=== PATIENT | female | born 1940 | race American Indian/Alaskan Native ===

== ENCOUNTER 2018-01-15 18:08 | Inpatient (IN) | payer MEDICARE, OTHER ==
[2018-01-15 18:14] VITALS: BMI 21.7
--- NOTE | 2018-01-15 18:37 | ED PDOC ---
Arrival/HPI - General Chief Complaint: Wound Check Time Seen by Provider: 01/15/18 18:22 Historian: Patient - History of Present Illness Narrative History of Present Illness (Text): 01/15/18 18:25 Otis Canela is a 77 year old female, whose past medical history includes hypertension and severe dementia, who presents to the Emergency department for further evaluation at the instruction of home health nurse for left buttock decubitis wound, worse past 2 days. Visiting home health nurse was evaluating patient and became alarmed after seeing wound, instructed patient to present to Emergency department for further evaluation. Patient's sister, who lives with patient and is her weigh box tender, states the wound now expresses with yellow/brown discharges, + foul odor, no gross blood. Patient has severe dementia, does not recognize location, has difficulty recognizing family members at times and does not know day and time. Patient has no new medical complaints: no fever/chills/ sweats, chest pain/shortness of breath/palpitations, abdominal pain/nausea/ vomiting, altered behavior, fall/trauma/sick contact; pt is here for further eval; pt's without other complaints. PMD: pt lives at home with sister, sister is POA Time/Duration: > week (left sacral wound worsened past 2 days) Symptom Onset: Gradual Symptom Course: Worsening Activities at Onset: Light Context: Home Past Medical History - Provider Review Nursing Documentation Reviewed: Yes - Travel History Have you recently traveled outside [place] w/in the past 3 mons?: No - Past History Past History: No Previous - Infectious Disease Hx of Infectious Diseases: None - Reproductive Menopause: Yes Currently : No - Cardiac Hx Hypertension: Yes - Musculoskeletal/Rheumatological Hx Osteoporosis: Yes - Psychiatric Hx Substance Use: No - Anesthesia Hx Anesthesia: No Family/Social History - Physician Review Nursing Documentation Reviewed: Yes Family/Social History: No Known Family HX Smoking Status: Unknown If Ever Smoked Hx Alcohol Use: No Hx Substance Use: No Hx Substance Use Treatment: No Allergies/Home Meds Allergies/Adverse Reactions: Allergies No Known Allergies Allergy (Verified 01/15/18 18:13) Review of Systems - Physician Review All systems were reviewed & negative as marked: Yes - Review of Systems Constitutional: Normal. absent: Fevers, Night Sweats Eyes: Normal ENT: Normal Respiratory: Normal. absent: SOB Cardiovascular: Normal. absent: Chest Pain, Palpitations Gastrointestinal: Normal. absent: Abdominal Pain, Diarrhea, Nausea, Vomiting Genitourinary Female: Normal Musculoskeletal: Normal. absent: Back Pain, Neck Pain Skin: Ulcer (left sacral decubitis wound, worsened past 2 days). absent: Normal Neurological: Normal Endocrine: Normal Hemo/Lymphatic: Normal Psychiatric: Normal Physical Exam - Physical Exam Narrative Physical Exam (Text): 01/15/18 18:36 General: alert/awake, GCS = 15, oriented x 1 (not to date/time), resting in bed , uncomfortable, cooperative, interactive; NAD Head: NC/AT; bi-temporal wasting EYE: PERRLA, EOMI, sclera anicteric, no nystagmus, no photophobia; visual field intact b/l Facial: WNL Oral: uvula/tongue are midline, no exudate/lesions, no drooling/stridor, no dysphonia; poor dentitions NECK: intact ROM, no midline tenderness, no nuchal rigidity, no meningeal signs ; no step off Chest: CTA b/l, no w/r/r; no tachypenia, no accessory muscle use noted Cardiac: +S1, +S2, no m/r/r, no tachycardia Abdominal: +BS, soft/nd/nt, thin patient; no masses/rebound/guarding/rigidity; no su's sign, no mcburney's point tenderness Extremities: intact ROM, strength 5/5 grossly intact in all limbs, neurovasc intact b/l; no romel's sign b/l, no pitting edema noted b/l BACK: no step off, no midline tenderness, NO crepitus, no gross deformities noted; Intact ROM SKIN: cap refill ~ 1 sec, + ulcerations noted to left gluteal region - 1) smaller/oval shape 1x3 cm, with eschar formation, NON-flutuant/induration/ tenderness, no surrounding skin erythema; 2) larger, near circular decubitus ulcer/wound with expressible pus/discharge, deep wound, 4.5cmx4.5cm, + yellow/ brown discharge, non-bloody, + foul smelling, no surrounding skin erythema noted ; no petechiae, no rashes; mild pallor NEURO: CNII-XII WNL, no facial asymmetries, no slurr speech, oriented x 1 (not to date/time) NIH stroke scale ~ 0 Psych: normal insight, normal affect; follows command with ease Vital Signs Reviewed: Yes Vital Signs Temp Pulse Resp BP Pulse Ox 01/15/18 19:35 98.2 F 67 18 126/73 100 01/15/18 18:14 98.4 F 74 18 128/61 97 Temperature: Afebrile Blood Pressure: Normal Pulse: Regular Respiratory Rate: Normal Appearance: Positive for: Well-Appearing, Non-Toxic, Comfortable. No: Ill- Appearing, Uncomfortable Pain Distress: None Mental Status: Positive for: other (dementia, oriented x 1 (not to date/time/ place)) - Systems Exam Head: Present: Atraumatic, Normocephalic Medical Decision Making ED Course and Treatment: 01/15/18 18:37 Impression: left gluteal ulcer/wound i have consider all the differential diagnosis regarding pt's chief medical complaints/clinical findings, including but are not limited to: wound infection A/P: left gluteal ulcer/wound -- Labs -- EKG -- X-Ray of chest -- Vancomycin -- Zosyn -- supportive care -- observe/reevaluation 01/15/18 19:35 pt remained at baseline mental status pt is comfortable family members are at bedside family/patient are made aware of pt's medical results agrees with admission 01/15/18 19:52 hospitalists, Dr Mora contacted, made aware, will see patient at bedside, agrees with ED mgt/txt, agrees with admission; would like wound culture ordered for further eval. Re-evaluation Time: 19:32 Reassessment Condition: Re-examined, Unchanged - Lab Interpretations Lab Results: 01/15/18 19:15 01/15/18 19:15 Lab Results 01/15/18 19:15: Sodium 138, Potassium 3.9, Chloride 97 L, Carbon Dioxide 35 H, Anion Gap 10, BUN 32 H, Creatinine 1.2, Est GFR ( Amer) 53, Est GFR (Non- Af Amer) 44, Random Glucose 98, Calcium 8.9, Phosphorus 3.2, Magnesium 2.3 H, Total Bilirubin 0.3, AST 38 H, ALT 45, Alkaline Phosphatase 95, Troponin I < 0.01, NT-Pro-B Natriuret Pep 507 H, Total Protein 6.8, Albumin 3.3, Globulin 3.5 , Albumin/Globulin Ratio 0.9 L 01/15/18 19:15: PT 11.0, INR 0.97, APTT 23.5 L 01/15/18 19:15: WBC 9.7 D, RBC 3.32 L, Hgb 10.1 L, Hct 30.1 L, MCV 90.7, MCH 30.4, MCHC 33.6, RDW 12.6, Plt Count 249, MPV 9.6, Gran % 70.5 H, Lymph % (Auto ) 21.3 L, [place] % (Auto) 8.0 H, Eos % (Auto) 0.1 L, Baso % (Auto) 0.1, Gran # 6.84 H, Lymph # (Auto) 2.1, [place] # (Auto) 0.8 H, Eos # (Auto) 0.0, Baso # (Auto ) 0.01, ESR Pending I have reviewed the lab results: Yes Interpretation: All labs normal - RAD Interpretation Narrative RAD Interpretations (Text): 01/15/18 20:38 pelvis xray - no acute fx/dislocation, as read by me cxr - NAD, as read by me Radiology Orders: 01/15/18 18:42 CHEST ONE VIEW [RAD] Stat PELVIS ONE VIEW [RAD] Stat Worm Grower: ED Physician - EKG Interpretation EKG Interpretation (Text): 01/15/18 19:50 NSR at 70 bpm, normal axis, no ectopy, no st-t changes, borderline EKG; unchanged compare with old ekg 09/2015 Interpreted by ED Physician: Yes Type: 12 lead EKG Comparison: Similar to previous EKG - Medication Orders Current Medication Orders: Discontinued Medications Vancomycin HCl (Vancomycin 1gm) 1 gm in 250 mls @ 167 mls/hr IVPB STAT STA PRN Reason: Protocol Stop: 01/15/18 20:10 Piperacillin Sod/Tazobactam Sod (Zosyn 3.375 In Ns 100ml) 100 mls @ 200 mls/hr IVPB STAT STA PRN Reason: Protocol Stop: 01/15/18 19:09 Last Admin: 01/15/18 19:30 Dose: 200 mls/hr eMAR Start Stop Document 01/15/18 19:30 RG (Rec: 01/15/18 19:35 RG [id number]) Intravenous Solution Start Date 01/15/18 Start Time 19:30 - Scribe Statement The provider has reviewed the documentation as recorded by the Scribe Myah Irizarry All medical record entries made by the Scribe were at my direction and personally dictated by me. I have reviewed the chart and agree that the record accurately reflects my personal performance of the history, physical exam, medical decision making, and the department course for this patient. I have also personally directed, reviewed, and agree with the discharge instructions and disposition. Disposition/Present on Arrival - Present on Arrival Any Indicators Present on Arrival: No History of DVT/PE: No History of Uncontrolled Diabetes: No Urinary Catheter: No History of Decub. Ulcer: No History Surgical Site Infection Following: None - Disposition Have Diagnosis and Disposition been Completed?: Yes Diagnosis: Decubitus ulcer, Wound abscess, At risk for sepsis Disposition: HOSPITALIZED Disposition Time: 19:31 Patient Plan: Admission Patient Problems: Current Active Problems Problem Status Onset At risk for sepsis Acute Decubitus ulcer Acute Wound abscess Acute Condition: STABLE
[2018-01-15] MEDS ORDERED: Piperacillin/Tazobact 3.375 gm 100 ML IVPB STA (18:40)
[2018-01-15] MEDS ORDERED: Vancomycin 1gm in NS 250ml 1 GM/250 ML BAG IVPB STA (18:41)
[2018-01-15 20:00] LABS: VENOUS BLOOD GAS BASE EXCESS 10.9 mmol/L (0.0-2.0); VENOUS BLOOD GAS PO2 35 mm/Hg (30-55); VENOUS BLOOD PH 7.41 (7.32-7.43)
[2018-01-15 20:02] LABS: BASO # 0.01 K/mm3 (0.0-2.0); BASO % 0.1 % (0.0-3.0); EOS % 0.1 % (1.5-5.0); GRAN # 6.84 (1.4-6.5); GRAN % 70.5 % (50.0-68.0); HEMOGLOBIN 10.1 g/dL (12.0-16.0); LYMPH # 2.1 (1.2-3.4); LYMPH % 21.3 % (22.0-35.0); MEAN CELL VOLUME 90.7 fl (80.0-105.0); MEAN CORPUSCULAR HEMOGLOBIN 30.4 pg (25.0-35.0); MEAN CORPUSCULAR HGB CONC 33.6 g/dl (31.0-37.0); MEAN PLATELET VOLUME 9.6 fl (7.0-11.0); MONO # 0.8 (0.1-0.6); RBC 3.32 10^6/uL (3.5-6.1); RED CELL DISTRIBUTION WIDTH 12.6 % (11.5-14.5); WHITE BLOOD COUNT 9.7 10^3/ul (4.5-11.0)
[2018-01-15 20:08] LABS: INR 0.97; PARTIAL THROMBOPLASTIN TIME 23.5 Seconds (25.1-36.5)
[2018-01-15 20:13] LABS: ALB/GLOB RATIO 0.9 (1.1-1.8); ALBUMIN 3.3 g/dL (3.0-4.8); ALT/SGPT 45 U/L (7-56); AST/SGOT 38 U/L (14-36); BLOOD UREA NITROGEN 32 mg/dL (7-21); CALCIUM 8.9 mg/dL (8.4-10.5); GFR NON-AFRICAN AMERICAN 44
[2018-01-15 20:21] LABS: B-TYPE NATRIURETIC PEPTIDE 507 pg/mL (0-450)
[2018-01-15 20:26] LABS: TROPONIN I < 0.01 ng/mL
--- NOTE | 2018-01-16 04:34 | CP.PCM.CON ---
History of Present Illness - History of Present Illness History of Present Illness: General Surgery Consult Note for Dr. Concepcion Reason for consult: Stage IV L gluteal decubitus ulcer 77 F with PMH that includes HTN and dementia [place] [facility] [place] of [place] gl[place]al [place]. Patient is accompanied by her sister who is POA. Patient lives with her and sister cares for the patient. History was obtained from the sister. She states that the wound began about 4 weeks ago. At that time, it was small and superficial. Over the last 2 weeks, the wound had gotten bigger and deeper. She reports that the wound had developed a foul odor and discharge over last 2 days. Visiting home health nurse was evaluating patient and became alarmed after seeing wound, instructed patient to present to Emergency department for further evaluation. Patient denies fever/chills, night sweats, chest pain, shortness of breath, palpitations, abdominal pain, nausea/vomiting, diarrhea, constipation, incontinence, numbness/tingling. PMD: PMH: HTN, Dementia, history of decubitus wounds Meds: Myosine, Memantine, Norvasc, Pravachol, Vitamin D Allergy: NKDA PSH: Denies FH: unknown Social: denies tobacco/EtOH//illicit drug use, lives at home with sister, sister is POA Review of Systems - Review of Systems All systems: reviewed and no additional remarkable complaints except (as per HPI ) Past Patient History - Infectious Disease Hx of Infectious Diseases: None - Past Social History Smoking Status: Never Smoked - CARDIAC Hx Hypertension: Yes - MUSCULOSKELETAL/RHEUMATOLOGICAL Hx Falls: No Hx Osteoporosis: Yes - PSYCHIATRIC Hx Substance Use: No - ANESTHESIA Hx Anesthesia: No Meds Allergies/Adverse Reactions: Allergies Allergy/AdvReac Type Severity Reaction Status Date / Time No Known Allergies Allergy Verified 01/15/18 18:13 - Medications Medications: Current Medications Piperacillin Sod/Tazobactam Sod (Zosyn) 3.375 gm IV Q8 VINNY PRN Reason: Protocol Vancomycin HCl (Vancomycin Inj) 0 gm IVPB Q12 VINNY PRN Reason: Protocol Physical Exam - Constitutional Appears: Non-toxic, No Acute Distress, Cachectic - Head Exam Head Exam: ATRAUMATIC, NORMOCEPHALIC - Eye Exam Eye Exam: EOMI Pupil Exam: PERRL - ENT Exam ENT Exam: Mucous Membranes Moist - Neck Exam Neck exam: Positive for: Normal Inspection - Respiratory Exam Respiratory Exam: NORMAL BREATHING PATTERN - Cardiovascular Exam Cardiovascular Exam: REGULAR RHYTHM - GI/Abdominal Exam GI & Abdominal Exam: Normal Bowel Sounds, Soft. absent: Distended, Guarding, Rebound, Tenderness - Extremities Exam Extremities exam: Positive for: normal capillary refill. Negative for: calf tenderness Additional comments: RIGHT heel with large blister - Back Exam Additional comments: L gluteal decubitus ulcer, stage IV 4 cm x 4 cm x 1.5 cm with 2 cm of undermining on superior portion of wound numerous healing wounds on back/sacral/buttocks bilaterally - Neurological Exam Neurological exam: Alert - Psychiatric Exam Psychiatric exam: Flat Affect - Skin Skin Exam: Dry, Warm Additional comments: L gluteal decubitus ulcer, stage IV 4 cm x 4 cm x 1.5 cm with 2 cm of undermining on superior portion of wound numerous healing wounds on back/sacral/buttocks bilaterally RIGHT heel blister - large Results - Vital Signs Recent Vital Signs: Last Vital Signs Temp 98.6 F 01/15/18 23:32 Pulse 72 01/15/18 23:32 Resp 18 01/15/18 23:32 BP 143/66 01/15/18 23:32 Pulse Ox 100 01/15/18 22:20 - Labs Result Diagrams: 01/15/18 19:15 01/15/18 19:15 Labs: Laboratory Results - last 24 hr 01/15/18 19:51 pO2 35 VBG pH 7.41 VBG pCO2 60.0 VBG HCO3 38.0 H VBG Total CO2 39.8 H VBG O2 Sat (Calc) 68.0 H VBG Base Excess 10.9 H VBG Potassium 4.2 Sodium 139.0 Chloride 101.0 Glucose 97 Lactate 1.5 FiO2 21.0 Venous Blood Potassium 4.2 Assessment & Plan - Assessment and Plan (Free Text) Assessment: 77F who presents with Stage IV L gluteal decubitus ulcer Plan: -Bedside debridement of Stage IV L gluteal decubitus ulcer -f/u wound culture -Emperic IV antibiotics -Apply heel protectors -Positioning Q2H -Air mattress -Swallow eval -Daily Wet to wet Dressing changes with Dakins solution -Possible wound vac placement -Further recommendations as per Dr. Jamey Hurley PGY2 - Date & Time Date: 01/16/18 Time: 05:00
[2018-01-16] MEDS ORDERED: SODIUM CHLORIDE IV ONE (04:36)
[2018-01-16] MEDS ORDERED: HEPARIN IV ONE (04:36)
[2018-01-16] MEDS ORDERED: Dakin's Topical 0.5%-Full Strength (480 ml) TOP ONE (05:00)
[2018-01-16] MEDS: Piperacillin/Tazobact 3.375 gm 100 ML IVPB SCH ×3 (05:41→21:14)
--- NOTE | 2018-01-16 05:59 | CP.PCM.HP ---
<Víctor Vieira - Last Filed: 01/16/18 08:01> History of Present Illness - History of Present Illness History of Present Illness: Víctor Vieira D.O., PGY1, HPI for Dr Olmstead 77 y/o female, with PMH of HTN, HLD, dementia presents to the ED for left buttock decubitis wound for 2 weeks, worse past 2 days. Visiting home health nurse was evaluating patient and got concerned, informed the patient to seek medical advice. Patient lives with her sister who takes care of her needs. A yellow/brown non bloody discharges, with foul odor was noticed by caregiver. Patient can ambulate but needs to change position while sleeping in bed. Patient has severe dementia, does not recognize location, has difficulty recognizing family members at times and does not know day and time. Patient denied fever,chills,sweats, palpitation, chest pain, cough, abdominal pain, N/V/ D, altered behavior,h/o fall, trauma. 12 points ROS reviewed PER hpi PMH: HTN, HLD, dementia PSH: denied Med : as per EMR ALL: NKDA SocH: lives at home with sister, sister is POA PMD: Present on Admission - Present on Admission Any Indicators Present on Admission: Yes Decubitus Ulcer Present: Yes (left buttock ) Decubitus Ulcer Stage: Unstageable Review of Systems - Review of Systems Systems not reviewed;Unavailable: Dementia, Altered Mental Status - Constitutional Constitutional: Weakness. absent: Chills, Fever, Night Sweats - EENT Eyes: absent: Diplopia, Sees Flashes, Loss of Vision Ears: absent: Ear Discharge, Disequilibrium Nose/Mouth/Throat: absent: Sinus Pressure, Dry Mouth, Dysphagia - Cardiovascular Cardiovascular: absent: Chest Pain, Edema, Leg Edema, Orthopnea - Respiratory Respiratory: absent: Cough, Dyspnea, Hemoptysis - Gastrointestinal Gastrointestinal: absent: Cramping, Diarrhea, Dyspepsia, Loose Stools - Genitourinary Genitourinary: absent: Pyuria, Nocturia, Urinary Hesitance, Urinary Urgency - Musculoskeletal Musculoskeletal: Arthralgias, Atrophy, Muscle Weakness - Integumentary Integumentary: Non-Healing Lesions, Skin Ulcer (left buttock ulcer. multiple healing wounds) - Neurological Neurological: absent: Numbness - Psychiatric Psychiatric: Abnormal Sleep Pattern, Confusion, Memory Loss - Endocrine Endocrine: Polyphagia, Polyuria - Hematologic/Lymphatic Hematologic: Easy Bleeding, Easy Bruising Past Patient History - Infectious Disease Hx of Infectious Diseases: None - Past Social History Smoking Status: Never Smoked - CARDIAC Hx Hypertension: Yes - MUSCULOSKELETAL/RHEUMATOLOGICAL Hx Falls: No Hx Osteoporosis: Yes - PSYCHIATRIC Hx Substance Use: No - ANESTHESIA Hx Anesthesia: No Meds Allergies/Adverse Reactions: Allergies Allergy/AdvReac Type Severity Reaction Status Date / Time No Known Allergies Allergy Verified 01/15/18 18:13 Physical Exam - Constitutional Appears: Well, No Acute Distress, Confused - Head Exam Head Exam: ATRAUMATIC, NORMAL INSPECTION, NORMOCEPHALIC - Eye Exam Eye Exam: EOMI, Normal appearance, PERRL Pupil Exam: NORMAL ACCOMODATION, PERRL - ENT Exam ENT Exam: Mucous Membranes Moist, Normal Exam - Neck Exam Neck exam: Positive for: Normal Inspection - Respiratory Exam Respiratory Exam: Clear to Auscultation Bilateral, NORMAL BREATHING PATTERN - Cardiovascular Exam Cardiovascular Exam: REGULAR RHYTHM, +S1, +S2 - GI/Abdominal Exam GI & Abdominal Exam: Normal Bowel Sounds, Soft. absent: Tenderness - Extremities Exam Extremities exam: Positive for: normal inspection - Expanded Lower Extremities Exam Left Hip exam: abrasion (left buttock ulcer. multiple healing wounds) - Back Exam Back exam: NORMAL INSPECTION - Neurological Exam Neurological exam: Altered (oriented x1) - Psychiatric Exam Psychiatric exam: Flat Affect - Expanded Skin Exam Expanded Type of lesion: Laceration Results - Vital Signs Recent Vital Signs: Last Vital Signs Temp 98.6 F 01/15/18 23:32 Pulse 72 01/15/18 23:32 Resp 18 01/15/18 23:32 BP 143/66 01/15/18 23:32 Pulse Ox 100 01/15/18 22:20 - Labs Result Diagrams: 01/15/18 19:15 01/15/18 19:15 Labs: Laboratory Results - last 24 hr 01/15/18 19:51 pO2 35 VBG pH 7.41 VBG pCO2 60.0 VBG HCO3 38.0 H VBG Total CO2 39.8 H VBG O2 Sat (Calc) 68.0 H VBG Base Excess 10.9 H VBG Potassium 4.2 Sodium 139.0 Chloride 101.0 Glucose 97 Lactate 1.5 FiO2 21.0 Venous Blood Potassium 4.2 Assessment & Plan - Assessment and Plan (Free Text) Assessment: 77 y/o female, with PMH of HTN, HLD, dementia presents to the ED for left buttock decubitis wound for 2 weeks draining pus, foul odor. Plan: Left bottock ulcer Pelvic x ray CRP would culture blood culture wound care continue vanco & zosyn surgery consulted Dr Kenton Concepcion ID consulted Dr Retana Turn&position q2h IVF NS@50 cc/hr zinc sulfate HTN: Continue home meds amlodipine Continue home meds atorvastatin BP monitor night monitor avoid diuretics CXR EKG Dementia Continue home meds Primidone 50 TID continue vitamin D PT eval/treat. deconditioning Fall precautions GI ppx pantoprazole 40 DVT ppx heparin 5000U q 12 h swallow screen NPO till passing swallow screen test Case reviewed and discussed with Dr Ishan Vieira D.O., PGY1, - Date & Time Date: 01/16/18 Time: 17:00 <Kishor Olmstead - Last Filed: 01/16/18 19:04> Results - Vital Signs Recent Vital Signs: Last Vital Signs Temp 98.7 F 01/16/18 14:14 Pulse 74 01/16/18 14:14 Resp 18 01/16/18 14:14 BP 104/54 L 01/16/18 14:14 Pulse Ox 99 01/16/18 14:14 - Labs Result Diagrams: 01/16/18 07:50 01/16/18 07:50 Labs: Laboratory Results - last 24 hr 01/15/18 01/16/18 01/16/18 19:51 07:50 07:50 WBC 9.6 RBC 3.19 L Hgb 9.7 L Hct 28.7 L MCV 90.0 MCH 30.4 MCHC 33.8 RDW 12.4 Plt Count 245 MPV 9.1 Gran % 72.8 H Lymph % (Auto) 20.9 L [place] % (Auto) 5.7 Eos % (Auto) 0.4 L Baso % (Auto) 0.2 Gran # 6.99 H Lymph # (Auto) 2.0 [place] # (Auto) 0.6 Eos # (Auto) 0.0 Baso # (Auto) 0.02 pO2 35 VBG pH 7.41 VBG pCO2 60.0 VBG HCO3 38.0 H VBG Total CO2 39.8 H VBG O2 Sat (Calc) 68.0 H VBG Base Excess 10.9 H VBG Potassium 4.2 Sodium 139.0 142 Chloride 101.0 101 Glucose 97 Lactate 1.5 FiO2 21.0 Potassium 3.6 Carbon Dioxide 32 Anion Gap 13 BUN 26 H Creatinine 1.2 Est GFR ( Amer) 53 Est GFR (Non-Af Amer) 44 Random Glucose 102 Calcium 8.8 Total Bilirubin 0.4 AST 35 ALT 45 Alkaline Phosphatase 94 Total Protein 6.5 Albumin 3.2 Globulin 3.3 Albumin/Globulin Ratio 1.0 L Venous Blood Potassium 4.2 Attending/Attestation - Attestation I have personally seen and examined this patient.: Yes I have fully participated in the care of the patient.: Yes I have reviewed all pertinent clinical information: Yes
[2018-01-16] MEDS ORDERED: Piperacillin/Tazobact 2.25 gm Inj IV SCH (06:00)
[2018-01-16 08:20] LABS: ALBUMIN 3.2 g/dL (3.0-4.8); CALCIUM 8.8 mg/dL (8.4-10.5)
[2018-01-16 08:26] LABS: BASO # 0.02 K/mm3 (0.0-2.0); BASO % 0.2 % (0.0-3.0); EOS % 0.4 % (1.5-5.0); GRAN # 6.99 (1.4-6.5); GRAN % 72.8 % (50.0-68.0); HEMOGLOBIN 9.7 g/dL (12.0-16.0); LYMPH % 20.9 % (22.0-35.0); MEAN CORPUSCULAR HEMOGLOBIN 30.4 pg (25.0-35.0); MEAN CORPUSCULAR HGB CONC 33.8 g/dl (31.0-37.0); MEAN PLATELET VOLUME 9.1 fl (7.0-11.0); MONO # 0.6 (0.1-0.6); MONO % 5.7 % (1.0-6.0); RBC 3.19 10^6/uL (3.5-6.1); RED CELL DISTRIBUTION WIDTH 12.4 % (11.5-14.5); WHITE BLOOD COUNT 9.6 10^3/ul (4.5-11.0)
--- NOTE | 2018-01-16 08:54 | CARD ---
APPROVED REPORT Date of service: 01/15/2018 EKG Measurement Heart [id number] <Conclusion> Normal sinus rhythm Normal ECG
[2018-01-16] MEDS ORDERED: Vancomycin 1 g Inj IVPB SCH (10:00)
[2018-01-16] MEDS ORDERED: Cholecalciferol 1,000 INTLU TAB PO SCH (10:00)
[2018-01-16] MEDS: Linezolid 600 mg in D5W 300 ml 600 MG/300 ML BAG IVPB SCH ×2 (10:03→22:24)
[2018-01-16] MEDS: Cholecalciferol 1,000 INTLU TAB PO SCH (10:03)
--- NOTE | 2018-01-16 13:22 | RAD ---
Date of service: 01/15/2018 PROCEDURE: Radiographs of the pelvis. HISTORY: left upper/mid gluteal wound/ pus COMPARISON: Comparison made with CT scan chest abdomen pelvis dated 07/04/2016 which imaged the soft tissues of the pelvis including the gluteal regions. FINDINGS: BONES: Pelvic Bones: Unremarkable. Hips: Grossly unremarkable. JOINTS: Sacroiliac Joints: Unremarkable. Pubic Symphysis: Unremarkable. OTHER FINDINGS: Note that the us loops feels soft tissues are partially obscured by overlying bowel related artifact. If further evaluation is required to assess for subcutaneous abscess or cellulitis, consider followup CT scan of the pelvis. Mild degenerative spondylosis lumbosacral spine. IMPRESSION: No evidence of acute displaced fracture nor dislocation. Note that the soft tissues of both gluteal regions are partially obscured by overlying bowel related artifact. If subcutaneous abscess or cellulitis suspected consider followup CT scan
--- NOTE | 2018-01-16 13:23 | RAD ---
Date of service: 01/15/2018 PROCEDURE: CHEST RADIOGRAPH, 1 VIEW HISTORY: sepsis r/o COMPARISON: Comparison chest dated 09/26/2015 FINDINGS: LUNGS: Clear. PLEURA: No pneumothorax or pleural fluid seen. CARDIOVASCULAR: Normal. OSSEOUS STRUCTURES: Mild multilevel degenerative spondylosis of the thoracic spine VISUALIZED UPPER ABDOMEN: Normal. OTHER FINDINGS: None. IMPRESSION: No active disease.
--- NOTE | 2018-01-16 16:38 | CP.PCM.CON ---
History of Present Illness - History of Present Illness History of Present Illness: 77 year old female with PMH of HTN, dyslipidemia, dementia was brought in by family because of worsening left buttock ulcer which started about 4 weeks ago. It initially started as a small ulcer but has slowly been worsening. The patient has a visiting nurse, and it was noted that the ulcer has gotten deeper and has started to bring out purulent material. There is no note of fevers, no vomiting, no loss of consciousness, no diarrhea. Full ROS is unobtainable because of the patient's dementia. Infectious Diseases consult is requested to further evaluate and manage. Review of Systems - Review of Systems All systems: reviewed and no additional remarkable complaints except (as per HPI ) Past Patient History - Infectious Disease Hx of Infectious Diseases: None - Past Social History Smoking Status: Never Smoked - CARDIAC Hx Hypertension: Yes - MUSCULOSKELETAL/RHEUMATOLOGICAL Hx Falls: No Hx Osteoporosis: Yes - PSYCHIATRIC Hx Substance Use: No - ANESTHESIA Hx Anesthesia: No Meds Allergies/Adverse Reactions: Allergies Allergy/AdvReac Type Severity Reaction Status Date / Time No Known Allergies Allergy Verified 01/15/18 18:13 - Medications Medications: Current Medications Amlodipine Besylate (Norvasc) 5 mg PO DAILY [facility] Ascorbic Acid (Vitamin C 500 Mg Tab) 500 mg PO DAILY [facility] Atorvastatin Calcium (Lipitor) 10 mg PO DIN [facility] Cholecalciferol (Vitamin D) 1,000 intlu PO DAILY [facility] Heparin Sodium (Porcine) (Heparin) 5,000 units SC Q12 [facility] PRN Reason: Protocol Piperacillin Sod/Tazobactam Sod (Zosyn 3.375 In Ns 100ml) 100 mls @ 200 mls/hr IVPB Q8 [facility] Last Admin: 01/16/18 05:41 Dose: 200 mls/hr Vancomycin HCl (Vancomycin 500mg In Ns) 500 mg in 100 mls @ 200 mls/hr IVPB DAILY [facility] Memantine (Namenda) 5 mg PO DAILY [facility] Pantoprazole Sodium (Protonix Ec Tab) 40 mg PO 0600 [facility] Primidone (Mysoline) 50 mg PO TID [facility] Zinc Sulfate (Zinc Sulfate 220 Mg Cap) 220 mg PO DAILY [facility] Physical Exam - Constitutional Appears: Non-toxic, No Acute Distress, Chronically Ill - Head Exam Head Exam: NORMAL INSPECTION - ENT Exam ENT Exam: Mucous Membranes Moist - Neck Exam Neck exam: Negative for: Meningismus - Respiratory Exam Respiratory Exam: Decreased Breath Sounds - Cardiovascular Exam Cardiovascular Exam: +S1, +S2 - GI/Abdominal Exam GI & Abdominal Exam: Soft. absent: Tenderness - Back Exam Additional comments: left buttock with dressings in place Results - Vital Signs Recent Vital Signs: Last Vital Signs Temp 98 F 01/16/18 07:49 Pulse 76 01/16/18 07:49 Resp 18 01/16/18 07:49 BP 130/79 01/16/18 07:49 Pulse Ox 98 01/16/18 07:49 - Labs Result Diagrams: 01/16/18 07:50 01/16/18 07:50 Labs: Laboratory Results - last 24 hr 01/15/18 19:51 pO2 35 VBG pH 7.41 VBG pCO2 60.0 VBG HCO3 38.0 H VBG Total CO2 39.8 H VBG O2 Sat (Calc) 68.0 H VBG Base Excess 10.9 H VBG Potassium 4.2 Sodium 139.0 Chloride 101.0 Glucose 97 Lactate 1.5 FiO2 21.0 Venous Blood Potassium 4.2 Assessment & Plan - Assessment and Plan (Free Text) Plan: Assessment Infected stage 3 to 4 decubitus ulcer on left buttock HTN dyslipidemia dementia Plan started Zyvox and Zosyn pending blood and wound cx; patient will need debridement by Surgery will monitor clinically
[2018-01-17] MEDS: Piperacillin/Tazobact 3.375 gm 100 ML IVPB SCH ×3 (05:33→22:10)
[2018-01-17] MEDS: Pantoprazole 40 mg EC Tab PO SCH (05:33)
[2018-01-17 07:35] LABS: ALB/GLOB RATIO 0.9 (1.1-1.8); ALBUMIN 2.8 g/dL (3.0-4.8); CALCIUM 8.3 mg/dL (8.4-10.5)
--- NOTE | 2018-01-17 07:41 | CP.PCM.PN ---
Subjective - Date & Time of Evaluation Date of Evaluation: 01/17/18 Time of Evaluation: 07:38 - Subjective Subjective: General Surgery Progress Note for Dr. Concepcion 77F seen and evaluated at bedside this morning with family member present. Patient resting comfortably in bed. Dressing was changed. Complains of minimal pain near debridement site. Tolerating diet. Denies f/c, n/v/d, SOB, CP, or urinary symptoms. Objective - Vital Signs/Intake and Output Vital Signs (last 24 hours): Temp Pulse Resp BP Pulse Ox 99.2 F 73 18 105/57 L 98 01/16/18 21:26 01/16/18 21:26 01/16/18 21:26 01/16/18 21:26 01/16/18 21:26 Intake and Output: 01/17/18 01/17/18 06:59 18:59 Intake Total 360 Balance 360 - Medications Medications: Current Medications Amlodipine Besylate (Norvasc) 5 mg PO DAILY [facility] Last Admin: 01/16/18 10:11 Dose: Not Given Ascorbic Acid (Vitamin C 500 Mg Tab) 500 mg PO DAILY [facility] Last Admin: 01/16/18 10:02 Dose: 500 mg Atorvastatin Calcium (Lipitor) 10 mg PO DIN [facility] Last Admin: 01/16/18 17:31 Dose: 10 mg Cholecalciferol (Vitamin D) 1,000 intlu PO DAILY [facility] Last Admin: 01/16/18 10:03 Dose: 1,000 intlu Heparin Sodium (Porcine) (Heparin) 5,000 units SC Q12 [facility] PRN Reason: Protocol Last Admin: 01/16/18 21:14 Dose: 5,000 units Piperacillin Sod/Tazobactam Sod (Zosyn 3.375 In Ns 100ml) 100 mls @ 200 mls/hr IVPB Q8 [facility] Stop: 01/23/18 06:01 Last Admin: 01/17/18 05:33 Dose: 200 mls/hr Linezolid (Zyvox 600mg/300ml D5w) 600 mg in 300 mls @ 200 mls/hr IVPB Q12 [facility] PRN Reason: Protocol Stop: 01/23/18 10:01 Last Admin: 01/16/18 22:24 Dose: 200 mls/hr Memantine (Namenda) 5 mg PO DAILY [facility] Last Admin: 01/16/18 10:02 Dose: 5 mg Pantoprazole Sodium (Protonix Ec Tab) 40 mg PO 0600 [facility] Last Admin: 01/17/18 05:33 Dose: 40 mg Primidone (Mysoline) 50 mg PO TID [facility] Last Admin: 01/16/18 17:31 Dose: 50 mg Zinc Sulfate (Zinc Sulfate 220 Mg Cap) 220 mg PO DAILY [facility] Last Admin: 01/16/18 10:02 Dose: 220 mg - Labs Labs: 01/16/18 07:50 01/17/18 06:30 PT 11.0 SECONDS (9.4-12.5) 01/15/18 19:15 INR 0.97 01/15/18 19:15 APTT 23.5 Seconds (25.1-36.5) L 01/15/18 19:15 - Constitutional Appears: Well, Non-toxic, No Acute Distress - Head Exam Head Exam: ATRAUMATIC, NORMAL INSPECTION, NORMOCEPHALIC - ENT Exam ENT Exam: Mucous Membranes Dry - Respiratory Exam Respiratory Exam: Clear to Ausculation Bilateral, NORMAL BREATHING PATTERN - Cardiovascular Exam Cardiovascular Exam: REGULAR RHYTHM, +S1, +S2. absent: Murmur - GI/Abdominal Exam GI & Abdominal Exam: Soft, Normal Bowel Sounds. absent: Tenderness - Neurological Exam Neurological Exam: Alert, Awake - Skin Additional comments: Left gluteal decubitus ulcer dressing c/d/i Assessment and Plan - Assessment and Plan (Free Text) Assessment: 77F w/ Stage 4 L gluteal decubitus ulcer Plan: -f/u wound culture -Emperic IV antibiotics -Apply heel protectors -Positioning Q2H -Air mattress -Daily Wet to wet Dressing changes with Dakins solution -Wound vac placement -Further recommendations as per Dr. Jamey Escobedo PGY1
[2018-01-17 08:12] LABS: BASO # 0.02 K/mm3 (0.0-2.0); BASO % 0.2 % (0.0-3.0); EOS # 0.1 (0.0-0.7); EOS % 0.8 % (1.5-5.0); GRAN # 5.08 (1.4-6.5); GRAN % 58.1 % (50.0-68.0); HEMOGLOBIN 8.9 g/dL (12.0-16.0); LYMPH # 2.9 (1.2-3.4); LYMPH % 33.4 % (22.0-35.0); MEAN CELL VOLUME 90.3 fl (80.0-105.0); MEAN CORPUSCULAR HEMOGLOBIN 30.7 pg (25.0-35.0); MEAN PLATELET VOLUME 9.6 fl (7.0-11.0); MONO # 0.7 (0.1-0.6); MONO % 7.5 % (1.0-6.0); RBC 2.9 10^6/uL (3.5-6.1); RED CELL DISTRIBUTION WIDTH 12.4 % (11.5-14.5); WHITE BLOOD COUNT 8.8 10^3/ul (4.5-11.0)
[2018-01-17] MEDS: Cholecalciferol 1,000 INTLU TAB PO SCH (09:56)
[2018-01-17] MEDS: Linezolid 600 mg in D5W 300 ml 600 MG/300 ML BAG IVPB SCH ×2 (09:56→22:25)
[2018-01-17] MEDS ORDERED: Vancomycin 1 g Inj IVPB SCH (10:00)
[2018-01-17] MEDS ORDERED: Vancomycin 500mg in NS 500 MG/100 ML BAG IVPB SCH (10:00)
[2018-01-17 10:01] LABS: IRON 55 ug/dL (45-180)
--- NOTE | 2018-01-17 10:07 | CP.PCM.PN ---
<mAbrosio Tipton - Last Filed: 01/17/18 20:40> Subjective - Date & Time of Evaluation Date of Evaluation: 01/17/18 Time of Evaluation: 10:05 - Subjective Subjective: Ambrosio Tipton DO PGY1 Internal Medicine [employer] - Hospital Progress Note Patient was seen and examined at bedside this AM. No acute events/ issues reported overnight. Patient voicing no complaints or problems at this time. Family is at bedside; and notified family plans for placement of wound-vac by surgery. Family was also notified that porter sample case will be assisting w/ arranging patient disposition. Patient denies any cp, sob, cough, abd pain, n/v/d/c 12 system ROS otherwise negative. Objective - Vital Signs/Intake and Output Vital Signs (last 24 hours): Temp Pulse Resp BP Pulse Ox 97.8 F 68 18 96/54 L 97 01/17/18 07:59 01/17/18 07:59 01/17/18 07:59 01/17/18 07:59 01/17/18 07:59 Intake and Output: 01/17/18 01/17/18 06:59 18:59 Intake Total 360 Balance 360 - Medications Medications: Current Medications Amlodipine Besylate (Norvasc) 5 mg PO DAILY [facility] Last Admin: 01/16/18 10:11 Dose: Not Given Ascorbic Acid (Vitamin C 500 Mg Tab) 500 mg PO DAILY [facility] Last Admin: 01/17/18 09:56 Dose: 500 mg Atorvastatin Calcium (Lipitor) 10 mg PO DIN [facility] Last Admin: 01/16/18 17:31 Dose: 10 mg Cholecalciferol (Vitamin D) 1,000 intlu PO DAILY [facility] Last Admin: 01/17/18 09:56 Dose: 1,000 intlu Heparin Sodium (Porcine) (Heparin) 5,000 units SC Q12 [facility] PRN Reason: Protocol Last Admin: 01/17/18 09:55 Dose: 5,000 units Piperacillin Sod/Tazobactam Sod (Zosyn 3.375 In Ns 100ml) 100 mls @ 200 mls/hr IVPB Q8 [facility] Stop: 01/23/18 06:01 Last Admin: 01/17/18 05:33 Dose: 200 mls/hr Linezolid (Zyvox 600mg/300ml D5w) 600 mg in 300 mls @ 200 mls/hr IVPB Q12 [facility] PRN Reason: Protocol Stop: 01/23/18 10:01 Last Admin: 01/17/18 09:56 Dose: 200 mls/hr Memantine (Namenda) 5 mg PO DAILY [facility] Last Admin: 01/17/18 09:55 Dose: 5 mg Pantoprazole Sodium (Protonix Ec Tab) 40 mg PO 0600 [facility] Last Admin: 01/17/18 05:33 Dose: 40 mg Primidone (Mysoline) 50 mg PO TID [facility] Last Admin: 01/17/18 09:55 Dose: 50 mg Zinc Sulfate (Zinc Sulfate 220 Mg Cap) 220 mg PO DAILY [facility] Last Admin: 01/17/18 09:56 Dose: 220 mg - Labs Labs: 01/17/18 07:00 01/17/18 06:30 PT 11.0 SECONDS (9.4-12.5) 01/15/18 19:15 INR 0.97 01/15/18 19:15 APTT 23.5 Seconds (25.1-36.5) L 01/15/18 19:15 Physical Exam - Constitutional Appears: Well, No Acute Distress, Confused - Head Exam Head Exam: ATRAUMATIC, NORMAL INSPECTION, NORMOCEPHALIC - Eye Exam Eye Exam: EOMI, Normal appearance, PERRL Pupil Exam: NORMAL ACCOMODATION, PERRL - ENT Exam ENT Exam: Mucous Membranes Moist, Normal Exam - Neck Exam Neck exam: Positive for: Normal Inspection - Respiratory Exam Respiratory Exam: Clear to Auscultation Bilateral, NORMAL BREATHING PATTERN - Cardiovascular Exam Cardiovascular Exam: REGULAR RHYTHM, +S1, +S2 - GI/Abdominal Exam GI & Abdominal Exam: Normal Bowel Sounds, Soft. absent: Tenderness - Extremities Exam Extremities exam: Positive for: normal inspection - Expanded Lower Extremities Exam Hip exam: L buttock; multiple ulcers in different stages of healing; prominent stage 4 decubtius ulcer on L gluteus with dressing CDI; - Back Exam Back exam: NORMAL INSPECTION - Neurological Exam Neurological exam: Patient awake alert oriented x 3 - Psychiatric Exam Psychiatric exam: Flat Affect Assessment and Plan - Assessment and Plan (Free Text) Assessment: 77 y/o female, with PMH of HTN, HLD, dementia presents to the ED for active Stage 4 L gluteal decubitus ulcer: Plan: Stage 4 L gluteal decubtius ulcer No Bony involvement on Xray ESR/CRP elevated Afebrile; WBC- WNL Blood Cx - negative x2 @48H Wound Culture -GNR + GPC in clusters; sensitivities pending C/w Abx Linezolid + Zosyn Day 2 Turn + Reposition Q2H Wound care/ Wound vac management as per surgery's reccs Surgery Following appreciate recommendations ID Following appreciate recommendations Anemia: Normocytic / Retic count wnl Fe normal / TIBC Low / Ferritin Elevated / B12 normal/ Folate normal 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 Osbaldo Tipton DO PGY1 Internal Medicine [employer] - Pager [phone] <Jarrett Roblero - Last Filed: 02/08/18 13:35> Objective - Vital Signs/Intake and Output Vital Signs (last 24 hours): Temp Pulse Resp BP Pulse Ox 98 F 74 20 108/49 L 98 01/19/18 14:00 01/19/18 14:00 01/19/18 14:00 01/19/18 14:00 01/19/18 14:00 - Labs Labs: 01/19/18 06:20 01/19/18 06:20 PT 11.0 SECONDS (9.4-12.5) 01/15/18 19:15 INR 0.97 01/15/18 19:15 APTT 23.5 Seconds (25.1-36.5) L 01/15/18 19:15 Attending/Attestation - Attestation I have personally seen and examined this patient.: Yes I have fully participated in the care of the patient.: Yes I have reviewed all pertinent clinical information, including history, physical exam and plan: Yes Notes (Text): 02/08/18 13:34 Medical record note made by the resident after discussion with my direction and input after the patient was personally seen and examined by me. I have reviewed the chart and agree that the record accurately reflects by personal performance of the history, physical exam, data review, and medical decision-making, in the course for the patient. I have also personally directed the plan of care. 77 F with PMH of dementia and anemia with infected Stage 4 Left gluteal decubitus ulcer, eyal is planning wound vac today, Patient is on IV antibiotics as per ID , we will follow up cultures.
[2018-01-17 10:17] LABS: % IRON SATURATION 34 % (20-55); TOTAL IRON BINDING CAPACITY 161 ug/dL (265-497)
[2018-01-17 12:46] LABS: FOLATE 7.7 ng/mL
--- NOTE | 2018-01-17 17:00 | CP.PCM.PN ---
Subjective - Date & Time of Evaluation Date of Evaluation: 01/17/18 Time of Evaluation: 12:05 - Subjective Subjective: Comfortable in bed, no fevers. Objective - Vital Signs/Intake and Output Vital Signs (last 24 hours): Temp Pulse Resp BP Pulse Ox 98.7 F 74 18 104/54 L 99 01/16/18 14:14 01/16/18 14:14 01/16/18 14:14 01/16/18 14:14 01/16/18 14:14 - Medications Medications: Current Medications Amlodipine Besylate (Norvasc) 5 mg PO DAILY [facility] Last Admin: 01/16/18 10:11 Dose: Not Given Ascorbic Acid (Vitamin C 500 Mg Tab) 500 mg PO DAILY [facility] Last Admin: 01/16/18 10:02 Dose: 500 mg Atorvastatin Calcium (Lipitor) 10 mg PO DIN [facility] Cholecalciferol (Vitamin D) 1,000 intlu PO DAILY [facility] Last Admin: 01/16/18 10:03 Dose: 1,000 intlu Heparin Sodium (Porcine) (Heparin) 5,000 units SC Q12 [facility] PRN Reason: Protocol Last Admin: 01/16/18 10:03 Dose: 5,000 units Piperacillin Sod/Tazobactam Sod (Zosyn 3.375 In Ns 100ml) 100 mls @ 200 mls/hr IVPB Q8 [facility] Stop: 01/23/18 06:01 Last Admin: 01/16/18 14:06 Dose: 200 mls/hr Linezolid (Zyvox 600mg/300ml D5w) 600 mg in 300 mls @ 200 mls/hr IVPB Q12 [facility] PRN Reason: Protocol Stop: 01/23/18 10:01 Last Admin: 01/16/18 10:03 Dose: 200 mls/hr Memantine (Namenda) 5 mg PO DAILY [facility] Last Admin: 01/16/18 10:02 Dose: 5 mg Pantoprazole Sodium (Protonix Ec Tab) 40 mg PO 0600 [facility] Primidone (Mysoline) 50 mg PO TID [facility] Last Admin: 01/16/18 14:06 Dose: 50 mg Zinc Sulfate (Zinc Sulfate 220 Mg Cap) 220 mg PO DAILY [facility] Last Admin: 01/16/18 10:02 Dose: 220 mg - Labs Labs: 01/16/18 07:50 08/11/18 07:50 PT 11.0 SECONDS (9.4-12.5) 01/15/18 19:15 INR 0.97 01/15/18 19:15 APTT 23.5 Seconds (25.1-36.5) L 01/15/18 19:15 - Constitutional Appears: Chronically Ill - Head Exam Head Exam: NORMAL INSPECTION - Respiratory Exam Respiratory Exam: Decreased Breath Sounds - Cardiovascular Exam Cardiovascular Exam: +S1, +S2 - GI/Abdominal Exam GI & Abdominal Exam: Soft. absent: Tenderness Additional comments: left buttock with dressings in place Assessment and Plan - Assessment and Plan (Free Text) Plan: Assessment Infected stage 3 to 4 decubitus ulcer on left buttock, S/P bedside debridement HTN dyslipidemia dementia Plan continue Zyvox and Zosyn day 2 pending final blood and wound cx results; follow upo further recommendations by Surgery will continue to monitor clinically
[2018-01-18] MEDS: Piperacillin/Tazobact 3.375 gm 100 ML IVPB SCH ×3 (06:07→21:04)
[2018-01-18] MEDS: Pantoprazole 40 mg EC Tab PO SCH (06:09)
[2018-01-18 07:03] LABS: BASO # 0.01 K/mm3 (0.0-2.0); BASO % 0.1 % (0.0-3.0); EOS # 0.1 (0.0-0.7); EOS % 0.6 % (1.5-5.0); GRAN # 4.39 (1.4-6.5); GRAN % 56.2 % (50.0-68.0); HEMOGLOBIN 8.5 g/dL (12.0-16.0); LYMPH # 2.9 (1.2-3.4); LYMPH % 36.8 % (22.0-35.0); MEAN CELL VOLUME 89.8 fl (80.0-105.0); MEAN CORPUSCULAR HGB CONC 33.5 g/dl (31.0-37.0); MEAN PLATELET VOLUME 9.3 fl (7.0-11.0); MONO # 0.5 (0.1-0.6); MONO % 6.3 % (1.0-6.0); RBC 2.83 10^6/uL (3.5-6.1); RED CELL DISTRIBUTION WIDTH 12.4 % (11.5-14.5); WHITE BLOOD COUNT 7.8 10^3/ul (4.5-11.0)
[2018-01-18 07:14] LABS: ALB/GLOB RATIO 0.8 (1.1-1.8); ALBUMIN 2.6 g/dL (3.0-4.8); CALCIUM 8.2 mg/dL (8.4-10.5)
--- NOTE | 2018-01-18 09:10 | CP.PCM.PN ---
Subjective - Date & Time of Evaluation Date of Evaluation: 01/18/18 Time of Evaluation: 07:30 - Subjective Subjective: Pt seen and evaluated at bedside this am with family member present. Patient resting comfortably in bed. Denies pain. Tolerating diet. No acute events reported overnight. Wound vac placed yesterday. Denies f/c, n/v/d, SOB, CP, or urinary symptoms. Objective - Vital Signs/Intake and Output Vital Signs (last 24 hours): Temp Pulse Resp BP Pulse Ox 97.8 F 62 16 115/61 97 01/18/18 06:00 01/18/18 06:00 01/18/18 06:00 01/18/18 06:00 01/18/18 06:00 Intake and Output: 01/18/18 01/18/18 06:59 18:59 Intake Total 360 Balance 360 - Medications Medications: Current Medications Amlodipine Besylate (Norvasc) 5 mg PO DAILY [facility] Last Admin: 01/17/18 10:10 Dose: Not Given Ascorbic Acid (Vitamin C 500 Mg Tab) 500 mg PO DAILY [facility] Last Admin: 01/17/18 09:56 Dose: 500 mg Atorvastatin Calcium (Lipitor) 10 mg PO DIN [facility] Last Admin: 01/17/18 17:07 Dose: 10 mg Cholecalciferol (Vitamin D) 1,000 intlu PO DAILY [facility] Last Admin: 01/17/18 09:56 Dose: 1,000 intlu Heparin Sodium (Porcine) (Heparin) 5,000 units SC Q12 [facility] PRN Reason: Protocol Last Admin: 01/17/18 22:24 Dose: 5,000 units Piperacillin Sod/Tazobactam Sod (Zosyn 3.375 In Ns 100ml) 100 mls @ 200 mls/hr IVPB Q8 [facility] Stop: 01/23/18 06:01 Last Admin: 01/18/18 06:07 Dose: 200 mls/hr Linezolid (Zyvox 600mg/300ml D5w) 600 mg in 300 mls @ 200 mls/hr IVPB Q12 [facility] PRN Reason: Protocol Stop: 01/23/18 10:01 Last Admin: 01/17/18 22:25 Dose: 200 mls/hr Memantine (Namenda) 5 mg PO DAILY [facility] Last Admin: 01/17/18 09:55 Dose: 5 mg Pantoprazole Sodium (Protonix Ec Tab) 40 mg PO 0600 [facility] Last Admin: 01/18/18 06:09 Dose: 40 mg Primidone (Mysoline) 50 mg PO TID [facility] Last Admin: 01/17/18 17:07 Dose: 50 mg Zinc Sulfate (Zinc Sulfate 220 Mg Cap) 220 mg PO DAILY [facility] Last Admin: 01/17/18 09:56 Dose: 220 mg - Labs Labs: 01/18/18 06:45 01/18/18 06:45 PT 11.0 SECONDS (9.4-12.5) 01/15/18 19:15 INR 0.97 01/15/18 19:15 APTT 23.5 Seconds (25.1-36.5) L 01/15/18 19:15 - Constitutional Appears: Non-toxic, No Acute Distress, Older Than Stated Age - Head Exam Head Exam: ATRAUMATIC, NORMAL INSPECTION - Eye Exam Eye Exam: EOMI, Normal appearance, PERRL - ENT Exam ENT Exam: Mucous Membranes Moist - Neck Exam Neck Exam: Full ROM, Normal Inspection - Respiratory Exam Respiratory Exam: Clear to Ausculation Bilateral, NORMAL BREATHING PATTERN - Cardiovascular Exam Cardiovascular Exam: REGULAR RHYTHM, +S1, +S2 - GI/Abdominal Exam GI & Abdominal Exam: Soft, Normal Bowel Sounds - Extremities Exam Extremities Exam: Full ROM, Normal Capillary Refill, Normal Inspection - Neurological Exam Neurological Exam: Alert, Awake Additional comments: Oriented x2 - Skin Additional comments: Left gluteal decubitus ulcer dressing c/d/i with wound vac placed Assessment and Plan - Assessment and Plan (Free Text) Assessment: 77 y o F w/ Stage 4 L gluteal decubitus ulcer Plan: -F/u wound culture -Empiric IV antibiotics: zyvox, zosyn -Apply heel protectors -Positioning Q2H -Air mattress -Daily Wet to wet Dressing changes with Dakins solution -S/p wound vac placement yesterday, next change 01/20 -Further recommendations as per Dr. Jamey Bobo, PGY-1
[2018-01-18] MEDS: Linezolid 600 mg in D5W 300 ml 600 MG/300 ML BAG IVPB SCH ×2 (09:23→22:45)
[2018-01-18] MEDS: Cholecalciferol 1,000 INTLU TAB PO SCH (09:23)
--- NOTE | 2018-01-18 17:57 | PN ---
Copied To: Kenton Concepcion MD Attending MD: Kenton Concepcion MD DATE: 01/18/2018 Otis Canela is seen on the floor. The wound was examined and the wound VAC obtained. She can probably be discharged with a wound VAC to be managed at home. Kenton Concepcion MD
--- NOTE | 2018-01-18 19:15 | CP.PCM.PN ---
<Lakhwinder Garcia - Last Filed: 01/18/18 23:00> Subjective - Date & Time of Evaluation Date of Evaluation: 01/18/18 Time of Evaluation: 19:15 - Subjective Subjective: Lakhwinder Garcia D.O PGY-1, Internal Medicine progress note for Dr. Mckeon Patient was examined at bedside, no acute overnight events. Patient offers no new complaints at this time. Sister is at bedside. Denies fevers, chills, chest pain, shortness of breath, abdominal pain, N/V/D. Objective - Vital Signs/Intake and Output Vital Signs (last 24 hours): Temp Pulse Resp BP Pulse Ox 98.5 F 75 18 111/62 99 01/18/18 14:00 01/18/18 14:00 01/18/18 14:00 01/18/18 14:00 01/18/18 14:00 Intake and Output: 01/18/18 01/19/18 18:59 06:59 Intake Total 360 Balance 360 - Medications Medications: Current Medications Amlodipine Besylate (Norvasc) 5 mg PO DAILY [facility] Last Admin: 01/18/18 09:24 Dose: 5 mg Ascorbic Acid (Vitamin C 500 Mg Tab) 500 mg PO DAILY [facility] Last Admin: 01/18/18 09:23 Dose: 500 mg Atorvastatin Calcium (Lipitor) 10 mg PO DIN [facility] Last Admin: 01/18/18 18:13 Dose: 10 mg Cholecalciferol (Vitamin D) 1,000 intlu PO DAILY [facility] Last Admin: 01/18/18 09:23 Dose: 1,000 intlu Heparin Sodium (Porcine) (Heparin) 5,000 units SC Q12 [facility] PRN Reason: Protocol Last Admin: 01/18/18 09:23 Dose: 5,000 units Piperacillin Sod/Tazobactam Sod (Zosyn 3.375 In Ns 100ml) 100 mls @ 200 mls/hr IVPB Q8 [facility] Stop: 01/23/18 06:01 Last Admin: 01/18/18 14:12 Dose: 200 mls/hr Linezolid (Zyvox 600mg/300ml D5w) 600 mg in 300 mls @ 200 mls/hr IVPB Q12 [facility] PRN Reason: Protocol Stop: 01/23/18 10:01 Last Admin: 01/18/18 09:23 Dose: 200 mls/hr Memantine (Namenda) 5 mg PO DAILY [facility] Last Admin: 01/18/18 09:23 Dose: 5 mg Pantoprazole Sodium (Protonix Ec Tab) 40 mg PO 0600 [facility] Last Admin: 01/18/18 06:09 Dose: 40 mg Primidone (Mysoline) 50 mg PO TID [facility] Last Admin: 01/18/18 18:13 Dose: 50 mg Zinc Sulfate (Zinc Sulfate 220 Mg Cap) 220 mg PO DAILY [facility] Last Admin: 01/18/18 09:23 Dose: 220 mg - Labs Labs: 01/18/18 06:45 01/18/18 06:45 PT 11.0 SECONDS (9.4-12.5) 01/15/18 19:15 INR 0.97 01/15/18 19:15 APTT 23.5 Seconds (25.1-36.5) L 01/15/18 19:15 - Constitutional Appears: No Acute Distress - Head Exam Head Exam: ATRAUMATIC, NORMAL INSPECTION - Eye Exam Eye Exam: Normal appearance - ENT Exam ENT Exam: Mucous Membranes Moist - Respiratory Exam Respiratory Exam: Decreased Breath Sounds, Clear to Ausculation Bilateral. absent: Rales, Rhonchi, Wheezes - Cardiovascular Exam Cardiovascular Exam: REGULAR RHYTHM, +S1, +S2. absent: Gallop, Rubs, Murmur - GI/Abdominal Exam GI & Abdominal Exam: Soft, Normal Bowel Sounds. absent: Tenderness - Extremities Exam Extremities Exam: absent: Calf Tenderness, Pedal Edema - Neurological Exam Neurological Exam: Awake. absent: Oriented x3 - Psychiatric Exam Psychiatric exam: Normal Affect, Normal Mood - Skin Skin Exam: Dry, Intact, Warm Assessment and Plan - Assessment and Plan (Free Text) Assessment: Ms. Canela is a 77 y.o female with PMH of HTN, HLD, and dementia who is being admitted for treatment and management of stage 4 left gluteal decubitus ulcer Plan: Stage 4 L gluteal decubtius ulcer - Pelvic X-ray (01/15): No evidence of acute displaced fracture nor dislocation. If subcutaneous abscess or cellulitis suspected consider CT scan - Afebrile; WBC- WNL - Blood Cultures: negative x2 after 3 days - Wound Culture: Grew gram-negative rods and gram-positive cocci ; sensitivities pending - C/w Linezolid 600mg/300mL D5W and Zosyn 3.375 in 100mL NS on Day #3 - S/p bedside wound debriedment by surgery on 01/16 - Turn + Reposition Q2H - Wound care: daily wet to wet dressing changes with Dakins solution - Wound vac placed on 01/17 - Surgery consulted, Dr. Concepcion - ID consulted, Dr. Naylor - Plan to discharge tomorrow: Patient requires hospital bed for frequent positioning to alleviate pain not feasible with ordinary bed. Normocytic anemia: - Most likely 2/2 to chronic ulceration or soft tissue infection - Reticulocytes count wnl - Iron studies: Fe normal ,TIBC Low, Ferritin Elevated - B12 normal, Folate normal History of HTN: - C/w Amlodipine 5mg PO QD - Continue to monitor History of HLD: - C/w Lipitor 10mg PO DIN History of Dementia: - C/w Namenda 5mg PO QD - Aspiraion precautions - Pt on modified consistency dysphagia diet History of Tremors : - C/w Primidone 50mg PO TID DVT/GI PPX: Heparin 5000U SC Q12/ Protonix 40mg PO PT Eval/Treat Patient case reviewed with and plan approved by attending physician, Dr. Mckeon <Genet Mckeon - Last Filed: 01/19/18 07:37> Objective - Vital Signs/Intake and Output Vital Signs (last 24 hours): Temp Pulse Resp BP Pulse Ox 98.4 F 71 18 120/65 100 01/19/18 06:00 01/19/18 06:00 01/19/18 06:00 01/19/18 06:00 01/19/18 06:00 Intake and Output: 01/19/18 01/19/18 06:59 18:59 Intake Total 180 Balance 180 - Medications Medications: Current Medications Amlodipine Besylate (Norvasc) 5 mg PO DAILY [facility] Last Admin: 01/18/18 09:24 Dose: 5 mg Ascorbic Acid (Vitamin C 500 Mg Tab) 500 mg PO DAILY [facility] Last Admin: 01/18/18 09:23 Dose: 500 mg Atorvastatin Calcium (Lipitor) 10 mg PO DIN [facility] Last Admin: 01/18/18 18:13 Dose: 10 mg Cholecalciferol (Vitamin D) 1,000 intlu PO DAILY [facility] Last Admin: 01/18/18 09:23 Dose: 1,000 intlu Heparin Sodium (Porcine) (Heparin) 5,000 units SC Q12 [facility] PRN Reason: Protocol Last Admin: 01/18/18 21:04 Dose: 5,000 units Piperacillin Sod/Tazobactam Sod (Zosyn 3.375 In Ns 100ml) 100 mls @ 200 mls/hr IVPB Q8 [facility] Stop: 01/23/18 06:01 Last Admin: 01/19/18 06:01 Dose: 200 mls/hr Linezolid (Zyvox 600mg/300ml D5w) 600 mg in 300 mls @ 200 mls/hr IVPB Q12 [facility] PRN Reason: Protocol Stop: 01/23/18 10:01 Last Admin: 01/18/18 22:45 Dose: 200 mls/hr Memantine (Namenda) 5 mg PO DAILY [facility] Last Admin: 01/18/18 09:23 Dose: 5 mg Pantoprazole Sodium (Protonix Ec Tab) 40 mg PO 0600 [facility] Last Admin: 01/19/18 06:01 Dose: 40 mg Primidone (Mysoline) 50 mg PO TID [facility] Last Admin: 01/18/18 18:13 Dose: 50 mg Zinc Sulfate (Zinc Sulfate 220 Mg Cap) 220 mg PO DAILY [facility] Last Admin: 01/18/18 09:23 Dose: 220 mg - Labs Labs: 01/19/18 06:20 01/19/18 06:20 PT 11.0 SECONDS (9.4-12.5) 01/15/18 19:15 INR 0.97 01/15/18 19:15 APTT 23.5 Seconds (25.1-36.5) L 01/15/18 19:15 Attending/Attestation - Attestation I have personally seen and examined this patient.: Yes I have fully participated in the care of the patient.: Yes I have reviewed all pertinent clinical information, including history, physical exam and plan: Yes Notes (Text): 01/18/18 77 year old female with past medical history of hypertension, dyslipidemia and dementia who is being treated for left gluteal decubitus ulcer. She was on iv antibiotics. She is s/p debridement and wound vac placement by surgery. ID is following. Wound culture is growing gram negative rods and gram positive cocci, pending sensitivities. Family is at bedside and questions were answered. Genet Mckeon MD Hospitalist.
--- NOTE | 2018-01-18 19:48 | CP.PCM.PN ---
Subjective - Date & Time of Evaluation Date of Evaluation: 01/18/18 Time of Evaluation: 12:50 - Subjective Subjective: Comfortable in bed, no fevers. No diarrhea, no vomiting. Objective - Vital Signs/Intake and Output Vital Signs (last 24 hours): Temp Pulse Resp BP Pulse Ox 97.4 F L 62 16 94/43 L 98 01/17/18 15:03 01/17/18 15:03 01/17/18 15:03 01/17/18 15:03 01/17/18 15:03 Intake and Output: 01/17/18 01/17/18 06:59 18:59 Intake Total 360 Balance 360 - Medications Medications: Current Medications Amlodipine Besylate (Norvasc) 5 mg PO DAILY [facility] Last Admin: 01/17/18 10:10 Dose: Not Given Ascorbic Acid (Vitamin C 500 Mg Tab) 500 mg PO DAILY [facility] Last Admin: 01/17/18 09:56 Dose: 500 mg Atorvastatin Calcium (Lipitor) 10 mg PO DIN [facility] Last Admin: 01/16/18 17:31 Dose: 10 mg Cholecalciferol (Vitamin D) 1,000 intlu PO DAILY [facility] Last Admin: 01/17/18 09:56 Dose: 1,000 intlu Heparin Sodium (Porcine) (Heparin) 5,000 units SC Q12 [facility] PRN Reason: Protocol Last Admin: 01/17/18 09:55 Dose: 5,000 units Piperacillin Sod/Tazobactam Sod (Zosyn 3.375 In Ns 100ml) 100 mls @ 200 mls/hr IVPB Q8 [facility] Stop: 01/23/18 06:01 Last Admin: 01/17/18 13:40 Dose: 200 mls/hr Linezolid (Zyvox 600mg/300ml D5w) 600 mg in 300 mls @ 200 mls/hr IVPB Q12 [facility] PRN Reason: Protocol Stop: 01/23/18 10:01 Last Admin: 01/17/18 09:56 Dose: 200 mls/hr Memantine (Namenda) 5 mg PO DAILY [facility] Last Admin: 01/17/18 09:55 Dose: 5 mg Pantoprazole Sodium (Protonix Ec Tab) 40 mg PO 0600 [facility] Last Admin: 01/17/18 05:33 Dose: 40 mg Primidone (Mysoline) 50 mg PO TID [facility] Last Admin: 01/17/18 13:41 Dose: Not Given Zinc Sulfate (Zinc Sulfate 220 Mg Cap) 220 mg PO DAILY [facility] Last Admin: 01/17/18 09:56 Dose: 220 mg - Labs Labs: 01/17/18 07:00 01/17/18 06:30 PT 11.0 SECONDS (9.4-12.5) 01/15/18 19:15 INR 0.97 01/15/18 19:15 APTT 23.5 Seconds (25.1-36.5) L 01/15/18 19:15 - Constitutional Appears: Non-toxic, Chronically Ill - Head Exam Head Exam: NORMAL INSPECTION - Respiratory Exam Respiratory Exam: Decreased Breath Sounds - Cardiovascular Exam Cardiovascular Exam: +S1, +S2 - GI/Abdominal Exam GI & Abdominal Exam: Soft. absent: Tenderness - Extremities Exam Additional comments: left buttock with dressings in place Assessment and Plan - Assessment and Plan (Free Text) Plan: Assessment Infected stage 3 to 4 decubitus ulcer on left buttock, S/P bedside debridement, growing gram positive cocci and gram negative bacilli HTN dyslipidemia dementia Plan continue Zyvox and Zosyn day 3 pending final wound cx results; follow up further recommendations by Surgery will continue to monitor clinically
[2018-01-19] MEDS: Pantoprazole 40 mg EC Tab PO SCH (06:01)
[2018-01-19] MEDS: Piperacillin/Tazobact 3.375 gm 100 ML IVPB SCH ×2 (06:01→17:11)
[2018-01-19 07:04] LABS: BASO # 0.01 K/mm3 (0.0-2.0); BASO % 0.1 % (0.0-3.0); EOS # 0.1 (0.0-0.7); EOS % 0.7 % (1.5-5.0); GRAN % 54.2 % (50.0-68.0); HEMOGLOBIN 8.4 g/dL (12.0-16.0); LYMPH # 2.7 (1.2-3.4); LYMPH % 36.7 % (22.0-35.0); MEAN CELL VOLUME 89.4 fl (80.0-105.0); MEAN CORPUSCULAR HEMOGLOBIN 30.7 pg (25.0-35.0); MEAN CORPUSCULAR HGB CONC 34.3 g/dl (31.0-37.0); MEAN PLATELET VOLUME 9.4 fl (7.0-11.0); MONO # 0.6 (0.1-0.6); MONO % 8.3 % (1.0-6.0); RBC 2.74 10^6/uL (3.5-6.1); RED CELL DISTRIBUTION WIDTH 12.5 % (11.5-14.5); WHITE BLOOD COUNT 7.4 10^3/ul (4.5-11.0)
[2018-01-19 07:10] LABS: ALB/GLOB RATIO 0.9 (1.1-1.8); ALBUMIN 2.6 g/dL (3.0-4.8); ALT/SGPT 33 U/L (7-56); AST/SGOT 23 U/L (14-36); BLOOD UREA NITROGEN 18 mg/dL (7-21); CALCIUM 8.2 mg/dL (8.4-10.5); GFR NON-AFRICAN AMERICAN 54
--- NOTE | 2018-01-19 08:39 | CP.PCM.PN ---
Subjective - Date & Time of Evaluation Date of Evaluation: 01/19/18 Time of Evaluation: 08:00 - Subjective Subjective: General Surgery progress note for Dr. Concepcion. Pt seen and examined at bedside this morning with her sister present. Pt denies SOB, chest pain, nausea, vomiting, or diarrhea. Pt states the wound vac is in place and not causing any pain or discomfort. Objective - Vital Signs/Intake and Output Vital Signs (last 24 hours): Temp Pulse Resp BP Pulse Ox 98.4 F 71 18 120/65 100 01/19/18 06:00 01/19/18 06:00 01/19/18 06:00 01/19/18 06:00 01/19/18 06:00 Intake and Output: 01/19/18 01/19/18 06:59 18:59 Intake Total 180 Balance 180 - Medications Medications: Current Medications Amlodipine Besylate (Norvasc) 5 mg PO DAILY [facility] Last Admin: 01/18/18 09:24 Dose: 5 mg Ascorbic Acid (Vitamin C 500 Mg Tab) 500 mg PO DAILY [facility] Last Admin: 01/18/18 09:23 Dose: 500 mg Atorvastatin Calcium (Lipitor) 10 mg PO DIN [facility] Last Admin: 01/18/18 18:13 Dose: 10 mg Cholecalciferol (Vitamin D) 1,000 intlu PO DAILY [facility] Last Admin: 01/18/18 09:23 Dose: 1,000 intlu Heparin Sodium (Porcine) (Heparin) 5,000 units SC Q12 [facility] PRN Reason: Protocol Last Admin: 01/18/18 21:04 Dose: 5,000 units Piperacillin Sod/Tazobactam Sod (Zosyn 3.375 In Ns 100ml) 100 mls @ 200 mls/hr IVPB Q8 [facility] Stop: 01/23/18 06:01 Last Admin: 01/19/18 06:01 Dose: 200 mls/hr Linezolid (Zyvox 600mg/300ml D5w) 600 mg in 300 mls @ 200 mls/hr IVPB Q12 [facility] PRN Reason: Protocol Stop: 01/23/18 10:01 Last Admin: 01/18/18 22:45 Dose: 200 mls/hr Memantine (Namenda) 5 mg PO DAILY [facility] Last Admin: 01/18/18 09:23 Dose: 5 mg Pantoprazole Sodium (Protonix Ec Tab) 40 mg PO 0600 [facility] Last Admin: 01/19/18 06:01 Dose: 40 mg Primidone (Mysoline) 50 mg PO TID [facility] Last Admin: 01/18/18 18:13 Dose: 50 mg Zinc Sulfate (Zinc Sulfate 220 Mg Cap) 220 mg PO DAILY [facility] Last Admin: 01/18/18 09:23 Dose: 220 mg - Labs Labs: 01/19/18 06:20 01/19/18 06:20 PT 11.0 SECONDS (9.4-12.5) 01/15/18 19:15 INR 0.97 01/15/18 19:15 APTT 23.5 Seconds (25.1-36.5) L 01/15/18 19:15 - Constitutional Appears: No Acute Distress - Head Exam Head Exam: ATRAUMATIC, NORMOCEPHALIC - Eye Exam Eye Exam: EOMI - ENT Exam ENT Exam: Mucous Membranes Moist - Neck Exam Neck Exam: Full ROM - Respiratory Exam Respiratory Exam: Clear to Ausculation Bilateral, NORMAL BREATHING PATTERN. absent: Accessory Muscle Use, Chest Wall Tenderness, Wheezes, Respiratory Distress, Stridor - Cardiovascular Exam Cardiovascular Exam: REGULAR RHYTHM, RRR, +S1, +S2. absent: Bradycardia, Tachycardia, Diastolic murmur, Irregular Rhythm, JVD - GI/Abdominal Exam GI & Abdominal Exam: Soft, Normal Bowel Sounds. absent: Distended, Firm, Guarding, Rigid, Tenderness, Rebound - Extremities Exam Extremities Exam: Full ROM, Normal Inspection. absent: Calf Tenderness, Pedal Edema, Tenderness - Back Exam Back Exam: Full ROM, NORMAL INSPECTION. absent: CVA tenderness (L), CVA tenderness (R) Additional comments: 4.5cm x 4.5cm stage 3/4 ulcer with wound vac placed - Neurological Exam Neurological Exam: Awake Assessment and Plan - Assessment and Plan (Free Text) Assessment: 77 y o F w/ Stage 4 L gluteal decubitus ulcer Plan: -IV antibiotics: zyvox, zosyn -Positioning Q2H, Air mattress, heel protectors -Daily Wet to wet Dressing changes with Dakins solution -4.5cm x 4.5cm stage 3/4 ulcer, S/p medium sized sponge wound vac 01/17, next change Wed 01/20 -Further recommendations as per Dr. Jamey Hsieh PGY-1
[2018-01-19] MEDS: Linezolid 600 mg in D5W 300 ml 600 MG/300 ML BAG IVPB SCH (10:20)
[2018-01-19] MEDS: Cholecalciferol 1,000 INTLU TAB PO SCH (10:22)
[2018-01-19 14:39] VITALS: BP 108/49; PULSE 74; RESP 20; TEMP 98; O2SAT 98
--- NOTE | 2018-01-19 16:40 | CP.PCM.PN ---
Subjective - Date & Time of Evaluation Date of Evaluation: 01/19/18 Time of Evaluation: 10:20 - Subjective Subjective: No fevers, not in distress, afebrile. Objective - Vital Signs/Intake and Output Vital Signs (last 24 hours): Temp Pulse Resp BP Pulse Ox 98.5 F 75 18 111/62 99 01/18/18 14:00 01/18/18 14:00 01/18/18 14:00 01/18/18 14:00 01/18/18 14:00 Intake and Output: 01/18/18 01/19/18 18:59 06:59 Intake Total 360 Balance 360 - Medications Medications: Current Medications Amlodipine Besylate (Norvasc) 5 mg PO DAILY [facility] Last Admin: 01/18/18 09:24 Dose: 5 mg Ascorbic Acid (Vitamin C 500 Mg Tab) 500 mg PO DAILY [facility] Last Admin: 01/18/18 09:23 Dose: 500 mg Atorvastatin Calcium (Lipitor) 10 mg PO DIN [facility] Last Admin: 01/18/18 18:13 Dose: 10 mg Cholecalciferol (Vitamin D) 1,000 intlu PO DAILY [facility] Last Admin: 01/18/18 09:23 Dose: 1,000 intlu Heparin Sodium (Porcine) (Heparin) 5,000 units SC Q12 [facility] PRN Reason: Protocol Last Admin: 01/18/18 09:23 Dose: 5,000 units Piperacillin Sod/Tazobactam Sod (Zosyn 3.375 In Ns 100ml) 100 mls @ 200 mls/hr IVPB Q8 [facility] Stop: 01/23/18 06:01 Last Admin: 01/18/18 14:12 Dose: 200 mls/hr Linezolid (Zyvox 600mg/300ml D5w) 600 mg in 300 mls @ 200 mls/hr IVPB Q12 [facility] PRN Reason: Protocol Stop: 01/23/18 10:01 Last Admin: 01/18/18 09:23 Dose: 200 mls/hr Memantine (Namenda) 5 mg PO DAILY [facility] Last Admin: 01/18/18 09:23 Dose: 5 mg Pantoprazole Sodium (Protonix Ec Tab) 40 mg PO 0600 [facility] Last Admin: 01/18/18 06:09 Dose: 40 mg Primidone (Mysoline) 50 mg PO TID [facility] Last Admin: 01/18/18 18:13 Dose: 50 mg Zinc Sulfate (Zinc Sulfate 220 Mg Cap) 220 mg PO DAILY [facility] Last Admin: 01/18/18 09:23 Dose: 220 mg - Labs Labs: 01/18/18 06:45 01/18/18 06:45 PT 11.0 SECONDS (9.4-12.5) 01/15/18 19:15 INR 0.97 01/15/18 19:15 APTT 23.5 Seconds (25.1-36.5) L 01/15/18 19:15 - Constitutional Appears: Chronically Ill - Head Exam Head Exam: NORMAL INSPECTION - ENT Exam ENT Exam: Mucous Membranes Moist - Neck Exam Neck Exam: absent: Meningismus - Respiratory Exam Respiratory Exam: Decreased Breath Sounds - Cardiovascular Exam Cardiovascular Exam: +S1, +S2 - GI/Abdominal Exam GI & Abdominal Exam: Soft. absent: Tenderness - Extremities Exam Additional comments: left gluteal area with wound vacuum in place Assessment and Plan - Assessment and Plan (Free Text) Plan: Assessment Infected stage 3 to 4 decubitus ulcer on left buttock, S/P bedside debridement and S/P wound vacuum placement, growing Strep viridans and Morganella HTN dyslipidemia dementia Plan on Zosyn day 4 and can switch to Levaquin when ready to be discharged; follow up further recommendations by Surgery
--- NOTE | 2018-01-19 21:51 | CP.PCM.DIS ---
<Ambrosio Tipton - Last Filed: 01/19/18 21:46> Provider - Provider Date of Admission: 01/15/18 19:48 Attending physician: Genet Mckeon MD Primary care physician: Tal Thomas MD Consults: Infectious Disease - Dr. Naylor, [place] [facility] Surgery - Kenton Brown Time Spent in preparation of Discharge (in minutes): 40 Diagnosis - Discharge Diagnosis (1) Decubitus ulcer Status: Acute Priority: High (2) Hypertension Status: Chronic Priority: Medium (3) Dementia Status: Chronic Priority: Low (4) HLD (hyperlipidemia) Status: Chronic Priority: Low Hospital Course - Lab Results Lab Results: Micro Results 01/16/18 05:20 Sacral Gram Stain - Preliminary 01/16/18 05:20 Sacral Wound Culture - Final Morganella Morganii Streptococcus Viridans 01/15/18 21:20 Decubitus - Buttock-Left Gram Stain - Final 01/15/18 21:20 Decubitus - Buttock-Left Wound Culture - Final Morganella Morganii Streptococcus Viridans Most Recent Lab Values WBC 7.4 10^3/ul (4.5-11.0) 01/19/18 06:20 RBC 2.74 10^6/uL (3.5-6.1) L 01/19/18 06:20 Hgb 8.4 g/dL (12.0-16.0) L 01/19/18 06:20 Hct 24.5 % (36.0-48.0) L 01/19/18 06:20 MCV 89.4 fl (80.0-105.0) 01/19/18 06:20 MCH 30.7 pg (25.0-35.0) 01/19/18 06:20 MCHC 34.3 g/dl (31.0-37.0) 01/19/18 06:20 RDW 12.5 % (11.5-14.5) 01/19/18 06:20 Plt Count 239 10^3/uL (120.0-450.0) 01/19/18 06:20 MPV 9.4 fl (7.0-11.0) 01/19/18 06:20 Gran % 54.2 % (50.0-68.0) 01/19/18 06:20 Lymph % (Auto) 36.7 % (22.0-35.0) H 01/19/18 06:20 [place] % (Auto) 8.3 % (1.0-6.0) H 01/19/18 06:20 Eos % (Auto) 0.7 % (1.5-5.0) L 01/19/18 06:20 Baso % (Auto) 0.1 % (0.0-3.0) 01/19/18 06:20 Gran # 4.00 (1.4-6.5) 01/19/18 06:20 Lymph # (Auto) 2.7 (1.2-3.4) 01/19/18 06:20 [place] # (Auto) 0.6 (0.1-0.6) 01/19/18 06:20 Eos # (Auto) 0.1 (0.0-0.7) 01/19/18 06:20 Baso # (Auto) 0.01 K/mm3 (0.0-2.0) 01/19/18 06:20 ESR 62 mm/hr (0.0-20.0) H 01/15/18 19:15 Retic Count 0.56 % (0.5-1.5) 01/17/18 07:00 PT 11.0 SECONDS (9.4-12.5) 01/15/18 19:15 INR 0.97 01/15/18 19:15 APTT 23.5 Seconds (25.1-36.5) L 01/15/18 19:15 pO2 35 mm/Hg (30-55) 01/15/18 19:51 VBG pH 7.41 (7.32-7.43) 01/15/18 19:51 VBG pCO2 60.0 (40-60) 01/15/18 19:51 VBG HCO3 38.0 mmol/l (21-28) H 01/15/18 19:51 VBG Total CO2 39.8 mmol.L (22-28) H 01/15/18 19:51 VBG O2 Sat (Calc) 68.0 % (40-65) H 01/15/18 19:51 VBG Base Excess 10.9 mmol/L (0.0-2.0) H 01/15/18 19:51 VBG Potassium 4.2 mmol/L (3.6-5.2) 01/15/18 19:51 Sodium 139.0 mmol/L (132-148) 01/15/18 19:51 Chloride 101.0 mmol/L (98-107) 01/15/18 19:51 Glucose 97 mg/dl (65-105) 01/15/18 19:51 Lactate 1.5 mmol/L (0.7-2.1) 01/15/18 19:51 FiO2 21.0 % 01/15/18 19:51 Sodium 138 mmol/L (132-148) 01/19/18 06:20 Potassium 4.0 mmol/L (3.6-5.0) 01/19/18 06:20 Chloride 100 mmol/L (98-107) 01/19/18 06:20 Carbon Dioxide 32 mmol/L (21-33) 01/19/18 06:20 Anion Gap 10 (10-20) 01/19/18 06:20 BUN 18 mg/dL (7-21) 01/19/18 06:20 Creatinine 1.0 mg/dl (0.7-1.2) 01/19/18 06:20 Est GFR ( Amer) > 60 01/19/18 06:20 Est GFR (Non-Af Amer) 54 01/19/18 06:20 Random Glucose 88 mg/dL (70-110) 01/19/18 06:20 Calcium 8.2 mg/dL (8.4-10.5) L 01/19/18 06:20 Phosphorus 3.2 mg/dL (2.5-4.5) 01/15/18 19:15 Magnesium 2.3 mg/dL (1.7-2.2) H 01/15/18 19:15 Iron 55 ug/dL (45-180) 01/17/18 07:00 TIBC 161 ug/dL (265-497) L 01/17/18 07:00 % Saturation 34 % (20-55) 01/17/18 07:00 Ferritin 376.0 ng/mL 01/17/18 07:00 Total Bilirubin 0.1 mg/dL (0.2-1.3) L 01/19/18 06:20 AST 23 U/L (14-36) 01/19/18 06:20 ALT 33 U/L (7-56) 01/19/18 06:20 Alkaline Phosphatase 71 U/L (38-126) 01/19/18 06:20 Troponin I < 0.01 ng/mL 01/15/18 19:15 C-React Prot High Sens > 15.00 mg/L (1.00-3.00) H 01/15/18 19:15 NT-Pro-B Natriuret Pep 507 pg/mL (0-450) H 01/15/18 19:15 Total Protein 5.5 g/dL (5.8-8.3) L 01/19/18 06:20 Albumin 2.6 g/dL (3.0-4.8) L 01/19/18 06:20 Globulin 3.0 gm/dL 01/19/18 06:20 Albumin/Globulin Ratio 0.9 (1.1-1.8) L 01/19/18 06:20 Vitamin B12 450 pg/mL (239-931) 01/17/18 07:00 Folate 7.7 ng/mL 01/17/18 07:00 Procalcitonin 0.10 NG/ML (0.19-0.49) L 01/15/18 19:15 Venous Blood Potassium 4.2 mmol/L (3.6-5.2) 01/15/18 19:51 - Hospital Course Hospital Course: Ambrosio Tipton DO PGY1 Internal Medicine Fishing Guide - Hospital Discharge Summary 77F w/ PMH of DM, HTN, Dementia, Sacral ulcers presented to [facility] ED on 01/15/18 w / CC of worsening left gluteal wound brought in by her sister who is POA. History was obtained from her sister who reported ulcer began as a small superficial wound approximately 4 weeks ago. Over time wound worsened developed foul odor and discharge 2 days prior to admission. No reports of F/Chills, or systemic signs of infection. Surgery and infectious disease services were consulted. Surgical evaluation and debridement of L gluteal wound revealed a Stage IV L gluteal decubitus ulcer. Surgery placed woudn vac 01/17, with recommendations of heel protectors, air mattress, and Q2H positioning. Pelvic Xray showed no evidence of acute displaced fracture/ dislocation, and no bony involvement. CXR on admission was wnl. Empiric IV Antibiotics Zosyn + Linezolid were started on admission, and patient received 3 days IV ABX total. Wound culture was obtained which grew strep viridans, likely contaminant, and morganella susceptible to levaquin. Patient was also found to have normocytic anemia in setting of elevated ferritin level. Anemia is most likely due to chronic disease in setting of chornic ulceration/ soft tissue infection. Patient's comorbid conditions were assessed and managed during hospital course. She remained afebrile without any sign of systemic infection or involvement. Morning of discharged no overnight events reported by nursing. No issues or concerns were voiced by patient's family or patient. No fevers/chills, cough, sob, chest pain, or diarrhea reported. 12 system ROS was otherwise unremarkable. Patient and family were provided w/ the following discharge instructions: - You were admitted to the hospital for worsening ulcer on your sacrum - It is recommended you follow up with your primary care doctor, Dr. Mora within 7 days of discharge - Please start taking antibiotic - Levofloxacin 500mg QD for 14 days. Please continue taking the antibiotic until the course is completed even if you begin feeling better. - If you begin to have diarrhea please notify your primary care doctor that you are having diarrhea, and that you are on antibiotics - You are being discharged with a wound vac over your ulcer; Please follow the care instructions provided by wound vac nurse - Please follow up with Surgery, Dr. Concepcion, here at [facility] wound clinic within 7- 10 days of discharge - Please continue changing / turning position every 2 hours to reduce worsening of ulcer, please utilize heal protectors - Please utilize your air mattress to assist with positional changes due to your dementia - If your symptoms worsen, you start having fevers, or any new symptoms occur, please go to the nearest emergency department immediately Patient is medically stable for discharge at this time. - Date & Time of H&P Date of H&P: 01/16/18 Time of H&P: 05:58 Discharge Exam - Head Exam Head Exam: NORMAL INSPECTION - Eye Exam Eye Exam: EOMI, PERRL. absent: Scleral icterus - ENT Exam ENT Exam: Mucous Membranes Moist - Respiratory Exam Respiratory Exam: Clear to PA & Lateral, NORMAL BREATHING PATTERN, UNREMARKABLE. absent: Rales, Wheezes, Respiratory Distress - Cardiovascular Exam Cardiovascular Exam: RRR, +S1, +S2. absent: Systolic Murmur - GI/Abdominal Exam GI & Abdominal Exam: Normal Bowel Sounds, Soft, Unremarkable. absent: Tenderness - Extremities Exam Additional comments: No edema 2+ DP/Tp BL - Back Exam Additional comments: L buttock; multiple ulcers in different stages of healing; prominent stage 4 decubtius ulcer on L gluteus with wound vac in place, suctioning appropriately CDI; - Neurological Exam Neurological exam: Alert, CN II-XII Intact - Psychiatric Exam Psychiatric exam: Normal Affect, Normal Mood - Skin Skin Exam: Dry, Intact, Normal Color, Warm Discharge Plan - Discharge Medications Prescriptions: levoFLOXacin [Levaquin] 500 mg PO DAILY #14 tab - Follow Up Plan Condition: STABLE Disposition: HOME/ ROUTINE Patient education suggested?: Yes Instructions: Sepsis in Adults, Soft Diet, Pressure Sores (DC), How to Prevent Pressure Sores, Abscess (GEN) Additional Instructions: - You were admitted to the hospital for worsening ulcer on your sacrum - It is recommended you follow up with your primary care doctor, Dr. Mora within 7 days of discharge - Please start taking antibiotic - Levofloxacin 500mg QD for 14 days. Please continue taking the antibiotic until the course is completed even if you begin feeling better. - If you begin to have diarrhea please notify your primary care doctor that you are having diarrhea, and that you are on antibiotics - You are being discharged with a wound vac over your ulcer; Please follow the care instructions provided by wound vac nurse - Please follow up with Surgery, Dr. Concepcion, here at [facility] wound clinic within 7- 10 days of discharge - Please continue changing / turning position every 2 hours to reduce worsening of ulcer, please utilize heal protectors - Please utilize your air mattress to assist with positional changes due to your dementia - If your symptoms worsen, you start having fevers, or any new symptoms occur, please go to the nearest emergency department immediately Referrals: Tal Thomas MD [Primary Care Provider] - Kenton Concepcion MD [Staff Provider] - <Genet Mckeon - Last Filed: 01/20/18 07:30> Provider - Provider Date of Admission: 01/15/18 19:48 Attending physician: Genet Mckeon MD Primary care physician: Tal Thomas MD Hospital Course - Lab Results Lab Results: Micro Results 01/16/18 05:20 Sacral Gram Stain - Preliminary 01/16/18 05:20 Sacral Wound Culture - Final Morganella Morganii Streptococcus Viridans 01/15/18 21:20 Decubitus - Buttock-Left Gram Stain - Final 01/15/18 21:20 Decubitus - Buttock-Left Wound Culture - Final Morganella Morganii Streptococcus Viridans Most Recent Lab Values WBC 7.4 10^3/ul (4.5-11.0) 01/19/18 06:20 RBC 2.74 10^6/uL (3.5-6.1) L 01/19/18 06:20 Hgb 8.4 g/dL (12.0-16.0) L 01/19/18 06:20 Hct 24.5 % (36.0-48.0) L 01/19/18 06:20 MCV 89.4 fl (80.0-105.0) 01/19/18 06:20 MCH 30.7 pg (25.0-35.0) 01/19/18 06:20 MCHC 34.3 g/dl (31.0-37.0) 01/19/18 06:20 RDW 12.5 % (11.5-14.5) 01/19/18 06:20 Plt Count 239 10^3/uL (120.0-450.0) 01/19/18 06:20 MPV 9.4 fl (7.0-11.0) 01/19/18 06:20 Gran % 54.2 % (50.0-68.0) 01/19/18 06:20 Lymph % (Auto) 36.7 % (22.0-35.0) H 01/19/18 06:20 [place] % (Auto) 8.3 % (1.0-6.0) H 01/19/18 06:20 Eos % (Auto) 0.7 % (1.5-5.0) L 01/19/18 06:20 Baso % (Auto) 0.1 % (0.0-3.0) 01/19/18 06:20 Gran # 4.00 (1.4-6.5) 01/19/18 06:20 Lymph # (Auto) 2.7 (1.2-3.4) 01/19/18 06:20 [place] # (Auto) 0.6 (0.1-0.6) 01/19/18 06:20 Eos # (Auto) 0.1 (0.0-0.7) 01/19/18 06:20 Baso # (Auto) 0.01 K/mm3 (0.0-2.0) 01/19/18 06:20 ESR 62 mm/hr (0.0-20.0) H 01/15/18 19:15 Retic Count 0.56 % (0.5-1.5) 01/17/18 07:00 PT 11.0 SECONDS (9.4-12.5) 01/15/18 19:15 INR 0.97 01/15/18 19:15 APTT 23.5 Seconds (25.1-36.5) L 01/15/18 19:15 pO2 35 mm/Hg (30-55) 01/15/18 19:51 VBG pH 7.41 (7.32-7.43) 01/15/18 19:51 VBG pCO2 60.0 (40-60) 01/15/18 19:51 VBG HCO3 38.0 mmol/l (21-28) H 01/15/18 19:51 VBG Total CO2 39.8 mmol.L (22-28) H 01/15/18 19:51 VBG O2 Sat (Calc) 68.0 % (40-65) H 01/15/18 19:51 VBG Base Excess 10.9 mmol/L (0.0-2.0) H 01/15/18 19:51 VBG Potassium 4.2 mmol/L (3.6-5.2) 01/15/18 19:51 Sodium 139.0 mmol/L (132-148) 01/15/18 19:51 Chloride 101.0 mmol/L (98-107) 01/15/18 19:51 Glucose 97 mg/dl (65-105) 01/15/18 19:51 Lactate 1.5 mmol/L (0.7-2.1) 01/15/18 19:51 FiO2 21.0 % 01/15/18 19:51 Sodium 138 mmol/L (132-148) 01/19/18 06:20 Potassium 4.0 mmol/L (3.6-5.0) 01/19/18 06:20 Chloride 100 mmol/L (98-107) 01/19/18 06:20 Carbon Dioxide 32 mmol/L (21-33) 01/19/18 06:20 Anion Gap 10 (10-20) 01/19/18 06:20 BUN 18 mg/dL (7-21) 01/19/18 06:20 Creatinine 1.0 mg/dl (0.7-1.2) 01/19/18 06:20 Est GFR ( Amer) > 60 01/19/18 06:20 Est GFR (Non-Af Amer) 54 01/19/18 06:20 Random Glucose 88 mg/dL (70-110) 01/19/18 06:20 Calcium 8.2 mg/dL (8.4-10.5) L 01/19/18 06:20 Phosphorus 3.2 mg/dL (2.5-4.5) 01/15/18 19:15 Magnesium 2.3 mg/dL (1.7-2.2) H 01/15/18 19:15 Iron 55 ug/dL (45-180) 01/17/18 07:00 TIBC 161 ug/dL (265-497) L 01/17/18 07:00 % Saturation 34 % (20-55) 01/17/18 07:00 Ferritin 376.0 ng/mL 01/17/18 07:00 Total Bilirubin 0.1 mg/dL (0.2-1.3) L 01/19/18 06:20 AST 23 U/L (14-36) 01/19/18 06:20 ALT 33 U/L (7-56) 01/19/18 06:20 Alkaline Phosphatase 71 U/L (38-126) 01/19/18 06:20 Troponin I < 0.01 ng/mL 01/15/18 19:15 C-React Prot High Sens > 15.00 mg/L (1.00-3.00) H 01/15/18 19:15 NT-Pro-B Natriuret Pep 507 pg/mL (0-450) H 01/15/18 19:15 Total Protein 5.5 g/dL (5.8-8.3) L 01/19/18 06:20 Albumin 2.6 g/dL (3.0-4.8) L 01/19/18 06:20 Globulin 3.0 gm/dL 01/19/18 06:20 Albumin/Globulin Ratio 0.9 (1.1-1.8) L 01/19/18 06:20 Vitamin B12 450 pg/mL (239-931) 01/17/18 07:00 Folate 7.7 ng/mL 01/17/18 07:00 Procalcitonin 0.10 NG/ML (0.19-0.49) L 01/15/18 19:15 Venous Blood Potassium 4.2 mmol/L (3.6-5.2) 01/15/18 19:51 Attending/Attestation - Attestation I have personally seen and examined this patient.: Yes I have fully participated in the care of the patient.: Yes I have reviewed all pertinent clinical information, including history, physical exam and plan: Yes Notes (Text): 01/19/18 77 year old female with past medical history of hypertension, dyslipidemia and dementia who was admitted for left gluteal decubitus ulcer. She was on iv antibiotics. She was seen by surgery is and debridement and wound vac placement. Wound culture grew strep viridans and morganella morganni. Antibiotics switched to po levaquin. Patient is discharged home on po antibiotics with wound vac. Follow up with pmd Dr. Mora. Case discussed with pmd today. Follow up with surgery/wound care, Dr. Concepcion. Genet Mckeon MD Hospitalist.
--- NOTE | 2018-02-04 08:14 | PN ---
Copied To: Kenton Concepcion MD Attending MD: Kenton Concepcion MD DATE: 02/03/2018 Patient is seen on the floor. There is left sacral gluteal decubitus, it is sharply debrided with an 11 blade down to the muscle. There might be bone involved. The area is sharply debrided with scissors and scraped to clean viable tissue circumferentially. The wound is packed. Eventually will need wound VAC. It is about 4 x 6 inches. Kenton Concepcion MD
== END 2018-01-19 18:33 | disposition home or self-care (01) | DRG 579 ==
LOC: ED 18:08 → ERH 19:48 → 5RNO 22:38
PROVIDERS: ADMIT Internal Medicine; ATTEND Internal Medicine
PROC: 0KDP0ZZ Extraction of Left Hip Muscle, Open Approach (ICD-10-PCS; principal; 2018-01-17)
DX: L89.324 Pressure ulcer of left buttock, stage 4 (principal); B95.4 Other streptococcus as the cause of diseases classified elsewhere; I10 Essential (primary) hypertension; F03.90 Unspecified dementia, unspecified severity, without behavioral disturbance, psychotic disturbance, mood disturbance, and anxiety; E78.5 Hyperlipidemia, unspecified; D63.8 Anemia in other chronic diseases classified elsewhere; M81.0 Age-related osteoporosis without current pathological fracture; E11.9 Type 2 diabetes mellitus without complications

== ENCOUNTER 2018-02-04 10:36 | Observation (INO) | payer MEDICARE, OTHER ==
[2018-02-04 10:50] VITALS: O2SAT 98; BMI 22.4
[2018-02-04] MEDS ORDERED: Sodium Chloride 0.9% 500 ML IV STA (10:59)
--- NOTE | 2018-02-04 11:04 | ED PDOC ---
Arrival/HPI - General Chief Complaint: Abnormal Labs Time Seen by Provider: 02/04/18 10:43 Historian: Patient (limited information obtained from patient), Family (Niece provided most of the information) - History of Present Illness Narrative History of Present Illness (Text): 02/04/18 10:50 77 year old female, whose past medical history includes dementia, hypertension, diabetes, high cholesterol and a decubitis ulcer, who was brought to the Emergency department by her niece after home health aide noted hemoglobin of 8.4 and advised to bring patient in for evaluation for dehydration, low hemoglobin, and ulcer on buttocks. Patient's niece reports patient seems to be tired. Niece notes patient is able to eat normally/consume fluids normally. Niece denies any fever, changes in appetite, or any other complaints or symptoms. PMD: Dr. Mora Time/Duration: Other (came after home health aide advised patient to present for evaluation) Symptom Onset: Gradual Symptom Course: Unchanged Activities at Onset: Light Context: Home Past Medical History - Provider Review Nursing Documentation Reviewed: Yes - Past History Past History: No Previous - Infectious Disease Hx of Infectious Diseases: None - Reproductive Menopause: Yes - Cardiac Hx Hypertension: Yes - Musculoskeletal/Rheumatological Hx Falls: No Hx Osteoporosis: Yes Other/Comment: decubitus to buttocks and sacral area, with wound vac - Psychiatric Hx Substance Use: No - Anesthesia Hx Anesthesia: No Family/Social History - Physician Review Nursing Documentation Reviewed: Yes Family/Social History: No Known Family HX Smoking Status: Never Smoked Hx Alcohol Use: No Hx Substance Use: No Hx Substance Use Treatment: No Allergies/Home Meds Allergies/Adverse Reactions: Allergies No Known Allergies Allergy (Verified 01/15/18 18:13) Home Medications: Home Meds Medication Instructions Recorded Confirmed Amlodipine Besylate [Amlodipine 5 mg PO DAILY 01/15/18 01/15/18 Besilate] Cholecalciferol [Vitamin D 1000 IU] 5,000 unit PO DAILY 01/15/18 01/15/18 Memantine [Namenda] 5 mg PO DAILY 01/15/18 01/15/18 Pravastatin Sodium [Pravachol] 20 mg PO DAILY 01/15/18 01/15/18 Primidone [Mysoline] 50 mg PO TID 01/15/18 01/15/18 Review of Systems - Physician Review All systems were reviewed & negative as marked: Yes - Review of Systems Constitutional: Fatigue (niece notes patient appears to be tired, different from baseline ). absent: Normal, Fevers Eyes: Normal ENT: Normal Respiratory: Normal Cardiovascular: Normal Gastrointestinal: Normal. absent: Appetite Changes (patient is eating normally/ consuming fluids normally, as per niece), Food Intolerance Genitourinary Female: Normal Musculoskeletal: Normal Skin: Normal Neurological: Normal Endocrine: Normal Hemo/Lymphatic: Normal Psychiatric: Normal Physical Exam Vital Signs Reviewed: Yes Vital Signs Temp Pulse Resp BP Pulse Ox 02/04/18 10:36 98.4 F 88 20 122/56 L 98 Temperature: Afebrile Blood Pressure: Normal Pulse: Regular Respiratory Rate: Normal Appearance: Positive for: Cachectic Mental Status: No: Alert and Oriented X 3 (Alert and oriented X2 (baseline as per niece) ) - Systems Exam Head: Present: Atraumatic, Normocephalic Pupils: Present: PERRL Extroacular Muscles: Present: EOMI Conjunctiva: Present: Normal Mouth: Present: Dry. No: Moist Mucous Membranes Neck: Present: Normal Range of Motion Respiratory/Chest: Present: Clear to Auscultation, Good Air Exchange. No: Respiratory Distress, Accessory Muscle Use Cardiovascular: Present: Regular Rate and Rhythm, Normal S1, S2. No: Murmurs Abdomen: No: Tenderness, Distention, Peritoneal Signs, Rebound, Guarding Back: Present: Normal Inspection Upper Extremity: Present: Normal Inspection. No: Cyanosis, Edema Lower Extremity: Present: Other (sacral ulcer at stage 2, mild bleeding ). No: Normal Inspection, Edema Neurological: Present: GCS=15, CN II-XII Intact, Speech Normal, Motor Func Grossly Intact, Normal Sensory Function Skin: Present: Warm, Dry, Normal Color. No: Rashes Psychiatric: Present: Normal Insight, Normal Concentration, Other (Drowsy and Oriented X2 (baseline as per niece) ) Medical Decision Making ED Course and Treatment: 02/04/18 11:26 Impression: 77 year old female who presents to the Emergency department for low hemoglobin, dehydration, sacral decubitis ulcer. Differential Diagnosis included but are not limited to: anemia, dehydration, weakness, r/o infection Plan: -- EKG -- Labs -- X-Ray of chest -- IV fluids -- Blood culture -- Urine culture -- classroom monitor -- Urinalysis -- Reassess and disposition Prior Visits: Notes and results from previous visits were reviewed. Patient was last seen in the emergency department on 01/15/18 for further evaluation at the [facility] nurse for left buttock decubitis wound, worse 2 days prior to arrival. Patient was hospitalized for decubitus ulcer, wound abscess and was at risk for sepsis. Progress Notes: EKG shows NSR at [address]-segment elevations, normal intervals, normal axis. Interpreted by me. X-Ray of chest reviewed by radiologist, shows: Dictator : Manolo Carlson MD Report Date : 02/04/2018 11:21:15 IMPRESSION: No active disease. 02/04/18 12:27 Patient will continue to received IV hydration. Discussed case with Dr. Mora who will place her under observation for dehydration, weakness. Patient also needs an evaluation of her sacral wound. - Lab Interpretations Lab Results: 02/04/18 11:00 02/04/18 11:00 Lab Results 02/04/18 11:00: Blood Type O POSITIVE, Antibody Screen Negative, BBK History Checked No verified bt 02/04/18 11:00: Sodium 147, Chloride 109 H, Potassium 4.0, Carbon Dioxide 30, Anion Gap 13, BUN 19, Creatinine 0.8, Est GFR ( Amer) > 60, Est GFR (Non- Af Amer) > 60, Random Glucose 97, Calcium 8.8, Phosphorus 3.6, Magnesium 2.2, Total Bilirubin 0.3, AST 34, ALT 33, Alkaline Phosphatase 77, Total Protein 5.7 L, Albumin 2.5 L, Globulin 3.1, Albumin/Globulin Ratio 0.8 L 02/04/18 11:00: pO2 70 H, VBG pH 7.47 H, VBG pCO2 45.0, VBG HCO3 32.8 H, VBG Total CO2 34.2 H, VBG O2 Sat (Calc) 97.2 H, VBG Base Excess 8.0 H, VBG Potassium 3.6, Sodium 145.0, Chloride 113.0 H, Glucose 97, Lactate 0.7, FiO2 21.0, Venous Blood Potassium 3.6 02/04/18 11:00: PT 11.7, INR 1.02, APTT 25.0 L 02/04/18 11:00: WBC 9.2 D, RBC 2.93 L, Hgb 8.8 L, Hct 26.9 L, MCV 91.8, MCH 30.0, MCHC 32.7, RDW 13.7, Plt Count 331, MPV 9.8, Gran % 73.5 H, Lymph % (Auto ) 17.3 L, [place] % (Auto) 8.6 H, Eos % (Auto) 0.4 L, Baso % (Auto) 0.2, Gran # 6.73 H, Lymph # (Auto) 1.6, [place] # (Auto) 0.8 H, Eos # (Auto) 0.0, Baso # (Auto ) 0.02 - RAD Interpretation Radiology Orders: 02/04/18 10:58 CHEST PORTABLE [RAD] Stat Station [employer] Specialist: Radiologist - EKG Interpretation Interpreted by ED Physician: Yes Type: 12 lead EKG - Medication Orders Current Medication Orders: Discontinued Medications Sodium Chloride (Sodium Chloride 0.9%) 500 mls @ 999 mls/hr IV .Q31M STA Stop: 02/04/18 11:29 Last Admin: 02/04/18 11:21 Dose: 999 mls/hr eMAR Start Stop Document 02/04/18 11:21 SRE (Rec: 02/04/18 11:21 SRE [id number]) Intravenous Solution Start Date 02/04/18 Start Time 11:00 End Date 02/04/18 End time 11:30 Total Infusion Time 30 - Scribe Statement The provider has reviewed the documentation as recorded by the Scribe Myah Irizarry All medical record entries made by the Scribe were at my direction and personally dictated by me. I have reviewed the chart and agree that the record accurately reflects my personal performance of the history, physical exam, medical decision making, and the department course for this patient. I have also personally directed, reviewed, and agree with the discharge instructions and disposition. Disposition/Present on Arrival - Present on Arrival Any Indicators Present on Arrival: No History of DVT/PE: No History of Uncontrolled Diabetes: No Urinary Catheter: No History of Decub. Ulcer: No History Surgical Site Infection Following: None - Disposition Have Diagnosis and Disposition been Completed?: Yes Diagnosis: Decubitus ulcer, Dehydration, Weakness Disposition: HOSPITALIZED Disposition Time: 12:28 Patient Plan: Observation Condition: FAIR Discharge Instructions (ExitCare): Weakness (ED) Referrals: Kayleen Mora MD [Primary Care Provider] - Follow up with primary Forms: [employer] ([employer] [place])
--- NOTE | 2018-02-04 11:22 | RAD ---
Date of service: 02/04/2018 HISTORY: Sepsis Patient COMPARISON: 01/15/2018 FINDINGS: LUNGS: No active pulmonary disease. PLEURA: No significant pleural effusion identified, no pneumothorax apparent. CARDIOVASCULAR: Normal. OSSEOUS STRUCTURES: No significant abnormalities. VISUALIZED UPPER ABDOMEN: Normal. OTHER FINDINGS: None. IMPRESSION: No active disease.
[2018-02-04 11:26] LABS: VENOUS BLOOD GAS PO2 70 mm/Hg (30-55); VENOUS BLOOD PH 7.47 (7.32-7.43)
[2018-02-04 11:32] LABS: BASO # 0.02 K/mm3 (0.0-2.0); BASO % 0.2 % (0.0-3.0); EOS % 0.4 % (1.5-5.0); GRAN # 6.73 (1.4-6.5); GRAN % 73.5 % (50.0-68.0); HEMOGLOBIN 8.8 g/dL (12.0-16.0); LYMPH # 1.6 (1.2-3.4); LYMPH % 17.3 % (22.0-35.0); MEAN CELL VOLUME 91.8 fl (80.0-105.0); MEAN CORPUSCULAR HGB CONC 32.7 g/dl (31.0-37.0); MEAN PLATELET VOLUME 9.8 fl (7.0-11.0); MONO # 0.8 (0.1-0.6); MONO % 8.6 % (1.0-6.0); RBC 2.93 10^6/uL (3.5-6.1); RED CELL DISTRIBUTION WIDTH 13.7 % (11.5-14.5); WHITE BLOOD COUNT 9.2 10^3/ul (4.5-11.0)
[2018-02-04 11:41] LABS: INR 1.02; PROTHROMBIN TIME 11.7 SECONDS (9.4-12.5)
[2018-02-04 11:47] LABS: ALB/GLOB RATIO 0.8 (1.1-1.8); ALBUMIN 2.5 g/dL (3.0-4.8); ALT/SGPT 33 U/L (7-56); AST/SGOT 34 U/L (14-36); BLOOD UREA NITROGEN 19 mg/dL (7-21); CALCIUM 8.8 mg/dL (8.4-10.5); GFR NON-AFRICAN AMERICAN > 60
[2018-02-04 13:43] LABS: PH,URINE 5.5 (4.7-8.0); URINE BILIRUBIN NEGATIVE (NEGATIVE); URINE BLOOD NEGATIVE (NEGATIVE); URINE GLUCOSE (UA) NEGATIVE (NEGATIVE); URINE LEUKOCYTE ESTERASE NEGATIVE Leu/uL (NEGATIVE); URINE PROTEIN 30 mg/dL (<30 mg/dL); URINE UROBILINOGEN 0.2 E.U./dL (<1 E.U./dL)
[2018-02-04 13:44] LABS: URINE APPEARANCE CLEAR (CLEAR); URINE COLOR YELLOW (YELLOW)
[2018-02-04 13:55] LABS: URINE BACTERIA MANY (NEG); URINE RBC 0 - 2 /hpf (0-2)
[2018-02-04 13:56] LABS: URINE FINE GRANULAR CAST 0 - 2 /hpf (0-2); URINE HYALINE CAST 0 - 2 /hpf
--- NOTE | 2018-02-04 15:35 | CARD ---
APPROVED REPORT Date of service: 02/04/2018 EKG Measurement Heart [id number] DC [id number] <Conclusion> Normal sinus rhythm Normal ECG
[2018-02-04] MEDS ORDERED: Pneumococcal 23-Valent Vaccine IM ONE (17:46)
--- NOTE | 2018-02-04 20:51 | CP.PCM.CON ---
History of Present Illness - History of Present Illness History of Present Illness: General Surgery Consult Note for Dr. Concepcion This 77F with a PMH of dementia and sacral ulcer presented due to low hemoglobin of 8.4, Histoary is sparce and was obtained from the sister since the pt is not a reliable historian and communicates inconsistenly. The sister also reports a three week history of increased lethargey in the pt. she is known to the service due for her sacral ulcer for which a wound vac was placed and is being care for by the nursing service. PMH: HTN, Dementia, history of decubitus wounds Meds: Myosine, Memantine, Norvasc, Pravachol, Vitamin D Allergy: NKDA PSH: Denies FH: unknown Social: denies tobacco/EtOH//illicit drug use, lives at home with sister, sister is POA Review of Systems - Review of Systems Systems not reviewed;Unavailable: Altered Mental Status Past Patient History - Infectious Disease Hx of Infectious Diseases: None - Past Social History Smoking Status: Never Smoked - CARDIAC Hx Cardiac Disorders: Yes Hx Hypercholesterolemia: Yes Hx Hypertension: Yes - PULMONARY Hx Respiratory Disorders: No - NEUROLOGICAL Hx Neurological Disorder: Yes Hx Dementia: Yes - HEENT Hx HEENT Problems: No - RENAL Hx Chronic Kidney Disease: No - ENDOCRINE/METABOLIC Hx Endocrine Disorders: No - HEMATOLOGICAL/ONCOLOGICAL Hx Blood Disorders: No - INTEGUMENTARY Hx Dermatological Problems: Yes Other/Comment: left gluteal decubiti ulcer with wound vac in place, right heel necrotic wound, multiple wounds to sacrum in various stages of healing, b/l bunyons, callous outer left foot, long thick toenails to both feet, crooked toes to left foot, dry skin, multiple skin discolorations ble - MUSCULOSKELETAL/RHEUMATOLOGICAL Hx Falls: No - GASTROINTESTINAL Hx Gastrointestinal Disorders: Yes (wt loss) - GENITOURINARY/GYNECOLOGICAL Hx Genitourinary Disorders: Yes Hx Incontinence: Yes (urine and stool) - PSYCHIATRIC Hx Substance Use: No - SURGICAL HISTORY Hx Surgeries: No - ANESTHESIA Hx Anesthesia: No Meds Allergies/Adverse Reactions: Allergies Allergy/AdvReac Type Severity Reaction Status Date / Time No Known Allergies Allergy Verified 01/15/18 18:13 - Medications Medications: Current Medications Amlodipine Besylate (Norvasc) 5 mg PO DAILY [facility] Atorvastatin Calcium (Lipitor) 10 mg PO DIN [facility] Last Admin: 02/04/18 17:39 Dose: Not Given Cholecalciferol (Vitamin D) 1,000 intlu PO DAILY [facility] Memantine (Namenda) 5 mg PO DAILY [facility] Primidone (Mysoline) 50 mg PO TID [facility] Last Admin: 02/04/18 17:39 Dose: Not Given Physical Exam - Constitutional Appears: Non-toxic, No Acute Distress - Head Exam Head Exam: ATRAUMATIC, NORMOCEPHALIC - Eye Exam Eye Exam: EOMI, Normal appearance - ENT Exam ENT Exam: Mucous Membranes Moist - Respiratory Exam Respiratory Exam: NORMAL BREATHING PATTERN - Cardiovascular Exam Cardiovascular Exam: +S1, +S2 - GI/Abdominal Exam GI & Abdominal Exam: Soft. absent: Distended, Firm, Guarding, Hernia, Rigid, Tenderness - Back Exam Additional comments: Wound vac in place with suction Results - Vital Signs Recent Vital Signs: Last Vital Signs Temp 98 F 02/04/18 17:17 Pulse 85 02/04/18 17:17 Resp 20 02/04/18 17:17 BP 100/48 L 02/04/18 17:17 Pulse Ox 98 02/04/18 14:44 - Labs Result Diagrams: 02/04/18 11:00 02/04/18 11:00 Labs: Laboratory Results - last 24 hr 02/04/18 13:20 Urine Color Yellow Urine Appearance Clear Urine pH 5.5 Ur Specific [place] >= 1.030 Urine Protein 30 H Urine Glucose (UA) Negative Urine Ketones Negative Urine Blood Negative Urine Nitrate Negative Urine Bilirubin Negative Urine Urobilinogen 0.2 Ur Leukocyte Esterase Negative Urine RBC 0 - 2 Urine WBC 1 - 3 Urine Bacteria Many Hyaline Casts 0 - 2 Fine Granular Casts 0 - 2 Urine Other Uyeast Assessment & Plan - Assessment and Plan (Free Text) Assessment: 77F with scaral ulcer Will change wound vac today and every three days while admitted Will follow Hgb Further recs per Dr. Jamey Zuniga PGY3
[2018-02-04] MEDS ORDERED: Sodium Chloride 0.9% 1,000 ML IV SCH (22:15)
[2018-02-04 23:05] VITALS: RESP 18
[2018-02-05 08:11] LABS: HEMOGLOBIN 8.7 g/dL (12.0-16.0); MEAN CELL VOLUME 93.4 fl (80.0-105.0); MEAN CORPUSCULAR HGB CONC 32.1 g/dl (31.0-37.0); MEAN PLATELET VOLUME 10.7 fl (7.0-11.0); RBC 2.9 10^6/uL (3.5-6.1); RED CELL DISTRIBUTION WIDTH 13.6 % (11.5-14.5); WHITE BLOOD COUNT 9.9 10^3/ul (4.5-11.0)
[2018-02-05 08:20] LABS: BLOOD UREA NITROGEN 19 mg/dL (7-21); CALCIUM 8.6 mg/dL (8.4-10.5); GFR NON-AFRICAN AMERICAN > 60; HDL CHOLESTEROL 31 mg/dL (29-60)
[2018-02-05 08:30] LABS: LDL CHOLESTEROL 54 mg/dL (0-129)
[2018-02-05 08:59] LABS: IRON 19 ug/dL (45-180)
[2018-02-05 09:09] LABS: % IRON SATURATION 14 % (20-55); TOTAL IRON BINDING CAPACITY 141 ug/dL (265-497)
[2018-02-05] MEDS: Enoxaparin 30 mg Syringe SC SCH ×2 (09:30→09:53)
--- NOTE | 2018-02-05 09:43 | HP ---
02/04/18 Copied To: Kayleen Mora MD Attending MD: Kayleen Mora MD CHIEF COMPLAINT: Fatigue and tired. HISTORY OF PRESENT ILLNESS: Ms. Otis Canela is 77 years old female, new for me, whose past medical history includes dementia, hypertension, diabetes mellitus, hypercholesterolemia, sacral decubitus ulcer, was brought to the Emergency Department by her niece after home health aide noted hemoglobin was low and advised to bring the patient in the hospital for evaluation because she was feeling very fatigued and tired and to rule out dehydration, low hemoglobin and ulcers on the buttocks. The patient's niece reports the patient seemed to be tired. Niece noticed the patient is able to eat normally, consuming fluids only. Niece denies any fever, chills. No nausea, vomiting or diarrhea. No hematuria or hematochezia. When I examined the patient, the patient's daughter was sitting on the bedside also. The patient is a poor historian. PAST MEDICAL HISTORY: As above, hypertension, osteoporosis, decubitus ulcer to the buttocks and sacral area with the wound VAC. FAMILY HISTORY: Father and mother, noncontributory. HABITS: Never smoked, no drugs, no ethanol. ALLERGIES: THE PATIENT IS NOT ALLERGIC WITH ANY MEDICATIONS. HOME MEDICATIONS: Amlodipine, vitamin D, Namenda, Pravachol, primidone. REVIEW OF SYSTEMS: The patient was seen and examined at the bedside in her room. The patient is very poor historian. According to family, the patient is very fatigued and tired. No fever, no chills. No appetite. Consuming normally liquids as per family. No headache, no dizziness. Has ulcers on the buttocks and sacral area. PHYSICAL EXAMINATION: VITAL SIGNS: Temperature 98.4, pulse 88, respiratory rate 20, blood pressure 122/56, pulse oximetry 98. HEENT: Head, normocephalic and atraumatic. Eyes, PERRLA. Extraocular muscles intact. Conjunctivae clear. Nose patent. NECK: Supple. No carotid bruit. No JVD or thyromegaly. CHEST: Bilaterally symmetrical. HEART: S1, S2 positive. LUNGS: Clear to auscultation. Good air exchange. No respiratory distress. Not using accessory muscles. ABDOMEN: Soft, bowel sounds present. No organomegaly. EXTREMITIES: No edema, no cyanosis. NEUROLOGICAL: The patient is awake, alert, oriented only x2 that is baseline for her as per the patient's family. SKIN: Warm, dry, normal color. Has ulcers on the sacral area and on the buttocks. ASSESSMENT AND PLAN: Ms. Otis Canela is 77 years old female who came in the hospital with low hemoglobin, dehydration, sacral decubitus ulcer, fatigued and tired. The patient has history of advanced dementia, hypercholesterolemia, has wound VAC on the decubitus ulcer, wound care surgical team consult called, history of anemia, hyperchloremia, getting intravenous fluids. Podiatry consult called with Dr. Rios. Started Lipitor for hypercholesterolemia. Primidone, the patient has history of rule out seizures. Namenda for dementia, amlodipine for hypertension, gave intravenous fluids for dehydration, vitamin D. Gastrointestinal and deep venous thrombosis prophylaxes. Repeat labs. We will follow up. Kayleen Mora MD MTDD
[2018-02-05] MEDS ORDERED: Cholecalciferol 1,000 INTLU TAB PO SCH (10:00)
--- NOTE | 2018-02-05 14:50 | CP.PCM.CON ---
<BiggChekolana - Last Filed: 02/05/18 14:46> History of Present Illness - History of Present Illness History of Present Illness: Podiatry Consult Note - Drs. Rios/Julio Cesar 77 year old female patient PMHx HTN, dementia, hx of sacral ulceration seen and evaluated at bedside. HPI limited due to dementia. Per chart, patient admitted for low hgb of 8.4. Podiatry consulted for ulceration to right heel. Review of Systems - Review of Systems All systems: reviewed and no additional remarkable complaints except (as per HPI ) Past Patient History - Infectious Disease Hx of Infectious Diseases: None - Past Social History Smoking Status: Never Smoked - CARDIAC Hx Cardiac Disorders: Yes Hx Hypercholesterolemia: Yes Hx Hypertension: Yes - PULMONARY Hx Respiratory Disorders: No - NEUROLOGICAL Hx Neurological Disorder: Yes Hx Dementia: Yes - HEENT Hx HEENT Problems: No - RENAL Hx Chronic Kidney Disease: No - ENDOCRINE/METABOLIC Hx Endocrine Disorders: No - HEMATOLOGICAL/ONCOLOGICAL Hx Blood Disorders: No - INTEGUMENTARY Hx Dermatological Problems: Yes Other/Comment: left gluteal decubiti ulcer with wound vac in place, right heel necrotic wound, multiple wounds to sacrum in various stages of healing, b/l bunyons, callous outer left foot, long thick toenails to both feet, crooked toes to left foot, dry skin, multiple skin discolorations ble - MUSCULOSKELETAL/RHEUMATOLOGICAL Hx Falls: No - GASTROINTESTINAL Hx Gastrointestinal Disorders: Yes (wt loss) - GENITOURINARY/GYNECOLOGICAL Hx Genitourinary Disorders: Yes Hx Incontinence: Yes (urine and stool) - PSYCHIATRIC Hx Substance Use: No - SURGICAL HISTORY Hx Surgeries: No - ANESTHESIA Hx Anesthesia: No Meds Home Medications: Home Medication List Medication Instructions Recorded Confirmed Type Ferrous Sulfate [Ferosul] 300 mg PO BID 30 Days elixir 02/05/18 Rx traMADol [Ultram] 50 mg PO BID PRN #20 tab 02/05/18 Rx Allergies/Adverse Reactions: Allergies Allergy/AdvReac Type Severity Reaction Status Date / Time No Known Allergies Allergy Verified 01/15/18 18:13 - Medications Medications: Current Medications Amlodipine Besylate (Norvasc) 5 mg PO DAILY [facility] Atorvastatin Calcium (Lipitor) 10 mg PO DIN [facility] Last Admin: 02/04/18 17:39 Dose: Not Given Cholecalciferol (Vitamin D) 1,000 intlu PO DAILY [facility] Last Admin: 02/05/18 09:54 Dose: 1,000 intlu Enoxaparin Sodium (Lovenox) 30 mg SC DAILY [facility] PRN Reason: Protocol Last Admin: 02/05/18 09:30 Dose: 30 mg Famotidine (Pepcid) 40 mg PO HS [facility] Sodium Chloride (Sodium Chloride 0.9%) 1,000 mls @ 100 mls/hr IV .Q10H [facility] Memantine (Namenda) 5 mg PO DAILY [facility] Primidone (Mysoline) 50 mg PO TID [facility] Last Admin: 02/04/18 17:39 Dose: Not Given Physical Exam - Constitutional Appears: Non-toxic, No Acute Distress, Cachectic - Extremities Exam Additional comments: RLE focused physical exam Vasc: DP and PT pulses nonpalpable. CFT <3 seconds to digits. Temperature gradient cool to cool. No edema noted. Neuro: Unable to assess. Derm: Full thickness ulceration measuring approximately 2.5 x 2 x 0.1 cm noted to posterior aspect of heel extending to subcutaneous tissue - noted to have a granular base and overlying hyperkeratosis; serosanguinous drainage present; no malodor; no fluctuance; no periwound erythema. Ortho: Rigid contracture at knee joint and ankle joint. Results - Vital Signs Recent Vital Signs: Last Vital Signs Temp 98.5 F 02/05/18 06:00 Pulse 98 H 02/05/18 06:00 Resp 18 02/05/18 06:00 BP 141/72 02/05/18 06:00 Pulse Ox 98 02/05/18 06:00 - Labs Result Diagrams: 02/05/18 07:30 02/05/18 07:30 Labs: Laboratory Results - last 24 hr 02/05/18 02/05/18 02/05/18 07:30 07:30 07:30 WBC 9.9 RBC 2.90 L Hgb 8.7 L Hct 27.1 L MCV 93.4 MCH 30.0 MCHC 32.1 RDW 13.6 Plt Count 175 MPV 10.7 Sodium 146 Potassium 3.9 Chloride 113 H Carbon Dioxide 24 Anion Gap 13 BUN 19 Creatinine 0.7 Est GFR ( Amer) > 60 Est GFR (Non-Af Amer) > 60 Random Glucose 74 Calcium 8.6 Iron 19 L TIBC 141 L % Saturation 14 L Triglycerides 84 Cholesterol 111 L LDL Cholesterol Direct 54 HDL Cholesterol 31 TSH 3rd Generation 02/05/18 07:30 WBC RBC Hgb Hct MCV MCH MCHC RDW Plt Count MPV Sodium Potassium Chloride Carbon Dioxide Anion Gap BUN Creatinine Est GFR ( Amer) Est GFR (Non-Af Amer) Random Glucose Calcium Iron TIBC % Saturation Triglycerides Cholesterol LDL Cholesterol Direct HDL Cholesterol TSH 3rd Generation 1.95 Assessment & Plan - Assessment and Plan (Free Text) Assessment: 77F PMHx HTN, dementia, hx of sacral ulceration with right heel decubitus ulceration Plan: Patient seen and evaluated alongside attending, Dr. Harrell Afebrile, WBC WNL R foot XR ordered Wound debrided w/o incident. R heel wound culture obtained, f/u Local wound care - xeroform, DSD Continue multipodus boots at all times in bed PT/OT Podiatry will continue to follow <Bright Harrell - Last Filed: 02/05/18 17:43> Meds - Medications Medications: Current Medications Amlodipine Besylate (Norvasc) 5 mg PO DAILY [facility] Last Admin: 02/05/18 10:00 Dose: Not Given Atorvastatin Calcium (Lipitor) 10 mg PO DIN [facility] Last Admin: 02/04/18 17:39 Dose: Not Given Cholecalciferol (Vitamin D) 1,000 intlu PO DAILY [facility] Last Admin: 02/05/18 09:54 Dose: 1,000 intlu Enoxaparin Sodium (Lovenox) 30 mg SC DAILY [facility] PRN Reason: Protocol Last Admin: 02/05/18 09:30 Dose: 30 mg Famotidine (Pepcid) 40 mg PO HS [facility] Sodium Chloride (Sodium Chloride 0.9%) 1,000 mls @ 100 mls/hr IV .Q10H [facility] Memantine (Namenda) 5 mg PO DAILY [facility] Last Admin: 02/05/18 10:00 Dose: Not Given Primidone (Mysoline) 50 mg PO TID [facility] Last Admin: 02/05/18 16:01 Dose: Not Given Results - Vital Signs Recent Vital Signs: Last Vital Signs Temp 98.9 F 02/05/18 14:00 Pulse 82 02/05/18 14:00 Resp 18 02/05/18 14:00 BP 117/54 L 02/05/18 14:00 Pulse Ox 98 02/05/18 14:00 - Labs Result Diagrams: 02/05/18 07:30 02/05/18 07:30 Labs: Laboratory Results - last 24 hr 02/05/18 02/05/18 02/05/18 07:30 07:30 07:30 WBC 9.9 RBC 2.90 L Hgb 8.7 L Hct 27.1 L MCV 93.4 MCH 30.0 MCHC 32.1 RDW 13.6 Plt Count 175 MPV 10.7 Sodium 146 Potassium 3.9 Chloride 113 H Carbon Dioxide 24 Anion Gap 13 BUN 19 Creatinine 0.7 Est GFR ( Amer) > 60 Est GFR (Non-Af Amer) > 60 Random Glucose 74 Hemoglobin A1c Calcium 8.6 Iron 19 L TIBC 141 L % Saturation 14 L Triglycerides 84 Cholesterol 111 L LDL Cholesterol Direct 54 HDL Cholesterol 31 Vitamin B12 527 Folate 8.4 TSH 3rd Generation 02/05/18 02/05/18 07:30 08:30 WBC RBC Hgb Hct MCV MCH MCHC RDW Plt Count MPV Sodium Potassium Chloride Carbon Dioxide Anion Gap BUN Creatinine Est GFR ( Amer) Est GFR (Non-Af Amer) Random Glucose Hemoglobin A1c 5.4 Calcium Iron TIBC % Saturation Triglycerides Cholesterol LDL Cholesterol Direct HDL Cholesterol Vitamin B12 Folate TSH 3rd Generation 1.95 Attending/Attestation - Attestation I have personally seen and examined this patient.: Yes I have fully participated in the care of the patient.: Yes I have reviewed all pertinent clinical information: Yes
[2018-02-05 15:15] VITALS: BP 117/54; PULSE 82; TEMP 98.9
[2018-02-05 16:54] LABS: FOLATE 8.4 ng/mL
--- NOTE | 2018-02-05 17:08 | RAD ---
Date of service: 02/05/2018 PROCEDURE: Right Foot Radiographs. HISTORY: right heel decubitus ulcer COMPARISON: None. FINDINGS: Markedly limited exam due to suboptimal views. There is no gross displaced fracture or obvious evidence of periosteal reaction. IMPRESSION: Limited examination. Findings as above.
== END 2018-02-05 19:11 | disposition home or self-care (01) ==
LOC: ED 10:36 → ERH 13:02 → 5RNO 15:01
PROVIDERS: ADMIT Internal Medicine; ATTEND Internal Medicine
DX: E86.0 Dehydration (principal); L89.324 Pressure ulcer of left buttock, stage 4; L89.159 Pressure ulcer of sacral region, unspecified stage; L89.610 Pressure ulcer of right heel, unstageable; D64.9 Anemia, unspecified; F03.90 Unspecified dementia, unspecified severity, without behavioral disturbance, psychotic disturbance, mood disturbance, and anxiety; E87.8 Other disorders of electrolyte and fluid balance, not elsewhere classified; E78.00 Pure hypercholesterolemia, unspecified; I10 Essential (primary) hypertension; M81.0 Age-related osteoporosis without current pathological fracture
CPT/HCPCS: 36415; 71045; 73630; 80048; 80053; 80061; 81001; 82607; 82746; 82803; 83036; 83540; 83550; 83735; 84100; 84443; 85025; 85027; 85610; 85730; 86850; 86900; 87040; 87070; 87086; 93005; 96372; 96374; 99282; G0378; J1650; J1756; J7040

== ENCOUNTER 2018-03-20 18:09 | Inpatient (IN) | payer MEDICARE, OTHER ==
[2018-03-20 18:50] VITALS: BMI 25.4
--- NOTE | 2018-03-20 18:50 | ED PDOC ---
Arrival/HPI - General Time Seen by Provider: 03/20/18 18:14 Historian: Patient - Critical Care Critical Care Minutes: 45 minutes - History of Present Illness Narrative History of Present Illness (Text): 03/20/18 18:48 A 77 year old female, whose past medical history includes dementia, hypertension, diabetes, high cholesterol and a decubitis ulcer, is brought into the emergency department via EMS from [facility] sent in by Dr. Martines for further evaluation of bilateral pneumonia, CHINMAY, anemia, GI Bleed, uremia, and elevated BUN. Patient's HPI/ROS limited due to acuity of patient's condition Symptom Onset: Sudden Symptom Course: Unchanged Activities at Onset: Rest, Light Context: Home (Half-Way) Past Medical History - Provider Review Nursing Documentation Reviewed: Yes - Past History Past History: No Previous - Infectious Disease Hx of Infectious Diseases: None - Cardiac Hx Hypertension: Yes - Pulmonary Hx Respiratory Disorders: No - Neurological Hx Dementia: Yes - HEENT Hx HEENT Disorder: No - Renal Hx Renal Disorder: No - Endocrine/Metabolic Hx Endocrine Disorders: No - Hematological/Oncological Hx Blood Disorders: No - Integumentary Hx Dermatological Disorder: Yes Other/Comment: left gluteal decubiti ulcer with wound vac in place, right heel necrotic wound, multiple wounds to sacrum in various stages of healing, b/l bunyons, callous outer left foot, long thick toenails to both feet, crooked toes to left foot, dry skin, multiple skin discolorations ble - Musculoskeletal/Rheumatological Hx Arthritis: Yes (CONTRACTED L HIP/KNEE AND B/L ELB) - Gastrointestinal Hx Gastrointestinal Disorders: Yes (wt loss) - Genitourinary/Gynecological Hx Genitourinary Disorders: Yes Hx Incontinence: Yes (urine and stool) - Psychiatric Hx Substance Use: No - Anesthesia Hx Anesthesia: No Family/Social History - Physician Review Nursing Documentation Reviewed: Yes Family/Social History: No Known Family HX Smoking Status: Never Smoked Hx Alcohol Use: No Hx Substance Use: No Hx Substance Use Treatment: No Allergies/Home Meds Allergies/Adverse Reactions: Allergies No Known Allergies Allergy (Verified 02/16/18 11:39) Home Medications: Home Meds Medication Instructions Recorded Confirmed Amlodipine Besylate [Amlodipine 5 mg PO DAILY 01/15/18 02/04/18 Besilate] Cholecalciferol [Vitamin D 1000 IU] 5,000 unit PO DAILY 01/15/18 02/04/18 Memantine [Namenda] 5 mg PO DAILY 01/15/18 02/04/18 Pravastatin Sodium [Pravachol] 20 mg PO DAILY 01/15/18 02/04/18 Primidone [Mysoline] 50 mg PO TID 01/15/18 02/04/18 Review of Systems - Physician Review All systems were reviewed & negative as marked: Yes - Review of Systems Systems not reviewed;Unavailable: Acuity of Condition Physical Exam - Physical Exam Physical Exam Limitations: Other (Dementia) Vital Signs Reviewed: Yes Vital Signs Temp Pulse Resp BP Pulse Ox 03/20/18 18:41 97.0 F L 91 H 18 129/74 95 Blood Pressure: Normal Pulse: Tachycardic Respiratory Rate: Normal Appearance: Positive for: Well-Appearing, Non-Toxic, Comfortable Pain Distress: None Mental Status: Positive for: Alert and Oriented X 3 - Systems Exam Head: Present: Atraumatic, Normocephalic Pupils: Present: PERRL Extroacular Muscles: Present: EOMI Conjunctiva: Present: Normal Mouth: Present: Moist Mucous Membranes Pharnyx: Present: Normal. No: ERYTHEMA, EXUDATE Nose (Internal): Present: Normal Inspection Neck: Present: Normal Range of Motion. No: Meningeal Signs Respiratory/Chest: Present: Clear to Auscultation, Good Air Exchange Cardiovascular: Present: Regular Rate and Rhythm Abdomen: Present: Normal Bowel Sounds, Feeding Tubes (G-tube in place. no erythema or crepitus surronding G tube site). No: Tenderness, Peritoneal Signs Genitourinary/Pelvic Exam: Present: Other (Jefferson catheter in place. Lily fluid draining from jefferson. ) Back: Present: Decubitus Ulcer (Extending from right hip to sacral region. No crepitus. No errythema. ) Upper Extremity: Present: NORMAL PULSES, Capillary Refill < 2s Lower Extremity: Present: NORMAL PULSES, Capillary Refill < 2 s, Other (Right heel ulcer. ) Neurological: Present: Motor Func Grossly Intact Skin: Present: Warm Psychiatric: Present: Other (Dementia) Medical Decision Making ED Course and Treatment: 03/20/18 18:50 Impression: A 77 year old female is brought into the emergency department via EMS sent in by Dr. Martines for further evaluation of bilateral pneumonia, CHINMAY, anemia, GI Bleed, uremia, and elevated BUN. Hx of decub ulcer, previously on abx: cefepime. Hx of PNA, previously on Rocephin and Azithro. Sent in by Dr. Martines for hgb 6.0. elevated BUN and Cr of 5.0. Per staff registered nurse at [place] pt is baseline mentation. G tube site non-crepitic or erythematous. Neck supple. Guaic pending. Given elevated Bun and Anemia: ?Gi Bleed. Given PNA, Gi bleed, CHINMAY and multiple co-morbidities will likely require admission. Plan: -- EKG -- Chest X-ray -- Labs -- Blood Culture -- Urinalysis -- Reassess and disposition Prior Visits: Notes and results from previous visits were reviewed. Progress Notes: 03/20/18 18:34: Case discussed in detail with patient's POA who gave consent for blood transfusion. Consent form Signed with RN. 03/20/18 18:36 EKG: Ordered, reviewed, and independently interpreted the EKG. Rate : 91 BPM Rhythm : NSR Interpretation : No STEMI 03/20/18 19:16: Chest X-ray read and interpreted by me shows pneumonia. 03/20/18 19:39: Rectal Exam performed. Guaiac positive. Female component design engineer, Ruth Annibkamla Melo present. 03/20/18 19:41: Case discussed in detail with Dr. Martines. Requests Dr. Mora for admission, ICU evaluation, urine sodium and urine osmoles. 03/20/18 19:44: Case discussed w/ Dr. Mora: we are to admit to her service and place GI consult order. Order placed. Case discussed in detail with Dr. Ferreira (ICU) states he will evaluate the patient. Protonix ordered. 03/20/18 20:18: Patient is not on any blood thinners. Seen by Dr. Ferreira (ICU) Bedside: clear for tele: we are to start NS 0.9% fluid hydration. - Critical Care Critical Care Minutes: 45 minutes - Lab Interpretations I have reviewed the lab results: Yes - RAD Interpretation Radiology Orders: 03/20/18 18:20 CHEST PORTABLE [RAD] Stat - EKG Interpretation Interpreted by ED Physician: Yes Type: 12 lead EKG - Scribe Statement The provider has reviewed the documentation as recorded by the Radha Melo Provider Ruth Annibkamla Attestation: All medical record entries made by the Ruth Annibkamla were at my direction and personally dictated by me. I have reviewed the chart and agree that the record accurately reflects my personal performance of the history, physical exam, medical decision making, and the department course for this patient. I have also personally directed, reviewed, and agree with the discharge instructions and disposition. Disposition/Present on Arrival - Present on Arrival Any Indicators Present on Arrival: Yes History of DVT/PE: No History of Uncontrolled Diabetes: No Urinary Catheter: No History Surgical Site Infection Following: None - Disposition Have Diagnosis and Disposition been Completed?: Yes Diagnosis: Decubitus ulcer, CHINMAY (acute kidney injury), Anemia, Guaiac + stool Disposition: HOSPITALIZED Disposition Time: 20:18 Patient Plan: Admission Patient Problems: Current Active Problems Problem Status Onset CHINMAY (acute kidney injury) Acute Anemia Acute Decubitus ulcer Acute Guaiac + stool Acute Condition: GUARDED
[2018-03-20 19:24] LABS: ALB/GLOB RATIO 0.7 (1.1-1.8); ALBUMIN 2.5 g/dL (3.0-4.8); GFR NON-AFRICAN AMERICAN 9
[2018-03-20 19:28] LABS: INR 1.2; PARTIAL THROMBOPLASTIN TIME 34.2 Seconds (25.1-36.5); PROTHROMBIN TIME 13.7 SECONDS (9.4-12.5)
[2018-03-20 19:35] LABS: TROPONIN I < 0.01 ng/mL
[2018-03-20 19:37] LABS: ALT/SGPT 48 U/L (7-56); AST/SGOT 43 U/L (14-36); BASO # 0.01 K/mm3 (0.0-2.0); BASO % 0.1 % (0.0-3.0); BLOOD UREA NITROGEN 139 mg/dL (7-21); EOS # 0.1 (0.0-0.7); EOS % 0.5 % (1.5-5.0); GRAN # 12.18 (1.4-6.5); LYMPH # 0.9 (1.2-3.4); LYMPH % 6.7 % (22.0-35.0); MEAN CELL VOLUME 86.6 fl (80.0-105.0); MEAN CORPUSCULAR HEMOGLOBIN 28.2 pg (25.0-35.0); MEAN CORPUSCULAR HGB CONC 32.6 g/dl (31.0-37.0); MEAN PLATELET VOLUME 10.5 fl (7.0-11.0); MONO # 0.7 (0.1-0.6); MONO % 4.7 % (1.0-6.0); RBC 2.09 10^6/uL (3.5-6.1); RED CELL DISTRIBUTION WIDTH 16.5 % (11.5-14.5); WHITE BLOOD COUNT 13.8 10^3/ul (4.5-11.0)
[2018-03-20 19:39] LABS: HEMOGLOBIN 5.9 g/dL (12.0-16.0)
[2018-03-20] MEDS ORDERED: Piperacillin/Tazobact 3.375 gm 100 ML IVPB STA (20:09)
[2018-03-20] MEDS ORDERED: Vancomycin 1gm in NS 250ml 1 GM/250 ML BAG IVPB STA (20:09)
[2018-03-20] MEDS: Sodium Chloride 0.9% 1,000 ML IV SCH (20:15)
--- NOTE | 2018-03-20 20:28 | CP.PCM.CON ---
<Robe Tipton - Last Filed: 03/21/18 06:53> History of Present Illness - History of Present Illness History of Present Illness: Robe Tipton Internal Medicine Resident- Consult Note On Behalf of ICU Team Subjective: CC: HPI: Patient is a 77 year old female, with a past medical history of dementia, hypertension, diabetes, high cholesterol and a decubitis ulcer who presents to the emergency department via EMS from [facility] by Dr. Martines for further evalua tion and treatment of bilateral pneumonia, CHINMAY, anemia, GI Bleed, uremia, and elevated BUN. Further subjective data cannot be attained at this time secondary to patients altered mental status. 12-point review of systems cannot be ascertained at this time due to altered mental status As per records: PMHx: HTN, HLD, dementia PSHx: denied ALL: NKDA SocH: lives at home with sister, sister is POA Home Medications : as per EMR Physical Examination: - Constitutional Appears: Non-toxic, No Acute Distress - Head Exam Head Exam: ATRAUMATIC, NORMOCEPHALIC - Eye Exam Eye Exam: PERRLA - ENT Exam ENT Exam: Mucous Membranes Moist - Neck Exam Neck exam: Positive for: Normal Inspection - Respiratory Exam Respiratory Exam: clear to auscultation bilaterally, no wheezing, no rales, no rhonchi - Cardiovascular Exam Cardiovascular Exam: RRR, +S1, +S2 - GI/Abdominal Exam GI & Abdominal Exam: G-tube in place, Soft. absent: Distended, Tenderness - Rectal Exam Rectal Exam: As per ED chart: Rectal Exam performed. Guaiac positive. - Exam Exam - Jefferson catheter in place. Lily fluid draining from jefferson - Extremities Exam Extremities exam: Positive for: normal inspection. Negative for: calf tenderness - Neurological Exam Neurological exam: Alerted - Psychiatric Exam Psychiatric exam: Normal Affect, Normal Mood - Skin Skin Exam: left gluteal decubiti ulcer with wound vac in place, right heel necrotic wound, multiple wounds to sacrum in various stages of healing Assessment and Plan: Patient is a 77 year old female, with a past medical history of dementia, hypertension, diabetes, high cholesterol and a decubitis ulcer who presents to the emergency department via EMS from [facility] by Dr. Martines for further e valuation and treatment of bilateral pneumonia, CHINMAY, anemia, GI Bleed, uremia, and elevated BUN. In the emergency department the patient was given vancomycin, zosyn, started on a protonix drip, and IVF NS @ 75 cc/hr. Neuro: - Patient is baseline dementia Cardio: - HR trended, reviewed, and appreciated- within normal range - BPs trended, reviewed, and appreciated- within normal range - continue to monitor vitals Pulm: Bilateral Pneumonia - given vancomycin and zosyn in ED - recommend continuing antibiotics - keep SaO2 above 92% GI: Potential GI Bleed - repeat stool guacic - prophylaxis with protonix - GI consulted as per primary - recommend to monitor closely via H&H q6h Renal/Electrolytes: CHINMAY - creatinine and BUN trended, reviewed, and appreciated- elevated from baseline - further management as per primary and nephrology Hyponatremia - recommend urine lytes and urine osmolality - further management as per primary and nephrology Endo: HX of DM - recommend fingersticks ACHS and ISS - keep patient euglycemic Heme: - Hgbs trended, reviewed, and appreciated- 5.9 on admission, receiving 2 units pRBCs in ED - recommend to monitor closely via H&H q6h Integumentary Sacral Ulcer - recommend wound care - given vancomycin and zosyn in ED - recommend continuing antibiotics Patient to be admitted to telemetry floor. ICU team will sign off at this time. Thank you for the opportunity to participate in the care of this patient. Patient case discussed with and plan approved by attending physician, Dr. Ferreira. Past Patient History - Infectious Disease Hx of Infectious Diseases: None - Past Medical History & Family History Past Medical History?: Yes - Past Social History Smoking Status: Never Smoked - CARDIAC Hx Hypertension: Yes - PULMONARY Hx Respiratory Disorders: No - NEUROLOGICAL Hx Dementia: Yes - HEENT Hx HEENT Problems: No - RENAL Hx Chronic Kidney Disease: No - ENDOCRINE/METABOLIC Hx Endocrine Disorders: No - HEMATOLOGICAL/ONCOLOGICAL Hx Blood Disorders: No - INTEGUMENTARY Hx Dermatological Problems: Yes Other/Comment: left gluteal decubiti ulcer with wound vac in place, right heel necrotic wound, multiple wounds to sacrum in various stages of healing, b/l bunyons, callous outer left foot, long thick toenails to both feet, crooked toes to left foot, dry skin, multiple skin discolorations ble - MUSCULOSKELETAL/RHEUMATOLOGICAL Hx Arthritis: Yes (CONTRACTED L HIP/KNEE AND B/L ELB) - GASTROINTESTINAL Hx Gastrointestinal Disorders: Yes (wt loss) - GENITOURINARY/GYNECOLOGICAL Hx Genitourinary Disorders: Yes Hx Incontinence: Yes (urine and stool) - PSYCHIATRIC Hx Substance Use: No - SURGICAL HISTORY Hx Surgeries: No - ANESTHESIA Hx Anesthesia: No Meds Allergies/Adverse Reactions: Allergies Allergy/AdvReac Type Severity Reaction Status Date / Time No Known Allergies Allergy Verified 02/16/18 11:39 - Medications Medications: Current Medications Pantoprazole Sodium (Protonix 40mg Ivpb) 40 mg in 100 mls @ 20 mls/hr IVPB .Q5H VINNY Sodium Chloride (Sodium Chloride 0.9%) 1,000 mls @ 75 mls/hr IV .[id number] VINNY Vancomycin HCl (Vancomycin 1gm) 1 gm in 250 mls @ 167 mls/hr IVPB STAT STA; Protocol Stop: 03/20/18 21:38 Piperacillin Sod/Tazobactam Sod (Zosyn 3.375 In Ns 100ml) 100 mls @ 200 mls/hr IVPB STAT STA; Protocol Stop: 03/20/18 20:38 Results - Vital Signs Recent Vital Signs: Last Vital Signs Temp 97.0 F L 03/20/18 18:41 Pulse 87 03/20/18 20:10 Resp 20 03/20/18 20:10 BP 125/65 03/20/18 20:10 Pulse Ox 100 03/20/18 20:10 - Labs Result Diagrams: 03/20/18 19:00 03/20/18 19:00 Labs: Laboratory Results - last 24 hr 03/20/18 03/20/18 03/20/18 19:00 19:00 19:00 WBC 13.8 H D RBC 2.09 L Hgb 5.9 L* D Hct 18.1 L* MCV 86.6 D MCH 28.2 MCHC 32.6 RDW 16.5 H Plt Count 218 MPV 10.5 Gran % 88.0 H Lymph % (Auto) 6.7 L Day % (Auto) 4.7 Eos % (Auto) 0.5 L Baso % (Auto) 0.1 Gran # 12.18 H Lymph # (Auto) 0.9 L Day # (Auto) 0.7 H Eos # (Auto) 0.1 Baso # (Auto) 0.01 PT 13.7 H INR 1.20 APTT 34.2 Sodium 124 L Potassium 4.4 Chloride 99 Carbon Dioxide 11 L Anion Gap 18 BUN 139 H* Creatinine 4.6 H Est GFR ( Amer) 11 Est GFR (Non-Af Amer) 9 Random Glucose 98 Calcium 8.0 L Phosphorus 4.2 Magnesium 2.2 Total Bilirubin 0.5 AST 43 H D ALT 48 Alkaline Phosphatase 205 H D Troponin I < 0.01 Total Protein 6.3 Albumin 2.5 L Globulin 3.8 Albumin/Globulin Ratio 0.7 L Crossmatch BBK History Checked 03/20/18 19:55 WBC RBC Hgb Hct MCV MCH MCHC RDW Plt Count MPV Gran % Lymph % (Auto) Day % (Auto) Eos % (Auto) Baso % (Auto) Gran # Lymph # (Auto) Day # (Auto) Eos # (Auto) Baso # (Auto) PT INR APTT Sodium Potassium Chloride Carbon Dioxide Anion Gap BUN Creatinine Est GFR ( Amer) Est GFR (Non-Af Amer) Random Glucose Calcium Phosphorus Magnesium Total Bilirubin AST ALT Alkaline Phosphatase Troponin I Total Protein Albumin Globulin Albumin/Globulin Ratio Crossmatch See Detail BBK History Checked Patient has bt <Alicia Ferreira - Last Filed: 03/26/18 22:14> Meds - Medications Medications: Current Medications Amlodipine Besylate (Norvasc) 5 mg PEG DAILY [facility] Last Admin: 03/26/18 11:22 Dose: 5 mg Atorvastatin Calcium (Lipitor) 10 mg PEG DIN [facility] Last Admin: 03/26/18 17:31 Dose: 10 mg Cholecalciferol (Vitamin D) 5,000 intlu PO DAILY [facility] Last Admin: 03/26/18 11:33 Dose: 5,000 intlu Ferrous Sulfate (Feosol Liq) 300 mg PEG BID [facility] Last Admin: 03/26/18 17:31 Dose: 300 mg Hydromorphone HCl (Dilaudid) 1 mg IVP Q4H PRN PRN Reason: Pain, severe (8-10) Last Admin: 03/26/18 17:30 Dose: 1 mg Memantine (Namenda) 5 mg PEG DAILY [facility] Last Admin: 03/26/18 11:22 Dose: 5 mg Pantoprazole Sodium (Protonix Inj) 40 mg IVP BID [facility] Last Admin: 03/26/18 17:31 Dose: 40 mg Primidone (Mysoline) 50 mg PO TID [facility]INNY Last Admin: 03/26/18 17:32 Dose: 50 mg Tramadol HCl (Ultram) 50 mg GT BID PRN PRN Reason: Pain, moderate (4-7) Last Admin: 03/25/18 22:08 Dose: 50 mg Results - Vital Signs Recent Vital Signs: Last Vital Signs Temp 98.3 F 03/26/18 16:00 Pulse 92 H 03/26/18 18:00 Resp 8 L 03/26/18 18:00 BP 144/63 03/26/18 17:30 Pulse Ox 100 03/26/18 18:00 - Labs Result Diagrams: 03/26/18 06:50 03/26/18 06:50 Labs: Laboratory Results - last 24 hr 03/25/18 03/25/18 03/26/18 11:45 22:08 06:50 WBC 13.5 H RBC 3.04 L Hgb 8.7 L Hct 26.3 L MCV 86.5 MCH 28.6 MCHC 33.1 RDW 16.9 H Plt Count 123 MPV 10.7 Sodium Potassium Chloride Carbon Dioxide Anion Gap BUN Creatinine Est GFR ( Amer) Est GFR (Non-Af Amer) POC Glucose (mg/dL) 101 113 H Random Glucose Calcium 03/26/18 03/26/18 03/26/18 06:50 07:28 11:29 WBC RBC Hgb Hct MCV MCH MCHC RDW Plt Count MPV Sodium 133 Potassium 3.6 Chloride 100 Carbon Dioxide 27 Anion Gap 10 BUN 78 H Creatinine 2.9 H Est GFR ( Amer) 19 Est GFR (Non-Af Amer) 16 POC Glucose (mg/dL) 93 78 Random Glucose 96 Calcium 7.5 L 03/26/18 16:28 WBC RBC Hgb Hct MCV MCH MCHC RDW Plt Count MPV Sodium Potassium Chloride Carbon Dioxide Anion Gap BUN Creatinine Est GFR ( Amer) Est GFR (Non-Af Amer) POC Glucose (mg/dL) 102 Random Glucose Calcium Attending/Attestation - Attestation I have personally seen and examined this patient.: Yes I have fully participated in the care of the patient.: Yes I have reviewed all pertinent clinical information: Yes
[2018-03-20 21:26] LABS: URINE APPEARANCE SLIGHT-CLOUDY (CLEAR); URINE BILIRUBIN NEGATIVE (NEGATIVE); URINE BLOOD LARGE (NEGATIVE); URINE COLOR YELLOW (YELLOW); URINE GLUCOSE (UA) NEGATIVE (NEGATIVE); URINE LEUKOCYTE ESTERASE MODERATE Leu/uL (NEGATIVE); URINE PROTEIN >=300 mg/dL (<30 mg/dL); URINE UROBILINOGEN 0.2 E.U./dL (<1 E.U./dL)
[2018-03-20 21:29] LABS: URINE EPITHELIAL CELLS MANY /hpf (0-5); URINE RBC 25 - 30 /hpf (0-2)
[2018-03-20 21:30] LABS: URINE AMORPHOUS SEDIMENT MODERATE; URINE BACTERIA TRACE (NEG)
[2018-03-21] MEDS: HYDROmorphone 1 mg/ml ISec IVP PRN ×3 (00:25→14:54)
[2018-03-21] MEDS: Pantoprazole 40mg/100mL NS 40 MG/100 ML BAG IVPB SCH ×5 (03:23→14:00)
[2018-03-21] MEDS ORDERED: metroNIDAZOLE IV 500 mg/100 ml 500 MG/100 ML BAG IVPB SCH (06:00)
--- NOTE | 2018-03-21 07:10 | CP.PCM.CON ---
History of Present Illness - History of Present Illness History of Present Illness: Surgery: Dr. Concepcion Reason for consult: L gluteal decubitus ulcer 77 F with PMH that includes HTN and dementia who [facility] for anemia, CHINMAY, and bilateral pneumonia. Patient has history of chronic pressure wounds which was most recently treated in February with debridement and wound vac placement. Patient was d[facility]c'd to [facility] with wound vac however was not sent with her upon return to hospital. PMD: Dr. Kumar PMH: HTN, Dementia, history of decubitus wounds, HLD, pneumonia, GI bleed, CHINMAY PSH: wound debridement Social: no history o=f tobacco/EtOH//illicit drug use, lives in [facility], sister is POA Review of Systems - Review of Systems Systems not reviewed;Unavailable: Dementia, Altered Mental Status Past Patient History - Infectious Disease Hx of Infectious Diseases: None - Past Medical History & Family History Past Medical History?: Yes - Past Social History Smoking Status: Never Smoked - CARDIAC Hx Hypertension: Yes - PULMONARY Hx Respiratory Disorders: No - NEUROLOGICAL Hx Dementia: Yes - HEENT Hx HEENT Problems: No - RENAL Hx Chronic Kidney Disease: No - ENDOCRINE/METABOLIC Hx Endocrine Disorders: No - HEMATOLOGICAL/ONCOLOGICAL Hx Blood Disorders: No - INTEGUMENTARY Hx Dermatological Problems: Yes Other/Comment: left gluteal decubiti ulcer with wound vac in place, right heel necrotic wound, multiple wounds to sacrum in various stages of healing, b/l bunyons, callous outer left foot, long thick toenails to both feet, crooked toes to left foot, dry skin, multiple skin discolorations ble - MUSCULOSKELETAL/RHEUMATOLOGICAL Hx Arthritis: Yes (CONTRACTED L HIP/KNEE AND B/L ELB) - GASTROINTESTINAL Hx Gastrointestinal Disorders: Yes (wt loss) - GENITOURINARY/GYNECOLOGICAL Hx Genitourinary Disorders: Yes Hx Incontinence: Yes (urine and stool) - PSYCHIATRIC Hx Substance Use: No - SURGICAL HISTORY Hx Surgeries: No - ANESTHESIA Hx Anesthesia: No Meds Allergies/Adverse Reactions: Allergies Allergy/AdvReac Type Severity Reaction Status Date / Time No Known Allergies Allergy Verified 02/16/18 11:39 - Medications Medications: Current Medications Amlodipine Besylate (Norvasc) 5 mg PO DAILY [facility] Cholecalciferol (Vitamin D) 5,000 intlu PO DAILY [facility] Ferrous Sulfate (Feosol Liq) 300 mg PO BID [facility] Hydromorphone HCl (Dilaudid) 0.25 mg IVP Q6H PRN PRN Reason: Pain, moderate (4-7) Last Admin: 03/21/18 00:25 Dose: 0.25 mg Pantoprazole Sodium (Protonix 40mg Ivpb) 40 mg in 100 mls @ 20 mls/hr IVPB .Q5H VINNY Last Admin: 03/21/18 05:09 Dose: 20 mls/hr Sodium Chloride (Sodium Chloride 0.9%) 1,000 mls @ 75 mls/hr IV .[id number] VINNY Last Admin: 03/20/18 20:15 Dose: 75 mls/hr Metronidazole (Flagyl) 500 mg in 100 mls @ 100 mls/hr IVPB Q8 VINNY; Protocol Last Admin: 03/21/18 05:05 Dose: 100 mls/hr Cefepime HCl (Maxipime 1gm) 1 gm in 100 mls @ 100 mls/hr IVPB Q24H VINNY; Protocol Memantine (Namenda) 5 mg PO DAILY [facility] Primidone (Mysoline) 50 mg PO TID VINNY Physical Exam - Constitutional Appears: Cachectic, Chronically Ill - Eye Exam Eye Exam: Normal appearance - ENT Exam ENT Exam: Mucous Membranes Moist - Respiratory Exam Respiratory Exam: NORMAL BREATHING PATTERN. absent: Respiratory Distress - Cardiovascular Exam Cardiovascular Exam: REGULAR RHYTHM. absent: Tachycardia - GI/Abdominal Exam GI & Abdominal Exam: Soft. absent: Distended, Tenderness - Rectal Exam Additional comments: multiple gluteal, sacral and ischial wounds no odor large right ischial wound with well healed granulation tissue and minimal fibronous exudate, minimal tunneling to the lateral portion of the wound. - Skin Skin Exam: Dry, Warm Results - Vital Signs Recent Vital Signs: Last Vital Signs Temp 98.0 F 03/21/18 06:00 Pulse 80 03/21/18 06:00 Resp 17 03/21/18 06:00 BP 153/80 H 03/21/18 06:00 Pulse Ox 92 L 03/21/18 06:00 - Labs Result Diagrams: 03/20/18 19:00 03/20/18 19:00 Labs: Laboratory Results - last 24 hr 03/20/18 03/20/18 03/20/18 19:00 19:00 19:00 WBC 13.8 H D RBC 2.09 L Hgb 5.9 L* D Hct 18.1 L* MCV 86.6 D MCH 28.2 MCHC 32.6 RDW 16.5 H Plt Count 218 MPV 10.5 Gran % 88.0 H Lymph % (Auto) 6.7 L Gila % (Auto) 4.7 Eos % (Auto) 0.5 L Baso % (Auto) 0.1 Gran # 12.18 H Lymph # (Auto) 0.9 L Gila # (Auto) 0.7 H Eos # (Auto) 0.1 Baso # (Auto) 0.01 PT 13.7 H INR 1.20 APTT 34.2 Sodium 124 L Potassium 4.4 Chloride 99 Carbon Dioxide 11 L Anion Gap 18 BUN 139 H* Creatinine 4.6 H Est GFR ( Amer) 11 Est GFR (Non-Af Amer) 9 Random Glucose 98 Calcium 8.0 L Phosphorus 4.2 Magnesium 2.2 Total Bilirubin 0.5 AST 43 H D ALT 48 Alkaline Phosphatase 205 H D Troponin I < 0.01 Total Protein 6.3 Albumin 2.5 L Globulin 3.8 Albumin/Globulin Ratio 0.7 L Urine Color Urine Appearance Urine pH Ur Specific Anthony Urine Protein Urine Glucose (UA) Urine Ketones Urine Blood Urine Nitrate Urine Bilirubin Urine Urobilinogen Ur Leukocyte Esterase Urine RBC Urine WBC Ur Epithelial Cells Amorphous Sediment Urine Bacteria Blood Type Antibody Screen Crossmatch BBK History Checked 03/20/18 03/20/18 19:55 21:17 WBC RBC Hgb Hct MCV MCH MCHC RDW Plt Count MPV Gran % Lymph % (Auto) Gila % (Auto) Eos % (Auto) Baso % (Auto) Gran # Lymph # (Auto) Gila # (Auto) Eos # (Auto) Baso # (Auto) PT INR APTT Sodium Potassium Chloride Carbon Dioxide Anion Gap BUN Creatinine Est GFR ( Amer) Est GFR (Non-Af Amer) Random Glucose Calcium Phosphorus Magnesium Total Bilirubin AST ALT Alkaline Phosphatase Troponin I Total Protein Albumin Globulin Albumin/Globulin Ratio Urine Color Yellow Urine Appearance Slight-cloudy Urine pH 6.0 Ur Specific Anthony 1.025 Urine Protein >=300 H Urine Glucose (UA) Negative Urine Ketones Negative Urine Blood Large H Urine Nitrate Negative Urine Bilirubin Negative Urine Urobilinogen 0.2 Ur Leukocyte Esterase Moderate H Urine RBC 25 - 30 Urine WBC 5 - 10 Ur Epithelial Cells Many Amorphous Sediment Moderate Urine Bacteria Trace Blood Type O POSITIVE Antibody Screen Negative Crossmatch See Detail BBK History Checked Patient has bt Assessment & Plan - Assessment and Plan (Free Text) Assessment: 77 y/o female w/ large well healing right ischial wound s/p debridement and wound vac placement Plan: -cont local wound care -turn Q2 -air mattress -does not need further debridement -will consider possible wound vac replacement -no acute surgical intervention at this time -further recs per Dr. Jamey MORRISONmari [id number]
[2018-03-21 07:52] LABS: MEAN CELL VOLUME 84.7 fl (80.0-105.0); MEAN CORPUSCULAR HEMOGLOBIN 28.9 pg (25.0-35.0); MEAN CORPUSCULAR HGB CONC 34.1 g/dl (31.0-37.0); MEAN PLATELET VOLUME 10.6 fl (7.0-11.0); RBC 3.46 10^6/uL (3.5-6.1); WHITE BLOOD COUNT 11.5 10^3/ul (4.5-11.0)
[2018-03-21 08:09] LABS: ALB/GLOB RATIO 0.7 (1.1-1.8); ALBUMIN 2.5 g/dL (3.0-4.8); CALCIUM 8.2 mg/dL (8.4-10.5)
[2018-03-21] MEDS: Sodium Chloride 0.9% 1,000 ML IV SCH ×2 (08:40→21:26)
[2018-03-21] MEDS: Ferrous Sulfate 300 mg/5 mL Liq UD PO SCH ×2 (09:17→18:04)
[2018-03-21] MEDS: Cholecalciferol 1,000 INTLU TAB PO SCH (09:18)
[2018-03-21] MEDS ORDERED: Cefepime 1gm in NS 100ml 1 GM/100 ML BAG IVPB SCH (10:00)
[2018-03-21 10:13] LABS: T4 5.9 ug/dL (5.5-11.0)
--- NOTE | 2018-03-21 12:22 | CP.PCM.CON ---
<Bright Dasilva - Last Filed: 03/21/18 14:24> History of Present Illness - History of Present Illness History of Present Illness: PGY-4 GI Fellow Consult Note The following obtained from chart review and hospital staff as patient is unable to provide history due to clinical condition Pt is a 77 yo BF with dementia s/p PEG (03/01/18 at [facility]), HTN, DM, D ecubitus ulcer who was sent in from [facility] under the care of Dr. Martines for pneumonia, CHINMAY and acute anemia concerning for GI bleed; therefore GI consulted. Pt is non-verbal during my encounter. Nurse at bedside reports that FOBT done in ED was positive. RN does not note any bleeding from PEG. Pt with bowel movement while I was in room and was dark green in color. Unable to obtain ROS due to clinical condition MHx: See above SurgHx: Wound debridement Endo: EGD on 03/01 at [facility] with PEG placement, Gastritis, LA-A esophagitis; no biopsies Meds: Reviewed in [employer] FamHx: Unknown SocHx: Negative x 3, reportedly lived with sister recently, sister also is POA All: NKDA Past Patient History - Infectious Disease Hx of Infectious Diseases: None - Past Medical History & Family History Past Medical History?: Yes - Past Social History Smoking Status: Never Smoked - CARDIAC Hx Hypertension: Yes - PULMONARY Hx Respiratory Disorders: No - NEUROLOGICAL Hx Dementia: Yes - HEENT Hx HEENT Problems: No - RENAL Hx Chronic Kidney Disease: No - ENDOCRINE/METABOLIC Hx Endocrine Disorders: No - HEMATOLOGICAL/ONCOLOGICAL Hx Blood Disorders: No - INTEGUMENTARY Hx Dermatological Problems: Yes Other/Comment: left gluteal decubiti ulcer with wound vac in place, right heel necrotic wound, multiple wounds to sacrum in various stages of healing, b/l bunyons, callous outer left foot, long thick toenails to both feet, crooked toes to left foot, dry skin, multiple skin discolorations ble - MUSCULOSKELETAL/RHEUMATOLOGICAL Hx Arthritis: Yes (CONTRACTED L HIP/KNEE AND B/L ELB) - GASTROINTESTINAL Hx Gastrointestinal Disorders: Yes (wt loss) - GENITOURINARY/GYNECOLOGICAL Hx Genitourinary Disorders: Yes Hx Incontinence: Yes (urine and stool) - PSYCHIATRIC Hx Substance Use: No - SURGICAL HISTORY Hx Surgeries: No - ANESTHESIA Hx Anesthesia: No Meds Allergies/Adverse Reactions: Allergies Allergy/AdvReac Type Severity Reaction Status Date / Time No Known Allergies Allergy Verified 02/16/18 11:39 - Medications Medications: Current Medications Amlodipine Besylate (Norvasc) 5 mg PO DAILY [facility] Last Admin: 03/21/18 09:16 Dose: 5 mg Cholecalciferol (Vitamin D) 5,000 intlu PO DAILY [facility] Last Admin: 03/21/18 09:18 Dose: Not Given Ferrous Sulfate (Feosol Liq) 300 mg PO BID [facility] Last Admin: 03/21/18 09:17 Dose: 300 mg Hydromorphone HCl (Dilaudid) 0.25 mg IVP Q6H PRN PRN Reason: Pain, moderate (4-7) Last Admin: 03/21/18 08:39 Dose: 0.25 mg Pantoprazole Sodium (Protonix 40mg Ivpb) 40 mg in 100 mls @ 20 mls/hr IVPB .Q5H [facility] Last Admin: 03/21/18 08:39 Dose: 20 mls/hr Sodium Chloride (Sodium Chloride 0.9%) 1,000 mls @ 75 mls/hr IV .[id number] [facility] Last Admin: 03/21/18 08:40 Dose: Not Given Metronidazole (Flagyl) 500 mg in 100 mls @ 100 mls/hr IVPB Q8 [facility]; Protocol Last Admin: 03/21/18 05:05 Dose: 100 mls/hr Cefepime HCl (Maxipime 1gm) 1 gm in 100 mls @ 100 mls/hr IVPB Q24H [facility]; Protocol Memantine (Namenda) 5 mg PO DAILY [facility] Last Admin: 03/21/18 09:17 Dose: Not Given Primidone (Mysoline) 50 mg PO TID [facility] Last Admin: 03/21/18 09:17 Dose: Not Given Physical Exam - Constitutional Appears: No Acute Distress, Unkempt, Confused, Cachectic, Chronically Ill - Head Exam Head Exam: ATRAUMATIC Additional comments: temporal wasting - Eye Exam Eye Exam: Conjunctival injection. absent: Scleral icterus - ENT Exam ENT Exam: Mucous Membranes Dry. absent: Mucous Membranes Moist, Normal External Ear Exam - Respiratory Exam Respiratory Exam: NORMAL BREATHING PATTERN. absent: Accessory Muscle Use, Clear to Auscultation Bilateral - Cardiovascular Exam Cardiovascular Exam: REGULAR RHYTHM, RRR - GI/Abdominal Exam GI & Abdominal Exam: Normal Bowel Sounds, Soft. absent: Bruit, Diminished Bowel Sounds, Distended, Firm, Guarding, Hypoactive Bowel Sounds, Mass, Organomegaly, Pulsatile Mass, Rebound, Rigid, Tenderness - Rectal Exam Rectal Exam: NORMAL INSPECTION Additional comments: dark green stool visualized - Extremities Exam Additional comments: contracted upper and lower extremities with multiple decubitus ulcers - Neurological Exam Additional comments: Not alert, opens eyes to tactile stimulation, non-verbal - Skin Skin Exam: Dry (multiple bandages in place over decubitus sites), Warm Results - Vital Signs Recent Vital Signs: Last Vital Signs Temp 98.0 F 03/21/18 06:00 Pulse 84 03/21/18 09:16 Resp 17 03/21/18 06:00 BP 161/72 H 03/21/18 09:16 Pulse Ox 92 L 03/21/18 06:00 - Labs Result Diagrams: 03/21/18 06:30 03/21/18 06:30 Labs: Laboratory Results - last 24 hr 03/20/18 03/20/18 03/20/18 19:00 19:00 19:00 WBC 13.8 H D RBC 2.09 L Hgb 5.9 L* D Hct 18.1 L* MCV 86.6 D MCH 28.2 MCHC 32.6 RDW 16.5 H Plt Count 218 MPV 10.5 Gran % 88.0 H Lymph % (Auto) 6.7 L Alfalfa % (Auto) 4.7 Eos % (Auto) 0.5 L Baso % (Auto) 0.1 Gran # 12.18 H Lymph # (Auto) 0.9 L Alfalfa # (Auto) 0.7 H Eos # (Auto) 0.1 Baso # (Auto) 0.01 PT 13.7 H INR 1.20 APTT 34.2 Sodium 124 L Potassium 4.4 Chloride 99 Carbon Dioxide 11 L Anion Gap 18 BUN 139 H* Creatinine 4.6 H Est GFR ( Amer) 11 Est GFR (Non-Af Amer) 9 POC Glucose (mg/dL) Random Glucose 98 Serum Osmolality Calcium 8.0 L Phosphorus 4.2 Magnesium 2.2 Total Bilirubin 0.5 AST 43 H D ALT 48 Alkaline Phosphatase 205 H D Troponin I < 0.01 Total Protein 6.3 Albumin 2.5 L Globulin 3.8 Albumin/Globulin Ratio 0.7 L Thyroxine (T4) TSH 3rd Generation Urine Color Urine Appearance Urine pH Ur Specific [place] Urine Protein Urine Glucose (UA) Urine Ketones Urine Blood Urine Nitrate Urine Bilirubin Urine Urobilinogen Ur Leukocyte Esterase Urine RBC Urine WBC Ur Epithelial Cells Amorphous Sediment Urine Bacteria Blood Type Antibody Screen Crossmatch BBK History Checked 03/20/18 03/20/18 03/21/18 19:55 21:17 06:30 WBC RBC Hgb Hct MCV MCH MCHC RDW Plt Count MPV Gran % Lymph % (Auto) Alfalfa % (Auto) Eos % (Auto) Baso % (Auto) Gran # Lymph # (Auto) Alfalfa # (Auto) Eos # (Auto) Baso # (Auto) PT INR APTT Sodium Potassium Chloride Carbon Dioxide Anion Gap BUN Creatinine Est GFR ( Amer) Est GFR (Non-Af Amer) POC Glucose (mg/dL) Random Glucose Serum Osmolality Calcium Phosphorus Magnesium Total Bilirubin AST ALT Alkaline Phosphatase Troponin I Total Protein Albumin Globulin Albumin/Globulin Ratio Thyroxine (T4) TSH 3rd Generation 2.47 Urine Color Yellow Urine Appearance Slight-cloudy Urine pH 6.0 Ur Specific [place] 1.025 Urine Protein >=300 H Urine Glucose (UA) Negative Urine Ketones Negative Urine Blood Large H Urine Nitrate Negative Urine Bilirubin Negative Urine Urobilinogen 0.2 Ur Leukocyte Esterase Moderate H Urine RBC 25 - 30 Urine WBC 5 - 10 Ur Epithelial Cells Many Amorphous Sediment Moderate Urine Bacteria Trace Blood Type O POSITIVE Antibody Screen Negative Crossmatch See Detail BBK History Checked Patient has bt 03/21/18 03/21/18 03/21/18 06:30 06:30 06:30 WBC 11.5 H RBC 3.46 L Hgb 10.0 L D Hct 29.3 L MCV 84.7 MCH 28.9 MCHC 34.1 RDW 16.0 H Plt Count 168 MPV 10.6 Gran % Lymph % (Auto) Alfalfa % (Auto) Eos % (Auto) Baso % (Auto) Gran # Lymph # (Auto) Alfalfa # (Auto) Eos # (Auto) Baso # (Auto) PT INR APTT Sodium 125 L Potassium 4.4 Chloride 100 Carbon Dioxide 10 L Anion Gap 20 BUN 139 H* Creatinine 5.0 H Est GFR ( Amer) 10 Est GFR (Non-Af Amer) 8 POC Glucose (mg/dL) Random Glucose 77 Serum Osmolality 311 H Calcium 8.2 L Phosphorus 4.6 H Magnesium 2.4 H Total Bilirubin 0.5 AST 38 H ALT 41 Alkaline Phosphatase 166 H Troponin I Total Protein 6.2 Albumin 2.5 L Globulin 3.7 Albumin/Globulin Ratio 0.7 L Thyroxine (T4) 5.9 TSH 3rd Generation Urine Color Urine Appearance Urine pH Ur Specific [place] Urine Protein Urine Glucose (UA) Urine Ketones Urine Blood Urine Nitrate Urine Bilirubin Urine Urobilinogen Ur Leukocyte Esterase Urine RBC Urine WBC Ur Epithelial Cells Amorphous Sediment Urine Bacteria Blood Type Antibody Screen Crossmatch BBK History Checked 03/21/18 03/21/18 07:29 11:50 WBC RBC Hgb Hct MCV MCH MCHC RDW Plt Count MPV Gran % Lymph % (Auto) Alfalfa % (Auto) Eos % (Auto) Baso % (Auto) Gran # Lymph # (Auto) Alfalfa # (Auto) Eos # (Auto) Baso # (Auto) PT INR APTT Sodium Potassium Chloride Carbon Dioxide Anion Gap BUN Creatinine Est GFR ( Amer) Est GFR (Non-Af Amer) POC Glucose (mg/dL) 84 82 Random Glucose Serum Osmolality Calcium Phosphorus Magnesium Total Bilirubin AST ALT Alkaline Phosphatase Troponin I Total Protein Albumin Globulin Albumin/Globulin Ratio Thyroxine (T4) TSH 3rd Generation Urine Color Urine Appearance Urine pH Ur Specific [place] Urine Protein Urine Glucose (UA) Urine Ketones Urine Blood Urine Nitrate Urine Bilirubin Urine Urobilinogen Ur Leukocyte Esterase Urine RBC Urine WBC Ur Epithelial Cells Amorphous Sediment Urine Bacteria Blood Type Antibody Screen Crossmatch BBK History Checked Assessment & Plan - Assessment and Plan (Free Text) Assessment: 77 yo BF with dementia s/p PEG, HTN, DM, decubitus ulcers sent in from [facility] for evaluation of anemia, GI bleed, Pneumonia and CHINMAY. # Acute Normocytic Anemia, occult GI bleed: Hgb 5.9 from 10 on 03/01/18. Vitals stable. Stool dark green but FOBT+. Given elevated BUN and lack of hematochezia suspect upper GI source rather than lower source. Vitals stable and Hgb hyper-responded from 5.9 -> 10 after 2 units PRBCs. # Dementia: s/p PEG 03/01/18. Pt without decision making capacity. # CHINMAY: Cr 5 from 1.2. Uremia. Suspect pre-renal from significant anemia, likely related to GI losses. Plan: - Cont PPI, gtt -> IV daily given renal function - Monitor Hgb - OK for tube feeds today - Stop tube feeds at midnight in case EGD to be done on 03/22 - Maintain 2 large bore IVs - Need to discuss goals of care with POA; patient does not have decision making capacity - Recommend Nephrology consult given CHINMAY Pt discussed with Dr. Rivas; see attestation for further recs/changes. POA: Heena, sister to patient, Daughter of POA (Pt's niece): Fatimah Gonzalez Spoke with Heena today, but could not get Fatimah on the line to discuss. Heena is leaning toward EGD, but wants to discuss with Fatimah on the line tomorrow before deciding. <Sharla Rivas V - Last Filed: 03/22/18 00:58> Meds - Medications Medications: Current Medications Amlodipine Besylate (Norvasc) 5 mg PO DAILY [facility] Last Admin: 03/21/18 09:16 Dose: 5 mg Cholecalciferol (Vitamin D) 5,000 intlu PO DAILY [facility] Last Admin: 03/21/18 09:18 Dose: Not Given Ferrous Sulfate (Feosol Liq) 300 mg PO BID [facility] Last Admin: 03/21/18 18:04 Dose: Not Given Hydromorphone HCl (Dilaudid) 0.25 mg IVP Q6H PRN PRN Reason: Pain, moderate (4-7) Last Admin: 03/21/18 14:54 Dose: 0.25 mg Sodium Chloride (Sodium Chloride 0.9%) 1,000 mls @ 75 mls/hr IV .[id number] [facility] Last Admin: 03/21/18 21:26 Dose: 75 mls/hr Meropenem/Sodium Chloride (Merrem Iv 500 Mg/Ns 50 Ml) 500 mg in 50 mls @ 12.5 mls/hr IVPB Q12 [facility]; Protocol Stop: 03/30/18 22:01 Last Admin: 03/21/18 21:30 Dose: 12.5 mls/hr Memantine (Namenda) 5 mg PO DAILY [facility] Last Admin: 03/21/18 09:17 Dose: Not Given Pantoprazole Sodium (Protonix Inj) 40 mg IVP DAILY [facility] Primidone (Mysoline) 50 mg PO TID [facility] Last Admin: 03/21/18 09:17 Dose: Not Given Results - Vital Signs Recent Vital Signs: Last Vital Signs Temp 96.8 F L 03/21/18 20:00 Pulse 88 03/21/18 22:00 Resp 12 03/21/18 19:00 BP 118/54 L 03/21/18 20:00 Pulse Ox 97 03/21/18 19:59 - Labs Result Diagrams: 03/21/18 20:30 03/21/18 06:30 Labs: Laboratory Results - last 24 hr 03/20/18 03/21/18 03/21/18 19:55 06:30 06:30 WBC 11.5 H RBC 3.46 L Hgb 10.0 L D Hct 29.3 L MCV 84.7 MCH 28.9 MCHC 34.1 RDW 16.0 H Plt Count 168 MPV 10.6 pCO2 pO2 HCO3 ABG pH ABG Total CO2 ABG O2 Saturation ABG O2 Content ABG Base Excess ABG Hemoglobin ABG Carboxyhemoglobin POC ABG HHb (Measured) ABG Methemoglobin ABG O2 Capacity VBG pH VBG pCO2 VBG HCO3 VBG Total CO2 VBG O2 Sat (Calc) VBG Base Excess VBG Potassium Hgb O2 Saturation Glucose Lactate FiO2 Sodium Potassium Chloride Carbon Dioxide Anion Gap BUN Creatinine Est GFR ( Amer) Est GFR (Non-Af Amer) POC Glucose (mg/dL) Random Glucose Serum Osmolality Calcium Phosphorus Magnesium Total Bilirubin AST ALT Alkaline Phosphatase Total Protein Albumin Globulin Albumin/Globulin Ratio Thyroxine (T4) TSH 3rd Generation 2.47 Venous Blood Potassium Ur Random Sodium Blood Type O POSITIVE Antibody Screen Negative Crossmatch See Detail BBK History Checked Patient has bt 03/21/18 03/21/18 03/21/18 06:30 06:30 07:29 WBC RBC Hgb Hct MCV MCH MCHC RDW Plt Count MPV pCO2 pO2 HCO3 ABG pH ABG Total CO2 ABG O2 Saturation ABG O2 Content ABG Base Excess ABG Hemoglobin ABG Carboxyhemoglobin POC ABG HHb (Measured) ABG Methemoglobin ABG O2 Capacity VBG pH VBG pCO2 VBG HCO3 VBG Total CO2 VBG O2 Sat (Calc) VBG Base Excess VBG Potassium Hgb O2 Saturation Glucose Lactate FiO2 Sodium 125 L Potassium 4.4 Chloride 100 Carbon Dioxide 10 L Anion Gap 20 BUN 139 H* Creatinine 5.0 H Est GFR ( Amer) 10 Est GFR (Non-Af Amer) 8 POC Glucose (mg/dL) 84 Random Glucose 77 Serum Osmolality 311 H Calcium 8.2 L Phosphorus 4.6 H Magnesium 2.4 H Total Bilirubin 0.5 AST 38 H ALT 41 Alkaline Phosphatase 166 H Total Protein 6.2 Albumin 2.5 L Globulin 3.7 Albumin/Globulin Ratio 0.7 L Thyroxine (T4) 5.9 TSH 3rd Generation Venous Blood Potassium Ur Random Sodium Blood Type Antibody Screen Crossmatch BBK History Checked 03/21/18 03/21/18 03/21/18 11:50 12:20 15:13 WBC RBC Hgb Hct MCV MCH MCHC RDW Plt Count MPV pCO2 20 L pO2 78.0 L HCO3 9.0 L* ABG pH 7.26 L ABG Total CO2 9.6 L ABG O2 Saturation 97.5 ABG O2 Content 12.8 L ABG Base Excess -16.3 L ABG Hemoglobin 9.5 L ABG Carboxyhemoglobin 2.0 H POC ABG HHb (Measured) 2.4 ABG Methemoglobin 0.7 ABG O2 Capacity 13.1 L VBG pH VBG pCO2 VBG HCO3 VBG Total CO2 VBG O2 Sat (Calc) VBG Base Excess VBG Potassium Hgb O2 Saturation 95.0 Glucose Lactate FiO2 28.0 Sodium Potassium Chloride Carbon Dioxide Anion Gap BUN Creatinine Est GFR ( Amer) Est GFR (Non-Af Amer) POC Glucose (mg/dL) 82 Random Glucose Serum Osmolality Calcium Phosphorus Magnesium Total Bilirubin AST ALT Alkaline Phosphatase Total Protein Albumin Globulin Albumin/Globulin Ratio Thyroxine (T4) TSH 3rd Generation Venous Blood Potassium Ur Random Sodium 44 Blood Type Antibody Screen Crossmatch BBK History Checked 03/21/18 03/21/18 03/21/18 16:01 20:30 20:30 WBC 12.8 H RBC 3.13 L Hgb 8.9 L Hct 26.1 L MCV 83.4 MCH 28.4 MCHC 34.1 RDW 16.0 H Plt Count 179 MPV 10.4 pCO2 pO2 64 H HCO3 ABG pH ABG Total CO2 ABG O2 Saturation ABG O2 Content ABG Base Excess ABG Hemoglobin ABG Carboxyhemoglobin POC ABG HHb (Measured) ABG Methemoglobin ABG O2 Capacity VBG pH 7.20 L VBG pCO2 24.0 L VBG HCO3 9.4 L VBG Total CO2 10.1 L VBG O2 Sat (Calc) 93.8 H VBG Base Excess -16.9 L VBG Potassium 4.2 Hgb O2 Saturation Glucose 62 L Lactate 0.6 L FiO2 21.0 Sodium 124.0 L Potassium Chloride 100.0 Carbon Dioxide Anion Gap BUN Creatinine Est GFR ( Amer) Est GFR (Non-Af Amer) POC Glucose (mg/dL) 83 Random Glucose Serum Osmolality Calcium Phosphorus Magnesium Total Bilirubin AST ALT Alkaline Phosphatase Total Protein Albumin Globulin Albumin/Globulin Ratio Thyroxine (T4) TSH 3rd Generation Venous Blood Potassium 4.2 Ur Random Sodium Blood Type Antibody Screen Crossmatch BBK History Checked Attending/Attestation - Attestation I have personally seen and examined this patient.: Yes I have fully participated in the care of the patient.: Yes I have reviewed all pertinent clinical information: Yes Notes (Text): This is an addendum to GI consult report dictated by the GI Fellow.The patient was seen and examined earlier. Medical records, lab studies, imagings were reviewed. Last 24 hours events reviewed. Agreed with the above treatment plan as outlined in GI Fellow 's notes with the addition of the following This 77 year old patient was admitted from the residential admitted with anemia With hb of 5.9 patient hb was 10.4 on 03/03 sepsis pneumonia Decubitus ulcers and acute kidney injury - creatinine of 5.0 patient creatinine was 1.4 on 03/04 Status post PEG on 03/01 Dementia poor PO intake On examination PEG site appeared normal Patient did have multiple decubitus ulcers Not communicative 1 Would recommend follow cultures and antibiotics as per ID 2 Follow up hb and transfuse 3 Empiric therapy with Protonix daily 20 mg No active BRPR or melena now Would consider CT abdomen and pelvis to further evaluate when the patient is stable 03/22/18 00:48
--- NOTE | 2018-03-21 14:28 | US ---
Date of service: 03/20/2018 PROCEDURE: Ultrasound of the Kidneys HISTORY: azotemia COMPARISON: None available. TECHNIQUE: Sonogram of the kidneys. FINDINGS: RIGHT KIDNEY: Measures: 10.2 cm. Normal cortical thickness. Diffusely increased cortical echogenicity consistent with diffuse medical renal disease. No stone, solid mass lesion or hydronephrosis visualized. LEFT KIDNEY: Measures: 7.8 cm. Normal cortical thickness. Diffusely increased cortical echogenicity consistent with diffuse medical renal disease. No stone, solid mass lesion or hydronephrosis visualized. OTHER FINDINGS: Trace ascites noted IMPRESSION: Diffusely increased renal cortical echogenicity bilaterally consistent with diffuse medical renal disease. No evidence of urinary tract obstruction. Trace ascites incidentally noted.
[2018-03-21 15:16] LABS: ARTERIAL BLOOD GAS HEMOGLOBIN 9.5 g/dL (11.7-17.4); ARTERIAL BLOOD GAS O2 CAPACITY 13.1 mL/dl (16-24); ARTERIAL BLOOD GAS O2 CONTENT 12.8 ML/dl (15-23); ARTERIAL BLOOD GAS O2 SAT 97.5 % (95-98); ARTERIAL BLOOD GAS PCO2 20 mm/Hg (35-45); ARTERIAL BLOOD GAS PH 7.26 (7.35-7.45); ARTERIAL BLOOD GAS TCO2 9.6 mmol.L (22-28)
--- NOTE | 2018-03-21 15:26 | CARD ---
APPROVED REPORT Date of service: 03/20/2018 EKG Measurement Heart [id number] <Conclusion> Possible Sinus rhythm with premature supraventricular complexes Low voltage QRS Borderline ECG please repeat ECG
[2018-03-21] MEDS ORDERED: Piperacillin/Tazobact 2.25gm 2.25 GM/100 ML BAG IVPB STA (16:53)
--- NOTE | 2018-03-21 17:04 | RAD ---
Date of service: 03/20/2018 HISTORY: b/l pna? COMPARISON: 02/04/2018 FINDINGS: LUNGS: Grossly limited due to steep oblique positioning of the patient. No infiltrate. PLEURA: Minimal blunting of the right costophrenic angle. Left costophrenic angle cannot be adequately evaluated. No pneumothorax. CARDIOVASCULAR: Grossly normal heart size. Right PICC catheter. OSSEOUS STRUCTURES: No significant abnormalities. VISUALIZED UPPER ABDOMEN: Normal. OTHER FINDINGS: None. IMPRESSION: Limited examination. No definite infiltrate.
[2018-03-21 20:34] LABS: VENOUS BLOOD GAS BASE EXCESS -16.9 mmol/L (0.0-2.0); VENOUS BLOOD GAS PO2 64 mm/Hg (30-55)
[2018-03-21 20:43] LABS: HEMOGLOBIN 8.9 g/dL (12.0-16.0); MEAN CELL VOLUME 83.4 fl (80.0-105.0); MEAN CORPUSCULAR HEMOGLOBIN 28.4 pg (25.0-35.0); MEAN CORPUSCULAR HGB CONC 34.1 g/dl (31.0-37.0); MEAN PLATELET VOLUME 10.4 fl (7.0-11.0); RBC 3.13 10^6/uL (3.5-6.1); WHITE BLOOD COUNT 12.8 10^3/ul (4.5-11.0)
[2018-03-21] MEDS: MEROPENEM 500 MG in NS 500 MG/50 ML BAG IVPB SCH (21:30)
--- NOTE | 2018-03-21 23:01 | CON ---
DATE: 03/21/2018 The patient is in Room 272, Bed 1. CHIEF COMPLAINT: Weakness times several days. HISTORY OF PRESENT ILLNESS: This is a 77-year-old female with a history of hypertension, dementia, dyslipidemia, osteoporosis, who has had admitted through the emergency room, has had recent hospitalization twice in January and in February, was seen in the emergency room by Dr. Michael Quinteros yesterday, stated that the patient has decubitus ulcer and [facility] for further evaluation for GI bleed, uremia, and elevated BUN. REVIEW OF SYSTEMS: Reveals no fevers have been documented. No chills. The patient's weight was documented. A 12-point review of systems is performed. PAST MEDICAL HISTORY: Significant for hypercholesterolemia, hypertension, arthritis, dementia, osteoporosis, anxiety, anemia. PAST SURGICAL HISTORY: Noncontributory. ALLERGIES: THE PATIENT HAS NO KNOWN ALLERGIES. MEDICATIONS: Medications at home include the patient to be on Ultram, which is tramadol, Flagyl, Namenda, iron, amlodipine. PHYSICAL EXAMINATION: GENERAL: The patient is in bed, appearing much older than her stated age. She is contracted. VITAL SIGNS: The patient has a temperature of 98, heart rate of 82, it was up to 91, respiratory rate of 20, blood pressure is 143/60 and the patient's saturation is 92% saturated on room air. The patient's BMI is 24. HEENT: Examination of HEENT is unremarkable. NECK: Supple. LUNGS: Decreased breath sounds. HEART: Exam is normal S1, S2. ABDOMEN: Emanation is soft, nontender. The patient has multiple decubitus ulcers on her contracted body. LABORATORY EXAMINATION: Reveals a white count of 13,800, hemoglobin of 5, and platelets of 218. Creatinine is 4.6. Last creatinine was 1.4 on 03/04/2018, prior to that the patient's creatinine had been in the 1.1 and 1.2 range. Urinalysis shows 5 to 10 wbc's, trace bacteria, moderate leukocyte esterase, and urine culture in the past had the yeast. The patient had a chest x-ray, results are not available, and a renal ultrasound, the results are not available. ASSESSMENT AND PLAN: This is a 77-year-old female prison patient with hypertension, dementia, dyslipidemia, osteoporosis, anxiety, was contracted, bedridden, who is admitted with leukocytosis, tachycardia, infected decubitus ulcer, and positive urinalysis, and acute worsening of the kidney function. Severe sepsis with infected multiple decubitus ulcer and skin and skin structures infections with acute kidney injury. Creatinine changed from 1.4 to 4.6 with urine also as a possible source of infection. We will treat the patient with vancomycin and one dose of cefepime pending wound cultures, urine cultures, and blood cultures and x-ray results, and we will make further recommendations upon availability of initial results, and we will follow closely with you. Overall, prognosis is quite poor. We will change the cefepime to meropenem. Currently on cefepime, we will change it to the meropenem, and we will adjust it at 500 mg every 12 hours based on the renal disease. We will follow closely with you. Dose of vancomycin was given, given her renal function. The patient is also on Flagyl. We will discontinue the Flagyl and the Maxipime and treat with intermittent vancomycin and meropenem pending panculture results. Eleazar Retana MD
--- NOTE | 2018-03-22 02:44 | CON ---
DATE OF CONSULTATION: 03/21/2018 REQUESTING PHYSICIAN: Kayleen Mora MD CHIEF COMPLAINT: Patient has acute renal failure with anemia as well as possible sepsis due to decubiti and slight respiratory insufficiency. HISTORY OF PRESENT ILLNESS: The patient is a 77-year-old retirement patient that was presented to the emergency room with severe anemia and guaiac stool positive, no active GI bleeding. The patient has altered mental status with dementia, so extensive history could not be taken. The patient has a possible pneumonia and sepsis and is noted to have acute renal failure with [id number]-[id number] urine output. She has a metabolic acidosis as well. The patient was initially admitted to the floor and has been transferred to the ICU for more intensive therapy and close monitoring. At this time, she is hemodynamically stable. PAST MEDICAL HISTORY: Significant for decubiti, hypertension, diabetes, anasarca, dementia. The patient has a PEG tube. FAMILY HISTORY: Noncontributory. SOCIAL HISTORY: No history of smoking, EtOH abuse or drug abuse. CURRENT MEDICATIONS: Can be evaluated as per the nurse's intake form. ALLERGIES: SHE HAS NO KNOWN ALLERGIES. REVIEW OF SYSTEMS: Unable to assess because the patient is unresponsive to the spoken word. PHYSICAL EXAMINATION: Temperature is 98.0, pulse is 84, respirations of 17, and BP is 161/72, O2 saturation with 2 liters of nasal cannula is 98%. Head is atraumatic, normocephalic. Eyes reactive to light. Ear, nose and throat seem to be within normal limits. Her neck is supple. No JVD. No thyroid enlargement or lymph nodes. Heart has a regular rate and rhythm. Normal S1, S2. Lungs reveal mild decreased breath sounds at the bases. Abdomen is soft. Decreased bowel sounds. Genitalia and rectal deferred. Musculoskeletal, no joint deformities. Extremities reveal diffuse edema upper and lower extremity. Neurologically, the patient is not responsive to the spoken word and very demented. LABORATORIES: As far as her laboratories are concerned, her white count is 11.5, hemoglobin is 10.0, hematocrit 29.3 with platelets of 168,000. The patient's arterial blood gas reveals a pH of 7.26, pCO2 of 20, pO2 of 78. Her sodium is 125, potassium 4.4, chloride 100, CO2 of 10 with a BUN of 139 and a creatinine of 5.0, glucose is 84. As far as her chest x-ray is concerned, it reveals no infiltrates, minimal blunting of the right costophrenic angle, but it is a limited exam due to the position of the patient. IMPRESSION: This patient presents with severe anemia of 5.9, after transfusion she has gone up to 10. The patient has acute renal failure and possible sepsis. She has a possible GI bleed, but noted metabolic acidosis and decubiti, dementia with a PEG tube in place, anasarca, hypertension, diabetes. We will repeat the chest x-ray in the morning to make sure no pneumonia. PLAN: As far as our plan, the patient has a consult with GI as well as ID and Renal and also Surgery and Pulmonary. She is on iron as well as meropenem and Norvasc. The patient is getting Protonix as well as Zosyn. We will continue to follow closely and treat aggressively along with the other consultants and the primary care doctor. Faisal Xavier MD
--- NOTE | 2018-03-22 03:03 | CON ---
DATE: 03/21/2018 PULMONARY CONSULTATION REFERRING PHYSICIAN: Kayleen Mora MD REASON FOR CONSULTATION: Pleural effusion, shortness of breath, acute renal failure. HISTORY OF PRESENT ILLNESS: This is a 77-year-old female with dementia, diabetes, hyperlipidemia, history of decubitus ulcers, hypertension, being followed by Dr. Mora and Dr. Martines in half-way. Apparently, she had a worsening clinical condition, also found to have a pulmonary infiltrate on x-ray, and with this severe anemia and GI bleed was sent to emergency room, where found to have acute renal failure, severe anemia requiring transfusion, presently admitted on telemetry. She is full code, lying in the bed, does not follow any commands. Gqdg-tq-mupmkixe distress. No hemoptysis. No emesis. No hematuria. No leg swelling. Has a decubitus ulcer. PAST MEDICAL HISTORY: As per history of present illness. ALLERGIES: NONE KNOWN. SOCIAL HISTORY: She is brought in from [facility]. No history of smoking or alcohol use. MEDICATIONS: She is on Dilaudid 0.25 mg every 6 hours p.r.n., ferrous sulfate 300 mg twice a day, meropenem 500 mg q.12 h., Mysoline 50 mg three times a day, Namenda 5 mg daily, Norvasc 5 mg daily, Protonix 40 mg daily, IV fluid normal saline 75 mL per hour, vitamin D 5000 units daily. She received a dose of vancomycin and Zosyn in the ER. REVIEW OF SYSTEMS: There is no cough or sputum production, no vomiting, no hematuria, reported GI bleed, no leg swelling, has a decubitus ulcer. PHYSICAL EXAMINATION: GENERAL: [id number] distress. VITAL SIGNS: Temperature is 98, heart rate 80, respiratory rate of 18, blood pressure 153/80, pulse of 92% on nasal cannula. HEENT: Moist mucous membranes. Small oral cavity. NECK: Supple. No JVD. LUNGS: Have a decreased breath on the right lung with crackles. Heart, S1 and S2. ABDOMEN: Soft, nontender, nondistended. EXTREMITIES: There is no edema, has a decubitus ulcers. NEUROLOGIC: Awake, alert, moaning, does not follow any commands. LABORATORY DATA: Shows hemoglobin 10.0, hematocrit 29.3, WBC 11.5, platelet count is 168. INR 1.20. PTT is 34. Her old admission hemoglobin was 5.9. ABG done shows pH 7.26, pCO2 is 20, O2 of 78. This is on nasal cannula. Sodium 125, potassium 4.4, chloride 100, bicarbonate 10, BUN 139, creatinine 5.0, glucose 82, serum osmolality 311, calcium 8.2, phosphorus 4.6, magnesium 2.4, AST 38, ALT 41, alk phos is 166. Albumin 2.5. T4 is 5.9. TSH is 2.47. Urinalysis shows wbc 5 to 10, rbc 25 to 30. Microbiology, buttock wound culture is being sent. A renal ultrasound done in the ER shows diffusely increased renal cortical echogenicity bilaterally consistent with diffuse medical renal disease. No evidence of urinary tract obstruction. Trace ascites incidentally noted. Chest x-ray shows probably right effusion. Poor quality film rotated. IMPRESSION AND PLAN: Severe anemia, lower gastrointestinal bleed; acute, probably on chronic renal failure; hypertension, dementia, large right pleural effusion, cannot rule out pneumonia, has a metabolic acidosis, decubitus ulcer. Case discussed with nursing staff, also spoke to local company refrigerated truck driver, Dr. Faisal Xavier. We will continue IV fluid for now and see how she does respond to renal failure, keep Rawls catheter in. If effusion worsens or respiratory status worsen, may need a right-sided chest tube. Also, we will order echocardiogram to assess RV and LV function. The CT of the chest to evaluate the lung parenchyma. We will add antibiotics. Follow up CBC, CMP, ABG, chest x-ray in the morning. Thank you, and we will follow with you. Jarrett Putnam MD
--- NOTE | 2018-03-22 03:45 | HP ---
HISTORY OF PRESENT ILLNESS: The patient is a 77-year-old female admitted through the emergency department on 03/20/2018, transferred from [facility] for evaluation of possible pneumonia. The patient was noted to have a hemoglobin of 5.9, was transfused 2 units of packed red blood cells, and she is admitted to the telemetry unit for further evaluation and management. PAST MEDICAL HISTORY: The patient's past medical history includes hypertension, type 2 diabetes mellitus, hypercholesterolemia, and advanced dementia. PAST SURGICAL HISTORY: The patient has had GI bleed in the past, she has a history of multiple decubitus ulcers at various stages of healing, and chronic renal failure. ALLERGIES: THE PATIENT HAS NO KNOWN ALLERGIES. CURRENT MEDICATIONS: Include Norvasc 5 mg daily, vitamin D 5000 units daily, Namenda 5 mg daily, pravastatin 20 mg daily, and Mysoline 50 mg three times daily. FAMILY HISTORY: Noncontributory. SOCIAL HISTORY: No history of tobacco or alcohol use. The patient is totally dependent with ADLs and IADLs. REVIEW OF SYSTEMS: Unobtainable. PHYSICAL EXAMINATION: GENERAL: The patient is a cachectic female who is responsive only to painful stimuli. VITAL SIGNS: Blood pressure 161/72, temperature 98, pulse 84, respiratory rate 17. HEENT: Head is normocephalic, atraumatic. There is bilateral temporal wasting. Pupils equal, round, reactive to light. Extraocular movements are intact. NECK: Supple. LUNGS: Show bilateral rhonchi at the bases. HEART: Regular rate and rhythm. ABDOMEN: Soft, nontender. Bowel sounds are normoactive. EXTREMITIES: There is bilateral muscle wasting and atrophy of all four extremities with flexion contractures of the elbows, hips, and knees. NEUROLOGIC: The patient is responsive only to painful stimuli. No focal sensory or motor deficits could be elicited. SKIN: Warm and dry. There are multiple decubitus ulcers including the left buttock, right heel, and sacrum in various stages of healing. LABORATORY DATA: WBC is 11.5; hemoglobin 10.0, status post transfusion; hematocrit 29.3. Sodium 125, potassium 4.4, chloride 104, BUN 139, creatinine 5.0, calcium 8.2, phosphate 4.6, magnesium 2.4, albumin is 2.5. IMPRESSION: 1. Pneumonia/dehydration. 2. Multiple pressure ulcers involving the buttock, heel, and sacrum. 3. Advanced dementia. 4. Anemia status post transfusion, possibly secondary to gastrointestinal bleed. 5. Acute kidney injury, rule out underlying chronic kidney disease. PLAN: The patient is admitted to the telemetry unit. Monitor hemoglobin and hematocrit, transfuse as necessary. Infectious disease consultation has been called with Dr. Retana. The patient has been empirically started on meropenem 500 mg q.12 h. She has received a dose of vancomycin in the emergency department. Renal consult with Dr. Martines, surgical consult with Dr. Concepcion, and pulmonary consultation with Dr. Putnam has been called. Prognosis is very poor. Dr. Mora to resume care of the patient in the a.m. LEW Beth MD
--- NOTE | 2018-03-22 04:07 | PN ---
DATE: 03/21/2018 SUBJECTIVE: This is a 77-year-old female, who was examined on the cardiac silveira of the [facility] on Thursday morning, 03/21/2018. Present for the interview was her nurse, Manisha Apple, registered nurse. The patient remains weak and deconditioned. She was admitted with hyponatremia, severe anemia with hemoglobin of 5.9, leukocytosis and BUN and creatinine of 139/5 with an estimated GFR of 10 mL per minute. Her sodium at the time of admission was 124. The patient is unresponsive to verbal stimuli and received 2 units of packed red blood cells and has guaiac-positive stools. PHYSICAL EXAMINATION: GENERAL: She is in a normal sinus rhythm on the secured entrance monitor. She is markedly weak and deconditioned. She is lying in a position in her bed. She is unresponsive to verbal questioning. VITAL SIGNS: Temperature 98, respirations 17, pulse 80 and blood pressure 153/80 with a pulse ox of 92% room air. HEAD: Normocephalic, atraumatic. EYES: No icterus. EARS: Clear. THROAT: Noninjected. NECK: Supple. HEART: Regular S1, S2. LUNGS: With rhonchi. ABDOMEN: Soft. EXTREMITIES: With multiple sores on her back, her hip, her ankles and feet. VASCULAR: Legs warm to touch. PSYCHOLOGICAL: Lethargic. NEURO: Cannot be assessed. LABORATORY DATA: Sodium 125, K 4.4, chloride 100, bicarb 10, BUN 139, creatinine 5, random blood sugar 77. Serum osmolality 311, calcium 8.2, phosphorous 4.6, magnesium 2.4. Bilirubin 0.5, AST 38, ALT 41, alk phos 166. Urine sodium is 44. White count on admission 13,800 with a hemoglobin of 5.9, hematocrit 18.1 and platelets 218,000. PT/INR 1.2, PTT 34.2. Urinalysis showed trace bacteria. Greater than 300 mg/dL of protein with moderate white cells and 25-30 rbc's. IMPRESSION: A 77-year-old female with hyponatremia; azotemia; chronic renal failure, stage 5/6, guaiac-positive stools; gastrointestinal bleeding; leukocytosis; infected sacral and heel and leg ulcers; urinary tract infection; history of iron-deficiency anemia; organic brain syndrome; hypertension and peptic ulcer disease with gastroesophageal reflux disease with history of vitamin D deficiency and history of pneumonia in her past. It should be noted up on review of old medical records, her creatinine was 1, and hemoglobin 10.1 in the beginning of 02/2018. PLAN: The plan at present is to continue meropenem 500 mg IV every 12, Protonix 40 mg IV daily, 0.9 saline at 75 mL/hour. The patient is scheduled for a comprehensive metabolic panel, magnesium, phosphorus and CBC in the a.m. Blood, urine and wound cultures are pending. MRSA nasal culture has been send. She is ordered to have a chest CT, a Doppler echo of her heart. She remains n.p.o. and is being repositioned every 2 hours because of bed sores. A triple-lumen catheter IJ axis has been requested because of lack of venous access and physical therapy at bedside has been ordered for generalized weakness. A renal ultrasound has been ordered and is pending and the patient will require serial labs to manage her electrolyte abnormalities. Based on her clinical progress, additional diagnostic testing and workup will be entertained. It should be noted that this patient will be followed by co-consultants from GI, Infectious Disease and Pulmonary as well as Surgery. All of the above was reviewed for greater than 35 minutes with cardiac unit nurse Ambika. All questions were answered. I did discuss this case as well with the Gastrointestinal fellow who was present at the bedside for my interview. Beatrice Martines MD MTDSrinivas
[2018-03-22] MEDS: HYDROmorphone 1 mg/ml ISec IVP PRN ×2 (05:18→20:39)
[2018-03-22 05:43] LABS: ARTERIAL BLOOD GAS HEMOGLOBIN 9.2 g/dL (11.7-17.4); ARTERIAL BLOOD GAS O2 CAPACITY 12.6 mL/dl (16-24); ARTERIAL BLOOD GAS O2 CONTENT 12.4 ML/dl (15-23); ARTERIAL BLOOD GAS O2 SAT 98.2 % (95-98); ARTERIAL BLOOD GAS PH 7.24 (7.35-7.45); ARTERIAL BLOOD GAS TCO2 8.7 mmol.L (22-28)
[2018-03-22 06:09] LABS: ARTERIAL BLOOD GAS HCO3 8.1 mmol/L (21-28); ARTERIAL BLOOD GAS PCO2 19 mm/Hg (35-45)
[2018-03-22 06:58] LABS: HEMOGLOBIN 9.4 g/dL (12.0-16.0); MEAN CELL VOLUME 85.1 fl (80.0-105.0); MEAN CORPUSCULAR HEMOGLOBIN 28.7 pg (25.0-35.0); MEAN CORPUSCULAR HGB CONC 33.7 g/dl (31.0-37.0); MEAN PLATELET VOLUME 10.6 fl (7.0-11.0); RBC 3.28 10^6/uL (3.5-6.1); RED CELL DISTRIBUTION WIDTH 16.2 % (11.5-14.5); WHITE BLOOD COUNT 12.1 10^3/ul (4.5-11.0)
[2018-03-22 07:19] LABS: ALB/GLOB RATIO 0.7 (1.1-1.8); ALBUMIN 2.4 g/dL (3.0-4.8); CALCIUM 8.2 mg/dL (8.4-10.5)
[2018-03-22] MEDS ORDERED: Dextrose 50% SYRINGE Inj (50 ml) IVP ONE (07:21)
[2018-03-22] MEDS ORDERED: Dextrose 50% SYRINGE Inj (50 ml) ONE (07:21)
--- NOTE | 2018-03-22 08:28 | CP.CCUPN ---
<Uziel Montalvo - Last Filed: 03/22/18 10:10> CCU Subjective - Physician Review Subjective (Free Text): Uziel Montalvo DO, PGY-1 ICU Progress Note for Dr. Schumacher Patient was seen and examined at bedside this AM. She is responsive to loud voice and painful stimuli. She is alert to person only. CCU Objective - Vital Signs / Intake & Output Vital Signs (Last 4 hours): Vital Signs Temp Pulse Resp BP Pulse Ox 03/22/18 08:00 97.5 F L 88 11 L 119/61 96 03/22/18 07:00 97.3 F L 87 11 L 113/54 L 97 03/22/18 06:00 97.7 F 90 11 L 114/49 L 97 03/22/18 05:00 98.2 F 96 H 21 136/61 96 Intake and Output (Last 8hrs): Intake & Output 03/21/18 03/22/18 03/22/18 22:59 06:59 14:59 Intake Total 100 950 Output Total 35 75 Balance 65 875 Weight 126 lb 9.6 oz Intake: IV 100 950 IVF 900 antibiotic 100 50 Oral 0 0 Output: Urine 35 75 Urethral ([place]) 35 75 Other: # Bowel Movements 0 0 - Physical Exam Head: Positive for: Atraumatic, Normocephalic Pupils: Positive for: PERRL Extroacular Muscles: Positive for: EOMI Conjunctiva: Positive for: Normal Mouth: Positive for: Moist Mucous Membranes Neck: Negative for: JVD Respiratory/Chest: Positive for: Clear to Auscultation. Negative for: Wheezes, Rales, Rhonchi Cardiovascular: Positive for: Regular Rate and Rhythm, Normal S1, S2. Negative for: Murmurs, Rub, Gallop Abdomen: Positive for: Feeding Tubes (G-tube in place without surrounding erythema or exudate). Negative for: Tenderness, Distention Genitourinary/Pelvic Exam: Positive for: Other (jefferson in place) Back: Positive for: Decubitus Ulcer (Multiple decubiti extending from R hip to sacrum) Upper Extremity: Positive for: NORMAL PULSES Lower Extremity: Positive for: NORMAL PULSES, Other (Right heel decubitus ulcer) Neurological: Positive for: Other (alert to person only, at baseline) Skin: Positive for: Warm, Dry Psychiatric: Positive for: Other (Dementia) - Medications Active Medications: Active Medications Generic Name Dose Route Start Last Admin Trade Name Freq PRN Reason Stop Dose Admin Amlodipine Besylate 5 mg 03/21/18 10:00 03/21/18 09:16 Norvasc PO 5 mg DAILY VINNY Administration Cholecalciferol 5,000 intlu 03/21/18 10:00 03/21/18 09:18 Vitamin D PO Not Given DAILY [facility] Ferrous Sulfate 300 mg 03/21/18 10:00 03/21/18 18:04 Feosol Liq PO Not Given BID VNINY Hydromorphone HCl 0.25 mg 03/21/18 00:01 03/22/18 05:18 Dilaudid IVP 0.25 mg Q6H PRN Administration Pain, moderate (4-7) Meropenem/Sodium Chloride 500 mg in 50 mls @ 12.5 mls/hr 03/21/18 22:00 03/21/18 21:30 Merrem Iv 500 Mg/Ns 50 Ml IVPB 03/30/18 22:01 12.5 mls/hr Q12 VINNY Administration Protocol Sodium Bicarbonate 75 meq/ 1,075 mls @ 75 mls/hr 03/22/18 07:45 Sodium Chloride IV .[id number] [facility] Memantine 5 mg 03/21/18 10:00 03/21/18 09:17 Namenda PO Not Given DAILY [facility] Pantoprazole Sodium 40 mg 03/22/18 10:00 Protonix Inj IVP DAILY [facility] Primidone 50 mg 03/21/18 10:00 03/21/18 09:17 Mysoline PO Not Given TID VINNY - Patient Studies Lab Studies: Microbiology Studies 03/20/18 19:45 Blood Culture - Preliminary Blood NO GROWTH AFTER 24 HOURS 03/20/18 19:30 Blood Culture - Preliminary Blood NO GROWTH AFTER 24 HOURS 03/21/18 00:10 Gram Stain - Final Buttock Lab Studies 03/22/18 03/22/18 03/22/18 Range/Units 06:00 06:00 05:28 WBC 12.1 H (4.5-11.0) 10^3/ul RBC 3.28 L (3.5-6.1) 10^6/uL Hgb 9.4 L (12.0-16.0) g/dL Hct 27.9 L (36.0-48.0) % MCV 85.1 (80.0-105.0) fl MCH 28.7 (25.0-35.0) pg MCHC 33.7 (31.0-37.0) g/dl RDW 16.2 H (11.5-14.5) % Plt Count 206 (120.0-450.0) 10^3/uL MPV 10.6 (7.0-11.0) fl pCO2 19 L* (35-45) mm/Hg pO2 82.0 (80-100) mm/Hg HCO3 8.1 L* (21-28) mmol/L ABG pH 7.24 L (7.35-7.45) ABG Total CO2 8.7 L (22-28) mmol.L ABG O2 Saturation 98.2 H (95-98) % ABG O2 Content 12.4 L (15-23) ML/dl ABG Base Excess -17.5 L (-2.0-3.0) mmol/L ABG Hemoglobin 9.2 L (11.7-17.4) g/dL ABG Carboxyhemoglobin 2.1 H (0.5-1.5) % POC ABG HHb (Measured) 1.7 (0-5) % ABG Methemoglobin 1.2 (0.0-3.0) % ABG O2 Capacity 12.6 L (16-24) mL/dl VBG pH (7.32-7.43) VBG pCO2 (40-60) VBG HCO3 (21-28) mmol/l VBG Total CO2 (22-28) mmol.L VBG O2 Sat (Calc) (40-65) % VBG Base Excess (0.0-2.0) mmol/L VBG Potassium (3.6-5.2) mmol/L Hgb O2 Saturation 95.1 (95.0-98.0) % Sodium 128 L (132-148) mmol/L Chloride 103 (98-107) mmol/L Glucose (65-105) mg/dl Lactate (0.7-2.1) mmol/L FiO2 28.0 % Potassium 4.4 (3.6-5.0) mmol/L Carbon Dioxide 9 L (21-33) mmol/L Anion Gap 20 (10-20) BUN 137 H* (7-21) mg/dL Creatinine 5.1 H (0.7-1.2) mg/dl Est GFR ( Amer) 10 Est GFR (Non-Af Amer) 8 POC Glucose (mg/dL) (65-110) mg/dL Random Glucose 44 L* D (70-110) mg/dL Serum Osmolality (272-300) mosm/kg Calcium 8.2 L (8.4-10.5) mg/dL Phosphorus 5.7 H (2.5-4.5) mg/dL Magnesium 2.3 H (1.7-2.2) mg/dL Total Bilirubin 0.4 (0.2-1.3) mg/dL AST 36 (14-36) U/L ALT 39 (7-56) U/L Alkaline Phosphatase 145 H (38-126) U/L Total Protein 5.8 (5.8-8.3) g/dL Albumin 2.4 L (3.0-4.8) g/dL Globulin 3.5 gm/dL Albumin/Globulin Ratio 0.7 L (1.1-1.8) Thyroxine (T4) (5.5-11.0) ug/dL TSH 3rd Generation (0.46-4.68) mIU/mL Venous Blood Potassium (3.6-5.2) mmol/L Ur Random Sodium meq/L 03/21/18 03/21/18 03/21/18 Range/Units 21:49 20:30 20:30 WBC 12.8 H (4.5-11.0) 10^3/ul RBC 3.13 L (3.5-6.1) 10^6/uL Hgb 8.9 L (12.0-16.0) g/dL Hct 26.1 L (36.0-48.0) % MCV 83.4 (80.0-105.0) fl MCH 28.4 (25.0-35.0) pg MCHC 34.1 (31.0-37.0) g/dl RDW 16.0 H (11.5-14.5) % Plt Count 179 (120.0-450.0) 10^3/uL MPV 10.4 (7.0-11.0) fl pCO2 (35-45) mm/Hg pO2 64 H (80-100) mm/Hg HCO3 (21-28) mmol/L ABG pH (7.35-7.45) ABG Total CO2 (22-28) mmol.L ABG O2 Saturation (95-98) % ABG O2 Content (15-23) ML/dl ABG Base Excess (-2.0-3.0) mmol/L ABG Hemoglobin (11.7-17.4) g/dL ABG Carboxyhemoglobin (0.5-1.5) % POC ABG HHb (Measured) (0-5) % ABG Methemoglobin (0.0-3.0) % ABG O2 Capacity (16-24) mL/dl VBG pH 7.20 L (7.32-7.43) VBG pCO2 24.0 L (40-60) VBG HCO3 9.4 L (21-28) mmol/l VBG Total CO2 10.1 L (22-28) mmol.L VBG O2 Sat (Calc) 93.8 H (40-65) % VBG Base Excess -16.9 L (0.0-2.0) mmol/L VBG Potassium 4.2 (3.6-5.2) mmol/L Hgb O2 Saturation (95.0-98.0) % Sodium 124.0 L (132-148) mmol/L Chloride 100.0 (98-107) mmol/L Glucose 62 L (65-105) mg/dl Lactate 0.6 L (0.7-2.1) mmol/L FiO2 21.0 % Potassium (3.6-5.0) mmol/L Carbon Dioxide (21-33) mmol/L Anion Gap (10-20) BUN (7-21) mg/dL Creatinine (0.7-1.2) mg/dl Est GFR ( Amer) Est GFR (Non-Af Amer) POC Glucose (mg/dL) 61 L (65-110) mg/dL Random Glucose (70-110) mg/dL Serum Osmolality (272-300) mosm/kg Calcium (8.4-10.5) mg/dL Phosphorus (2.5-4.5) mg/dL Magnesium (1.7-2.2) mg/dL Total Bilirubin (0.2-1.3) mg/dL AST (14-36) U/L ALT (7-56) U/L Alkaline Phosphatase (38-126) U/L Total Protein (5.8-8.3) g/dL Albumin (3.0-4.8) g/dL Globulin gm/dL Albumin/Globulin Ratio (1.1-1.8) Thyroxine (T4) (5.5-11.0) ug/dL TSH 3rd Generation (0.46-4.68) mIU/mL Venous Blood Potassium 4.2 (3.6-5.2) mmol/L Ur Random Sodium meq/L 03/21/18 03/21/18 03/21/18 Range/Units 16:01 15:13 12:20 WBC (4.5-11.0) 10^3/ul RBC (3.5-6.1) 10^6/uL Hgb (12.0-16.0) g/dL Hct (36.0-48.0) % MCV (80.0-105.0) fl MCH (25.0-35.0) pg MCHC (31.0-37.0) g/dl RDW (11.5-14.5) % Plt Count (120.0-450.0) 10^3/uL MPV (7.0-11.0) fl pCO2 20 L (35-45) mm/Hg pO2 78.0 L (80-100) mm/Hg HCO3 9.0 L* (21-28) mmol/L ABG pH 7.26 L (7.35-7.45) ABG Total CO2 9.6 L (22-28) mmol.L ABG O2 Saturation 97.5 (95-98) % ABG O2 Content 12.8 L (15-23) ML/dl ABG Base Excess -16.3 L (-2.0-3.0) mmol/L ABG Hemoglobin 9.5 L (11.7-17.4) g/dL ABG Carboxyhemoglobin 2.0 H (0.5-1.5) % POC ABG HHb (Measured) 2.4 (0-5) % ABG Methemoglobin 0.7 (0.0-3.0) % ABG O2 Capacity 13.1 L (16-24) mL/dl VBG pH (7.32-7.43) VBG pCO2 (40-60) VBG HCO3 (21-28) mmol/l VBG Total CO2 (22-28) mmol.L VBG O2 Sat (Calc) (40-65) % VBG Base Excess (0.0-2.0) mmol/L VBG Potassium (3.6-5.2) mmol/L Hgb O2 Saturation 95.0 (95.0-98.0) % Sodium (132-148) mmol/L Chloride (98-107) mmol/L Glucose (65-105) mg/dl Lactate (0.7-2.1) mmol/L FiO2 28.0 % Potassium (3.6-5.0) mmol/L Carbon Dioxide (21-33) mmol/L Anion Gap (10-20) BUN (7-21) mg/dL Creatinine (0.7-1.2) mg/dl Est GFR ( Amer) Est GFR (Non-Af Amer) POC Glucose (mg/dL) 83 (65-110) mg/dL Random Glucose (70-110) mg/dL Serum Osmolality (272-300) mosm/kg Calcium (8.4-10.5) mg/dL Phosphorus (2.5-4.5) mg/dL Magnesium (1.7-2.2) mg/dL Total Bilirubin (0.2-1.3) mg/dL AST (14-36) U/L ALT (7-56) U/L Alkaline Phosphatase (38-126) U/L Total Protein (5.8-8.3) g/dL Albumin (3.0-4.8) g/dL Globulin gm/dL Albumin/Globulin Ratio (1.1-1.8) Thyroxine (T4) (5.5-11.0) ug/dL TSH 3rd Generation (0.46-4.68) mIU/mL Venous Blood Potassium (3.6-5.2) mmol/L Ur Random Sodium 44 meq/L 03/21/18 03/21/18 03/21/18 Range/Units 11:50 06:30 06:30 WBC (4.5-11.0) 10^3/ul RBC (3.5-6.1) 10^6/uL Hgb (12.0-16.0) g/dL Hct (36.0-48.0) % MCV (80.0-105.0) fl MCH (25.0-35.0) pg MCHC (31.0-37.0) g/dl RDW (11.5-14.5) % Plt Count (120.0-450.0) 10^3/uL MPV (7.0-11.0) fl pCO2 (35-45) mm/Hg pO2 (80-100) mm/Hg HCO3 (21-28) mmol/L ABG pH (7.35-7.45) ABG Total CO2 (22-28) mmol.L ABG O2 Saturation (95-98) % ABG O2 Content (15-23) ML/dl ABG Base Excess (-2.0-3.0) mmol/L ABG Hemoglobin (11.7-17.4) g/dL ABG Carboxyhemoglobin (0.5-1.5) % POC ABG HHb (Measured) (0-5) % ABG Methemoglobin (0.0-3.0) % ABG O2 Capacity (16-24) mL/dl VBG pH (7.32-7.43) VBG pCO2 (40-60) VBG HCO3 (21-28) mmol/l VBG Total CO2 (22-28) mmol.L VBG O2 Sat (Calc) (40-65) % VBG Base Excess (0.0-2.0) mmol/L VBG Potassium (3.6-5.2) mmol/L Hgb O2 Saturation (95.0-98.0) % Sodium (132-148) mmol/L Chloride (98-107) mmol/L Glucose (65-105) mg/dl Lactate (0.7-2.1) mmol/L FiO2 % Potassium (3.6-5.0) mmol/L Carbon Dioxide (21-33) mmol/L Anion Gap (10-20) BUN 139 H* (7-21) mg/dL Creatinine (0.7-1.2) mg/dl Est GFR ( Amer) Est GFR (Non-Af Amer) POC Glucose (mg/dL) 82 (65-110) mg/dL Random Glucose (70-110) mg/dL Serum Osmolality 311 H (272-300) mosm/kg Calcium (8.4-10.5) mg/dL Phosphorus (2.5-4.5) mg/dL Magnesium (1.7-2.2) mg/dL Total Bilirubin (0.2-1.3) mg/dL AST (14-36) U/L ALT (7-56) U/L Alkaline Phosphatase (38-126) U/L Total Protein (5.8-8.3) g/dL Albumin (3.0-4.8) g/dL Globulin gm/dL Albumin/Globulin Ratio (1.1-1.8) Thyroxine (T4) 5.9 (5.5-11.0) ug/dL TSH 3rd Generation (0.46-4.68) mIU/mL Venous Blood Potassium (3.6-5.2) mmol/L Ur Random Sodium meq/L 03/21/18 Range/Units 06:30 WBC (4.5-11.0) 10^3/ul RBC (3.5-6.1) 10^6/uL Hgb (12.0-16.0) g/dL Hct (36.0-48.0) % MCV (80.0-105.0) fl MCH (25.0-35.0) pg MCHC (31.0-37.0) g/dl RDW (11.5-14.5) % Plt Count (120.0-450.0) 10^3/uL MPV (7.0-11.0) fl pCO2 (35-45) mm/Hg pO2 (80-100) mm/Hg HCO3 (21-28) mmol/L ABG pH (7.35-7.45) ABG Total CO2 (22-28) mmol.L ABG O2 Saturation (95-98) % ABG O2 Content (15-23) ML/dl ABG Base Excess (-2.0-3.0) mmol/L ABG Hemoglobin (11.7-17.4) g/dL ABG Carboxyhemoglobin (0.5-1.5) % POC ABG HHb (Measured) (0-5) % ABG Methemoglobin (0.0-3.0) % ABG O2 Capacity (16-24) mL/dl VBG pH (7.32-7.43) VBG pCO2 (40-60) VBG HCO3 (21-28) mmol/l VBG Total CO2 (22-28) mmol.L VBG O2 Sat (Calc) (40-65) % VBG Base Excess (0.0-2.0) mmol/L VBG Potassium (3.6-5.2) mmol/L Hgb O2 Saturation (95.0-98.0) % Sodium (132-148) mmol/L Chloride (98-107) mmol/L Glucose (65-105) mg/dl Lactate (0.7-2.1) mmol/L FiO2 % Potassium (3.6-5.0) mmol/L Carbon Dioxide (21-33) mmol/L Anion Gap (10-20) BUN (7-21) mg/dL Creatinine (0.7-1.2) mg/dl Est GFR ( Amer) Est GFR (Non-Af Amer) POC Glucose (mg/dL) (65-110) mg/dL Random Glucose (70-110) mg/dL Serum Osmolality (272-300) mosm/kg Calcium (8.4-10.5) mg/dL Phosphorus (2.5-4.5) mg/dL Magnesium (1.7-2.2) mg/dL Total Bilirubin (0.2-1.3) mg/dL AST (14-36) U/L ALT (7-56) U/L Alkaline Phosphatase (38-126) U/L Total Protein (5.8-8.3) g/dL Albumin (3.0-4.8) g/dL Globulin gm/dL Albumin/Globulin Ratio (1.1-1.8) Thyroxine (T4) (5.5-11.0) ug/dL TSH 3rd Generation 2.47 (0.46-4.68) mIU/mL Venous Blood Potassium (3.6-5.2) mmol/L Ur Random Sodium meq/L Laboratory Results - last 24 hr 03/21/18 03/21/18 03/21/18 06:30 06:30 06:30 WBC RBC Hgb Hct MCV MCH MCHC RDW Plt Count MPV pCO2 pO2 HCO3 ABG pH ABG Total CO2 ABG O2 Saturation ABG O2 Content ABG Base Excess ABG Hemoglobin ABG Carboxyhemoglobin POC ABG HHb (Measured) ABG Methemoglobin ABG O2 Capacity VBG pH VBG pCO2 VBG HCO3 VBG Total CO2 VBG O2 Sat (Calc) VBG Base Excess VBG Potassium Hgb O2 Saturation Sodium Chloride Glucose Lactate FiO2 Potassium Carbon Dioxide Anion Gap BUN 139 H* Creatinine Est GFR ( Amer) Est GFR (Non-Af Amer) POC Glucose (mg/dL) Random Glucose Serum Osmolality 311 H Calcium Phosphorus Magnesium Total Bilirubin AST ALT Alkaline Phosphatase Total Protein Albumin Globulin Albumin/Globulin Ratio Thyroxine (T4) 5.9 TSH 3rd Generation 2.47 Venous Blood Potassium Ur Random Sodium 03/21/18 03/21/18 03/21/18 11:50 12:20 15:13 WBC RBC Hgb Hct MCV MCH MCHC RDW Plt Count MPV pCO2 20 L pO2 78.0 L HCO3 9.0 L* ABG pH 7.26 L ABG Total CO2 9.6 L ABG O2 Saturation 97.5 ABG O2 Content 12.8 L ABG Base Excess -16.3 L ABG Hemoglobin 9.5 L ABG Carboxyhemoglobin 2.0 H POC ABG HHb (Measured) 2.4 ABG Methemoglobin 0.7 ABG O2 Capacity 13.1 L VBG pH VBG pCO2 VBG HCO3 VBG Total CO2 VBG O2 Sat (Calc) VBG Base Excess VBG Potassium Hgb O2 Saturation 95.0 Sodium Chloride Glucose Lactate FiO2 28.0 Potassium Carbon Dioxide Anion Gap BUN Creatinine Est GFR ( Amer) Est GFR (Non-Af Amer) POC Glucose (mg/dL) 82 Random Glucose Serum Osmolality Calcium Phosphorus Magnesium Total Bilirubin AST ALT Alkaline Phosphatase Total Protein Albumin Globulin Albumin/Globulin Ratio Thyroxine (T4) TSH 3rd Generation Venous Blood Potassium Ur Random Sodium 44 03/21/18 03/21/18 03/21/18 16:01 20:30 20:30 WBC 12.8 H RBC 3.13 L Hgb 8.9 L Hct 26.1 L MCV 83.4 MCH 28.4 MCHC 34.1 RDW 16.0 H Plt Count 179 MPV 10.4 pCO2 pO2 64 H HCO3 ABG pH ABG Total CO2 ABG O2 Saturation ABG O2 Content ABG Base Excess ABG Hemoglobin ABG Carboxyhemoglobin POC ABG HHb (Measured) ABG Methemoglobin ABG O2 Capacity VBG pH 7.20 L VBG pCO2 24.0 L VBG HCO3 9.4 L VBG Total CO2 10.1 L VBG O2 Sat (Calc) 93.8 H VBG Base Excess -16.9 L VBG Potassium 4.2 Hgb O2 Saturation Sodium 124.0 L Chloride 100.0 Glucose 62 L Lactate 0.6 L FiO2 21.0 Potassium Carbon Dioxide Anion Gap BUN Creatinine Est GFR ( Amer) Est GFR (Non-Af Amer) POC Glucose (mg/dL) 83 Random Glucose Serum Osmolality Calcium Phosphorus Magnesium Total Bilirubin AST ALT Alkaline Phosphatase Total Protein Albumin Globulin Albumin/Globulin Ratio Thyroxine (T4) TSH 3rd Generation Venous Blood Potassium 4.2 Ur Random Sodium 03/21/18 03/22/18 03/22/18 21:49 05:28 06:00 WBC 12.1 H RBC 3.28 L Hgb 9.4 L Hct 27.9 L MCV 85.1 MCH 28.7 MCHC 33.7 RDW 16.2 H Plt Count 206 MPV 10.6 pCO2 19 L* pO2 82.0 HCO3 8.1 L* ABG pH 7.24 L ABG Total CO2 8.7 L ABG O2 Saturation 98.2 H ABG O2 Content 12.4 L ABG Base Excess -17.5 L ABG Hemoglobin 9.2 L ABG Carboxyhemoglobin 2.1 H POC ABG HHb (Measured) 1.7 ABG Methemoglobin 1.2 ABG O2 Capacity 12.6 L VBG pH VBG pCO2 VBG HCO3 VBG Total CO2 VBG O2 Sat (Calc) VBG Base Excess VBG Potassium Hgb O2 Saturation 95.1 Sodium Chloride Glucose Lactate FiO2 28.0 Potassium Carbon Dioxide Anion Gap BUN Creatinine Est GFR ( Amer) Est GFR (Non-Af Amer) POC Glucose (mg/dL) 61 L Random Glucose Serum Osmolality Calcium Phosphorus Magnesium Total Bilirubin AST ALT Alkaline Phosphatase Total Protein Albumin Globulin Albumin/Globulin Ratio Thyroxine (T4) TSH 3rd Generation Venous Blood Potassium Ur Random Sodium 03/22/18 06:00 WBC RBC Hgb Hct MCV MCH MCHC RDW Plt Count MPV pCO2 pO2 HCO3 ABG pH ABG Total CO2 ABG O2 Saturation ABG O2 Content ABG Base Excess ABG Hemoglobin ABG Carboxyhemoglobin POC ABG HHb (Measured) ABG Methemoglobin ABG O2 Capacity VBG pH VBG pCO2 VBG HCO3 VBG Total CO2 VBG O2 Sat (Calc) VBG Base Excess VBG Potassium Hgb O2 Saturation Sodium 128 L Chloride 103 Glucose Lactate FiO2 Potassium 4.4 Carbon Dioxide 9 L Anion Gap 20 BUN 137 H* Creatinine 5.1 H Est GFR ( Amer) 10 Est GFR (Non-Af Amer) 8 POC Glucose (mg/dL) Random Glucose 44 L* D Serum Osmolality Calcium 8.2 L Phosphorus 5.7 H Magnesium 2.3 H Total Bilirubin 0.4 AST 36 ALT 39 Alkaline Phosphatase 145 H Total Protein 5.8 Albumin 2.4 L Globulin 3.5 Albumin/Globulin Ratio 0.7 L Thyroxine (T4) TSH 3rd Generation Venous Blood Potassium Ur Random Sodium Fingerstick Blood Sugar Results: 61 Review of Systems - Review of Systems Systems not reviewed;Unavailable: Dementia Critical Care Progress Note - Nutrition Nutrition: Nutrition Category Date Time Status NPO Diet [DIET] Diets 03/21/18 Breakfast Ordered Assessment/Plan - Assessment and Plan (Free Text) Assessment: 77 yo F sent from [facility] for concerns of b/l PNA, worsening CHINMAY, GI bleed, and anemia. Plan: Neuro: Patient has hx of dementia Grimaces with painful stimuli but is otherwise not responsive No change from baseline Cardio: RRR, normotensive Maintain MAP > 65 Monitor for s/sx HD compromise Pulm: Admitted for concern of b/l PNA CXR was poor but infiltrate could not be ruled out Maintain SpO2 > 95% Supp O2 NC PRN /Nephro: Patient with compensated metabolic acidosis Likely 2/2 renal failure BUN/Cr currently 137/5.1 Continue strict I & O Switch IVF to 1/2 NS with 75 mEq NaHCO3 F/u nephrology recs GI: Positive FOBT in ED GI spoke with sister who is POA Sister wants to pursue EGD Likely UGI bleed Protonix 40 mg IVP BID F/u additional GI recs ID: Initially admitted to telemetry for treatment of b/l PNA On merem per ID recs Endocrine: Blood sugar this AM was 44 D50 given Continue to maintain euglycemia Heme/Onc: H/H stable at 9.4/27.9 this AM She is s/p 2 units PRBCs on 03/20 for GI bleed Likely has anemia of chronic disease at baseline Continue to monitor H/H closely Case and plan reviewed and discussed with my attending Dr. Endy Montalvo, IM Resident PGY-1 <Luke Schumacher - Last Filed: 03/22/18 10:46> CCU Objective - Vital Signs / Intake & Output Vital Signs (Last 4 hours): Vital Signs Temp Pulse Resp BP Pulse Ox 03/22/18 08:00 97.5 F L 88 11 L 119/61 96 03/22/18 07:00 97.3 F L 87 11 L 113/54 L 97 Intake and Output (Last 8hrs): Intake & Output 03/21/18 03/22/18 03/22/18 22:59 06:59 14:59 Intake Total 100 950 Output Total 35 75 Balance 65 875 Weight 126 lb 9.6 oz Intake: IV 100 950 IVF 900 antibiotic 100 50 Oral 0 0 Output: Urine 35 75 Urethral ([place]) 35 75 Other: # Bowel Movements 0 0 - Medications Active Medications: Active Medications Generic Name Dose Route Start Last Admin Trade Name Freq PRN Reason Stop Dose Admin Amlodipine Besylate 5 mg 03/21/18 10:00 03/21/18 09:16 Norvasc PO 5 mg DAILY VINNY Administration Cholecalciferol 5,000 intlu 03/21/18 10:00 03/21/18 09:18 Vitamin D PO Not Given DAILY [facility] Ferrous Sulfate 300 mg 03/21/18 10:00 03/21/18 18:04 Feosol Liq PO Not Given BID VINNY Hydromorphone HCl 0.25 mg 03/21/18 00:01 03/22/18 05:18 Dilaudid IVP 0.25 mg Q6H PRN Administration Pain, moderate (4-7) Meropenem/Sodium Chloride 500 mg in 50 mls @ 12.5 mls/hr 03/21/18 22:00 03/21/18 21:30 Merrem Iv 500 Mg/Ns 50 Ml IVPB 03/30/18 22:01 12.5 mls/hr Q12 VINNY Administration Protocol Sodium Bicarbonate 75 meq/ 1,075 mls @ 75 mls/hr 03/22/18 07:45 Sodium Chloride IV .[id number] VINNY Memantine 5 mg 03/21/18 10:00 03/21/18 09:17 Namenda PO Not Given DAILY VINNY Pantoprazole Sodium 40 mg 03/22/18 10:00 Protonix Inj IVP BID VINNY Primidone 50 mg 03/21/18 10:00 03/21/18 09:17 Mysoline PO Not Given TID VINNY - Patient Studies Lab Studies: Microbiology Studies 03/20/18 21:17 Urine Culture - Preliminary Urine,Clean Catch Gram Positive Cocci 03/20/18 19:45 Blood Culture - Preliminary Blood NO GROWTH AFTER 24 HOURS 03/20/18 19:30 Blood Culture - Preliminary Blood NO GROWTH AFTER 24 HOURS 03/21/18 00:10 Gram Stain - Final Buttock Lab Studies 03/22/18 03/22/18 03/22/18 Range/Units 08:47 07:22 06:00 WBC (4.5-11.0) 10^3/ul RBC (3.5-6.1) 10^6/uL Hgb (12.0-16.0) g/dL Hct (36.0-48.0) % MCV (80.0-105.0) fl MCH (25.0-35.0) pg MCHC (31.0-37.0) g/dl RDW (11.5-14.5) % Plt Count (120.0-450.0) 10^3/uL MPV (7.0-11.0) fl pCO2 (35-45) mm/Hg pO2 (80-100) mm/Hg HCO3 (21-28) mmol/L ABG pH (7.35-7.45) ABG Total CO2 (22-28) mmol.L ABG O2 Saturation (95-98) % ABG O2 Content (15-23) ML/dl ABG Base Excess (-2.0-3.0) mmol/L ABG Hemoglobin (11.7-17.4) g/dL ABG Carboxyhemoglobin (0.5-1.5) % POC ABG HHb (Measured) (0-5) % ABG Methemoglobin (0.0-3.0) % ABG O2 Capacity (16-24) mL/dl VBG pH (7.32-7.43) VBG pCO2 (40-60) VBG HCO3 (21-28) mmol/l VBG Total CO2 (22-28) mmol.L VBG O2 Sat (Calc) (40-65) % VBG Base Excess (0.0-2.0) mmol/L VBG Potassium (3.6-5.2) mmol/L Hgb O2 Saturation (95.0-98.0) % Sodium 128 L (132-148) mmol/L Chloride 103 (98-107) mmol/L Glucose (65-105) mg/dl Lactate (0.7-2.1) mmol/L FiO2 % Potassium 4.4 (3.6-5.0) mmol/L Carbon Dioxide 9 L (21-33) mmol/L Anion Gap 20 (10-20) BUN 137 H* (7-21) mg/dL Creatinine 5.1 H (0.7-1.2) mg/dl Est GFR ( Amer) 10 Est GFR (Non-Af Amer) 8 POC Glucose (mg/dL) 85 47 L (65-110) mg/dL Random Glucose 44 L* D (70-110) mg/dL Serum Osmolality (272-300) mosm/kg Calcium 8.2 L (8.4-10.5) mg/dL Phosphorus 5.7 H (2.5-4.5) mg/dL Magnesium 2.3 H (1.7-2.2) mg/dL Total Bilirubin 0.4 (0.2-1.3) mg/dL AST 36 (14-36) U/L ALT 39 (7-56) U/L Alkaline Phosphatase 145 H (38-126) U/L Total Protein 5.8 (5.8-8.3) g/dL Albumin 2.4 L (3.0-4.8) g/dL Globulin 3.5 gm/dL Albumin/Globulin Ratio 0.7 L (1.1-1.8) Venous Blood Potassium (3.6-5.2) mmol/L Ur Random Sodium meq/L 03/22/18 03/22/18 03/21/18 Range/Units 06:00 05:28 21:49 WBC 12.1 H (4.5-11.0) 10^3/ul RBC 3.28 L (3.5-6.1) 10^6/uL Hgb 9.4 L (12.0-16.0) g/dL Hct 27.9 L (36.0-48.0) % MCV 85.1 (80.0-105.0) fl MCH 28.7 (25.0-35.0) pg MCHC 33.7 (31.0-37.0) g/dl RDW 16.2 H (11.5-14.5) % Plt Count 206 (120.0-450.0) 10^3/uL MPV 10.6 (7.0-11.0) fl pCO2 19 L* (35-45) mm/Hg pO2 82.0 (80-100) mm/Hg HCO3 8.1 L* (21-28) mmol/L ABG pH 7.24 L (7.35-7.45) ABG Total CO2 8.7 L (22-28) mmol.L ABG O2 Saturation 98.2 H (95-98) % ABG O2 Content 12.4 L (15-23) ML/dl ABG Base Excess -17.5 L (-2.0-3.0) mmol/L ABG Hemoglobin 9.2 L (11.7-17.4) g/dL ABG Carboxyhemoglobin 2.1 H (0.5-1.5) % POC ABG HHb (Measured) 1.7 (0-5) % ABG Methemoglobin 1.2 (0.0-3.0) % ABG O2 Capacity 12.6 L (16-24) mL/dl VBG pH (7.32-7.43) VBG pCO2 (40-60) VBG HCO3 (21-28) mmol/l VBG Total CO2 (22-28) mmol.L VBG O2 Sat (Calc) (40-65) % VBG Base Excess (0.0-2.0) mmol/L VBG Potassium (3.6-5.2) mmol/L Hgb O2 Saturation 95.1 (95.0-98.0) % Sodium (132-148) mmol/L Chloride (98-107) mmol/L Glucose (65-105) mg/dl Lactate (0.7-2.1) mmol/L FiO2 28.0 % Potassium (3.6-5.0) mmol/L Carbon Dioxide (21-33) mmol/L Anion Gap (10-20) BUN (7-21) mg/dL Creatinine (0.7-1.2) mg/dl Est GFR ( Amer) Est GFR (Non-Af Amer) POC Glucose (mg/dL) 61 L (65-110) mg/dL Random Glucose (70-110) mg/dL Serum Osmolality (272-300) mosm/kg Calcium (8.4-10.5) mg/dL Phosphorus (2.5-4.5) mg/dL Magnesium (1.7-2.2) mg/dL Total Bilirubin (0.2-1.3) mg/dL AST (14-36) U/L ALT (7-56) U/L Alkaline Phosphatase (38-126) U/L Total Protein (5.8-8.3) g/dL Albumin (3.0-4.8) g/dL Globulin gm/dL Albumin/Globulin Ratio (1.1-1.8) Venous Blood Potassium (3.6-5.2) mmol/L Ur Random Sodium meq/L 03/21/18 03/21/18 03/21/18 Range/Units 20:30 20:30 16:01 WBC 12.8 H (4.5-11.0) 10^3/ul RBC 3.13 L (3.5-6.1) 10^6/uL Hgb 8.9 L (12.0-16.0) g/dL Hct 26.1 L (36.0-48.0) % MCV 83.4 (80.0-105.0) fl MCH 28.4 (25.0-35.0) pg MCHC 34.1 (31.0-37.0) g/dl RDW 16.0 H (11.5-14.5) % Plt Count 179 (120.0-450.0) 10^3/uL MPV 10.4 (7.0-11.0) fl pCO2 (35-45) mm/Hg pO2 64 H (80-100) mm/Hg HCO3 (21-28) mmol/L ABG pH (7.35-7.45) ABG Total CO2 (22-28) mmol.L ABG O2 Saturation (95-98) % ABG O2 Content (15-23) ML/dl ABG Base Excess (-2.0-3.0) mmol/L ABG Hemoglobin (11.7-17.4) g/dL ABG Carboxyhemoglobin (0.5-1.5) % POC ABG HHb (Measured) (0-5) % ABG Methemoglobin (0.0-3.0) % ABG O2 Capacity (16-24) mL/dl VBG pH 7.20 L (7.32-7.43) VBG pCO2 24.0 L (40-60) VBG HCO3 9.4 L (21-28) mmol/l VBG Total CO2 10.1 L (22-28) mmol.L VBG O2 Sat (Calc) 93.8 H (40-65) % VBG Base Excess -16.9 L (0.0-2.0) mmol/L VBG Potassium 4.2 (3.6-5.2) mmol/L Hgb O2 Saturation (95.0-98.0) % Sodium 124.0 L (132-148) mmol/L Chloride 100.0 (98-107) mmol/L Glucose 62 L (65-105) mg/dl Lactate 0.6 L (0.7-2.1) mmol/L FiO2 21.0 % Potassium (3.6-5.0) mmol/L Carbon Dioxide (21-33) mmol/L Anion Gap (10-20) BUN (7-21) mg/dL Creatinine (0.7-1.2) mg/dl Est GFR ( Amer) Est GFR (Non-Af Amer) POC Glucose (mg/dL) 83 (65-110) mg/dL Random Glucose (70-110) mg/dL Serum Osmolality (272-300) mosm/kg Calcium (8.4-10.5) mg/dL Phosphorus (2.5-4.5) mg/dL Magnesium (1.7-2.2) mg/dL Total Bilirubin (0.2-1.3) mg/dL AST (14-36) U/L ALT (7-56) U/L Alkaline Phosphatase (38-126) U/L Total Protein (5.8-8.3) g/dL Albumin (3.0-4.8) g/dL Globulin gm/dL Albumin/Globulin Ratio (1.1-1.8) Venous Blood Potassium 4.2 (3.6-5.2) mmol/L Ur Random Sodium meq/L 03/21/18 03/21/18 03/21/18 Range/Units 15:13 12:20 11:50 WBC (4.5-11.0) 10^3/ul RBC (3.5-6.1) 10^6/uL Hgb (12.0-16.0) g/dL Hct (36.0-48.0) % MCV (80.0-105.0) fl MCH (25.0-35.0) pg MCHC (31.0-37.0) g/dl RDW (11.5-14.5) % Plt Count (120.0-450.0) 10^3/uL MPV (7.0-11.0) fl pCO2 20 L (35-45) mm/Hg pO2 78.0 L (80-100) mm/Hg HCO3 9.0 L* (21-28) mmol/L ABG pH 7.26 L (7.35-7.45) ABG Total CO2 9.6 L (22-28) mmol.L ABG O2 Saturation 97.5 (95-98) % ABG O2 Content 12.8 L (15-23) ML/dl ABG Base Excess -16.3 L (-2.0-3.0) mmol/L ABG Hemoglobin 9.5 L (11.7-17.4) g/dL ABG Carboxyhemoglobin 2.0 H (0.5-1.5) % POC ABG HHb (Measured) 2.4 (0-5) % ABG Methemoglobin 0.7 (0.0-3.0) % ABG O2 Capacity 13.1 L (16-24) mL/dl VBG pH (7.32-7.43) VBG pCO2 (40-60) VBG HCO3 (21-28) mmol/l VBG Total CO2 (22-28) mmol.L VBG O2 Sat (Calc) (40-65) % VBG Base Excess (0.0-2.0) mmol/L VBG Potassium (3.6-5.2) mmol/L Hgb O2 Saturation 95.0 (95.0-98.0) % Sodium (132-148) mmol/L Chloride (98-107) mmol/L Glucose (65-105) mg/dl Lactate (0.7-2.1) mmol/L FiO2 28.0 % Potassium (3.6-5.0) mmol/L Carbon Dioxide (21-33) mmol/L Anion Gap (10-20) BUN (7-21) mg/dL Creatinine (0.7-1.2) mg/dl Est GFR ( Amer) Est GFR (Non-Af Amer) POC Glucose (mg/dL) 82 (65-110) mg/dL Random Glucose (70-110) mg/dL Serum Osmolality (272-300) mosm/kg Calcium (8.4-10.5) mg/dL Phosphorus (2.5-4.5) mg/dL Magnesium (1.7-2.2) mg/dL Total Bilirubin (0.2-1.3) mg/dL AST (14-36) U/L ALT (7-56) U/L Alkaline Phosphatase (38-126) U/L Total Protein (5.8-8.3) g/dL Albumin (3.0-4.8) g/dL Globulin gm/dL Albumin/Globulin Ratio (1.1-1.8) Venous Blood Potassium (3.6-5.2) mmol/L Ur Random Sodium 44 meq/L 03/21/18 Range/Units 06:30 WBC (4.5-11.0) 10^3/ul RBC (3.5-6.1) 10^6/uL Hgb (12.0-16.0) g/dL Hct (36.0-48.0) % MCV (80.0-105.0) fl MCH (25.0-35.0) pg MCHC (31.0-37.0) g/dl RDW (11.5-14.5) % Plt Count (120.0-450.0) 10^3/uL MPV (7.0-11.0) fl pCO2 (35-45) mm/Hg pO2 (80-100) mm/Hg HCO3 (21-28) mmol/L ABG pH (7.35-7.45) ABG Total CO2 (22-28) mmol.L ABG O2 Saturation (95-98) % ABG O2 Content (15-23) ML/dl ABG Base Excess (-2.0-3.0) mmol/L ABG Hemoglobin (11.7-17.4) g/dL ABG Carboxyhemoglobin (0.5-1.5) % POC ABG HHb (Measured) (0-5) % ABG Methemoglobin (0.0-3.0) % ABG O2 Capacity (16-24) mL/dl VBG pH (7.32-7.43) VBG pCO2 (40-60) VBG HCO3 (21-28) mmol/l VBG Total CO2 (22-28) mmol.L VBG O2 Sat (Calc) (40-65) % VBG Base Excess (0.0-2.0) mmol/L VBG Potassium (3.6-5.2) mmol/L Hgb O2 Saturation (95.0-98.0) % Sodium (132-148) mmol/L Chloride (98-107) mmol/L Glucose (65-105) mg/dl Lactate (0.7-2.1) mmol/L FiO2 % Potassium (3.6-5.0) mmol/L Carbon Dioxide (21-33) mmol/L Anion Gap (10-20) BUN (7-21) mg/dL Creatinine (0.7-1.2) mg/dl Est GFR ( Amer) Est GFR (Non-Af Amer) POC Glucose (mg/dL) (65-110) mg/dL Random Glucose (70-110) mg/dL Serum Osmolality 311 H (272-300) mosm/kg Calcium (8.4-10.5) mg/dL Phosphorus (2.5-4.5) mg/dL Magnesium (1.7-2.2) mg/dL Total Bilirubin (0.2-1.3) mg/dL AST (14-36) U/L ALT (7-56) U/L Alkaline Phosphatase (38-126) U/L Total Protein (5.8-8.3) g/dL Albumin (3.0-4.8) g/dL Globulin gm/dL Albumin/Globulin Ratio (1.1-1.8) Venous Blood Potassium (3.6-5.2) mmol/L Ur Random Sodium meq/L Laboratory Results - last 24 hr 03/21/18 03/21/18 03/21/18 06:30 11:50 12:20 WBC RBC Hgb Hct MCV MCH MCHC RDW Plt Count MPV pCO2 pO2 HCO3 ABG pH ABG Total CO2 ABG O2 Saturation ABG O2 Content ABG Base Excess ABG Hemoglobin ABG Carboxyhemoglobin POC ABG HHb (Measured) ABG Methemoglobin ABG O2 Capacity VBG pH VBG pCO2 VBG HCO3 VBG Total CO2 VBG O2 Sat (Calc) VBG Base Excess VBG Potassium Hgb O2 Saturation Sodium Chloride Glucose Lactate FiO2 Potassium Carbon Dioxide Anion Gap BUN Creatinine Est GFR ( Amer) Est GFR (Non-Af Amer) POC Glucose (mg/dL) 82 Random Glucose Serum Osmolality 311 H Calcium Phosphorus Magnesium Total Bilirubin AST ALT Alkaline Phosphatase Total Protein Albumin Globulin Albumin/Globulin Ratio Venous Blood Potassium Ur Random Sodium 44 03/21/18 03/21/18 03/21/18 15:13 16:01 20:30 WBC RBC Hgb Hct MCV MCH MCHC RDW Plt Count MPV pCO2 20 L pO2 78.0 L 64 H HCO3 9.0 L* ABG pH 7.26 L ABG Total CO2 9.6 L ABG O2 Saturation 97.5 ABG O2 Content 12.8 L ABG Base Excess -16.3 L ABG Hemoglobin 9.5 L ABG Carboxyhemoglobin 2.0 H POC ABG HHb (Measured) 2.4 ABG Methemoglobin 0.7 ABG O2 Capacity 13.1 L VBG pH 7.20 L VBG pCO2 24.0 L VBG HCO3 9.4 L VBG Total CO2 10.1 L VBG O2 Sat (Calc) 93.8 H VBG Base Excess -16.9 L VBG Potassium 4.2 Hgb O2 Saturation 95.0 Sodium 124.0 L Chloride 100.0 Glucose 62 L Lactate 0.6 L FiO2 28.0 21.0 Potassium Carbon Dioxide Anion Gap BUN Creatinine Est GFR ( Amer) Est GFR (Non-Af Amer) POC Glucose (mg/dL) 83 Random Glucose Serum Osmolality Calcium Phosphorus Magnesium Total Bilirubin AST ALT Alkaline Phosphatase Total Protein Albumin Globulin Albumin/Globulin Ratio Venous Blood Potassium 4.2 Ur Random Sodium 03/21/18 03/21/18 03/22/18 20:30 21:49 05:28 WBC 12.8 H RBC 3.13 L Hgb 8.9 L Hct 26.1 L MCV 83.4 MCH 28.4 MCHC 34.1 RDW 16.0 H Plt Count 179 MPV 10.4 pCO2 19 L* pO2 82.0 HCO3 8.1 L* ABG pH 7.24 L ABG Total CO2 8.7 L ABG O2 Saturation 98.2 H ABG O2 Content 12.4 L ABG Base Excess -17.5 L ABG Hemoglobin 9.2 L ABG Carboxyhemoglobin 2.1 H POC ABG HHb (Measured) 1.7 ABG Methemoglobin 1.2 ABG O2 Capacity 12.6 L VBG pH VBG pCO2 VBG HCO3 VBG Total CO2 VBG O2 Sat (Calc) VBG Base Excess VBG Potassium Hgb O2 Saturation 95.1 Sodium Chloride Glucose Lactate FiO2 28.0 Potassium Carbon Dioxide Anion Gap BUN Creatinine Est GFR ( Amer) Est GFR (Non-Af Amer) POC Glucose (mg/dL) 61 L Random Glucose Serum Osmolality Calcium Phosphorus Magnesium Total Bilirubin AST ALT Alkaline Phosphatase Total Protein Albumin Globulin Albumin/Globulin Ratio Venous Blood Potassium Ur Random Sodium 03/22/18 03/22/18 03/22/18 06:00 06:00 07:22 WBC 12.1 H RBC 3.28 L Hgb 9.4 L Hct 27.9 L MCV 85.1 MCH 28.7 MCHC 33.7 RDW 16.2 H Plt Count 206 MPV 10.6 pCO2 pO2 HCO3 ABG pH ABG Total CO2 ABG O2 Saturation ABG O2 Content ABG Base Excess ABG Hemoglobin ABG Carboxyhemoglobin POC ABG HHb (Measured) ABG Methemoglobin ABG O2 Capacity VBG pH VBG pCO2 VBG HCO3 VBG Total CO2 VBG O2 Sat (Calc) VBG Base Excess VBG Potassium Hgb O2 Saturation Sodium 128 L Chloride 103 Glucose Lactate FiO2 Potassium 4.4 Carbon Dioxide 9 L Anion Gap 20 BUN 137 H* Creatinine 5.1 H Est GFR ( Amer) 10 Est GFR (Non-Af Amer) 8 POC Glucose (mg/dL) 47 L Random Glucose 44 L* D Serum Osmolality Calcium 8.2 L Phosphorus 5.7 H Magnesium 2.3 H Total Bilirubin 0.4 AST 36 ALT 39 Alkaline Phosphatase 145 H Total Protein 5.8 Albumin 2.4 L Globulin 3.5 Albumin/Globulin Ratio 0.7 L Venous Blood Potassium Ur Random Sodium 03/22/18 08:47 WBC RBC Hgb Hct MCV MCH MCHC RDW Plt Count MPV pCO2 pO2 HCO3 ABG pH ABG Total CO2 ABG O2 Saturation ABG O2 Content ABG Base Excess ABG Hemoglobin ABG Carboxyhemoglobin POC ABG HHb (Measured) ABG Methemoglobin ABG O2 Capacity VBG pH VBG pCO2 VBG HCO3 VBG Total CO2 VBG O2 Sat (Calc) VBG Base Excess VBG Potassium Hgb O2 Saturation Sodium Chloride Glucose Lactate FiO2 Potassium Carbon Dioxide Anion Gap BUN Creatinine Est GFR ( Amer) Est GFR (Non-Af Amer) POC Glucose (mg/dL) 85 Random Glucose Serum Osmolality Calcium Phosphorus Magnesium Total Bilirubin AST ALT Alkaline Phosphatase Total Protein Albumin Globulin Albumin/Globulin Ratio Venous Blood Potassium Ur Random Sodium Critical Care Progress Note - Nutrition Nutrition: Nutrition Category Date Time Status NPO Diet [DIET] Diets 03/21/18 Breakfast Ordered Assessment/Plan - Assessment and Plan (Free Text) Plan: Patient seen and examined on rounds, with resident, agree with note with following additions/exceptions: patient is 77yo female with PMhx of severe dementia, +PEG, anemia, presented from NH with PNA, severe sepsis, anemia, and worsening renal failure. Currently the patient is dowsy but answers simple questions. Labs, imaging, chart reviewed. Worsening renal failure, metabolic acidosisl, started on fluids with bicarb. Renal consulted. Palliative care consulted as well, regarding goals of care Renal failure, acute Anemia PNA Severe sepsis Hypoglycemia Severe Dementia Hx of PEG GIB Recommend: - supp o2 as needed, goal sat 90%, duonebs PRN - Broad spectrum abx as per ID, follow up cultures, UCx, BCx, Procal - BP control - 1/2NS with 75meq NaBicarb - Renal evaluation, may need HD - Pallaitive care consult - Monitor HH - PPI BID - NPO - GI ppx - DVT ppx, SCDs - Monitor in MICU Critical care time 40 minutes
[2018-03-22] MEDS: MEROPENEM 500 MG in NS 500 MG/50 ML BAG IVPB SCH ×2 (10:00→23:24)
--- NOTE | 2018-03-22 13:06 | CP.PCM.PN ---
<[email or web address] - Last Filed: 03/22/18 16:45> Subjective - Date & Time of Evaluation Date of Evaluation: 03/22/18 Time of Evaluation: 08:00 - Subjective Subjective: PGY-4 GI Fellow Prog Note Pt lying in bed when seen this AM. Opens eyes to light tactile stimulation, but non-verbal. Transferred to ICU overnight, Hgb stable this AM after transfusions and no signs of bleeding noted per nursing. Unable to obtain ROS due to clinical condition Objective - Vital Signs/Intake and Output Vital Signs (last 24 hours): Temp Pulse Resp BP Pulse Ox 98.2 F 91 H 14 114/53 L 95 03/22/18 12:00 03/22/18 12:00 03/22/18 12:00 03/22/18 12:00 03/22/18 12:00 Intake and Output: 03/22/18 03/22/18 06:59 18:59 Intake Total 950 Output Total 75 Balance 875 - Medications Medications: Current Medications Amlodipine Besylate (Norvasc) 5 mg PO DAILY [facility] Last Admin: 03/21/18 09:16 Dose: 5 mg Cholecalciferol (Vitamin D) 5,000 intlu PO DAILY [facility] Last Admin: 03/21/18 09:18 Dose: Not Given Ferrous Sulfate (Feosol Liq) 300 mg PO BID [facility] Last Admin: 03/21/18 18:04 Dose: Not Given Hydromorphone HCl (Dilaudid) 0.25 mg IVP Q6H PRN PRN Reason: Pain, moderate (4-7) Last Admin: 03/22/18 05:18 Dose: 0.25 mg Meropenem/Sodium Chloride (Merrem Iv 500 Mg/Ns 50 Ml) 500 mg in 50 mls @ 12.5 mls/hr IVPB Q12 [facility]; Protocol Stop: 03/30/18 22:01 Last Admin: 03/22/18 10:00 Dose: 12.5 mls/hr Sodium Bicarbonate 75 meq/ (Sodium Chloride) 1,075 mls @ 75 mls/hr IV .[id number] [facility] Last Admin: 03/22/18 11:00 Dose: 75 mls/hr Memantine (Namenda) 5 mg PO DAILY [facility] Last Admin: 03/21/18 09:17 Dose: Not Given Pantoprazole Sodium (Protonix Inj) 40 mg IVP BID [facility] Last Admin: 03/22/18 10:00 Dose: 40 mg Primidone (Mysoline) 50 mg PO TID [facility] Last Admin: 03/21/18 09:17 Dose: Not Given - Labs Labs: 03/22/18 06:00 03/22/18 06:00 PT 13.7 SECONDS (9.4-12.5) H 03/20/18 19:00 INR 1.20 03/20/18 19:00 APTT 34.2 Seconds (25.1-36.5) 03/20/18 19:00 - Constitutional Appears: Confused, Cachectic, Chronically Ill - Head Exam Head Exam: ATRAUMATIC Additional comments: temporal wasting - ENT Exam ENT Exam: Mucous Membranes Dry, Normal External Ear Exam. absent: Mucous Membranes Moist - Respiratory Exam Respiratory Exam: NORMAL BREATHING PATTERN. absent: Accessory Muscle Use - GI/Abdominal Exam GI & Abdominal Exam: Soft, Normal Bowel Sounds. absent: Bruit, Distended, Firm, Guarding, Rigid, Tenderness, Mass, Organomegaly, Pulsatile Mass Additional comments: + PEG in place Assessment and Plan - Assessment and Plan (Free Text) Assessment: 77 yo BF with dementia s/p PEG, HTN, DM, decubitus ulcers sent in from [facility] for evaluation of anemia, GI bleed, Pneumonia and [facility]. # Acute Normocytic Anemia, occult GI bleed: Hgb 5.9 from 10 on 03/01/18. Vitals stable. Stool dark green but FOBT+. Given elevated BUN and lack of hematochezia suspect upper GI source rather than lower source. Vitals stable and Hgb hyper-responded from 5.9 -> 10 after 2 units PRBCs. # Dementia: s/p PEG 03/01/18. Pt without decision making capacity. # [facility]: Cr 5 from 1.2. Uremia. Suspect pre-renal from significant anemia, likely related to GI losses. # Sepsis: Due to PNA, decubitus ulcers Plan: - IV PPI daily - Monitor Hgb - Maintain 2 large bore IVs - Need to discuss goals of care with POA; patient does not have decision making capacity - Will consider EGD pending improvement in clinical condition of sepsis, [facility] after discussion with family members --- Called POA and familyto no avail today, will try again tomorrow. Pt discussed with Dr. Rivas; see attestation for further recs/changes. POA: Heena, sister to patient, Daughter of POA (Pt's niece): Fatimah Gonzalez <Sharla Rivas V - Last Filed: 03/23/18 00:52> Objective - Vital Signs/Intake and Output Vital Signs (last 24 hours): Temp Pulse Resp BP Pulse Ox 97.7 F 92 H 15 128/55 L 93 L 03/23/18 00:00 03/23/18 00:00 03/23/18 00:00 03/23/18 00:00 03/23/18 00:00 Intake and Output: 03/22/18 03/23/18 18:59 06:59 Intake Total 900 Output Total 100 Balance 800 - Medications Medications: Current Medications Amlodipine Besylate (Norvasc) 5 mg PO DAILY [facility] Last Admin: 03/21/18 09:16 Dose: 5 mg Cholecalciferol (Vitamin D) 5,000 intlu PO DAILY [facility] Last Admin: 03/21/18 09:18 Dose: Not Given Ferrous Sulfate (Feosol Liq) 300 mg PO BID [facility] Last Admin: 03/21/18 18:04 Dose: Not Given Hydromorphone HCl (Dilaudid) 0.25 mg IVP Q6H PRN PRN Reason: Pain, moderate (4-7) Last Admin: 03/22/18 20:39 Dose: 0.25 mg Meropenem/Sodium Chloride (Merrem Iv 500 Mg/Ns 50 Ml) 500 mg in 50 mls @ 12.5 mls/hr IVPB Q12 [facility]; Protocol Stop: 03/30/18 22:01 Last Admin: 03/22/18 23:24 Dose: 12.5 mls/hr Sodium Bicarbonate 75 meq/ (Sodium Chloride) 1,075 mls @ 75 mls/hr IV .[id number] [facility] Last Admin: 03/22/18 11:00 Dose: 75 mls/hr Memantine (Namenda) 5 mg PO DAILY [facility] Last Admin: 03/21/18 09:17 Dose: Not Given Pantoprazole Sodium (Protonix Inj) 40 mg IVP BID [facility] Last Admin: 03/22/18 20:39 Dose: 40 mg Primidone (Mysoline) 50 mg PO TID [facility] Last Admin: 03/21/18 09:17 Dose: Not Given - Labs Labs: 03/22/18 06:00 03/22/18 06:00 PT 13.7 SECONDS (9.4-12.5) H 03/20/18 19:00 INR 1.20 03/20/18 19:00 APTT 34.2 Seconds (25.1-36.5) 03/20/18 19:00 Attending/Attestation - Attestation I have personally seen and examined this patient.: Yes I have fully participated in the care of the patient.: Yes I have reviewed all pertinent clinical information, including history, physical exam and plan: Yes Notes (Text): This is an addendum to GI progress report dictated by the GI Fellow.The patient was seen and examined earlier. Medical records, lab studies, imagings were reviewed. Last 24 hours events reviewed. Agreed with the above treatment plan as outlined in GI Fellow 's notes with the addition of the following This 77 year old patient now in ICU Admitted with severe anemia sepsis - decubitus, pneumonia Hb of 5.9 stool for FOBT positive No melena or bright red blood per rectum [facility] creatinine jump 1.2 to 5 Can resume tube feeding Antibiotics as per ID Consider EGD as per optimization 03/23/18 00:48
--- NOTE | 2018-03-22 13:56 | CP.PCM.CON ---
History of Present Illness - History of Present Illness History of Present Illness: Palliative consult requested by Dr Yana Mora Reason: Goals of care 77 year old resident of [facility] with hsity of dementia, HTN, HLD, decubitis ulcers and osteoporosis who was sent from facility because of severe anemia,elevated BUN and creatinine. No reports of fever, chills,melena. Labs 03/21: Wbc 13.8, Hgb 5.9, Plt 218,, NA 124, K 4.4, BUN 139, Sewage Plant Attendant 4.4, glucose 98, AST 43, ALT 48, Alk Phos 205, Albumin 2.5, , UA large blood, moderate leukocytes. Urine culture gram + cocci,yeast. Blood cultures negative EKG: SR with SPVC. Chest x ray: No infiltrates Renal US: diffusely increased renal cortical echogenicity bilaterally consistent with diffuse medical renal disease, no obstruction. trace ascites. PMHx: dementia. OA, multiple decubitis ulcers, HTN, HLD PSHx:PEG 03/01/18 Family History : Non contributory. Social: Non smoker, no alcohol or drug use. Heena CHAMORRO [phone]. Advance Care Planning: There is a POLST on chart. Review of Systems: As per HPI, patient is altered, moaning, unable to obtain Past Patient History - Infectious Disease Hx of Infectious Diseases: None - Past Medical History & Family History Past Medical History?: Yes - Past Social History Smoking Status: Never Smoked - CARDIAC Hx Hypertension: Yes - PULMONARY Hx Respiratory Disorders: No - NEUROLOGICAL Hx Dementia: Yes - HEENT Hx HEENT Problems: No - RENAL Hx Chronic Kidney Disease: No - ENDOCRINE/METABOLIC Hx Endocrine Disorders: No - HEMATOLOGICAL/ONCOLOGICAL Hx Blood Disorders: No - INTEGUMENTARY Hx Dermatological Problems: Yes Other/Comment: left gluteal decubiti ulcer with wound vac in place, right heel necrotic wound, multiple wounds to sacrum in various stages of healing, b/l bunyons, callous outer left foot, long thick toenails to both feet, crooked toes to left foot, dry skin, multiple skin discolorations ble - MUSCULOSKELETAL/RHEUMATOLOGICAL Hx Arthritis: Yes (CONTRACTED L HIP/KNEE AND B/L ELB) - GASTROINTESTINAL Hx Gastrointestinal Disorders: Yes (wt loss) - GENITOURINARY/GYNECOLOGICAL Hx Genitourinary Disorders: Yes Hx Incontinence: Yes (urine and stool) - PSYCHIATRIC Hx Substance Use: No - SURGICAL HISTORY Hx Surgeries: No - ANESTHESIA Hx Anesthesia: No Meds Allergies/Adverse Reactions: Allergies Allergy/AdvReac Type Severity Reaction Status Date / Time No Known Allergies Allergy Verified 02/16/18 11:39 - Medications Medications: Current Medications Amlodipine Besylate (Norvasc) 5 mg PO DAILY [facility] Last Admin: 03/21/18 09:16 Dose: 5 mg Cholecalciferol (Vitamin D) 5,000 intlu PO DAILY [facility] Last Admin: 03/21/18 09:18 Dose: Not Given Ferrous Sulfate (Feosol Liq) 300 mg PO BID [facility] Last Admin: 03/21/18 18:04 Dose: Not Given Hydromorphone HCl (Dilaudid) 0.25 mg IVP Q6H PRN PRN Reason: Pain, moderate (4-7) Last Admin: 03/22/18 05:18 Dose: 0.25 mg Meropenem/Sodium Chloride (Merrem Iv 500 Mg/Ns 50 Ml) 500 mg in 50 mls @ 12.5 mls/hr IVPB Q12 [facility]; Protocol Stop: 03/30/18 22:01 Last Admin: 03/22/18 10:00 Dose: 12.5 mls/hr Sodium Bicarbonate 75 meq/ (Sodium Chloride) 1,075 mls @ 75 mls/hr IV .[id number] [facility] Last Admin: 03/22/18 11:00 Dose: 75 mls/hr Memantine (Namenda) 5 mg PO DAILY [facility] Last Admin: 03/21/18 09:17 Dose: Not Given Pantoprazole Sodium (Protonix Inj) 40 mg IVP BID [facility] Last Admin: 03/22/18 10:00 Dose: 40 mg Primidone (Mysoline) 50 mg PO TID [facility] Last Admin: 03/21/18 09:17 Dose: Not Given Physical Exam - Constitutional Appears: Cachectic, Chronically Ill - Head Exam Head Exam: NORMOCEPHALIC - Eye Exam Eye Exam: Normal appearance, PERRL Additional comments: left eye lids swollen - ENT Exam ENT Exam: Mucous Membranes Moist - Respiratory Exam Respiratory Exam: Decreased Breath Sounds, NORMAL BREATHING PATTERN - Cardiovascular Exam Cardiovascular Exam: REGULAR RHYTHM, +S1, +S2 - GI/Abdominal Exam GI & Abdominal Exam: Hypoactive Bowel Sounds, Soft Additional comments: PEG - Exam Additional comments: hematuria - Extremities Exam Additional comments: contractures, right heel necrosis - Back Exam Additional comments: skin tears left sacrum and buttock, large scral wound, right hip large stage 3 ulcer - Neurological Exam Neurological exam: Altered - Skin Skin Exam: Dry, Warm Additional comments: anasarca - Additional Findings Additional findings: Palliative performance scale rating 30% Results - Vital Signs Recent Vital Signs: Last Vital Signs Temp 98.2 F 03/22/18 12:00 Pulse 91 H 03/22/18 12:00 Resp 14 03/22/18 12:00 BP 114/53 L 03/22/18 12:00 Pulse Ox 95 03/22/18 12:00 - Labs Result Diagrams: 03/22/18 06:00 03/22/18 06:00 Labs: Laboratory Results - last 24 hr 03/21/18 03/21/18 03/21/18 15:13 16:01 20:30 WBC RBC Hgb Hct MCV MCH MCHC RDW Plt Count MPV pCO2 20 L pO2 78.0 L 64 H HCO3 9.0 L* ABG pH 7.26 L ABG Total CO2 9.6 L ABG O2 Saturation 97.5 ABG O2 Content 12.8 L ABG Base Excess -16.3 L ABG Hemoglobin 9.5 L ABG Carboxyhemoglobin 2.0 H POC ABG HHb (Measured) 2.4 ABG Methemoglobin 0.7 ABG O2 Capacity 13.1 L VBG pH 7.20 L VBG pCO2 24.0 L VBG HCO3 9.4 L VBG Total CO2 10.1 L VBG O2 Sat (Calc) 93.8 H VBG Base Excess -16.9 L VBG Potassium 4.2 Hgb O2 Saturation 95.0 Sodium 124.0 L Chloride 100.0 Glucose 62 L Lactate 0.6 L FiO2 28.0 21.0 Potassium Carbon Dioxide Anion Gap BUN Creatinine Est GFR ( Amer) Est GFR (Non-Af Amer) POC Glucose (mg/dL) 83 Random Glucose Calcium Phosphorus Magnesium Total Bilirubin AST ALT Alkaline Phosphatase Total Protein Albumin Globulin Albumin/Globulin Ratio Venous Blood Potassium 4.2 03/21/18 03/21/18 03/22/18 20:30 21:49 05:28 WBC 12.8 H RBC 3.13 L Hgb 8.9 L Hct 26.1 L MCV 83.4 MCH 28.4 MCHC 34.1 RDW 16.0 H Plt Count 179 MPV 10.4 pCO2 19 L* pO2 82.0 HCO3 8.1 L* ABG pH 7.24 L ABG Total CO2 8.7 L ABG O2 Saturation 98.2 H ABG O2 Content 12.4 L ABG Base Excess -17.5 L ABG Hemoglobin 9.2 L ABG Carboxyhemoglobin 2.1 H POC ABG HHb (Measured) 1.7 ABG Methemoglobin 1.2 ABG O2 Capacity 12.6 L VBG pH VBG pCO2 VBG HCO3 VBG Total CO2 VBG O2 Sat (Calc) VBG Base Excess VBG Potassium Hgb O2 Saturation 95.1 Sodium Chloride Glucose Lactate FiO2 28.0 Potassium Carbon Dioxide Anion Gap BUN Creatinine Est GFR ( Amer) Est GFR (Non-Af Amer) POC Glucose (mg/dL) 61 L Random Glucose Calcium Phosphorus Magnesium Total Bilirubin AST ALT Alkaline Phosphatase Total Protein Albumin Globulin Albumin/Globulin Ratio Venous Blood Potassium 03/22/18 03/22/18 03/22/18 06:00 06:00 07:22 WBC 12.1 H RBC 3.28 L Hgb 9.4 L Hct 27.9 L MCV 85.1 MCH 28.7 MCHC 33.7 RDW 16.2 H Plt Count 206 MPV 10.6 pCO2 pO2 HCO3 ABG pH ABG Total CO2 ABG O2 Saturation ABG O2 Content ABG Base Excess ABG Hemoglobin ABG Carboxyhemoglobin POC ABG HHb (Measured) ABG Methemoglobin ABG O2 Capacity VBG pH VBG pCO2 VBG HCO3 VBG Total CO2 VBG O2 Sat (Calc) VBG Base Excess VBG Potassium Hgb O2 Saturation Sodium 128 L Chloride 103 Glucose Lactate FiO2 Potassium 4.4 Carbon Dioxide 9 L Anion Gap 20 BUN 137 H* Creatinine 5.1 H Est GFR ( Amer) 10 Est GFR (Non-Af Amer) 8 POC Glucose (mg/dL) 47 L Random Glucose 44 L* D Calcium 8.2 L Phosphorus 5.7 H Magnesium 2.3 H Total Bilirubin 0.4 AST 36 ALT 39 Alkaline Phosphatase 145 H Total Protein 5.8 Albumin 2.4 L Globulin 3.5 Albumin/Globulin Ratio 0.7 L Venous Blood Potassium 03/22/18 08:47 WBC RBC Hgb Hct MCV MCH MCHC RDW Plt Count MPV pCO2 pO2 HCO3 ABG pH ABG Total CO2 ABG O2 Saturation ABG O2 Content ABG Base Excess ABG Hemoglobin ABG Carboxyhemoglobin POC ABG HHb (Measured) ABG Methemoglobin ABG O2 Capacity VBG pH VBG pCO2 VBG HCO3 VBG Total CO2 VBG O2 Sat (Calc) VBG Base Excess VBG Potassium Hgb O2 Saturation Sodium Chloride Glucose Lactate FiO2 Potassium Carbon Dioxide Anion Gap BUN Creatinine Est GFR ( Amer) Est GFR (Non-Af Amer) POC Glucose (mg/dL) 85 Random Glucose Calcium Phosphorus Magnesium Total Bilirubin AST ALT Alkaline Phosphatase Total Protein Albumin Globulin Albumin/Globulin Ratio Venous Blood Potassium Assessment & Plan - Assessment and Plan (Free Text) Assessment: 77 year old female with history of dementia, HTN,HLD, sepsis, multiple decubitis who is admitted with severe anemia,severe kidney disease, pneumonia, multiple decubiti,anasarca and sepsis The patient is sent from [place], [place]. There is a POLST on chart initialed by patient indicating she is full code. The POLST is not signed or validated by her POA, Heena Gonzalez. The patient is demented, I am concerned that patient did not have capacity to understand ramifications of CPR/intubation when she initialed this document. Would contact patient POA for further clarification of patients mental status at time of signing this document( 03/10/18). Plan: Goals of care and advance care planning. Sepsis: ID following continue Vancomycin, Merrem, Flagyl. Blank cultures Renal disease: Monitor renal functions, antibiotic therapy dosing adjusted to renal functions Wound care: Surgery following, no need for further debridement. Wound vac, air mattress, turn every 2 hours. Anemia: S/p transfusion. EGD pending, continue PPI. Pulmonary: Chest CT pending. Cardio: Echo pending
[2018-03-22] MEDS ORDERED: Lidocaine 2% PF (10 ml) Amp ONE (14:29)
--- NOTE | 2018-03-22 17:01 | CARD ---
APPROVED REPORT Date of service: 03/22/2018 EXAM: Two-dimensional and M-mode echocardiogram with Doppler and color Doppler. INDICATION Congestive Heart Failure 2D DIMENSIONS Left Atrium (2D)4.1 (1.6-4.0cm)IVSd0.8 (0.7-1.1cm) LVDd4.6 (3.9-5.9cm)PWd0.9 (0.7-1.1cm) LVDs3.0 (2.5-4.0cm)FS (%) 34.8 % LVEF (%)64.0 (>50%) M-Mode DIMENSIONS Aortic Root3.10 (2.2-3.7cm)Aortic Cusp Exc.1.80 (1.5-2.0cm) Aortic Valve AoV Peak Qirodhge892.0cm/Reina Peak GR.14mmHg Mitral Valve MV E Vbwtwgev687.0cm/sMV A Btilylgz038.0cm/sE/A ratio1.1 TDI E/Lateral E'0.0E/Medial E'0.0 Pulmonary Valve PV Peak Knyzktrl89.1cm/sPV Peak Grad.2mmHg Tricuspid Valve TR Peak [id number]/sRAP [id number] Peak Gr.76mmHg [id number] LEFT VENTRICLE The left ventricle is normal size. There is normal left ventricular wall thickness. The left ventricular function is normal. The left ventricular ejection fraction is within the normal range. There is normal LV segmental wall motion. Transmitral Doppler flow pattern is Grade II-pseudonormal filling dynamics. RIGHT VENTRICLE The right ventricle is normal size. There is normal right ventricular wall thickness. The right ventricular systolic function is normal. ATRIA The left atrium is mildly dilated. The right atrium is mildly dilated. AORTIC VALVE The aortic valve is moderately sclerotic. No aortic regurgitation is present. There is no aortic valvular stenosis. MITRAL VALVE The mitral valve leaflets are thickened and calcified. Mitral regurgitation is trace to mild. There is no mitral valve stenosis. TRICUSPID VALVE There is severe tricuspid regurgitation. There is severe pulmonary hypertension. PULMONIC VALVE The pulmonary valve is normal in structure. There is no pulmonic valvular regurgitation. GREAT VESSELS The aortic root is normal in size. The IVC is normal in size and collapses >50% with inspiration. PERICARDIAL EFFUSION There is no pericardial effusion. <Conclusion> The left ventricle is normal size. There is normal left ventricular wall thickness. The left ventricular function is normal. The left ventricular ejection fraction is within the normal range. Transmitral Doppler flow pattern is Grade II-pseudonormal filling dynamics. Mitral regurgitation is trace to mild. There is severe tricuspid regurgitation. There is severe pulmonary hypertension.
--- NOTE | 2018-03-22 19:00 | VASCULAR ---
PROCEDURE: Ultrasound and fluoroscopic tunneled right IJ dialysis catheter. CLINICAL HISTORY: ESRD PHYSICIAN(S): Dimitri Tariq M.D. TECHNIQUE: The relative risks and indications for the procedure were explained to the patient's family and verbal consent obtained. The patient was placed supine on the arteriography table and the right neck/chest was prepped and draped in the usual sterile fashion. 1% Xylocaine was used to anesthetize the skin and soft tissues at the puncture site. Conscious sedation and monitoring were provided throughout the procedure by a nurse. Under direct ultrasound guidance, the rightinternal jugular vein was punctured with a micropuncture set. A 0.035 Glidewire was advanced into the IVC. Sequential dilatation was performed with subsequent placement of a 23 cm Frazier II catheter with its tip in the right atrium. A retrograde tunnel below the right clavicle was performed. The catheter was trimmed and the hub attached. Both ports aspirate and inject easily. The catheter was secured and a dressing applied. The patient tolerated the procedure well. IMPRESSION: 1. Ultrasound and fluoroscopically placed right IJ tunneled dialysis catheter.
--- NOTE | 2018-03-22 20:32 | PN ---
DATE: 03/22/2018 SUBJECTIVE: The patient is in bed, in no acute distress, nontoxic. PHYSICAL EXAMINATION: VITAL SIGNS: Temperature is 97, blood pressure is 116/60, respiratory rate of 19, heart rate of 94. HEENT: Unremarkable. NECK: Supple. LUNGS: Decreased breath sounds. HEART: Normal S1, S2. ABDOMEN: Soft. LABORATORY EXAMINATION: Reveals a white count of 12,000, hemoglobin of 9, platelets of 206. BUN of 137, creatinine of 5.1. Urinalysis is noted. Microbiology reveals the urine culture is gram-positive cocci. The blood cultures, no growth. The buttocks culture is yeast. Review of orders reveals the patient to be on meropenem. ASSESSMENT AND PLAN: A 77-year-old female with history of hypertension, dyslipidemia, dementia, osteoporosis, who was admitted through the emergency room, recent hospitalization and now admitted with severe sepsis, infected multiple decubitus ulcer and skin and skin soft tissue infection with acute kidney injury, on intermittent vancomycin with a gram-positive cocci in the urine, on meropenem. Overall prognosis is poor. We will follow with you. Eleazar Retana MD
--- NOTE | 2018-03-23 01:12 | PN ---
DATE: 03/22/2018 PULMONARY CRITICAL CARE PROGRESS NOTE REFERRING PHYSICIAN: Kayleen Mora MD SUBJECTIVE: She is lethargic, sleepy, arousable, moaning with the pain, has a multiple pressure ulcers, renal failure with no significant urine output. No hemoptysis. No hematemesis. No hematuria. No diarrhea reported. OBJECTIVE: GENERAL: Pykk-pa-cfudbijm distress. VITAL SIGNS: Temperature is 98, heart rate is 93, respiratory rate is 14, blood pressure 121/47, pulse ox 95% on nasal cannula. HEENT: Small oral cavity, crowded airway. NECK: Supple. No JVD. LUNGS: Decreased breath sounds at the bases. HEART: S1, S2. ABDOMEN: Soft, nontender, nondistended, has a multiple pressure ulcers on the back. EXTREMITIES: There is no edema. NEUROLOGIC: Lethargic sleepy arousable. Does not follow much command. MEDICATIONS: She is on Dilaudid 0.25 mg every 6 hours p.r.n., ferrous sulfate 300 mg twice a day, meropenem 500 mg IV every 12 hours, primidone 50 mg three times a day, Namenda 5 mg daily, Norvasc 5 mg daily, Protonix 40 mg twice a day, getting IV fluids 75 mL per hour with bicarbonate, vitamin D 50,000 units daily. LABORATORY DATA: Shows hemoglobin 9.4, hematocrit 27.9, WBC 12,000, platelet is 206. ABG today show pH 7.24, pCO2 19, O2 was 82, this is on supplement oxygen, sodium 128, potassium 4.4, chloride 103, bicarbonate is 9, BUN 137, creatinine 5.1, glucose 86, calcium 8.2, phosphorous 5.7, magnesium 2.3, AST 36, ALT 39, alkaline phosphatase is 145, albumin is 2.4. Microbiology, buttock area has a yeast in the culture. Urine has gram positive cocci. Had an echocardiogram done today which shows right ventricular systolic pressure is 86, left ventricle function is normal, also shows some grade 2 pseudonormalization filling dynamics suggesting of cardiac diastolic dysfunction, severe pulmonary hypertension with severe tricuspid regurgitation. Has ultrasound guided internal catheter placed. IMPRESSION AND PLAN: Severe sepsis, has a multiple decubitus ulcer, could have a urinary tract infection with acute renal failure, severe anemia, pleural effusion, metabolic acidosis, history of hypertension, diabetes. Case discussed with nursing staff. Overall great prognosis. I will continue bronchodilator, broad spectrum antibiotics, aspiration precaution, gastric prophylaxis. Followup ABG, chest x-ray, CBC, CMP in the morning. Critical care time and we will follow with you. Jarrett Putnam MD
[2018-03-23] MEDS: HYDROmorphone 1 mg/ml ISec IVP PRN ×4 (03:06→22:52)
[2018-03-23 05:54] LABS: ARTERIAL BLOOD GAS HCO3 11.2 mmol/L (21-28); ARTERIAL BLOOD GAS HEMOGLOBIN 8.1 g/dL (11.7-17.4); ARTERIAL BLOOD GAS O2 CAPACITY 11.3 mL/dl (16-24); ARTERIAL BLOOD GAS O2 CONTENT 11.1 ML/dl (15-23); ARTERIAL BLOOD GAS O2 SAT 98.2 % (95-98); ARTERIAL BLOOD GAS PCO2 28 mm/Hg (35-45); ARTERIAL BLOOD GAS TCO2 12.1 mmol.L (22-28)
[2018-03-23 06:06] LABS: ARTERIAL BLOOD GAS PH 7.21 (7.35-7.45)
[2018-03-23 06:40] LABS: HEMOGLOBIN 8.3 g/dL (12.0-16.0); MEAN CELL VOLUME 85.2 fl (80.0-105.0); MEAN CORPUSCULAR HEMOGLOBIN 28.6 pg (25.0-35.0); MEAN CORPUSCULAR HGB CONC 33.6 g/dl (31.0-37.0); MEAN PLATELET VOLUME 10.3 fl (7.0-11.0); RBC 2.9 10^6/uL (3.5-6.1); RED CELL DISTRIBUTION WIDTH 16.5 % (11.5-14.5); WHITE BLOOD COUNT 11.5 10^3/ul (4.5-11.0)
[2018-03-23 07:14] LABS: ALB/GLOB RATIO 0.7 (1.1-1.8); ALBUMIN 2.2 g/dL (3.0-4.8); CALCIUM 7.8 mg/dL (8.4-10.5)
--- NOTE | 2018-03-23 07:50 | CP.CCUPN ---
<Uziel Montalvo - Last Filed: 03/23/18 10:15> CCU Subjective - Physician Review Subjective (Free Text): Uziel Montalvo DO, PGY-1 ICU Progress Note for Dr. Schumacher Patient was seen and examined at bedside this AM. She grimaces with painful stimuli but does not respond verbally. She is currently receiving dialysis. CCU Objective - Vital Signs / Intake & Output Vital Signs (Last 4 hours): Vital Signs Temp Pulse Resp BP Pulse Ox 03/23/18 05:00 98.4 F 90 23 119/59 L 97 03/23/18 04:00 98.2 F 91 H 13 118/58 L 97 Intake and Output (Last 8hrs): Intake & Output 03/22/18 03/23/18 03/23/18 22:59 06:59 14:59 Intake Total 900 Output Total 100 Balance 800 Intake: IV 700 IVF 700 Oral 200 Output: Urine 100 Urethral ([place]) 100 Other: # Bowel Movements 0 - Physical Exam Head: Positive for: Atraumatic, Normocephalic Pupils: Positive for: PERRL Mouth: Positive for: Moist Mucous Membranes Nose (Internal): Positive for: Normal Inspection Neck: Negative for: JVD Respiratory/Chest: Positive for: Clear to Auscultation. Negative for: Wheezes, Rales, Rhonchi Cardiovascular: Positive for: Regular Rate and Rhythm, Normal S1, S2. Negative for: Murmurs, Rub, Gallop Abdomen: Positive for: Feeding Tubes (G-tube in place without surrounding erythema or exudate). Negative for: Tenderness, Distention Genitourinary/Pelvic Exam: Positive for: Other (jefferson in place) Back: Positive for: Decubitus Ulcer (Multiple decubiti extending from R hip to sacrum) Upper Extremity: Positive for: NORMAL PULSES Lower Extremity: Positive for: NORMAL PULSES, Other (Right heel decubitus ulcer) Neurological: Positive for: Other (does not verbalize, grimaces with painful stimuli and light in eyes) Skin: Positive for: Warm, Dry Psychiatric: Positive for: Other (Dementia) - Medications Active Medications: Active Medications Generic Name Dose Route Start Last Admin Trade Name Freq PRN Reason Stop Dose Admin Amlodipine Besylate 5 mg 03/21/18 10:00 03/21/18 09:16 Norvasc PO 5 mg DAILY [facility]INNY Administration Cholecalciferol 5,000 intlu 03/21/18 10:00 03/21/18 09:18 Vitamin D PO Not Given DAILY [facility] Ferrous Sulfate 300 mg 03/21/18 10:00 03/21/18 18:04 Feosol Liq PO Not Given BID [facility]INNY Hydromorphone HCl 0.25 mg 03/21/18 00:01 03/23/18 03:06 Dilaudid IVP 0.25 mg Q6H PRN Administration Pain, moderate (4-7) Meropenem/Sodium Chloride 500 mg in 50 mls @ 12.5 mls/hr 03/21/18 22:00 03/22/18 23:24 Merrem Iv 500 Mg/Ns 50 Ml IVPB 03/30/18 22:01 12.5 mls/hr Q12 [facility]INNY Administration Protocol Sodium Bicarbonate 75 meq/ 1,075 mls @ 75 mls/hr 03/22/18 07:45 03/23/18 05:18 Sodium Chloride IV 75 mls/hr .[id number] VINNY Administration Memantine 5 mg 03/21/18 10:00 03/21/18 09:17 Namenda PO Not Given DAILY [facility] Pantoprazole Sodium 40 mg 03/22/18 10:00 03/22/18 20:39 Protonix Inj IVP 40 mg BID VINNY Administration Primidone 50 mg 03/21/18 10:00 03/21/18 09:17 Mysoline PO Not Given TID [facility] - Patient Studies Lab Studies: Microbiology Studies 03/20/18 19:45 Blood Culture - Preliminary Blood NO GROWTH AFTER 48 HOURS 03/20/18 19:30 Blood Culture - Preliminary Blood NO GROWTH AFTER 48 HOURS 03/21/18 00:10 Gram Stain - Final Buttock Wound Culture - Preliminary Yeast Species 03/20/18 21:17 Urine Culture - Preliminary Urine,Clean Catch Gram Positive Cocci Lab Studies 03/23/18 03/23/18 03/23/18 Range/Units 06:00 06:00 05:45 WBC 11.5 H (4.5-11.0) 10^3/ul RBC 2.90 L (3.5-6.1) 10^6/uL Hgb 8.3 L (12.0-16.0) g/dL Hct 24.7 L (36.0-48.0) % MCV 85.2 (80.0-105.0) fl MCH 28.6 (25.0-35.0) pg MCHC 33.6 (31.0-37.0) g/dl RDW 16.5 H (11.5-14.5) % Plt Count 185 (120.0-450.0) 10^3/uL MPV 10.3 (7.0-11.0) fl pCO2 28 L (35-45) mm/Hg pO2 82.0 (80-100) mm/Hg HCO3 11.2 L (21-28) mmol/L ABG pH 7.21 L (7.35-7.45) ABG Total CO2 12.1 L (22-28) mmol.L ABG O2 Saturation 98.2 H (95-98) % ABG O2 Content 11.1 L (15-23) ML/dl ABG Base Excess -15.3 L (-2.0-3.0) mmol/L ABG Hemoglobin 8.1 L (11.7-17.4) g/dL ABG Carboxyhemoglobin 1.4 (0.5-1.5) % POC ABG HHb (Measured) 1.8 (0-5) % ABG Methemoglobin 0.6 (0.0-3.0) % ABG O2 Capacity 11.3 L (16-24) mL/dl Hgb O2 Saturation 96.2 (95.0-98.0) % FiO2 32.0 % Sodium 128 L (132-148) mmol/L Potassium 4.0 (3.6-5.0) mmol/L Chloride 104 (98-107) mmol/L Carbon Dioxide 11 L (21-33) mmol/L Anion Gap 17 (10-20) BUN 137 H* (7-21) mg/dL Creatinine 5.1 H (0.7-1.2) mg/dl Est GFR ( Amer) 10 Est GFR (Non-Af Amer) 8 POC Glucose (mg/dL) (65-110) mg/dL Random Glucose 121 H (70-110) mg/dL Calcium 7.8 L (8.4-10.5) mg/dL Phosphorus 5.6 H (2.5-4.5) mg/dL Magnesium 2.2 (1.7-2.2) mg/dL Total Bilirubin 0.2 (0.2-1.3) mg/dL AST 32 (14-36) U/L ALT 35 (7-56) U/L Alkaline Phosphatase 185 H D (38-126) U/L Total Protein 5.3 L (5.8-8.3) g/dL Albumin 2.2 L (3.0-4.8) g/dL Globulin 3.2 gm/dL Albumin/Globulin Ratio 0.7 L (1.1-1.8) 03/22/18 03/22/18 03/22/18 Range/Units 22:36 16:02 08:47 WBC (4.5-11.0) 10^3/ul RBC (3.5-6.1) 10^6/uL Hgb (12.0-16.0) g/dL Hct (36.0-48.0) % MCV (80.0-105.0) fl MCH (25.0-35.0) pg MCHC (31.0-37.0) g/dl RDW (11.5-14.5) % Plt Count (120.0-450.0) 10^3/uL MPV (7.0-11.0) fl pCO2 (35-45) mm/Hg pO2 (80-100) mm/Hg HCO3 (21-28) mmol/L ABG pH (7.35-7.45) ABG Total CO2 (22-28) mmol.L ABG O2 Saturation (95-98) % ABG O2 Content (15-23) ML/dl ABG Base Excess (-2.0-3.0) mmol/L ABG Hemoglobin (11.7-17.4) g/dL ABG Carboxyhemoglobin (0.5-1.5) % POC ABG HHb (Measured) (0-5) % ABG Methemoglobin (0.0-3.0) % ABG O2 Capacity (16-24) mL/dl Hgb O2 Saturation (95.0-98.0) % FiO2 % Sodium (132-148) mmol/L Potassium (3.6-5.0) mmol/L Chloride (98-107) mmol/L Carbon Dioxide (21-33) mmol/L Anion Gap (10-20) BUN (7-21) mg/dL Creatinine (0.7-1.2) mg/dl Est GFR ( Amer) Est GFR (Non-Af Amer) POC Glucose (mg/dL) 104 86 85 (65-110) mg/dL Random Glucose (70-110) mg/dL Calcium (8.4-10.5) mg/dL Phosphorus (2.5-4.5) mg/dL Magnesium (1.7-2.2) mg/dL Total Bilirubin (0.2-1.3) mg/dL AST (14-36) U/L ALT (7-56) U/L Alkaline Phosphatase (38-126) U/L Total Protein (5.8-8.3) g/dL Albumin (3.0-4.8) g/dL Globulin gm/dL Albumin/Globulin Ratio (1.1-1.8) 03/22/18 Range/Units 07:22 WBC (4.5-11.0) 10^3/ul RBC (3.5-6.1) 10^6/uL Hgb (12.0-16.0) g/dL Hct (36.0-48.0) % MCV (80.0-105.0) fl MCH (25.0-35.0) pg MCHC (31.0-37.0) g/dl RDW (11.5-14.5) % Plt Count (120.0-450.0) 10^3/uL MPV (7.0-11.0) fl pCO2 (35-45) mm/Hg pO2 (80-100) mm/Hg HCO3 (21-28) mmol/L ABG pH (7.35-7.45) ABG Total CO2 (22-28) mmol.L ABG O2 Saturation (95-98) % ABG O2 Content (15-23) ML/dl ABG Base Excess (-2.0-3.0) mmol/L ABG Hemoglobin (11.7-17.4) g/dL ABG Carboxyhemoglobin (0.5-1.5) % POC ABG HHb (Measured) (0-5) % ABG Methemoglobin (0.0-3.0) % ABG O2 Capacity (16-24) mL/dl Hgb O2 Saturation (95.0-98.0) % FiO2 % Sodium (132-148) mmol/L Potassium (3.6-5.0) mmol/L Chloride (98-107) mmol/L Carbon Dioxide (21-33) mmol/L Anion Gap (10-20) BUN (7-21) mg/dL Creatinine (0.7-1.2) mg/dl Est GFR ( Amer) Est GFR (Non-Af Amer) POC Glucose (mg/dL) 47 L (65-110) mg/dL Random Glucose (70-110) mg/dL Calcium (8.4-10.5) mg/dL Phosphorus (2.5-4.5) mg/dL Magnesium (1.7-2.2) mg/dL Total Bilirubin (0.2-1.3) mg/dL AST (14-36) U/L ALT (7-56) U/L Alkaline Phosphatase (38-126) U/L Total Protein (5.8-8.3) g/dL Albumin (3.0-4.8) g/dL Globulin gm/dL Albumin/Globulin Ratio (1.1-1.8) Laboratory Results - last 24 hr 03/22/18 03/22/18 03/22/18 07:22 08:47 16:02 WBC RBC Hgb Hct MCV MCH MCHC RDW Plt Count MPV pCO2 pO2 HCO3 ABG pH ABG Total CO2 ABG O2 Saturation ABG O2 Content ABG Base Excess ABG Hemoglobin ABG Carboxyhemoglobin POC ABG HHb (Measured) ABG Methemoglobin ABG O2 Capacity Hgb O2 Saturation FiO2 Sodium Potassium Chloride Carbon Dioxide Anion Gap BUN Creatinine Est GFR ( Amer) Est GFR (Non-Af Amer) POC Glucose (mg/dL) 47 L 85 86 Random Glucose Calcium Phosphorus Magnesium Total Bilirubin AST ALT Alkaline Phosphatase Total Protein Albumin Globulin Albumin/Globulin Ratio 03/22/18 03/23/18 03/23/18 22:36 05:45 06:00 WBC RBC Hgb Hct MCV MCH MCHC RDW Plt Count MPV pCO2 28 L pO2 82.0 HCO3 11.2 L ABG pH 7.21 L ABG Total CO2 12.1 L ABG O2 Saturation 98.2 H ABG O2 Content 11.1 L ABG Base Excess -15.3 L ABG Hemoglobin 8.1 L ABG Carboxyhemoglobin 1.4 POC ABG HHb (Measured) 1.8 ABG Methemoglobin 0.6 ABG O2 Capacity 11.3 L Hgb O2 Saturation 96.2 FiO2 32.0 Sodium 128 L Potassium 4.0 Chloride 104 Carbon Dioxide 11 L Anion Gap 17 BUN 137 H* Creatinine 5.1 H Est GFR ( Amer) 10 Est GFR (Non-Af Amer) 8 POC Glucose (mg/dL) 104 Random Glucose 121 H Calcium 7.8 L Phosphorus 5.6 H Magnesium 2.2 Total Bilirubin 0.2 AST 32 ALT 35 Alkaline Phosphatase 185 H D Total Protein 5.3 L Albumin 2.2 L Globulin 3.2 Albumin/Globulin Ratio 0.7 L 03/23/18 06:00 WBC 11.5 H RBC 2.90 L Hgb 8.3 L Hct 24.7 L MCV 85.2 MCH 28.6 MCHC 33.6 RDW 16.5 H Plt Count 185 MPV 10.3 pCO2 pO2 HCO3 ABG pH ABG Total CO2 ABG O2 Saturation ABG O2 Content ABG Base Excess ABG Hemoglobin ABG Carboxyhemoglobin POC ABG HHb (Measured) ABG Methemoglobin ABG O2 Capacity Hgb O2 Saturation FiO2 Sodium Potassium Chloride Carbon Dioxide Anion Gap BUN Creatinine Est GFR ( Amer) Est GFR (Non-Af Amer) POC Glucose (mg/dL) Random Glucose Calcium Phosphorus Magnesium Total Bilirubin AST ALT Alkaline Phosphatase Total Protein Albumin Globulin Albumin/Globulin Ratio Fingerstick Blood Sugar Results: 104 Review of Systems - Review of Systems Systems not reviewed;Unavailable: Dementia Critical Care Progress Note - Nutrition Nutrition: Nutrition Category Date Time Status NPO Diet [DIET] Diets 03/21/18 Breakfast Ordered Assessment/Plan - Assessment and Plan (Free Text) Assessment: 77 yo F sent from [facility] for concerns of b/l PNA, worsening CHINMAY, GI bleed, and anemia. Plan: Neuro: -Patient has hx of dementia -Grimaces with painful stimuli, does not verbalize -Patient family states she was more alert prior to this hospitalization but that her memory and function had been worsening for months prior to the hospitalization Cardio: -RRR, normotensive -Maintain MAP > 65 -Monitor for s/sx HD compromise Pulm: -Admitted for concern of b/l PNA -CXR was poor but infiltrate could not be ruled out -No signs of acute respiratory distress -Maintain SpO2 > 95% -Supp O2 NC PRN /Nephro: -Patient with compensated metabolic acidosis -Likely 2/2 acute renal failure -HCO3 improved to 11.2 -Continue 1/2 NS with 75 mEq NaHCO3 -Currently recieving dialysis -Will repeat BMP and ABG following dialysis and discuss plan with Dr. Martines -F/u additional Dr. Martines nephrology recs GI: -Positive FOBT in ED -GI spoke with sister who is POA -Sister wants to pursue EGD after patient is stabilized and cleared by GI -Likely UGI bleed -Protonix 40 mg IVP BID -F/u additional GI recs ID: -Initially admitted to telemetry for treatment of b/l PNA -On merem per ID recs -Wound vac in place for sacral wounds -Surgery following for wound care management Endocrine: -Blood sugar this AM stable at 121 -Continue to maintain euglycemia Heme/Onc: -H/H down to 8.3/24.7 this AM -She is s/p 2 units PRBCs on 03/20 for GI bleed -Likely has anemia of chronic disease at baseline -Continue to monitor H/H closely after dialysis today GI/DVT PPX: Protonix BID, SCDs Full Code Monitor in MICU pending BMP and ABG results to be completed after dialysis Case and plan reviewed and discussed with my attending Dr. Endy Montalvo, IM Resident PGY-1 <Luke Schumacher - Last Filed: 03/23/18 10:30> CCU Objective - Vital Signs / Intake & Output Intake and Output (Last 8hrs): Intake & Output 03/22/18 03/23/18 03/23/18 22:59 06:59 14:59 Intake Total 900 Output Total 100 Balance 800 Intake: IV 700 IVF 700 Oral 200 Output: Urine 100 Urethral ([place]) 100 Other: Voiding Method Indwelling Catheter # Bowel Movements 0 - Medications Active Medications: Active Medications Generic Name Dose Route Start Last Admin Trade Name Freq PRN Reason Stop Dose Admin Amlodipine Besylate 5 mg 03/21/18 10:00 03/21/18 09:16 Norvasc PO 5 mg DAILY VINNY Administration Cholecalciferol 5,000 intlu 03/21/18 10:00 03/21/18 09:18 Vitamin D PO Not Given DAILY [facility] Ferrous Sulfate 300 mg 03/21/18 10:00 03/21/18 18:04 Feosol Liq PO Not Given BID [facility] Hydromorphone HCl 0.25 mg 03/21/18 00:01 03/23/18 03:06 Dilaudid IVP 0.25 mg Q6H PRN Administration Pain, moderate (4-7) Meropenem/Sodium Chloride 500 mg in 50 mls @ 12.5 mls/hr 03/21/18 22:00 03/22/18 23:24 Merrem Iv 500 Mg/Ns 50 Ml IVPB 03/30/18 22:01 12.5 mls/hr Q12 VINNY Administration Protocol Sodium Bicarbonate 75 meq/ 1,075 mls @ 75 mls/hr 03/22/18 07:45 03/23/18 05:18 Sodium Chloride IV 75 mls/hr .[id number] [facility]INNY Administration Memantine 5 mg 03/21/18 10:00 03/21/18 09:17 Namenda PO Not Given DAILY [facility] Pantoprazole Sodium 40 mg 03/22/18 10:00 03/22/18 20:39 Protonix Inj IVP 40 mg BID VINNY Administration Primidone 50 mg 03/21/18 10:00 03/21/18 09:17 Mysoline PO Not Given TID [facility] - Patient Studies Lab Studies: Microbiology Studies 03/20/18 21:17 Urine Culture - Preliminary Urine,Clean Catch Gram Positive Cocci 03/20/18 19:45 Blood Culture - Preliminary Blood NO GROWTH AFTER 48 HOURS 03/20/18 19:30 Blood Culture - Preliminary Blood NO GROWTH AFTER 48 HOURS 03/21/18 00:10 Gram Stain - Final Buttock Wound Culture - Preliminary Yeast Species Lab Studies 03/23/18 03/23/18 03/23/18 Range/Units 06:00 06:00 05:45 WBC 11.5 H (4.5-11.0) 10^3/ul RBC 2.90 L (3.5-6.1) 10^6/uL Hgb 8.3 L (12.0-16.0) g/dL Hct 24.7 L (36.0-48.0) % MCV 85.2 (80.0-105.0) fl MCH 28.6 (25.0-35.0) pg MCHC 33.6 (31.0-37.0) g/dl RDW 16.5 H (11.5-14.5) % Plt Count 185 (120.0-450.0) 10^3/uL MPV 10.3 (7.0-11.0) fl pCO2 28 L (35-45) mm/Hg pO2 82.0 (80-100) mm/Hg HCO3 11.2 L (21-28) mmol/L ABG pH 7.21 L (7.35-7.45) ABG Total CO2 12.1 L (22-28) mmol.L ABG O2 Saturation 98.2 H (95-98) % ABG O2 Content 11.1 L (15-23) ML/dl ABG Base Excess -15.3 L (-2.0-3.0) mmol/L ABG Hemoglobin 8.1 L (11.7-17.4) g/dL ABG Carboxyhemoglobin 1.4 (0.5-1.5) % POC ABG HHb (Measured) 1.8 (0-5) % ABG Methemoglobin 0.6 (0.0-3.0) % ABG O2 Capacity 11.3 L (16-24) mL/dl Hgb O2 Saturation 96.2 (95.0-98.0) % FiO2 32.0 % Sodium 128 L (132-148) mmol/L Potassium 4.0 (3.6-5.0) mmol/L Chloride 104 (98-107) mmol/L Carbon Dioxide 11 L (21-33) mmol/L Anion Gap 17 (10-20) BUN 137 H* (7-21) mg/dL Creatinine 5.1 H (0.7-1.2) mg/dl Est GFR ( Amer) 10 Est GFR (Non-Af Amer) 8 POC Glucose (mg/dL) (65-110) mg/dL Random Glucose 121 H (70-110) mg/dL Calcium 7.8 L (8.4-10.5) mg/dL Phosphorus 5.6 H (2.5-4.5) mg/dL Magnesium 2.2 (1.7-2.2) mg/dL Total Bilirubin 0.2 (0.2-1.3) mg/dL AST 32 (14-36) U/L ALT 35 (7-56) U/L Alkaline Phosphatase 185 H D (38-126) U/L Total Protein 5.3 L (5.8-8.3) g/dL Albumin 2.2 L (3.0-4.8) g/dL Globulin 3.2 gm/dL Albumin/Globulin Ratio 0.7 L (1.1-1.8) Hep Bs Antigen Cancelled 03/22/18 03/22/18 Range/Units 22:36 16:02 WBC (4.5-11.0) 10^3/ul RBC (3.5-6.1) 10^6/uL Hgb (12.0-16.0) g/dL Hct (36.0-48.0) % MCV (80.0-105.0) fl MCH (25.0-35.0) pg MCHC (31.0-37.0) g/dl RDW (11.5-14.5) % Plt Count (120.0-450.0) 10^3/uL MPV (7.0-11.0) fl pCO2 (35-45) mm/Hg pO2 (80-100) mm/Hg HCO3 (21-28) mmol/L ABG pH (7.35-7.45) ABG Total CO2 (22-28) mmol.L ABG O2 Saturation (95-98) % ABG O2 Content (15-23) ML/dl ABG Base Excess (-2.0-3.0) mmol/L ABG Hemoglobin (11.7-17.4) g/dL ABG Carboxyhemoglobin (0.5-1.5) % POC ABG HHb (Measured) (0-5) % ABG Methemoglobin (0.0-3.0) % ABG O2 Capacity (16-24) mL/dl Hgb O2 Saturation (95.0-98.0) % FiO2 % Sodium (132-148) mmol/L Potassium (3.6-5.0) mmol/L Chloride (98-107) mmol/L Carbon Dioxide (21-33) mmol/L Anion Gap (10-20) BUN (7-21) mg/dL Creatinine (0.7-1.2) mg/dl Est GFR ( Amer) Est GFR (Non-Af Amer) POC Glucose (mg/dL) 104 86 (65-110) mg/dL Random Glucose (70-110) mg/dL Calcium (8.4-10.5) mg/dL Phosphorus (2.5-4.5) mg/dL Magnesium (1.7-2.2) mg/dL Total Bilirubin (0.2-1.3) mg/dL AST (14-36) U/L ALT (7-56) U/L Alkaline Phosphatase (38-126) U/L Total Protein (5.8-8.3) g/dL Albumin (3.0-4.8) g/dL Globulin gm/dL Albumin/Globulin Ratio (1.1-1.8) Hep Bs Antigen Laboratory Results - last 24 hr 03/22/18 03/22/18 03/23/18 16:02 22:36 05:45 WBC RBC Hgb Hct MCV MCH MCHC RDW Plt Count MPV pCO2 28 L pO2 82.0 HCO3 11.2 L ABG pH 7.21 L ABG Total CO2 12.1 L ABG O2 Saturation 98.2 H ABG O2 Content 11.1 L ABG Base Excess -15.3 L ABG Hemoglobin 8.1 L ABG Carboxyhemoglobin 1.4 POC ABG HHb (Measured) 1.8 ABG Methemoglobin 0.6 ABG O2 Capacity 11.3 L Hgb O2 Saturation 96.2 FiO2 32.0 Sodium Potassium Chloride Carbon Dioxide Anion Gap BUN Creatinine Est GFR ( Amer) Est GFR (Non-Af Amer) POC Glucose (mg/dL) 86 104 Random Glucose Calcium Phosphorus Magnesium Total Bilirubin AST ALT Alkaline Phosphatase Total Protein Albumin Globulin Albumin/Globulin Ratio Hep Bs Antigen 03/23/18 03/23/18 06:00 06:00 WBC 11.5 H RBC 2.90 L Hgb 8.3 L Hct 24.7 L MCV 85.2 MCH 28.6 MCHC 33.6 RDW 16.5 H Plt Count 185 MPV 10.3 pCO2 pO2 HCO3 ABG pH ABG Total CO2 ABG O2 Saturation ABG O2 Content ABG Base Excess ABG Hemoglobin ABG Carboxyhemoglobin POC ABG HHb (Measured) ABG Methemoglobin ABG O2 Capacity Hgb O2 Saturation FiO2 Sodium 128 L Potassium 4.0 Chloride 104 Carbon Dioxide 11 L Anion Gap 17 BUN 137 H* Creatinine 5.1 H Est GFR ( Amer) 10 Est GFR (Non-Af Amer) 8 POC Glucose (mg/dL) Random Glucose 121 H Calcium 7.8 L Phosphorus 5.6 H Magnesium 2.2 Total Bilirubin 0.2 AST 32 ALT 35 Alkaline Phosphatase 185 H D Total Protein 5.3 L Albumin 2.2 L Globulin 3.2 Albumin/Globulin Ratio 0.7 L Hep Bs Antigen Cancelled Critical Care Progress Note - Nutrition Nutrition: Nutrition Category Date Time Status NPO Diet [DIET] Diets 03/21/18 Breakfast Ordered Assessment/Plan - Assessment and Plan (Free Text) Plan: Patient seen and examined on rounds, with resident, agree with note with following additions/exceptions: patient is 77yo female with PMhx of severe dementia, +PEG, anemia, presented from NH with PNA, severe sepsis, anemia, and worsening renal failure. Currently the patient is awake, answers simple questions, in NAD. Labs, imaging, chart reviewed. Worsening renal failure, metabolic acidosis, started on fluids with bicarb. Renal, Dr Martines following. Placed HD catheter by IR yesterday, started on HD this morning. Palliative care consulted Renal failure, acute, started on HD this admission Anemia PNA Severe sepsis Hypoglycemia Severe Dementia Hx of PEG GIB Recommend: - supp o2 as needed, goal sat 90%, duonebs PRN - Broad spectrum abx as per ID, follow up cultures, UCx, BCx, Procal - BP control - 1/2NS with 75meq NaBicarb - Renal evaluation, HD as per renal, repeat BMP, VBG after HD, may need to DC IVF - Palliative care follow up - Monitor HH - PPI BID - NPO - follow up GI - GI ppx - DVT ppx, SCDs - Monitor in MICU Critical care time 30 minutes
--- NOTE | 2018-03-23 08:01 | CP.PCM.PN ---
<Bright Dasilva - Last Filed: 03/23/18 11:56> Subjective - Date & Time of Evaluation Date of Evaluation: 03/23/18 Time of Evaluation: 08:55 - Subjective Subjective: PGY-4 GI Fellow Prog Note Pt lying in bed when seen this AM. Got TDC placed for Renal Replacement Therapy yesterday. Undergoing HD when seen this AM. No family at bedside. Unable to obtain ROS due to clinical condition. Objective - Vital Signs/Intake and Output Vital Signs (last 24 hours): Temp Pulse Resp BP Pulse Ox 98.4 F 90 23 119/59 L 97 03/23/18 05:00 03/23/18 05:00 03/23/18 05:00 03/23/18 05:00 03/23/18 05:00 - Medications Medications: Current Medications Amlodipine Besylate (Norvasc) 5 mg PO DAILY [facility] Last Admin: 03/21/18 09:16 Dose: 5 mg Cholecalciferol (Vitamin D) 5,000 intlu PO DAILY [facility] Last Admin: 03/21/18 09:18 Dose: Not Given Ferrous Sulfate (Feosol Liq) 300 mg PO BID [facility] Last Admin: 03/21/18 18:04 Dose: Not Given Hydromorphone HCl (Dilaudid) 0.25 mg IVP Q6H PRN PRN Reason: Pain, moderate (4-7) Last Admin: 03/23/18 03:06 Dose: 0.25 mg Meropenem/Sodium Chloride (Merrem Iv 500 Mg/Ns 50 Ml) 500 mg in 50 mls @ 12.5 mls/hr IVPB Q12 [facility]; Protocol Stop: 03/30/18 22:01 Last Admin: 03/22/18 23:24 Dose: 12.5 mls/hr Sodium Bicarbonate 75 meq/ (Sodium Chloride) 1,075 mls @ 75 mls/hr IV .[id number] [facility] Last Admin: 03/23/18 05:18 Dose: 75 mls/hr Memantine (Namenda) 5 mg PO DAILY [facility] Last Admin: 03/21/18 09:17 Dose: Not Given Pantoprazole Sodium (Protonix Inj) 40 mg IVP BID [facility] Last Admin: 03/22/18 20:39 Dose: 40 mg Primidone (Mysoline) 50 mg PO TID [facility] Last Admin: 03/21/18 09:17 Dose: Not Given - Labs Labs: 03/23/18 06:00 03/23/18 06:00 PT 13.7 SECONDS (9.4-12.5) H 03/20/18 19:00 INR 1.20 03/20/18 19:00 APTT 34.2 Seconds (25.1-36.5) 03/20/18 19:00 - Constitutional Appears: Unkempt, Confused, Cachectic, Chronically Ill - Head Exam Head Exam: ATRAUMATIC Additional comments: temporal wasting - ENT Exam ENT Exam: Mucous Membranes Dry, Normal External Ear Exam. absent: Mucous Membranes Moist - GI/Abdominal Exam GI & Abdominal Exam: Soft, Normal Bowel Sounds. absent: Bruit, Distended, Firm, Guarding, Rigid, Mass, Organomegaly Additional comments: + peg - Extremities Exam Additional comments: cachectic with multiple contractures and decubitus ulcers Assessment and Plan - Assessment and Plan (Free Text) Assessment: 77 yo BF with dementia s/p PEG, HTN, DM, decubitus ulcers sent in from [facility] for evaluation of anemia, GI bleed, Pneumonia and CHINMAY. # Acute Normocytic Anemia, occult GI bleed: Hgb 5.9 from 10 on 03/01/18, slowly downtrending. Vitals stable. Stool dark green but FOBT+. Given elevated BUN and lack of hematochezia suspect upper GI source rather than lower source. Vitals stable and Hgb hyper-responded from 5.9 -> 10 after 2 units PRBCs. # Dementia: s/p PEG 03/01/18. Pt without decision making capacity. # CHINMAY: Cr 5 from 1.2. Uremia. Suspect pre-renal from significant anemia, like ly related to GI losses. Started on HD 03/23 # Sepsis: Due to PNA, decubitus ulcers. Plan: - IV PPI daily - Monitor Hgb - Maintain 2 large bore IVs - Need to discuss goals of care with POA; patient does not have decision making capacity - Will consider EGD pending improvement in clinical condition of sepsis, CHINMAY after discussion with family members --- Called POA and family to no avail 03/22, will try again today Pt discussed with Dr. Rivas; see attestation for further recs/changes. POA: Heena, sister to patient, Daughter of POA (Pt's niece): Fatimah Gonzalez <Sharla Rivas V - Last Filed: 03/23/18 20:07> Objective - Vital Signs/Intake and Output Vital Signs (last 24 hours): Temp Pulse Resp BP Pulse Ox 98.1 F 95 H 12 111/48 L 98 03/23/18 12:00 03/23/18 12:00 03/23/18 12:00 03/23/18 12:00 03/23/18 12:00 Intake and Output: 03/23/18 03/24/18 18:59 06:59 Intake Total 1440 Output Total 1050 Balance 390 - Medications Medications: Current Medications Amlodipine Besylate (Norvasc) 5 mg PO DAILY [facility] Last Admin: 03/21/18 09:16 Dose: 5 mg Cholecalciferol (Vitamin D) 5,000 intlu PO DAILY [facility] Last Admin: 03/21/18 09:18 Dose: Not Given Ferrous Sulfate (Feosol Liq) 300 mg PO BID [facility] Last Admin: 03/21/18 18:04 Dose: Not Given Hydromorphone HCl (Dilaudid) 0.25 mg IVP Q6H PRN PRN Reason: Pain, moderate (4-7) Last Admin: 03/23/18 17:01 Dose: 0.25 mg Meropenem/Sodium Chloride (Merrem Iv 500 Mg/Ns 50 Ml) 500 mg in 50 mls @ 12.5 mls/hr IVPB Q12 [facility]; Protocol Stop: 03/30/18 22:01 Last Admin: 03/23/18 10:42 Dose: 12.5 mls/hr Sodium Bicarbonate 75 meq/ (Sodium Chloride) 1,075 mls @ 75 mls/hr IV .[id number] [facility] Last Admin: 03/23/18 18:10 Dose: 75 mls/hr Memantine (Namenda) 5 mg PO DAILY [facility] Last Admin: 03/21/18 09:17 Dose: Not Given Pantoprazole Sodium (Protonix Inj) 40 mg IVP BID [facility] Last Admin: 03/23/18 18:56 Dose: 40 mg Primidone (Mysoline) 50 mg PO TID [facility] Last Admin: 10/14/18 09:17 Dose: Not Given - Labs Labs: 03/23/18 06:00 03/23/18 11:30 PT 13.7 SECONDS (9.4-12.5) H 03/20/18 19:00 INR 1.20 03/20/18 19:00 APTT 34.2 Seconds (25.1-36.5) 03/20/18 19:00 Attending/Attestation - Attestation I have personally seen and examined this patient.: Yes I have fully participated in the care of the patient.: Yes I have reviewed all pertinent clinical information, including history, physical exam and plan: Yes Notes (Text): This is an addendum to GI progress report dictated by the GI Fellow.The patient was seen and examined earlier. Medical records, lab studies, imagings were reviewed. Last 24 hours events reviewed. Agreed with the above treatment plan as outlined in GI Fellow 's notes with the addition of the following Hb stable sp transfusion FOBT positive would consider EGD after optimization sepsis secondary decubitus ulcers and UTI We will discuss with the family regarding EGD 03/23/18 20:07
--- NOTE | 2018-03-23 08:38 | PN ---
DATE: 03/22/2018 CRITICAL CARE PROGRESS NOTE SUBJECTIVE: This 77-year-old female was examined at her bedside in the critical care unit, bed #6 on the morning of 03/22/2018. This was in the presence of critical care nurse, Sandy Neves and her niece and grandniece who were present at the bedside. I did get verbal consent for acute dialysis treatment in the presence of her family and nurse from her sister, power of litigation attorney also present for this interview. At the time of my evaluation, Dr. Luke Schumacher was present at the bedside. The patient has shown no significant clinical improvement in her azotemia despite IV fluids and a renal ultrasound showing no evidence of hydronephrosis. The patient remains verbally unresponsive, did receive blood cell transfusion and is receiving parenteral antibiotics and remains nonverbal. PHYSICAL EXAMINATION: VITAL SIGNS: She was in a normal sinus rhythm on monitoring manager. There were no reports of fever, chills, chest pain or shortness of breath. Her temperature was 98.2, respirations 21, pulse 96 and blood pressure 114/49 with a pulse ox of 96%. Urine output was 200 mL for the entire day prior. HEENT: Head: Normocephalic, atraumatic. Eyes: No icterus. Ears: Clear. Throat: Noninjected. NECK: Supple. HEART: Regular S1, S2. No pathological rubs, murmurs, gallops. LUNGS: No wheezing. ABDOMEN: Soft. PEG tube in place. EXTREMITIES: Multiple sores on heels, hip, sacrum, feet. VASCULAR: Legs warm to touch. PSYCHOLOGICAL: Cannot be assessed. NEURO: Markedly deconditioned and bedridden. LABORATORY DATA: Sodium 128, K 4.4, chloride 103, bicarb 9, BUN 137, creatinine 5.1, estimated GFR 10 mL per minute, blood sugar 85, calcium 8.2, phosphorous 5.7, magnesium 2.3, bilirubin 0.4, AST 36, ALT 39, alk phos 145, T4 normal at 5.9. White count 12,100, hemoglobin 9.4, hematocrit 27.9, previously 5.9 and hematocrit 18.1, platelets 206,000. PT/INR 1.20, PTT 34.2. Blood culture showed no growth at 48 hours. Urine culture is showing gram-positive cocci. ID and sensitivity pending. Buttock wound is showing yeast. Renal ultrasound was reviewed. It shows diffusely increased cortical echogenicity consistent with diffuse medical renal disease. No stones. No solid masses. No hydronephrosis was noted. Her left kidney measured 7.8 cm. Trace ascites was noted. Right kidney measured 10.2 cm. 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 PLAN: The plan at present as discussed with family, for which consent was obtained is to have a Tesio [place] catheter placed and to initiate hemodialysis. The patient is being followed by Infectious Disease and is currently receiving meropenem 500 mg IV every 12 for her infected sacral sores that are also being treated with local wound care. She continues to receive IV fluids including a bicarb drip at 75 mL/hour. She is ordered to have a hepatitis B surface antigen level stat in preparation for her hemodialysis treatments and a comprehensive metabolic panel, magnesium, phosphorus level and CBC have been ordered to be repeated as well. She continues on wound care. A CT of the chest without contrast has been requested to evaluate her pleural effusion. She is being repositioned in her bed every 2 hours to prevent further skin breakdown and tube feedings will be instituted as well. Physical therapy at bedside has been ordered and all of the above was discussed for greater than 35 minutes with the family, Dr. Luke Schumacher and dialysis nursing. All questions were answered. Beatrice Martines MD MTDSrinivas
--- NOTE | 2018-03-23 08:41 | RAD ---
Date of service: 03/23/2018 HISTORY: effusion COMPARISON: 03/20/2018. FINDINGS: Right-sided dialysis catheter terminates at the cavoatrial junction LUNGS: There is severe pulmonary venous congestion. PLEURA: There are small effusions, no pneumothorax apparent. CARDIOVASCULAR: There is mild cardiomegaly. Atherosclerotic aortic arch calcifications are present. OSSEOUS STRUCTURES: No significant abnormalities. VISUALIZED UPPER ABDOMEN: Normal. OTHER FINDINGS: None. IMPRESSION: Persistent small effusions. No change in cardiomegaly, prominent central vasculature and severe pulmonary venous congestion.
--- NOTE | 2018-03-23 10:01 | PN ---
DATE: 03/22/2018 SUBJECTIVE: The patient was seen and examined on the bedside on 03/22/2018 in the unit, lethargic, moaning with pain, has multiple pressure ulcers. No fever. No chills. The patient is a very poor historian. PHYSICAL EXAMINATION: VITAL SIGNS: Temperature 98, heart rate 93, respiratory rate 14, blood pressure 120/47, pulse oximetry 95% on nasal cannula. HEENT: Head normocephalic, atraumatic. Eyes PERRLA. Extraocular muscles intact. Conjunctivae clear. Nose patent. Mucous membrane moist. NECK: Supple. No carotid bruit. No JVD or thyromegaly. CHEST: Bilaterally symmetrical. HEART: S1 and S2 positive. LUNGS: Decreased breath sounds at the bases. ABDOMEN: Soft, nontender, nondistended. Has multiple pressure ulcers on the back. EXTREMITIES: No edema. No cyanosis. NEUROLOGICAL: The patient is lethargic, but follows some simple commands. MEDICATIONS: Dilaudid, ferrous sulfate, meropenem, primidone, vitamin D. LABORATORY DATA: Hemoglobin 9.4, hematocrit 27.9, white blood cells 12,000. Sodium 128, potassium 4.4, BUN 137, creatinine 5.1, glucose 8.2, AST 36, ALT 39. ASSESSMENT AND PLAN: Ms. Otis Canela has multiple medical problems, multiple decubitus ulcers, severe sepsis, urinary tract infection, acute renal failure, not producing any urine, severe anemia, pleural effusion, metabolic acidosis, history of hypertension. Getting broad spectrum antibiotics. Aspiration precautions. Follow up labs. Appreciated Dr. Beatrice Martines, Dr. Putnam and Dr. Retana's input. We will follow up. Kayleen Mora MD
[2018-03-23] MEDS: MEROPENEM 500 MG in NS 500 MG/50 ML BAG IVPB SCH ×2 (10:42→21:27)
--- NOTE | 2018-03-23 11:29 | CP.PCM.PN ---
Subjective - Date & Time of Evaluation Date of Evaluation: 03/23/18 Time of Evaluation: 11:00 - Subjective Subjective: Moans when repositioned, otherwise lethargic, non verbal. Objective - Vital Signs/Intake and Output Vital Signs (last 24 hours): Temp Pulse Resp BP Pulse Ox 98.4 F 2 L 23 119/59 L 97 03/23/18 05:00 03/23/18 06:00 03/23/18 05:00 03/23/18 05:00 03/23/18 05:00 - Medications Medications: Current Medications Amlodipine Besylate (Norvasc) 5 mg PO DAILY [facility] Last Admin: 03/21/18 09:16 Dose: 5 mg Cholecalciferol (Vitamin D) 5,000 intlu PO DAILY [facility] Last Admin: 03/21/18 09:18 Dose: Not Given Ferrous Sulfate (Feosol Liq) 300 mg PO BID [facility] Last Admin: 03/21/18 18:04 Dose: Not Given Hydromorphone HCl (Dilaudid) 0.25 mg IVP Q6H PRN PRN Reason: Pain, moderate (4-7) Last Admin: 03/23/18 11:08 Dose: 0.25 mg Meropenem/Sodium Chloride (Merrem Iv 500 Mg/Ns 50 Ml) 500 mg in 50 mls @ 12.5 mls/hr IVPB Q12 [facility]; Protocol Stop: 03/30/18 22:01 Last Admin: 03/23/18 10:42 Dose: 12.5 mls/hr Sodium Bicarbonate 75 meq/ (Sodium Chloride) 1,075 mls @ 75 mls/hr IV .[id number] [facility] Last Admin: 03/23/18 05:18 Dose: 75 mls/hr Memantine (Namenda) 5 mg PO DAILY [facility] Last Admin: 03/21/18 09:17 Dose: Not Given Pantoprazole Sodium (Protonix Inj) 40 mg IVP BID [facility] Last Admin: 03/23/18 10:44 Dose: 40 mg Primidone (Mysoline) 50 mg PO TID [facility] Last Admin: 03/21/18 09:17 Dose: Not Given - Labs Labs: 03/23/18 06:00 03/23/18 06:00 PT 13.7 SECONDS (9.4-12.5) H 03/20/18 19:00 INR 1.20 03/20/18 19:00 APTT 34.2 Seconds (25.1-36.5) 03/20/18 19:00 - Constitutional Appears: Cachectic, Chronically Ill - Head Exam Head Exam: NORMOCEPHALIC - Eye Exam Eye Exam: Normal appearance, PERRL - ENT Exam ENT Exam: Mucous Membranes Moist - Respiratory Exam Respiratory Exam: Decreased Breath Sounds, NORMAL BREATHING PATTERN - Cardiovascular Exam Cardiovascular Exam: REGULAR RHYTHM, +S1, +S2 - GI/Abdominal Exam GI & Abdominal Exam: Soft, Hypoactive Bowel Sounds Additional comments: G tube patent, no surrounding exudate/erythema - Exam Additional comments: jefferson, oliguric - Extremities Exam Additional comments: contracted,pressure ulcers both heels - Back Exam Additional comments: multiple decubiti right hip, buttock, scarum - Neurological Exam Neurological Exam: Altered - Skin Skin Exam: Dry, Pallor Additional comments: ansaraca Assessment and Plan - Assessment and Plan (Free Text) Assessment: 77 year old female with history of dementia, HTN, HLD, OA and decubiti who is admitted with sepsis, UTI, CHINMAY/renal failure,metabolic acidosis, anemia,pneumonia,decubiti, deonditioning. [place] placed and dialysis started during this admission, scheduled to have dialysis today. VM left for patients ASHTYN, Heena Gonzalez. Intent to discuss goals of care ad advance care planning Plan: Renal failure: Dialsys, daily CMP/VPG Sepsis: ID following, Uine C/S + for VRE , on Merrem Anemia:s/p transfusion, monitor labs Wound care Goals of care and advance care planning
[2018-03-23 11:48] LABS: VENOUS BLOOD GAS BASE EXCESS -5.1 mmol/L (0.0-2.0); VENOUS BLOOD GAS PO2 163 mm/Hg (30-55); VENOUS BLOOD PH 7.39 (7.32-7.43)
[2018-03-23 12:08] LABS: HEPATITIS B SURFACE AG Negative (NEGATIVE)
[2018-03-23 12:08] LABS: CALCIUM 7.6 mg/dL (8.4-10.5)
[2018-03-23 12:14] LABS: HEPATITIS A IGM NEGATIVE (NEGATIVE); HEPATITIS B CORE AB NEGATIVE (NEGATIVE)
[2018-03-23 12:25] LABS: HEPATITIS C ANTIBODY NEGATIVE (NEGATIVE)
--- NOTE | 2018-03-23 18:34 | PN ---
DATE: 03/23/2018 SUBJECTIVE: This 77-year-old female was examined at her bedside in CCU bed #6. The patient was actively dialyzing on a F160, 140 sodium, 3 K bicarb bath with blood flow rates of 300 mL per minute via a right Tesio [place] catheter. PHYSICAL EXAMINATION: VITAL SIGNS: Blood pressure is 116/60 with a pulse of 94. HEART: Regular S1, S2. LUNGS: Clear. ABDOMEN: Soft. EXTREMITIES: No edema. LABORATORY DATA: A.m. labs show white count 11,500, hemoglobin 8.3, hematocrit 24.7, platelets 185,000 with a sodium of 132, K 3.3, chloride 104, bicarb 18, BUN 137, creatinine 5.1. The plan is to dialyze the patient for two and half hours today while aiming to remove 1 kg of fluid as tolerated. Given her sodium of 128, she will be dialyzed on a 135 sodium bath. During the treatment, she was noted to have a blood pressure of 116/60 with a heart rate of 92 and post her dialysis treatment, her sodium was 132, K 3.3, chloride 104, bicarb 18, BUN 93, creatinine 3.6, and random blood sugar 122. White count 11,500, hemoglobin 8.3, hematocrit 24.7 and platelets 185,000. Blood work will be ordered for the a.m. and another critical care unit bed side dialysis will be ordered. Greater than 35 minutes was spent in the critical care management of this patient today with her dialysis nurse at her bedside, Karen Lyons, registered nurse. Beatrice Martines MD
--- NOTE | 2018-03-23 20:05 | CON ---
DATE: 03/20/2018 NEPHROLOGY CONSULTATION HISTORY OF PRESENT ILLNESS: This 77-year-old female was examined at her bedside on the afternoon of 03/20/2018. She was sent to [facility] Emergency Room for further evaluation of significant azotemia and advanced anemia and now guaiac-positive stools. She is bedridden under the care of Dr. Kayleen Mora, medical doctor at the [facility]. There she is being treated for sacral sores, heel sores, foot sores, organic brain syndrome, iron-deficiency anemia and failure to thrive. The patient has a PEG tube for all feeding, fluids and meds and is verbally unresponsive at the time of my interview. When I evaluated the patient, she was noted to have a hemoglobin of 5.9 and a hematocrit of 18.1 with a sodium of 124, a BUN of 139, and a creatinine of 4.6. Of note, her bicarb was 11 and her potassium was 4.4. The patient is a poor historian, cannot offer any medical history. This was done on review of previous medical reports. REVIEW OF SYSTEMS: CONSTITUTIONAL REVIEW: There were no reports of fever or chills. HEENT: Head, no recent head trauma or seizures. Eye review: No change in visual acuity. Ear review: No hearing loss. Throat review: She does not swallow properly given current mentation and has a PEG tube for all feeding, fluids and meds. NECK: There were no reports of stiffness. CARDIAC: No reports of chest pain or palpitation. PULMONARY: No hemoptysis. GI: PEG tube for feeding, fluids and meds. Recent guaiac-positive stool noted in the setting of severe anemia. : No reports of renal failure in her past. VASCULAR: No claudication. PSYCHOLOGICAL: Cannot be assessed. NEUROLOGICAL: Bedridden and deconditioned. SOCIAL HISTORY Not available. ALLERGIES: NO KNOWN ALLERGIES TO MEDICATION. MEDICATIONS: Outpatient medication included Ultram, metronidazole which is Flagyl, Mysoline, Pravachol, Namenda, ferrous sulfate, vitamin D, parenteral Maxipime and Norvasc. FAMILY HISTORY: Noncontributory. PHYSICAL EXAMINATION: GENERAL: The patient was unresponsive to verbal stimuli. VITAL SIGNS: Her temperature was 97, respirations 18, pulse 91 and blood pressure 129/74 with a pulse ox of 95%. HEENT: Head: Normocephalic, atraumatic. Eyes: No icterus. Ears: Clear. Throat: Noninjected. NECK: Supple. HEART: Regular. S1, S2. No pathological rubs, murmurs or gallops. LUNGS: Decreased breath sounds at both bases. ABDOMEN: PEG tube in place. EXTREMITIES: Multiple sores on right heel, right foot, right hip, right sacrum. VASCULAR: Legs warm to touch. PSYCHOLOGICAL: Cannot be assessed. NEUROLOGICAL: Contracted, bedridden, and deconditioned. SKIN: As outlined above. LABORATORY DATA: Sodium 124, K 4.4, chloride 99, bicarb 11, BUN 139, creatinine 4.6. Estimated GFR 11 mL/min. Random blood sugar 98, calcium 8, phosphorous 4.2, magnesium 2.2. Bilirubin 0.5, AST 43, ALT 48, alk phos 205. Troponin less than 0.01. White count 13,800, hemoglobin 5.9, hematocrit 18.1, platelets 218,000. PT/INR 1.2, PTT 34.2. Blood gas; pH 7.26, pCO2 of 20, pO2 of 78. Bicarb was 94 on 28% FiO2. Urinalysis showed trace bacteria with greater than 300 mg/dL of protein, moderate leukocytes and 5-10 wbc's per high-power field and 25-30 rbc's per high-power field. Her chest x-ray was reviewed. It showed minimal blunting of the right costophrenic angle. No pneumothorax. No definite infiltrates were noted. EKG was reviewed. It showed normal sinus rhythm with nonspecific ST-T wave changes and PACs. IMPRESSION: A 77-year-old female with failure to thrive, bedridden status, multiple skin sores and ulcers, now with renal failure, which on review of previous record showed a creatinine of 1 and a hemoglobin of 10.1 in the beginning of 02/2018 and comorbidities of gastrointestinal bleeding, anemia in the setting of guaiac-positive stools in the [facility] ER and comorbidities of hyperlipidemia, organic brain syndrome, iron-deficiency anemia, vitamin D deficiency, hypertension and chronic arthritis with PEG tube for all feeding, fluids and meds. PLAN: The plan is to admit this patient to the cardiac unit. She will have an Infectious Disease consultation regarding appropriate antibiotics for her multiple skin sores. I have ordered a stat renal ultrasound and given her hypernatremia. I have ordered a urine sodium, urine osmolality, serum osmolality. I have recommended the patient be started on 0.9 saline IV infusion. She will have a stat renal ultrasound and a Rawls catheter for I's and O's while receiving 0.9 saline as outlined. Repeat electrolytes will be ordered as well as a blood transfusion and CBC for the a.m., and based on clinical progress, additional diagnostic testing and workup will be entertained. Greater than 75 minutes was spent in the care, management, review of labs, orders, x-rays and discussion of this patient's case with Dr. Michael Blackman, emergency room physician. All questions were answered. Beatrice Martines MD
--- NOTE | 2018-03-23 23:53 | PN ---
DATE: 03/23/2018 SUBJECTIVE: The patient is seen this morning in 129, bed 6. Overall, in poor condition. No events overnight. PHYSICAL EXAMINATION VITAL SIGNS: Temperature is 98, blood pressure is 111/40, respiratory rate 30, and heart rate of 98. HEENT: Unremarkable. NECK: Supple. LUNGS: Have decreased breath sounds. HEART: Normal S1, S2. ABDOMEN: Soft and nontender. LABORATORY DATA: Review of laboratories reveals a white count of 11,500; hemoglobin of 8. Chemistries, BUN of 93, creatinine of 3.6. Urinalysis is noted. Serology is reviewed. Microbiology reveals blood cultures are negative. Buttocks is yeast. There is VRE in the urine and yeast in the urine. The VRE is sensitive to Zyvox, and urinalysis reveals 5 to 10 wbc's. ASSESSMENT AND PLAN: A 77-year-old female with a history of hypertension, dyslipidemia, dementia, osteoporosis, admitted through the emergency room, recent hospitalization; now admitted with severe sepsis, infected multiple decubitus ulcers, and skin and skin soft tissue infection with acute kidney injury, on intermittent vancomycin, now with a vancomycin-resistant Enterococci in the urine with an unremarkable urinalysis. Most likely, vancomycin-resistant Enterococci is a colonizer, not a pathogen and on meropenem, adjusted for the renal dosing. Overall, prognosis quite poor and Sena Bernard's progress note is reviewed and appreciated, and Dr. Gay's note is reviewed, and Dr. Mora note is reviewed. Overall, prognosis poor. Eleazar Retana MD
--- NOTE | 2018-03-24 00:34 | PN ---
DATE: 03/23/2018 PULMONARY CRITICAL CARE PROGRESS NOTE REFERRING PHYSICIAN: Kayleen Mora MD. SUBJECTIVE: She is sleepy, arousable, status post dialysis. More comfortable today. No hemoptysis. No hematemesis. No hematuria. No diarrhea. No leg swelling reported with multiple decubiti ulcers. OBJECTIVE: GENERAL: In no acute distress. VITAL SIGNS: Temperature is 98, heart rate is 78, respiratory rate is 12, blood pressure 111/48, pulse ox 98% on 2 L nasal cannula. HEENT: Moist mucous membrane. No ulcer or thrush noted. NECK: Supple. No JVD. LUNGS: Have a fair airflow. HEART: S1 and S2. ABDOMEN: Soft and nontender. No organomegaly. EXTREMITIES: There is not much edema. Has multiple decubiti ulcers. NEUROLOGICAL: Sleepy, arousable. Follows simple command. MEDICATIONS: She is on Dilaudid 0.25 mg every 4 hours p.r.n., ferrous sulfate 300 mg twice a day, also getting meropenem 500 mg every 12 hours, Mysoline 50 mg three times a day, Namenda 5 mg daily, Norvasc 5 mg daily, Protonix 40 mg IV twice a day, IV fluid with bicarbonate 75 mL per hour, vitamin D 500 International Units p.o. daily. LABORATORY DATA: Shows hemoglobin 8.3, hematocrit 24.7, WBC 11.5, platelet count is 185. Blood gases show pH 7.21, pCO2 of 28, O2 of 82. This is on supplement oxygen. Sodium 132, potassium 3.3, chloride 104, bicarbonate is 18, BUN 93, creatinine 3.6, glucose is 122, calcium is 7.6, AST 32, ALT 35, alk phos is 185, albumin is 2.2. Chest x-ray done today shows persistent small effusion, severe pulmonary venous congestion. ASSESSMENT AND PLAN: Acute renal failure, severe sepsis, multiple decubiti ulcers, pleural effusion, anemia, metabolic acidosis, history of hypertension, diabetes. Case discussed with nursing staff. Spoke to medical lab technician. She went dialyzed today. Being followed by Nephrology. Pulmonary point of view, keep head at 45 degrees, supplement oxygen, careful with sedation, pressure ulcer precaution. Wound care nurse's followup. Gastric prophylaxis. Sequential compression device to lower extremity. Could not chemically anticoagulate because of severe anemia, renal failure, requiring transfusions. Followup plans in the morning. Critical care time more than 35 minutes. Thank you and we will follow up with you. Jarrett Putnam MD
--- NOTE | 2018-03-24 03:29 | PN ---
DATE: 03/23/2018 SUBJECTIVE: Patient is a 77-year-old female. Patient was seen and examined on the bedside on 03/23/2018, looking anxious mood when repositioned as well as lethargic. She is not able to give review of systems. Great granddaughter is on the bedside. Discussion done with her. Discussion done with the patient's nurse also. PHYSICAL EXAMINATION: VITAL SIGNS: Temperature 98.4, pulse 82, respiratory rate 23, blood pressure 119/59, pulse oximetry 97%. HEENT: Head: Normocephalic, atraumatic. Eyes: PERRLA. Extraocular muscles intact. Conjunctivae clear. Nose patent. Mucous membrane moist. NECK: Supple. No carotid bruit. No JVD or thyromegaly. CHEST: Bilaterally symmetrical. HEART: S1 and S2 positive. LUNGS: Clear to auscultation. ABDOMEN: Soft. Bowel sounds present. No organomegaly. EXTREMITIES: Have multiple decubitus ulcers. NEUROLOGIC: Patient is awake, alert, but confused. She is not able to follow simple commands. MEDICATIONS: Norvasc, vitamin D, ferrous sulfate, hydromorphone, Merrem, sodium bicarbonate, Namenda, Protonix, primidone. LABORATORY DATA: White blood cells 11.5, hemoglobin 8.3, hematocrit 24.7, platelets 185. Sodium 128, potassium 4, BUN 137, creatinine 5.1, glucose 121. ASSESSMENT AND PLAN: Ms. Otis Canela is a 77-year-old lady with leukocytosis, anemia, hyponatremia, renal insufficiency, hyperglycemia, has advanced dementia, hypertension, hypercholesterolemia, osteoarthritis, decubitus ulcer unstageable, here admitted with sepsis, urinary tract infection, acute kidney injury, renal failure, metabolic acidosis, anemia, pneumonia, decubiti, deconditioning. Dialysis started during this admission. Scheduled to have dialysis today. Hospice care evaluation team called. We will talk to the family, even myself talk to the great granddaughter. Patient has renal failure, sepsis, ID following. Urine culture, sensitivity positive for vancomycin-resistant Enterococcus, on Merrem. Anemia, repeat blood transfusion. Wound care. Wound care team is on the case. We will continue present treatment. Gastrointestinal and deep venous thrombosis prophylaxes. Repeat labs. We will follow up. Kayleen Mora MD
[2018-03-24] MEDS: HYDROmorphone 1 mg/ml ISec IVP PRN ×2 (05:00→11:00)
[2018-03-24] MEDS: MEROPENEM 500 MG in NS 500 MG/50 ML BAG IVPB SCH ×2 (09:42→21:40)
--- NOTE | 2018-03-24 09:52 | CP.PCM.PN ---
<Bright Dasilva - Last Filed: 03/24/18 14:53> Subjective - Date & Time of Evaluation Date of Evaluation: 03/24/18 Time of Evaluation: 09:00 - Subjective Subjective: PGY-4 GI Fellow Prog Note Pt lying in bed moaning intermittently when seen this AM. Non-verbal otherwise and no family at bedside. Objective - Vital Signs/Intake and Output Vital Signs (last 24 hours): Temp Pulse Resp BP Pulse Ox 98.1 F 78 12 111/48 L 98 03/23/18 12:00 03/24/18 06:00 03/23/18 12:00 03/23/18 12:00 03/23/18 12:00 - Medications Medications: Current Medications Amlodipine Besylate (Norvasc) 5 mg PO DAILY [facility] Last Admin: 03/21/18 09:16 Dose: 5 mg Cholecalciferol (Vitamin D) 5,000 intlu PO DAILY [facility] Last Admin: 03/21/18 09:18 Dose: Not Given Ferrous Sulfate (Feosol Liq) 300 mg PO BID [facility] Last Admin: 03/21/18 18:04 Dose: Not Given Hydromorphone HCl (Dilaudid) 0.25 mg IVP Q6H PRN PRN Reason: Pain, moderate (4-7) Last Admin: 03/24/18 05:00 Dose: 0.25 mg Meropenem/Sodium Chloride (Merrem Iv 500 Mg/Ns 50 Ml) 500 mg in 50 mls @ 12.5 mls/hr IVPB Q12 [facility]; Protocol Stop: 03/30/18 22:01 Last Admin: 03/24/18 09:42 Dose: 12.5 mls/hr Sodium Bicarbonate 75 meq/ (Sodium Chloride) 1,075 mls @ 75 mls/hr IV .[id number] [facility] Last Admin: 03/24/18 06:37 Dose: 75 mls/hr Memantine (Namenda) 5 mg PO DAILY [facility] Last Admin: 03/21/18 09:17 Dose: Not Given Pantoprazole Sodium (Protonix Inj) 40 mg IVP BID [facility] Last Admin: 03/24/18 09:42 Dose: 40 mg Primidone (Mysoline) 50 mg PO TID [facility] Last Admin: 03/21/18 09:17 Dose: Not Given - Labs Labs: 03/23/18 06:00 03/23/18 11:30 PT 13.7 SECONDS (9.4-12.5) H 03/20/18 19:00 INR 1.20 03/20/18 19:00 APTT 34.2 Seconds (25.1-36.5) 03/20/18 19:00 - Constitutional Appears: Cachectic, Chronically Ill - Head Exam Additional comments: temporal wasting - ENT Exam ENT Exam: Mucous Membranes Dry, Normal External Ear Exam - Cardiovascular Exam Cardiovascular Exam: REGULAR RHYTHM, RRR - GI/Abdominal Exam GI & Abdominal Exam: Soft, Normal Bowel Sounds. absent: Bruit, Distended, Firm, Guarding, Rigid, Tenderness, Mass, Organomegaly, Pulsatile Mass, Rebound Additional comments: + PEG with TFs running Assessment and Plan - Assessment and Plan (Free Text) Assessment: 77 yo BF with dementia s/p PEG, HTN, DM, decubitus ulcers sent in from [facility] for evaluation of anemia, GI bleed, Pneumonia and CHINMAY. # Acute Normocytic Anemia, occult GI bleed: Hgb 5.9 from 10 on 03/01/18, slowly downtrending. Vitals stable. Stool dark green but FOBT+. Given elevated BUN and lack of hematochezia suspect upper GI source rather than lower source. Vitals stable and Hgb hyper-responded from 5.9 -> 10 after 2 units PRBCs. # Dementia: s/p PEG 03/01/18. Pt without decision making capacity. # CHINMAY: Cr 5 from 1.2. Uremia. Suspect pre-renal from significant anemia, likely related to GI losses. Started on HD 03/23 # Sepsis: Due to PNA, decubitus ulcers, UTI Plan: - IV PPI daily - Monitor Hgb - Maintain 2 large bore IVs - Need to discuss goals of care with POA; patient does not have decision making capacity - Will consider EGD pending improvement in clinical condition of sepsis, CHINMAY after discussion with family members --- Called POA and family to no avail 03/22 and 03/23 --- Spoke with POA Heena and granddaughter Heena over phone today. They wish to think about EGD, plan to call in AM. --- Tentatively plan for EGD at 1000 on 03/24 if POA agrees - Hold DVT ppx tonight and tube feeds at midnight Pt discussed with Dr. Rivas; see attestation for further recs/changes. POA: Heena, sister to patient, Daughter of POA (Pt's niece): Fatimah Gonzalez <Sharla Rivas V - Last Filed: 03/28/18 20:54> Objective - Vital Signs/Intake and Output Vital Signs (last 24 hours): Temp Pulse Resp BP Pulse Ox 98.2 F 95 H 14 163/81 H 99 03/23/18 15:59 03/24/18 18:14 03/24/18 18:14 03/24/18 18:15 03/24/18 18:14 Intake and Output: 03/24/18 03/25/18 18:59 06:59 Intake Total 1015 Output Total 40 Balance 975 - Medications Medications: Current Medications Amlodipine Besylate (Norvasc) 5 mg PO DAILY [facility] Last Admin: 03/21/18 09:16 Dose: 5 mg Cholecalciferol (Vitamin D) 5,000 intlu PO DAILY [facility] Last Admin: 03/21/18 09:18 Dose: Not Given Ferrous Sulfate (Feosol Liq) 300 mg PO BID [facility] Last Admin: 03/21/18 18:04 Dose: Not Given Hydromorphone HCl (Dilaudid) 0.5 mg IVP Q4H PRN PRN Reason: Pain, moderate (4-7) Meropenem/Sodium Chloride (Merrem Iv 500 Mg/Ns 50 Ml) 500 mg in 50 mls @ 12.5 mls/hr IVPB Q12 [facility]; Protocol Stop: 03/30/18 22:01 Last Admin: 03/24/18 21:40 Dose: 12.5 mls/hr Sodium Bicarbonate 75 meq/ (Sodium Chloride) 1,075 mls @ 75 mls/hr IV .[id number] [facility] Last Admin: 03/24/18 20:29 Dose: 75 mls/hr Memantine (Namenda) 5 mg PO DAILY [facility] Last Admin: 03/21/18 09:17 Dose: Not Given Pantoprazole Sodium (Protonix Inj) 40 mg IVP BID [facility] Last Admin: 03/24/18 20:30 Dose: 40 mg Primidone (Mysoline) 50 mg PO TID [facility] Last Admin: 03/21/18 09:17 Dose: Not Given - Labs Labs: 03/24/18 14:00 03/24/18 14:00 PT 13.7 SECONDS (9.4-12.5) H 03/20/18 19:00 INR 1.20 03/20/18 19:00 APTT 34.2 Seconds (25.1-36.5) 03/20/18 19:00 Attending/Attestation - Attestation I have personally seen and examined this patient.: Yes I have fully participated in the care of the patient.: Yes I have reviewed all pertinent clinical information, including history, physical exam and plan: Yes Notes (Text): This is an addendum to GI progress report dictated by the GI Fellow.The patient was seen and examined earlier. Medical records, lab studies, imagings were reviewed. Last 24 hours events reviewed. Agreed with the above treatment plan as outlined in GI Fellow 's notes with the addition of the following Hb stable Continue present treatment Brown stool Abdomen soft non-tender Tolerating G tube feeding Check residue Continue PPI Antibiotics As per other consultants recommendations 03/28/18 20:53
--- NOTE | 2018-03-24 13:26 | CP.PCM.PN ---
Subjective - Date & Time of Evaluation Date of Evaluation: 03/24/18 Time of Evaluation: 10:00 - Subjective Subjective: No changes in status, non verbal, altered Objective - Vital Signs/Intake and Output Vital Signs (last 24 hours): Temp Pulse Resp BP Pulse Ox 98.2 F 97 H 21 133/69 80 L 03/23/18 15:59 03/24/18 10:00 03/24/18 09:00 03/24/18 09:00 03/24/18 04:40 - Medications Medications: Current Medications Amlodipine Besylate (Norvasc) 5 mg PO DAILY [facility] Last Admin: 03/21/18 09:16 Dose: 5 mg Cholecalciferol (Vitamin D) 5,000 intlu PO DAILY [facility] Last Admin: 03/21/18 09:18 Dose: Not Given Ferrous Sulfate (Feosol Liq) 300 mg PO BID [facility] Last Admin: 03/21/18 18:04 Dose: Not Given Hydromorphone HCl (Dilaudid) 0.25 mg IVP Q6H PRN PRN Reason: Pain, moderate (4-7) Last Admin: 03/24/18 11:00 Dose: 0.25 mg Meropenem/Sodium Chloride (Merrem Iv 500 Mg/Ns 50 Ml) 500 mg in 50 mls @ 12.5 mls/hr IVPB Q12 [facility]; Protocol Stop: 03/30/18 22:01 Last Admin: 03/24/18 09:42 Dose: 12.5 mls/hr Sodium Bicarbonate 75 meq/ (Sodium Chloride) 1,075 mls @ 75 mls/hr IV .[id number] [facility] Last Admin: 03/24/18 06:37 Dose: 75 mls/hr Memantine (Namenda) 5 mg PO DAILY [facility] Last Admin: 03/21/18 09:17 Dose: Not Given Pantoprazole Sodium (Protonix Inj) 40 mg IVP BID [facility] Last Admin: 03/24/18 09:42 Dose: 40 mg Primidone (Mysoline) 50 mg PO TID [facility] Last Admin: 03/21/18 09:17 Dose: Not Given - Labs Labs: 03/23/18 06:00 03/23/18 11:30 PT 13.7 SECONDS (9.4-12.5) H 03/20/18 19:00 INR 1.20 03/20/18 19:00 APTT 34.2 Seconds (25.1-36.5) 03/20/18 19:00 - Constitutional Appears: Chronically Ill - Eye Exam Eye Exam: Normal appearance, PERRL - ENT Exam ENT Exam: Mucous Membranes Moist - Respiratory Exam Respiratory Exam: Decreased Breath Sounds, NORMAL BREATHING PATTERN - Cardiovascular Exam Cardiovascular Exam: REGULAR RHYTHM, +S1, +S2 - GI/Abdominal Exam GI & Abdominal Exam: Soft, Hypoactive Bowel Sounds - Extremities Exam Additional comments: contractures, skin terats , heel ulcers - Neurological Exam Neurological Exam: Altered - Skin Skin Exam: Diaphoretic, Pallor Additional comments: ulcers of sacrum, right hip and buttocks Assessment and Plan - Assessment and Plan (Free Text) Assessment: 77 year old female with history of dementia, HTN, HLD, DM who is admitted with sepis, renal failure, multiple decubitis ulcers. Receiving dialysis VM left for Heena CHAMOROR,again today> Family not responding. Plan: Skin ulcers: Wound care, antibiotics, frequent refashioning Renal Failure: Dialysis, monitor CMP Sepsis/ UTI with VRE:On Merrem Goals of care: will try to reach family for discussion
[2018-03-24 14:29] LABS: BASO # 0.01 K/mm3 (0.0-2.0); BASO % 0.1 % (0.0-3.0); EOS # 0.3 (0.0-0.7); EOS % 1.8 % (1.5-5.0); GRAN # 12.36 (1.4-6.5); GRAN % 89.6 % (50.0-68.0); HEMOGLOBIN 8.9 g/dL (12.0-16.0); LYMPH # 0.4 (1.2-3.4); LYMPH % 2.8 % (22.0-35.0); MEAN CELL VOLUME 84.7 fl (80.0-105.0); MEAN CORPUSCULAR HGB CONC 34.2 g/dl (31.0-37.0); MONO # 0.8 (0.1-0.6); MONO % 5.7 % (1.0-6.0); PLATELET COUNT 148 10^3/uL (120.0-450.0); RBC 3.07 10^6/uL (3.5-6.1); RED CELL DISTRIBUTION WIDTH 16.5 % (11.5-14.5); WHITE BLOOD COUNT 13.8 10^3/ul (4.5-11.0)
[2018-03-24 14:38] LABS: ALB/GLOB RATIO 0.7 (1.1-1.8); ALBUMIN 2.2 g/dL (3.0-4.8); CALCIUM 7.8 mg/dL (8.4-10.5)
[2018-03-24 15:08] LABS: EOSINOPHIL 1 % (0.0-3.0); LYMPHOCYTE 1 % (22.0-35.0); MONOCYTE 7 % (1.0-6.0); NEUTROPHIL 91 % (50.0-70.0)
[2018-03-24 15:09] LABS: PLATELET ESTIMATE NORMAL (NORMAL)
[2018-03-24] MEDS ORDERED: HYDROmorphone 0.5 mg/0.5 ml ISec IVP PRN ×2 (16:08→19:39)
--- NOTE | 2018-03-24 17:23 | PN ---
DATE: 03/24/2018 PULMONARY CRITICAL CARE PROGRESS NOTE REFERRING PHYSICIAN: Kayleen Mora MD. SUBJECTIVE: She is sleepy, arousable, on dialysis machine. Plan is to take 1 kilo off today. Respiratory status is okay. Pulse oximetry about 96% on room air. Not much verbal. Sleepy. No hemoptysis. No hematemesis. No hematuria. No diarrhea. There are multiple pressure ulcers. OBJECTIVE: GENERAL: In no acute distress. VITAL SIGNS: Temperature is 98, heart rate is 97, respiratory rate is 20, blood pressure 133/69, pulse ox 97% on nasal cannula. HEENT: Small oral cavity. Crowded airway. NECK: Supple. No JVD. LUNGS: Have a fair airflow with rhonchi. HEART: S1 and S2. ABDOMEN: Soft and nontender. No organomegaly. EXTREMITIES: No edema. NEUROLOGICAL: Sleepy, arousable, not much verbal. SKIN: Has multiple decubiti ulcers. MEDICATIONS: She is on Dilaudid 0.25 mg every 6 hours p.r.n., ferrous sulfate 300 mg twice a day, meropenem is 500 mg every 12 hours, Mysoline 50 mg three times a day, Namenda 5 mg daily, Norvasc 5 mg daily, Protonix 40 mg IV twice a day, getting IV fluid with bicarbonate 75 mL per hour, vitamin D is 5000 units daily. LABORATORY DATA: Shows hemoglobin 8.9, hematocrit 26, WBC 13.8, platelet count is 148. Sodium 131, potassium 3.3, chloride 102, bicarbonate 20, BUN is 99, creatinine 3.9, glucose 145, calcium 7.8, AST , ALT 30, alk phos is 245, albumin is 2.2. Microbiology: Urine culture has vancomycin-resistant Enterococcus faecium with some yeast. The buttock wound has some Ifrah. Blood culture has been negative. ASSESSMENT AND PLAN: Acute renal failure, presently on dialysis; severe sepsis, on antibiotics; has multiple decubiti ulcers; recently had a pleural effusion; anemia; metabolic acidosis, which is improving; hypertension; diabetes; may have Alzheimer-type dementia. Pulmonary point of view, doing okay. Continue supplemental oxygen. Keep head at 45 degrees. Antibiotics, pressure ulcer precaution. Gastric prophylaxis. Deep venous thrombosis prophylaxis. Critical care time more than 35 minutes. Follow up labs in the morning. Thank you and we will follow up with you. Jarrett Putnam MD [facility] # [id number]
[2018-03-24] MEDS: HYDROmorphone 0.5 mg/0.5 ml ISec IVP PRN (23:00)
--- NOTE | 2018-03-24 23:17 | PQF ---
PROVIDER RESPONSE TEXT: Modrate REVIEWER QUERY TEXT: Malnutrition Severity Malnutrition is documented in the Medical Record. Please specify the severity Such as: -- Mild - first degree -- Moderate - second degree -- Severe - third degree -- Severe malnutrition with marasmus -- Other, please specify The patient's Clinical Indicators include: Pt with severe sepsis, mult decubitus, failure to thrive, requiring nutritional support w/ TPN. Total protein- 5.3, Alb- 2.2. High risk level on nutritional screen. Query created by: Sena Aguilar on 03/24/2018 11:34 AM Electronically signed by: Kayleen Mora MD 03/24/2018 11:14 PM
--- NOTE | 2018-03-25 02:40 | PN ---
DATE: 03/24/2018 SUBJECTIVE: The patient is seen earlier this morning in room 126, bed 6. No fevers. No chills. No nausea. PHYSICAL EXAMINATION: VITAL SIGNS: Temperature is 98, blood pressure is 160/80, respiratory rate of 18, heart rate of 95. HEENT: Unremarkable. NECK: Supple. LUNGS: Have decreased breath sounds. HEART: Normal S1, S2. ABDOMEN: Soft, nontender. LABORATORY DATA: Examination of the laboratories reveals white count is up to 13,800, hemoglobin of 8. Chemistries reveals creatinine is 3.9. Urinalysis is noted. Microbiology reveals buttock culture has Ifrah, urine culture has VRE and yeast. Nasal MRSA screen and blood cultures are negative. ASSESSMENT AND PLAN: This is a 77-year-old female who appears much older than her stated age, who is admitted with a history of hypertension, dyslipidemia, dementia, osteoporosis, admitted to the emergency room, recent hospitalization, now with severe sepsis, infected multiple decubitus ulcers, skin and skin structure infections and acute kidney injury on intermittent vancomycin with vancomycin-resistant Enterococcus in the urine most likely, not a pathogen on meropenem. Overall review of orders reveals the patient to be on meropenem. Overall prognosis is quite poor. Eleazar Retana MD
[2018-03-25] MEDS: HYDROmorphone 0.5 mg/0.5 ml ISec IVP PRN ×3 (02:52→11:00)
[2018-03-25] MEDS ORDERED: HYDROmorphone 1 mg/ml ISec IVP STA (03:30)
[2018-03-25 06:18] LABS: HEMOGLOBIN 8.9 g/dL (12.0-16.0); MEAN CELL VOLUME 85.1 fl (80.0-105.0); MEAN CORPUSCULAR HEMOGLOBIN 28.2 pg (25.0-35.0); MEAN CORPUSCULAR HGB CONC 33.1 g/dl (31.0-37.0); MEAN PLATELET VOLUME 10.3 fl (7.0-11.0); RBC 3.16 10^6/uL (3.5-6.1); RED CELL DISTRIBUTION WIDTH 16.9 % (11.5-14.5); WHITE BLOOD COUNT 14.6 10^3/ul (4.5-11.0)
[2018-03-25 07:12] LABS: CALCIUM 7.4 mg/dL (8.4-10.5)
--- NOTE | 2018-03-25 07:57 | PN ---
DATE: 03/24/2018 CRITICAL CARE PROGRESS NOTE SUBJECTIVE: This 77-year-old female was examined in bed #6 of the Critical Care Unit at the [facility]. Her case was reviewed in detail with her critical care nurse, Sandy Neves and dialysis nurse at bedside. The patient will be dialyzed today via her right Tesio Milford catheter for 2 hours on a 140 sodium, 4K bicarb bath and we are aiming for 1 kg of fluid removal. It should be noted that the patient appears more alert today and is noted to have open eyes and a brighter affect. She remains nonverbal. PHYSICAL EXAMINATION: GENERAL: She was in a normal sinus rhythm on the cardiac rehabilitation program director. VITAL SIGNS: Temperature of 97.9, respirations 18, pulse 96 and blood pressure 106/47. Pulse ox 99% on a 2 liters nasal O2. HEENT: Head: Normocephalic, atraumatic. Eyes: No icterus. Ears: Clear. Throat: Noninjected. NECK: Supple. HEART: Regular S1, S2. LUNGS: With occasional rhonchi. ABDOMEN: Soft. EXTREMITIES: No edema. SKIN: Multiple ulcers on right hip, right ankle, right heel. VASCULAR: Legs warm to touch. PSYCHOLOGIC: Chronic confusion, nonverbal. NEUROLOGIC: Marked deconditioning and contracted. LABORATORY DATA: Sodium 131, K 3.3, chloride 102, bicarb 20, BUN 99, creatinine 3.9. Estimated GFR 14 mL per minute with a random blood sugar of 145, calcium 7.8. Phosphorous 3.4. Bilirubin 0.2, AST 30, ALT 41 and alk phos 245. White count 13,800, hemoglobin 8.9, hematocrit 26, platelets 148,000. PT/INR 1.20, PTT 34.2. Hepatitis A, B, C serologies are negative including hepatitis B surface antigen. MRSA of the nares was not detected. A wound culture is growing Ifrah tropicalis. Her urine culture is showing vancomycin-resistant enterococcus(VRE) and blood culture show no growth at present. IMPRESSION: This is a 77-year-old female with chronic renal failure requiring hemodialysis with signs of neurological improvement with the initiation of dialysis and comorbidities of infected sores on her body including hip sacrum and heel and comorbidities of organic brain syndrome, peptic ulcer disease with gastroesophageal reflux disease, bedridden status, gastrointestinal bleeding, anemia of chronic disease, now with vancomycin-resistant enterococcus in urine and essentially no urine output, and hypokalemia, and hyponatremia. PLANS: As discussed with dialysis, nursing and critical care will be to continue this patient on a 135 sodium, 4K bicarb bath while aiming to remove third space fluids on hemodialysis treatments. At present, she is receiving meropenem under the direction of Dr. Retana from Infectious Disease. She is scheduled to have Dilaudid p.r.n. severe pain. She remains on IV Protonix and a gentle sodium bicarb drip at 75 mL/hour, additional labs including basic metabolic panel and CBC have been ordered for the a.m. A chest CT without contrast is ordered and pending. She remains n.p.o. She is ordered to have her bed elevated to prevent aspiration. She is on wound care for her multiple sores and is receiving bedside physical therapy for her deconditioned state. She remains a full code at present and based on clinical progress, additional adjustment of her dialysis prescription will be entertained. Greater than 35 minutes was spent in the care management, review of labs, orders and discussion of this patient with her nurse and dialysis nurse. All questions were answered. Beatrice Martines MD
--- NOTE | 2018-03-25 08:24 | CP.PCM.PN ---
Addendum entered and electronically signed by Bright Dasilva DO 03/25/18 11:51: Called Heena to no avail. Spoke with Fatimah Gonzalez (ASHTYN's daughter). She states she spoke with Heena (ASHTYN) last night and states that she likely plans to consent for EGD. She instructed to called back tomorrow AM of 03/26/18 at Erica's (Fatimah's daughter) number to have a conference call with ASHTYN Naik and likely obtain verbal consent over the phone. Original Note: <Bright Dasilva - Last Filed: 03/25/18 11:12> Subjective - Date & Time of Evaluation Date of Evaluation: 03/25/18 Time of Evaluation: 08:00 - Subjective Subjective: PGY-4 GI Fellow Prog Note Pt lying in bed when seen this AM. Non-verbal. Tube feeds not held. Plan to discuss with family if they would like EGD. Unable to obtain ROS due to clinical condition Objective - Vital Signs/Intake and Output Vital Signs (last 24 hours): Temp Pulse Resp BP Pulse Ox 98.2 F 95 H 14 163/81 H 99 03/23/18 15:59 03/25/18 06:00 03/24/18 18:14 03/24/18 18:15 03/24/18 18:14 - Medications Medications: Current Medications Amlodipine Besylate (Norvasc) 5 mg PO DAILY [facility] Last Admin: 03/21/18 09:16 Dose: 5 mg Cholecalciferol (Vitamin D) 5,000 intlu PO DAILY [facility] Last Admin: 03/21/18 09:18 Dose: Not Given Ferrous Sulfate (Feosol Liq) 300 mg PO BID [facility] Last Admin: 03/21/18 18:04 Dose: Not Given Hydromorphone HCl (Dilaudid) 0.5 mg IVP Q4H PRN PRN Reason: Pain, moderate (4-7) Last Admin: 03/25/18 07:03 Dose: 0.5 mg Meropenem/Sodium Chloride (Merrem Iv 500 Mg/Ns 50 Ml) 500 mg in 50 mls @ 12.5 mls/hr IVPB Q12 [facility]; Protocol Stop: 03/30/18 22:01 Last Admin: 03/24/18 21:40 Dose: 12.5 mls/hr Sodium Bicarbonate 75 meq/ (Sodium Chloride) 1,075 mls @ 75 mls/hr IV .[id number] [facility] Last Admin: 03/24/18 20:29 Dose: 75 mls/hr Memantine (Namenda) 5 mg PO DAILY [facility] Last Admin: 03/21/18 09:17 Dose: Not Given Pantoprazole Sodium (Protonix Inj) 40 mg IVP BID [facility] Last Admin: 03/24/18 20:30 Dose: 40 mg Primidone (Mysoline) 50 mg PO TID [facility] Last Admin: 03/21/18 09:17 Dose: Not Given - Labs Labs: 03/25/18 05:20 03/25/18 05:20 PT 13.7 SECONDS (9.4-12.5) H 03/20/18 19:00 INR 1.20 03/20/18 19:00 APTT 34.2 Seconds (25.1-36.5) 03/20/18 19:00 - Constitutional Appears: Confused, Cachectic, Chronically Ill - Eye Exam Eye Exam: Conjunctival injection - ENT Exam ENT Exam: Mucous Membranes Dry. absent: Mucous Membranes Moist - Respiratory Exam Respiratory Exam: NORMAL BREATHING PATTERN. absent: Accessory Muscle Use - Cardiovascular Exam Cardiovascular Exam: REGULAR RHYTHM, RRR - GI/Abdominal Exam GI & Abdominal Exam: Soft, Normal Bowel Sounds. absent: Bruit, Distended, Firm, Guarding, Rigid, Tenderness, Mass, Organomegaly, Pulsatile Mass Additional comments: +PEG Assessment and Plan - Assessment and Plan (Free Text) Assessment: 77 yo BF with dementia s/p PEG, HTN, DM, decubitus ulcers sent in from [facility] for evaluation of anemia, GI bleed, Pneumonia and CHINMAY. # Acute Normocytic Anemia, occult GI bleed: Hgb 5.9 from 10 on 03/01/18, stable. Vitals stable. Stool dark green but FOBT+. Given elevated BUN and lack of hematochezia suspect upper GI source rather than lower source. Vitals stable and Hgb hyper-responded from 5.9 -> 10 after 2 units PRBCs. # Dementia: s/p PEG 03/01/18. Pt without decision making capacity. # CHINMAY: Cr 5 from 1.2. Uremia. Suspect pre-renal from significant anemia, li shiva related to GI losses. Started on HD 03/23 # Sepsis: Due to PNA, decubitus ulcers, UTI Plan: - IV PPI daily - Monitor Hgb - Discussing goals of care with POA; patient does not have decision making capacity - Will consider EGD pending improvement in clinical condition of sepsis, CHINMAY after discussion with family members --- Called POA and family to no avail 03/22 and 03/23 --- Spoke with POA Heena and granddaughter Heena over phone 03/24. They wish to think about EGD, plan to discuss today. --- Tentatively plan for EGD on 03/25 if POA desires - Hold DVT ppx tonight and tube feeds at midnight Pt discussed with Dr. Rivas; see attestation for further recs/changes. POA: Heena, sister to patient, Daughter of POA (Pt's niece): Fatimah Gonzalez <Sharla Rivas V - Last Filed: 03/28/18 20:52> Objective - Vital Signs/Intake and Output Vital Signs (last 24 hours): Temp Pulse Resp BP Pulse Ox 98.2 F 99 H 14 148/74 100 03/25/18 12:00 03/25/18 18:00 03/25/18 15:59 03/25/18 16:00 03/25/18 15:59 Intake and Output: 03/25/18 03/26/18 18:59 06:59 Intake Total 1590 Output Total 75 Balance 1515 - Medications Medications: Current Medications Amlodipine Besylate (Norvasc) 5 mg PEG DAILY [facility] Atorvastatin Calcium (Lipitor) 10 mg PEG DIN [facility] Last Admin: 03/25/18 17:03 Dose: 10 mg Cholecalciferol (Vitamin D) 5,000 intlu PO DAILY [facility] Last Admin: 03/25/18 14:16 Dose: 5,000 intlu Ferrous Sulfate (Feosol Liq) 300 mg PEG BID [facility] Last Admin: 03/25/18 17:04 Dose: 300 mg Hydromorphone HCl (Dilaudid) 1 mg IVP Q4H PRN PRN Reason: Pain, severe (8-10) Last Admin: 03/25/18 17:04 Dose: 1 mg Meropenem/Sodium Chloride (Merrem Iv 500 Mg/Ns 50 Ml) 500 mg in 50 mls @ 12.5 mls/hr IVPB Q12 [facility]; Protocol Stop: 03/30/18 22:01 Last Admin: 03/25/18 22:07 Dose: 12.5 mls/hr Sodium Bicarbonate 75 meq/ (Sodium Chloride) 1,075 mls @ 75 mls/hr IV .[id number] [facility] Last Admin: 03/25/18 17:43 Dose: 75 mls/hr Memantine (Namenda) 5 mg PEG DAILY [facility] Last Admin: 03/25/18 14:17 Dose: 5 mg Pantoprazole Sodium (Protonix Inj) 40 mg IVP BID [facility] Last Admin: 03/25/18 17:04 Dose: 40 mg Primidone (Mysoline) 50 mg PO TID [facility] Last Admin: 03/25/18 17:11 Dose: 50 mg Tramadol HCl (Ultram) 50 mg GT BID PRN PRN Reason: Pain, moderate (4-7) Last Admin: 03/25/18 22:08 Dose: 50 mg - Labs Labs: 03/25/18 05:20 03/25/18 05:20 PT 13.7 SECONDS (9.4-12.5) H 03/20/18 19:00 INR 1.20 03/20/18 19:00 APTT 34.2 Seconds (25.1-36.5) 03/20/18 19:00 Attending/Attestation - Attestation I have personally seen and examined this patient.: Yes I have fully participated in the care of the patient.: Yes I have reviewed all pertinent clinical information, including history, physical exam and plan: Yes Notes (Text): This is a delayed addendum to GI progress report dictated by the GI Fellow.The patient was seen and examined earlier. Medical records, lab studies, imagings were reviewed. Last 24 hours events reviewed. Agreed with the above treatment plan as outlined in GI Fellow 's notes with the addition of the following Hb stable Followup HCT Discussed with Dr. Morgan HOLDER when optimized Family now not agreeable 03/28/18 20:51
[2018-03-25] MEDS: MEROPENEM 500 MG in NS 500 MG/50 ML BAG IVPB SCH ×2 (09:51→22:07)
--- NOTE | 2018-03-25 10:31 | PN ---
DATE: 03/25/2018 SUBJECTIVE: The patient is in bed, in no acute distress, nontoxic. PHYSICAL EXAMINATION: VITAL SIGNS: On exam, temperature is 98, blood pressure is 163/80, respiratory rate of 18, heart rate of 95. HEENT: Examination of HEENT is unremarkable. NECK: Supple. LUNGS: Have decreased breath sounds. HEART: Normal S1, S2. ABDOMEN: Soft. LABORATORY DATA: Laboratory examination reveals a white count of 14,000, hemoglobin of 8, platelets of 142. Chemistries reveals a BUN of 71, creatinine of 2.8. Urinalysis is noted. Blood cultures are negative. ASSESSMENT AND PLAN: A 77-year-old female, who appears much older than stated age, who was admitted with a history of hypertension, dyslipidemia, dementia, osteoporosis, admitted with recent hospitalization now with severe sepsis with multiple decubitus ulcers and skin and skin structure infection with acute kidney injury with vancomycin-resistant Enterococcus in the urine culture, most likely a colonizer and not a pathogen. We will continue treatment with meropenem. Overall prognosis is poor for this patient with renal failure and although this morning's creatinine is improved to 2.8. Meropenem is active. Buttocks has the Ifrah tropicalis and the urine has vancomycin-resistant Enterococcus and yeast. Methicillin-resistant Staphylococcus aureus is not detected nasally. Blood cultures are negative. Eleazar Retana MD
--- NOTE | 2018-03-25 12:46 | CT ---
Date of service: 03/25/2018 PROCEDURE: CT Chest without contrast HISTORY: affusion COMPARISON: 06/19/2016 TECHNIQUE: Contiguous axial images were obtained through the chest without intravenous contrast enhancement. Sagittal and coronal reconstructions were performed. Radiation dose: Total exam DLP = 372.52 mGy-cm. This CT exam was performed using one or more of the following dose reduction techniques: Automated exposure control, adjustment of the mA and/or kV according to patient size, and/or use of iterative reconstruction technique. FINDINGS: LUNGS: Large bilateral pleural effusions are seen. There is some consolidation of the adjacent lung. There also patchy infiltrate in the anterior aspect of the right middle lobe and both upper lobes MEDIASTINUM: Unremarkable thoracic aorta. No aneurysm. Moderate cardiomegaly main pulmonary artery unremarkable. No vascular congestion. No lymphadenopathy. There is moderate to severe calcification of the abdominal aorta PLEURA: As above BONES: No fracture. No destructive lesion. UPPER ABDOMEN: Grossly unremarkable. OTHER FINDINGS: There is diffuse subcutaneous edema. IMPRESSION: Large bilateral pleural effusions are seen. There is some consolidation of the adjacent lung. There also patchy infiltrate in the anterior aspect of the right middle lobe and both upper lobes
[2018-03-25] MEDS ORDERED: HYDROmorphone 1 mg/ml ISec IVP PRN (13:08)
[2018-03-25] MEDS: Ferrous Sulfate 300 mg/5 mL Liq UD PO SCH (13:36)
[2018-03-25] MEDS: Cholecalciferol 1,000 INTLU TAB PO SCH (14:16)
--- NOTE | 2018-03-25 14:22 | CP.PCM.PN ---
Subjective - Date & Time of Evaluation Date of Evaluation: 03/25/18 Time of Evaluation: 13:00 - Subjective Subjective: Lethargic, non verbal, moaning Objective - Vital Signs/Intake and Output Vital Signs (last 24 hours): Temp Pulse Resp BP Pulse Ox 98.2 F 96 H 14 166/78 H 99 03/23/18 15:59 03/25/18 13:35 03/24/18 18:14 03/25/18 13:35 03/24/18 18:14 - Medications Medications: Current Medications Amlodipine Besylate (Norvasc) 5 mg PEG DAILY [facility] Atorvastatin Calcium (Lipitor) 10 mg PEG DIN [facility] Cholecalciferol (Vitamin D) 5,000 intlu PO DAILY [facility] Last Admin: 03/21/18 09:18 Dose: Not Given Ferrous Sulfate (Feosol Liq) 300 mg PEG BID [facility] Hydromorphone HCl (Dilaudid) 1 mg IVP Q4H PRN PRN Reason: Pain, severe (8-10) Meropenem/Sodium Chloride (Merrem Iv 500 Mg/Ns 50 Ml) 500 mg in 50 mls @ 12.5 mls/hr IVPB Q12 [facility]; Protocol Stop: 03/30/18 22:01 Last Admin: 03/25/18 09:51 Dose: 12.5 mls/hr Sodium Bicarbonate 75 meq/ (Sodium Chloride) 1,075 mls @ 75 mls/hr IV .[id number] [facility] Last Admin: 03/24/18 20:29 Dose: 75 mls/hr Memantine (Namenda) 5 mg PEG DAILY [facility] Pantoprazole Sodium (Protonix Inj) 40 mg IVP BID [facility] Last Admin: 03/25/18 09:53 Dose: 40 mg Primidone (Mysoline) 50 mg PO TID [facility] Last Admin: 03/25/18 13:37 Dose: Not Given Tramadol HCl (Ultram) 50 mg GT BID PRN PRN Reason: Pain, moderate (4-7) - Labs Labs: 03/25/18 05:20 03/25/18 05:20 PT 13.7 SECONDS (9.4-12.5) H 03/20/18 19:00 INR 1.20 03/20/18 19:00 APTT 34.2 Seconds (25.1-36.5) 03/20/18 19:00 - Constitutional Appears: Cachectic, Chronically Ill - Eye Exam Eye Exam: Normal appearance, PERRL - ENT Exam ENT Exam: Mucous Membranes Moist - Respiratory Exam Respiratory Exam: Decreased Breath Sounds, NORMAL BREATHING PATTERN - Cardiovascular Exam Cardiovascular Exam: REGULAR RHYTHM, +S1, +S2 - GI/Abdominal Exam GI & Abdominal Exam: Soft, Normal Bowel Sounds Additional comments: G tube patent - Neurological Exam Neurological Exam: Altered - Skin Skin Exam: Dry, Pallor Additional comments: multiple skin ulcers of sacrum, right hip/buttock, heels Assessment and Plan - Assessment and Plan (Free Text) Assessment: 77 year old female with history of dementia, HTN, DM, skin ulcers who is admiited with AMS, sepsis, VRE of urine, multiple skin wounds Patient's Heena CHAMORRO has not returned my calls. Dr Yana Mora and discussed Ms taylor case this morning. DR. Yana Mora met with patient's family, including Heena CHAMORRO yesterday in her office. Family was made aware of patients medical condition . Family expressed to Dr Mora that they want everything done and want patient to remain full code Plan: Palliative services will sign off on this patient. Please re consult if needed in future Continue current medical treatment, IV antibiotics, wound care Anemia:s/p transfusion EGD scheduled
--- NOTE | 2018-03-25 14:40 | PN ---
DATE: 03/24/2018 SUBJECTIVE: Patient is 77 years old female. Patient was seen and examined at bedside in the ICU on 03/24/2018. Patient was awake, looks like in pain. I increased her pain medication. Discussion done with patient's nurse. No fever, no chills, no hematuria, no hematochezia. Multiple pressure ulcers, at least 11. Talked to patient's family. PHYSICAL EXAMINATION VITAL SIGNS: Temperature 98, heart rate 95, respiratory rate 20, blood pressure 130/70, and pulse oxymetry 97% on room air on nasal cannula. HEENT: Head normocephalic, atraumatic. Eyes: PERRLA. Extraocular muscles intact. Conjunctivae clear. Nose patent. Mucous membranes moist. NECK: Supple. No carotid bruit. No JVD or thyromegaly. CHEST: Bilaterally symmetrical. HEART: S1, S2 positive. LUNGS: Clear to auscultation. ABDOMEN: Soft. Bowel sounds present. No organomegaly. EXTREMITIES: No edema, no cyanosis. NEUROLOGIC: Patient is awake, is not able to obey the orders. SKIN: Has multiple decubitus ulcer and some are unstageable. MEDICATIONS: Dilaudid 0.25 and I increased it to 0.5 every 4 hours. Patient getting ferrous sulfate, meropenem, Mysoline, Namenda, Norvasc, Protonix, and vitamin D. LABORATORY DATA: Hemoglobin 8.9, hematocrit 26, white blood cells 13.8, and platelets 148. Sodium 131, potassium 3.3. BUN 99, creatinine .3.9. Glucose 145. ALT 30, albumin 2.2. ASSESSMENT AND PLAN: Ms. 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 Severe sepsis, on antibiotics. Has multiple decubitus ulcers, some of them are unstageable, getting IV antibiotics by Infectious Disease. Recently had a pleural effusion, anemia, metabolic acidosis which is improving, hypertension, diabetes mellitus, dementia. Yesterday, I had length of time discussion done with the family. Actually, I called the family in my office. Patient's sister, sister's daughter, and grand daughter. We had tele conference with some of other family members. I tried to make patient DNR/DNI in hospice, but family is not willing. As for them because patient is getting dialysis, they are hoping ,with dialysis decubetus ulcers will get better, but I explained to them ulcers are very deep and not responding to antibiotics, but still family want to wait. I will continue talking to them. I had discussion done with patient's nursing staff. We will continue present treatment. Repeat labs. We will follow up. Kayleen Mora MD MTDD
--- NOTE | 2018-03-25 15:05 | CP.PCM.CON ---
<Donaldo Salazar - Last Filed: 03/25/18 15:11> History of Present Illness - History of Present Illness History of Present Illness: General Surgery consult for Dr. Hillman Reason for consult: GI Bleed 77F with PMH that includes HTN and dementia who presents from retirement for evaluation for anemia, CHINMAY, and bilateral pneumonia. General surgery consulted for GI bleed. Patient is scheduled for EGD tomorrow for evaluation of upper GI tract. Patient's Hgb has been stable since 03/22. Has not required blood transfusion since. As per nursing no active bleeding noted. PMD: Dr. Kumar PMH: HTN, Dementia, history of decubitus wounds, HLD, pneumonia, GI bleed, CHINMAY PSH: wound debridement Social: no history o=f tobacco/EtOH//illicit drug use, lives in [facility], sister is POA Review of Systems - Review of Systems Systems not reviewed;Unavailable: Dementia Past Patient History - Infectious Disease Hx of Infectious Diseases: None - Past Medical History & Family History Past Medical History?: Yes - Past Social History Smoking Status: Never Smoked - CARDIAC Hx Hypertension: Yes - PULMONARY Hx Respiratory Disorders: No - NEUROLOGICAL Hx Dementia: Yes - HEENT Hx HEENT Problems: No - RENAL Hx Chronic Kidney Disease: No - ENDOCRINE/METABOLIC Hx Endocrine Disorders: No - HEMATOLOGICAL/ONCOLOGICAL Hx Blood Disorders: No - INTEGUMENTARY Hx Dermatological Problems: Yes Other/Comment: left gluteal decubiti ulcer with wound vac in place, right heel necrotic wound, multiple wounds to sacrum in various stages of healing, b/l bunyons, callous outer left foot, long thick toenails to both feet, crooked toes to left foot, dry skin, multiple skin discolorations ble - MUSCULOSKELETAL/RHEUMATOLOGICAL Hx Arthritis: Yes (CONTRACTED L HIP/KNEE AND B/L ELB) - GASTROINTESTINAL Hx Gastrointestinal Disorders: Yes (wt loss) - GENITOURINARY/GYNECOLOGICAL Hx Genitourinary Disorders: Yes Hx Incontinence: Yes (urine and stool) - PSYCHIATRIC Hx Substance Use: No - SURGICAL HISTORY Hx Surgeries: No - ANESTHESIA Hx Anesthesia: No Meds Allergies/Adverse Reactions: Allergies Allergy/AdvReac Type Severity Reaction Status Date / Time No Known Allergies Allergy Verified 02/16/18 11:39 - Medications Medications: Current Medications Amlodipine Besylate (Norvasc) 5 mg PEG DAILY [facility] Atorvastatin Calcium (Lipitor) 10 mg PEG DIN [facility] Cholecalciferol (Vitamin D) 5,000 intlu PO DAILY [facility] Last Admin: 03/25/18 14:16 Dose: 5,000 intlu Ferrous Sulfate (Feosol Liq) 300 mg PEG BID [facility] Hydromorphone HCl (Dilaudid) 1 mg IVP Q4H PRN PRN Reason: Pain, severe (8-10) Meropenem/Sodium Chloride (Merrem Iv 500 Mg/Ns 50 Ml) 500 mg in 50 mls @ 12.5 mls/hr IVPB Q12 [facility]; Protocol Stop: 03/30/18 22:01 Last Admin: 03/25/18 09:51 Dose: 12.5 mls/hr Sodium Bicarbonate 75 meq/ (Sodium Chloride) 1,075 mls @ 75 mls/hr IV .[id number] [facility] Last Admin: 03/24/18 20:29 Dose: 75 mls/hr Memantine (Namenda) 5 mg PEG DAILY [facility] Last Admin: 03/25/18 14:17 Dose: 5 mg Pantoprazole Sodium (Protonix Inj) 40 mg IVP BID [facility] Last Admin: 03/25/18 09:53 Dose: 40 mg Primidone (Mysoline) 50 mg PO TID [facility] Last Admin: 03/25/18 14:16 Dose: 50 mg Tramadol HCl (Ultram) 50 mg GT BID PRN PRN Reason: Pain, moderate (4-7) Physical Exam - Constitutional Appears: No Acute Distress - Head Exam Head Exam: NORMOCEPHALIC - Eye Exam Eye Exam: EOMI, Normal appearance - ENT Exam ENT Exam: Mucous Membranes Moist - Respiratory Exam Respiratory Exam: NORMAL BREATHING PATTERN - Cardiovascular Exam Cardiovascular Exam: +S1, +S2 - GI/Abdominal Exam GI & Abdominal Exam: Soft - Psychiatric Exam Additional comments: dementia - Skin Additional comments: sacral decubitus ulcer Results - Vital Signs Recent Vital Signs: Last Vital Signs Temp 98.2 F 03/23/18 15:59 Pulse 96 H 03/25/18 13:35 Resp 14 03/24/18 18:14 BP 166/78 H 03/25/18 13:35 Pulse Ox 99 03/24/18 18:14 - Labs Result Diagrams: 03/25/18 05:20 03/25/18 05:20 Labs: Laboratory Results - last 24 hr 03/24/18 03/24/18 03/24/18 14:00 16:50 22:28 WBC RBC Hgb Hct MCV MCH MCHC RDW Plt Count MPV Neutrophils % (Manual) 91 H Lymphocytes % (Manual) 1 L Monocytes % (Manual) 7 H Eosinophils % (Manual) 1 Platelet Evaluation Normal Sodium Potassium Chloride Carbon Dioxide Anion Gap BUN Creatinine Est GFR ( Amer) Est GFR (Non-Af Amer) POC Glucose (mg/dL) 116 H 131 H Random Glucose Calcium 03/25/18 03/25/18 03/25/18 05:20 05:20 07:50 WBC 14.6 H RBC 3.16 L Hgb 8.9 L Hct 26.9 L MCV 85.1 MCH 28.2 MCHC 33.1 RDW 16.9 H Plt Count 142 MPV 10.3 Neutrophils % (Manual) Lymphocytes % (Manual) Monocytes % (Manual) Eosinophils % (Manual) Platelet Evaluation Sodium 133 Potassium 3.5 L Chloride 101 Carbon Dioxide 24 Anion Gap 12 BUN 71 H Creatinine 2.8 H Est GFR ( Amer) 20 Est GFR (Non-Af Amer) 16 POC Glucose (mg/dL) 119 H Random Glucose 132 H Calcium 7.4 L Assessment & Plan - Assessment and Plan (Free Text) Assessment: 77F with GI bleed, CHINMAY, anemia Plan: -Hgb stable -No clinical signs of active bleed -EGD tomorrow -Recommend colonoscopy -Will follow -D/w Dr. Rafy Haro PGY3 <Alvino Hillman - Last Filed: 03/26/18 20:36> Meds - Medications Medications: Current Medications Amlodipine Besylate (Norvasc) 5 mg PEG DAILY [facility] Last Admin: 03/26/18 11:22 Dose: 5 mg Atorvastatin Calcium (Lipitor) 10 mg PEG DIN [facility] Last Admin: 03/26/18 17:31 Dose: 10 mg Cholecalciferol (Vitamin D) 5,000 intlu PO DAILY [facility] Last Admin: 03/26/18 11:33 Dose: 5,000 intlu Ferrous Sulfate (Feosol Liq) 300 mg PEG BID [facility] Last Admin: 03/26/18 17:31 Dose: 300 mg Hydromorphone HCl (Dilaudid) 1 mg IVP Q4H PRN PRN Reason: Pain, severe (8-10) Last Admin: 03/26/18 17:30 Dose: 1 mg Meropenem/Sodium Chloride (Merrem Iv 500 Mg/Ns 50 Ml) 500 mg in 50 mls @ 12.5 mls/hr IVPB Q12 [facility]; Protocol Stop: 03/30/18 22:01 Last Admin: 03/26/18 09:14 Dose: 12.5 mls/hr Memantine (Namenda) 5 mg PEG DAILY [facility] Last Admin: 03/26/18 11:22 Dose: 5 mg Pantoprazole Sodium (Protonix Inj) 40 mg IVP BID [facility] Last Admin: 03/26/18 17:31 Dose: 40 mg Primidone (Mysoline) 50 mg PO TID [facility] Last Admin: 03/26/18 17:32 Dose: 50 mg Tramadol HCl (Ultram) 50 mg GT BID PRN PRN Reason: Pain, moderate (4-7) Last Admin: 03/25/18 22:08 Dose: 50 mg Results - Vital Signs Recent Vital Signs: Last Vital Signs Temp 98.3 F 03/26/18 16:00 Pulse 92 H 03/26/18 18:00 Resp 8 L 03/26/18 18:00 BP 144/63 03/26/18 17:30 Pulse Ox 100 03/26/18 18:00 - Labs Result Diagrams: 03/26/18 06:50 03/26/18 06:50 Labs: Laboratory Results - last 24 hr 03/25/18 03/25/18 03/26/18 11:45 22:08 06:50 WBC 13.5 H RBC 3.04 L Hgb 8.7 L Hct 26.3 L MCV 86.5 MCH 28.6 MCHC 33.1 RDW 16.9 H Plt Count 123 MPV 10.7 Sodium Potassium Chloride Carbon Dioxide Anion Gap BUN Creatinine Est GFR ( Amer) Est GFR (Non-Af Amer) POC Glucose (mg/dL) 101 113 H Random Glucose Calcium 03/26/18 03/26/18 03/26/18 06:50 07:28 11:29 WBC RBC Hgb Hct MCV MCH MCHC RDW Plt Count MPV Sodium 133 Potassium 3.6 Chloride 100 Carbon Dioxide 27 Anion Gap 10 BUN 78 H Creatinine 2.9 H Est GFR ( Amer) 19 Est GFR (Non-Af Amer) 16 POC Glucose (mg/dL) 93 78 Random Glucose 96 Calcium 7.5 L Assessment & Plan - Assessment and Plan (Free Text) Plan: The patients decubitus will be fitted with a wound vac device now-wall suction to be used until a suction pump is approved he EGD for chr GI Bleed will be addressed shortly by Team Ramasmy-Post dialysis The Renal Insufficiency appears to be slowly resolving post sepsis event This consult done under my direct supervision George Hillman MD FACS
--- NOTE | 2018-03-25 16:39 | PN ---
DATE: 03/25/2018 SUBJECTIVE: This 77-year-old female was examined in critical care unit, bed #6. She is tolerating to dialysis treatments to date. She has been successful with fluid removal and the improvement of azotemia from an admission BUN of 137 with a creatinine of 5.1 to a BUN of 71 with a creatinine of 2.8 this morning, status post dialysis yesterday at bedside. The patient remains weak, bedridden, confused, contracted with sacral heel and foot sores. 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 PHYSICAL EXAMINATION: VITAL SIGNS: Her temperature was 98.7, respirations 14, pulse 95, and blood pressure 163/81 with a pulse ox of 99% on 2 L nasal O2. HEENT: Head: Normocephalic, atraumatic. Eyes: No icterus. Ears: Clear. Throat: Noninjected. NECK: Supple. HEART: S1, S2. No pathological rubs, murmurs, or gallops. LUNGS: Occasional rhonchi. ABDOMEN: Soft. EXTREMITIES: Multiple sores. VASCULAR: Legs warm to touch. PSYCHOLOGIC: Nonverbal. NEURO: Contracted and bedridden. LABORATORY DATA: White count 14,600, hemoglobin 8.9, hematocrit 26.9, and platelets 142,000. Sodium 133, K 3.5, chloride 101, bicarb 24. BUN 71, creatinine 2.8. Random blood sugar 132. Calcium 7.4, phosphorous 3.4. Bilirubin 0.2, AST 30, ALT 41, and alk phos 245. Hepatitis A, B, C serologies were negative. Nasal swabs show no MRSA. Wound culture shows Ifrah tropicalis. Urine culture shows VRE. Blood culture showed no growth. IMPRESSION: A 77-year-old female with renal failure requiring hemodialysis and comorbidities of Alzheimer dementia, chronic confusion, bedridden state, deconditioning, healed foot and sacral sores, chronic hypertension, gastrointestinal bleeding, and anemia of chronic illness. At present, she will continue on meropenem IV as per Dr. Retana from Infectious Disease with wound care as outlined. She is also receiving IV Protonix, IV bicarb drip, and based on clinical progress, additional diagnostic workup and testing will be entertained. Chest CT performed this morning remains pending. The patient remains full code with palliative care reaching out to the family regarding disposition planning and code status. Her overall prognosis remains poor, but she will be continued to be treated in a conservative and compassionate way. Based on laboratories and urine output, additional dialysis treatments will be scheduled for comfort measures. Her overall prognosis remains poor. Greater than 35 minutes was spent in the care management, review of labs, orders, x-rays, and discussion of this patient with critical care nurse and family members at bedside. All questions were answered. Beatrice Martines MD MTDD
[2018-03-25] MEDS: HYDROmorphone 1 mg/ml ISec IVP PRN ×2 (17:04→23:48)
[2018-03-25] MEDS: Ferrous Sulfate 300 mg/5 mL Liq UD PEG SCH (17:04)
--- NOTE | 2018-03-26 04:22 | PN ---
DATE: 03/25/2018 PULMONARY CRITICAL CARE PROGRESS NOTE REFERRING PHYSICIAN: Kayleen Mora MD SUBJECTIVE: The patient is sleepy, arousable, more awake and alert, more comfortable. No hemoptysis. No hematemesis. No hematuria. No diarrhea. Reported has multiple pressure ulcers. OBJECTIVE: GENERAL: No acute distress. VITAL SIGNS: Temperature is 98, heart rate 99, respiratory rate is 14, blood pressure 148/74, pulse ox 100% on nasal cannula. HEENT: Small oral cavity. NECK: Supple. No JVD. LUNGS: Have a fair airflow with rhonchi. HEART: S1 and S2. ABDOMEN: Soft and nontender. No organomegaly. EXTREMITIES: There is no edema. Has multiple pressure ulcers. NEUROLOGICAL: Sleepy, arousable. MEDICATIONS: She is on Dilaudid 1 mg every 4 hours p.r.n. for severe pain, ferrous sulfate 300 mg G-tube twice a day, Lipitor 10 mg daily, getting meropenem 500 mg every 12 hours, primidone 50 mg three times a day, Namenda 5 mg daily, Norvasc 5 mg daily, Protonix 40 mg twice a day, IV fluid normal saline 75 mL per hour, Ultram 50 mg G-tube twice a day 1:16, vitamin D 5000 units daily. LABORATORY DATA: Shows hemoglobin 8.9, hematocrit 26.9, WBC 14.6, platelet count is 142. Sodium 133, potassium 3.5, chloride 101, bicarbonate 24, BUN 71, creatinine 2.8, glucose 132. Calcium is 7.4. CAT scan of the chest done today, which shows large bilateral pleural effusion, some consolidation adjacent to the lungs, there are also patchy infiltrates on the anterior aspects of the right middle lobe and both upper lobes. IMPRESSION AND PLAN: Acute renal failure requiring dialysis, bilateral pleural effusion, pulmonary infiltrates/atelectasis, multiple decubitus ulcer, anemia, metabolic acidosis, history of hypertension, diabetes, dementia. Pulmonary point of view, she looks much better. We will continue dialysis for now, bronchodilators, supplement oxygen, pain management. Wound care followup. Being followed by Palliative Care. Thank you and we will follow with you. Jarrett Putnam MD [facility] # [id number]
[2018-03-26] MEDS: HYDROmorphone 1 mg/ml ISec IVP PRN ×4 (05:24→23:40)
[2018-03-26 07:12] LABS: HEMOGLOBIN 8.7 g/dL (12.0-16.0); MEAN CELL VOLUME 86.5 fl (80.0-105.0); MEAN CORPUSCULAR HEMOGLOBIN 28.6 pg (25.0-35.0); MEAN CORPUSCULAR HGB CONC 33.1 g/dl (31.0-37.0); MEAN PLATELET VOLUME 10.7 fl (7.0-11.0); RBC 3.04 10^6/uL (3.5-6.1); RED CELL DISTRIBUTION WIDTH 16.9 % (11.5-14.5); WHITE BLOOD COUNT 13.5 10^3/ul (4.5-11.0)
[2018-03-26 07:36] LABS: CALCIUM 7.5 mg/dL (8.4-10.5)
[2018-03-26] MEDS: Ferrous Sulfate 300 mg/5 mL Liq UD PEG SCH ×3 (09:14→17:31)
[2018-03-26] MEDS: MEROPENEM 500 MG in NS 500 MG/50 ML BAG IVPB SCH ×2 (09:14→22:11)
[2018-03-26] MEDS: Cholecalciferol 1,000 INTLU TAB PO SCH ×2 (09:28→11:33)
--- NOTE | 2018-03-26 09:43 | CP.PCM.PN ---
<Bright Dasilva - Last Filed: 03/26/18 17:57> Subjective - Date & Time of Evaluation Date of Evaluation: 03/26/18 Time of Evaluation: 08:00 - Subjective Subjective: PGY-4 GI Fellow Prog Note Pt lying in bed when seen this AM. Eyes open but non-verbal. No signs of bleeding overnight. Unable to obtain ROS due to clinical condition Objective - Vital Signs/Intake and Output Vital Signs (last 24 hours): Temp Pulse Resp BP Pulse Ox 97.4 F L 88 9 L 156/86 H 98 03/26/18 04:00 03/26/18 06:00 03/26/18 04:00 03/26/18 04:00 03/26/18 04:00 Intake and Output: 03/26/18 03/26/18 06:59 18:59 Intake Total 1150 Output Total 100 Balance 1050 - Medications Medications: Current Medications Amlodipine Besylate (Norvasc) 5 mg PEG DAILY [facility] Last Admin: 03/26/18 09:28 Dose: Not Given Atorvastatin Calcium (Lipitor) 10 mg PEG DIN [facility] Last Admin: 03/25/18 17:03 Dose: 10 mg Cholecalciferol (Vitamin D) 5,000 intlu PO DAILY [facility] Last Admin: 03/26/18 09:28 Dose: Not Given Ferrous Sulfate (Feosol Liq) 300 mg PEG BID [facility] Last Admin: 03/26/18 09:14 Dose: Not Given Hydromorphone HCl (Dilaudid) 1 mg IVP Q4H PRN PRN Reason: Pain, severe (8-10) Last Admin: 03/26/18 05:24 Dose: 1 mg Meropenem/Sodium Chloride (Merrem Iv 500 Mg/Ns 50 Ml) 500 mg in 50 mls @ 12.5 mls/hr IVPB Q12 [facility]; Protocol Stop: 03/30/18 22:01 Last Admin: 03/26/18 09:14 Dose: 12.5 mls/hr Sodium Bicarbonate 75 meq/ (Sodium Chloride) 1,075 mls @ 75 mls/hr IV .[id number] [facility] Last Admin: 03/26/18 08:33 Dose: 75 mls/hr Memantine (Namenda) 5 mg PEG DAILY [facility] Last Admin: 03/26/18 09:28 Dose: Not Given Pantoprazole Sodium (Protonix Inj) 40 mg IVP BID [facility] Last Admin: 03/26/18 09:16 Dose: 40 mg Primidone (Mysoline) 50 mg PO TID [facility] Last Admin: 03/26/18 09:15 Dose: Not Given Tramadol HCl (Ultram) 50 mg GT BID PRN PRN Reason: Pain, moderate (4-7) Last Admin: 03/25/18 22:08 Dose: 50 mg - Labs Labs: 03/26/18 06:50 03/26/18 06:50 PT 13.7 SECONDS (9.4-12.5) H 03/20/18 19:00 INR 1.20 03/20/18 19:00 APTT 34.2 Seconds (25.1-36.5) 03/20/18 19:00 - Constitutional Appears: Confused, Cachectic, Chronically Ill - Head Exam Head Exam: ATRAUMATIC, NORMAL INSPECTION - Eye Exam Eye Exam: Conjunctival injection. absent: EOMI, Scleral icterus - ENT Exam ENT Exam: Mucous Membranes Dry. absent: Mucous Membranes Moist - Cardiovascular Exam Cardiovascular Exam: REGULAR RHYTHM, RRR - GI/Abdominal Exam GI & Abdominal Exam: Soft, Normal Bowel Sounds. absent: Bruit, Distended, Firm, Guarding, Rigid, Tenderness, Mass, Organomegaly, Pulsatile Mass Additional comments: + PEG - Neurological Exam Neurological Exam: Awake Additional comments: non-verbal, moans intermittently - Skin Skin Exam: Dry Additional comments: multiple bandaged decubitus ulcers Assessment and Plan - Assessment and Plan (Free Text) Assessment: 77 yo BF with dementia s/p PEG, HTN, DM, decubitus ulcers sent in from [facility] for evaluation of anemia, GI bleed, Pneumonia and CHINMAY. # Acute Normocytic Anemia, occult GI bleed: Hgb 5.9 from 10 on 03/01/18, stable. Vitals stable. Stool dark green but FOBT+. Given elevated BUN and lack of hematochezia suspect upper GI source rather than lower source. Vitals stable and Hgb hyper-responded from 5.9 -> 10 after 2 units PRBCs. # Dementia: s/p PEG 03/01/18. Pt without decision making capacity. # CHINMAY: Cr 5 from 1.2. Uremia. Suspect pre-renal from significant anemia, likely related to GI losses. Started on HD 03/23 # Sepsis: Due to PNA, decubitus ulcers, UTI Plan: - IV PPI daily - Monitor Hgb - Discussing goals of care with POA; patient does not have decision making capacity - Discussed with family members, Heena and Fatimah at numbers below this AM. --- POA and family do not want EGD at this time since bleeding seems to have stabilized --- They want to discuss patient's progress with all consultants before considering EGD; their inclination is to hold off completely on EGD unless patient is actively bleeding. Pt discussed with Dr. Rivas; see attestation for further recs/changes. POA: Heena, sister to patient, Daughter of POA (Pt's niece): Fatiamh Gonzalez When calling to discuss status, preference is to call to Fatimah to help explain to Heena <Sharla Rivas V - Last Filed: 03/28/18 20:50> Objective - Vital Signs/Intake and Output Vital Signs (last 24 hours): Temp Pulse Resp BP Pulse Ox 98.7 F 106 H 20 146/61 97 03/27/18 12:00 03/27/18 18:16 03/27/18 18:16 03/27/18 18:16 03/27/18 18:16 - Medications Medications: Current Medications Amlodipine Besylate (Norvasc) 5 mg PEG DAILY [facility] Last Admin: 03/27/18 09:54 Dose: 5 mg Atorvastatin Calcium (Lipitor) 10 mg PEG DIN [facility] Last Admin: 03/27/18 18:25 Dose: 10 mg Cholecalciferol (Vitamin D) 5,000 intlu PO DAILY [facility] Ferrous Sulfate (Feosol Liq) 300 mg PEG BID [facility] Last Admin: 03/27/18 18:24 Dose: 300 mg Hydromorphone HCl (Dilaudid) 1 mg IVP Q4H PRN PRN Reason: Pain, severe (8-10) Last Admin: 03/27/18 19:39 Dose: 1 mg Meropenem/Sodium Chloride (Merrem Iv 500 Mg/Ns 50 Ml) 500 mg in 50 mls @ 12.5 mls/hr IVPB Q12 [facility]; Protocol Stop: 04/01/18 10:01 Last Admin: 03/27/18 21:13 Dose: 12.5 mls/hr Memantine (Namenda) 5 mg PEG DAILY [facility] Last Admin: 03/27/18 09:58 Dose: 5 mg Pantoprazole Sodium (Protonix Inj) 40 mg IVP BID [facility] Last Admin: 03/27/18 18:12 Dose: 40 mg Primidone (Mysoline) 50 mg PO TID [facility] Last Admin: 03/27/18 18:25 Dose: 50 mg Tramadol HCl (Ultram) 50 mg GT BID PRN PRN Reason: Pain, moderate (4-7) Last Admin: 03/27/18 09:55 Dose: 50 mg - Labs Labs: 03/26/18 06:50 03/27/18 05:00 PT 13.7 SECONDS (9.4-12.5) H 03/20/18 19:00 INR 1.20 03/20/18 19:00 APTT 34.2 Seconds (25.1-36.5) 03/20/18 19:00 Attending/Attestation - Attestation I have personally seen and examined this patient.: Yes I have fully participated in the care of the patient.: Yes I have reviewed all pertinent clinical information, including history, physical exam and plan: Yes Notes (Text): This is a delayed addendum to GI progress report dictated by the GI Fellow.The patient was seen and examined earlier. Medical records, lab studies, imagings were reviewed. Last 24 hours events reviewed. Agreed with the above treatment plan as outlined in GI Fellow 's notes with the addition of the following No melena or BRPR HCT stable Abdomen soft non-tender G tube in place Continue antibiotics EGD when patient family is agreeable after optimization 03/27/18 21:42 03/28/18 20:47
--- NOTE | 2018-03-26 10:26 | CP.PCM.PN ---
Subjective - Date & Time of Evaluation Date of Evaluation: 03/26/18 Time of Evaluation: 10:24 - Subjective Subjective: Daphne Ernandez DO, PGY-2: Nephrology Progress Note for Dr. Lynch (covering for Dr. Martines) Patient was seen and examined at bedside. Patient moans, non-verbal at baseline. Patient's sister was present who we discussed the need for dialysis today. Otherwise, no adverse events noted overnight. Objective - Vital Signs/Intake and Output Vital Signs (last 24 hours): Temp Pulse Resp BP Pulse Ox 97.4 F L 88 9 L 156/86 H 98 03/26/18 04:00 03/26/18 06:00 03/26/18 04:00 03/26/18 04:00 03/26/18 04:00 Intake and Output: 03/26/18 03/26/18 06:59 18:59 Intake Total 1150 Output Total 100 Balance 1050 - Medications Medications: Current Medications Amlodipine Besylate (Norvasc) 5 mg PEG DAILY [facility] Last Admin: 03/26/18 09:28 Dose: Not Given Atorvastatin Calcium (Lipitor) 10 mg PEG DIN [facility] Last Admin: 03/25/18 17:03 Dose: 10 mg Cholecalciferol (Vitamin D) 5,000 intlu PO DAILY [facility] Last Admin: 03/26/18 09:28 Dose: Not Given Ferrous Sulfate (Feosol Liq) 300 mg PEG BID [facility] Last Admin: 03/26/18 09:14 Dose: Not Given Hydromorphone HCl (Dilaudid) 1 mg IVP Q4H PRN PRN Reason: Pain, severe (8-10) Last Admin: 03/26/18 05:24 Dose: 1 mg Meropenem/Sodium Chloride (Merrem Iv 500 Mg/Ns 50 Ml) 500 mg in 50 mls @ 12.5 mls/hr IVPB Q12 [facility]; Protocol Stop: 03/30/18 22:01 Last Admin: 03/26/18 09:14 Dose: 12.5 mls/hr Memantine (Namenda) 5 mg PEG DAILY [facility] Last Admin: 03/26/18 09:28 Dose: Not Given Pantoprazole Sodium (Protonix Inj) 40 mg IVP BID [facility] Last Admin: 03/26/18 09:16 Dose: 40 mg Primidone (Mysoline) 50 mg PO TID [facility] Last Admin: 03/26/18 09:15 Dose: Not Given Tramadol HCl (Ultram) 50 mg GT BID PRN PRN Reason: Pain, moderate (4-7) Last Admin: 03/25/18 22:08 Dose: 50 mg - Labs Labs: 03/26/18 06:50 03/26/18 06:50 PT 13.7 SECONDS (9.4-12.5) H 03/20/18 19:00 INR 1.20 03/20/18 19:00 APTT 34.2 Seconds (25.1-36.5) 03/20/18 19:00 - Constitutional Appears: Confused, Cachectic - Head Exam Head Exam: ATRAUMATIC, NORMOCEPHALIC - Eye Exam Eye Exam: EOMI, Normal appearance - ENT Exam ENT Exam: Mucous Membranes Moist - Neck Exam Additional comments: JVD noted - Respiratory Exam Respiratory Exam: Decreased Breath Sounds (bilaterally). absent: Accessory Muscle Use - Cardiovascular Exam Cardiovascular Exam: RRR, +S1, +S2 - GI/Abdominal Exam GI & Abdominal Exam: Tenderness (to palpation) - Extremities Exam Additional comments: off-loading boots present on bilateral legs - Neurological Exam Neurological Exam: Awake - Psychiatric Exam Psychiatric exam: Flat Affect - Skin Skin Exam: Dry Assessment and Plan (1) Acute renal failure (ARF) Assessment & Plan: Patient has been anuric for the past two days Recommend Merrem to be given after dialysis and to be dosed for a CrCl < 10: 250 to 500 mg IVP q24h Patient to be dialyzed today Discontinued bicarbonate drip Status: Acute (2) Decubitus ulcer Assessment & Plan: Dose antibiotics renally Status: Acute (3) Sacral ulcer Assessment & Plan: Recommend to dose Merrem for a CrCl below 10: as detailed above Status: Acute
--- NOTE | 2018-03-26 10:27 | RAD ---
Date of service: 03/26/2018 HISTORY: renal failure, pleural effusions COMPARISON: 03/23/2018 FINDINGS: LUNGS: There is a diffuse infiltrate in the right lung. There is also an effusion or infiltrate at the left lung base that obscures the diaphragm. PLEURA: No significant pleural effusion identified, no pneumothorax apparent. CARDIOVASCULAR: Aortic calcification Mild cardiomegaly. OSSEOUS STRUCTURES: No significant abnormalities. VISUALIZED UPPER ABDOMEN: Normal. OTHER FINDINGS: Dialysis catheter IMPRESSION: There is a diffuse infiltrate in the right lung. There is also an effusion or infiltrate at the left lung base that obscures the diaphragm.
--- NOTE | 2018-03-26 10:38 | PN ---
DATE: 03/25/2018 SUBJECTIVE: The patient was seen and examined on the bedside on 03/25/2018. This progress note is for 03/25/2018. Not big change in the status. The patient is sleepy, arousable, still looks like having pain. I increased her pain medication. No hemoptysis. No fever. No chills. No hematuria. No hematochezia. I put surgical consult with Dr. Hillman and we are waiting for wound VAC. PHYSICAL EXAMINATION: VITAL SIGNS: Temperature 98, heart rate 99, respiratory rate 14, blood pressure 140/70. HEENT: Head normocephalic, atraumatic. Eyes PERRLA. Extraocular muscles intact. Conjunctivae clear. Nose patent. Mucous membrane moist. NECK: Supple. No carotid bruit. No JVD or thyromegaly. CHEST: Bilaterally symmetrical. HEART: S1 and S2 positive. LUNGS: Clear to auscultation. ABDOMEN: Soft, nontender. No organomegaly. EXTREMITIES: No edema. Has multiple pressure sores on the feet. NEUROLOGICAL: Sleepy, arousable, is not able to follow simple command. MEDICATIONS: Dilaudid, iron, Lipitor, meropenem, Primidone, Namenda, Norvasc, Protonix, IV fluid, tramadol, vitamin D. LABORATORY DATA: Hemoglobin 8.9, hematocrit 26.9, white blood cells 14.6, platelets 142. Sodium 133, potassium 3.5, BUN 71, creatinine 2.8. ASSESSMENT AND PLAN: Ms. Otis Canela, a 77-year-old lady with multiple medical problems; has acute renal failure requiring dialysis Dr. Martines, supervisor adult education; bilateral pleural effusion; pulmonary interstitial infiltrates; multiple decubitus ulcers, at least 11, unstageable; anemia; metabolic acidosis; history of hypertension; diabetes mellitus; dementia. Waiting for the wound vacuum-assisted closure, pain management, palliative care was on the case. Length of time discussion done with the nurse, Sena Bernard. According to Sena, she is calling family, but family is not returning her call. She will sign off from the case because the family is not responding and myself. I tried with the family. They do not want DNR/DNI. They want full code. We will obey family wishes. Kayleen Mora MD [facility] # [id number]
--- NOTE | 2018-03-26 18:33 | PN ---
DATE: 03/26/2018 SUBJECTIVE: The patient is in bed, in no acute distress, nontoxic. PHYSICAL EXAMINATION: VITAL SIGNS: Temperature is 97, blood pressure is 150/80, respiratory rate of 18. HEENT: Unremarkable. NECK: Supple. LUNGS: Have decreased breath sounds. HEART: Normal S1, S2. ABDOMINAL: Soft. LABORATORY EXAMINATION: Reveals a white count of 13,000, hemoglobin of 8. Chemistries reveals a BUN of 78, creatinine of 2.9. Urinalysis is noted. Serology is reviewed. Microbiology are noted. ASSESSMENT AND PLAN: A 77-year-old female who appears much older than stated age. Who was admitted with a history of hypertension, dyslipidemia, dementia, osteoporosis. Admitted with recent hospitalization with severe sepsis, multiple decubitus ulcers, skin and skin structure infection, acute kidney injury, vancomycin-resistant Enterococcus in the urine culture, most likely a colonizer and not pathogen. We will continue the treatment with meropenem. Overall prognosis is poor. The patient had a chest x-ray today. infiltrate in the right lung. The patient also had a CAT scan of the chest which shows bilateral pleural effusions, consolidation, patchy infiltrates. We will follow with you. Overall prognosis is poor. The patient was seen earlier this morning. Eleazar Retana MD
--- NOTE | 2018-03-26 23:29 | PN ---
DATE: 03/26/2018 PULMONARY PROGRESS NOTE REFERRING PHYSICIAN: Kayleen Mora MD. SUBJECTIVE: She is lying in the bed, just finished dialysis. More awake and alert. Still does not follow much command. Pulse ox is acceptable on nasal cannula. Not much cough. No sputum production. No hemoptysis. No hematemesis. No leg swelling. Has multiple pressure ulcers. OBJECTIVE: GENERAL: In no acute distress. VITAL SIGNS: Temperature is 98, heart rate is 92, respiratory rate is 16, blood pressure 144/63, pulse ox 99% on nasal cannula. HEENT: Moist mucous membrane. No ulcer or thrush noted. NECK: Supple. No JVD. LUNGS: Have a fair airflow with few rhonchi. HEART: S1 and S2. ABDOMEN: Soft and nontender. No organomegaly. EXTREMITIES: No edema. BACK: Has multiple pressure ulcers on the back NEUROLOGICAL: Awake and alert. Not verbal, does not follows much command. MEDICATIONS: She is on Dilaudid 1 mg every 4 hours p.r.n., ferrous sulfate 300 mg twice a day, Lipitor 10 mg daily, meropenem 500 mg IV every 12 hours, Primidone 50 mg times a day, Namenda 5 mg daily, Norvasc 5 mg G-tube daily, Protonix 40 mg twice a day, Ultram is at 50 mg twice a day p.r.n., vitamin D 50,000 units daily. LABORATORY DATA: Shows hemoglobin 8.7, hematocrit 26.3, WBC 13.5, platelet count is 123. Sodium 133, potassium 3.6, chloride 100, bicarbonate 27, BUN 78, creatinine 2.9, glucose 78, calcium is 7.5. Stool for C. diff is negative. MRSA screening is negative. Has a Ifrah in the buttock wound and VRE in the urine. Blood cultures negative. Chest x-ray done today shows diffuse infiltrate in the right lung, also effusion, infiltrate in the left lung. IMPRESSION AND PLAN: Acute renal failure, on dialysis; bilateral pleural effusion; pulmonary infiltrate with atelectasis; multiple decubiti; anemia; metabolic acidosis; hypertension; diabetes; dementia. Pulmonary point of view, doing well. Continue supplemental oxygen. Keep head at 45 degrees. Antibiotics as per Infectious Diseases. Gastric and deep venous thrombosis prophylaxis. Overall poor prognosis. Follow up labs in the morning. Pressure ulcer precaution. Infectious Disease, Nephrology followup. Thank you and we will follow with you. Jarrett Putnam MD
--- NOTE | 2018-03-27 01:39 | PN ---
DATE: 03/26/2018 SUBJECTIVE: The patient was seen and examined on the bedside on 03/26/2018. Sister was sitting on the bedside also and Wound Care team put wound VAC. The patient do not have fever, chills. No nausea, vomiting, diarrhea. No hematuria or hematochezia. No headache. No dizziness. The patient is a very poor historian. PHYSICAL EXAMINATION: VITAL SIGNS: Temperature 98, heart rate 92, respiratory rate 16, blood pressure 140/63, pulse oximetry of 99% on nasal cannula. HEENT: Head normocephalic, atraumatic. Eyes PERRLA. Extraocular muscles intact. Conjunctivae clear. Nose patent. Mucous membrane moist. NECK: Supple. No carotid bruit. No JVD or thyromegaly. CHEST: Bilaterally symmetrical. HEART: S1 and S2 positive. LUNGS: Clear to auscultation. ABDOMEN: Soft. Bowel sounds positive. No organomegaly. EXTREMITIES: No edema. No cyanosis. Feet had dressing. BACK: Has multiple pressure ulcers on the back. NEUROLOGICAL: The patient is awake, alert. Not verbal. Does not follow much command. MEDICATIONS: Dilaudid, ferrous sulfate, Lipitor, meropenem, Primidone, Namenda, Norvasc, Protonix, tramadol, vitamin D. LABORATORY DATA: Hemoglobin 8.7, hematocrit 26.3, white blood cells 13.5, platelets 122. Sodium 133, BUN 78, creatinine 2.9, calcium 7.5. ASSESSMENT AND PLAN: Ms. Otis Canela, 77-year-old lady with acute renal failure, on hemodialysis by Dr. Beatrice Martines, bilateral pleural effusion, pulmonary infiltrate, multiple decubitus ulcers especially in the back and feet, got today wound vacuum-assisted closure. Talked to the surgical team. Surgical team saw this patient in the [facility]. According to them, wound has good granulation tissue, improving, though slowly. Anemia, metabolic acidosis, hypertension, diabetes. Continue present treatment, pain management, antibiotics. Gastric and deep venous thrombosis prophylaxes. Repeat labs. We will follow up. Kayleen Mora MD [facility] # [id number]
[2018-03-27] MEDS: HYDROmorphone 1 mg/ml ISec IVP PRN ×3 (04:52→23:33)
[2018-03-27 05:53] LABS: CALCIUM 7.3 mg/dL (8.4-10.5)
[2018-03-27] MEDS: Ferrous Sulfate 300 mg/5 mL Liq UD PEG SCH ×2 (09:56→18:24)
[2018-03-27] MEDS: MEROPENEM 500 MG in NS 500 MG/50 ML BAG IVPB SCH ×2 (09:56→21:13)
[2018-03-27] MEDS: Cholecalciferol 1,000 INTLU TAB PO SCH (10:00)
--- NOTE | 2018-03-27 11:12 | CP.PCM.PN ---
<Kye Butler - Last Filed: 03/27/18 11:09> Subjective - Date & Time of Evaluation Date of Evaluation: 03/27/18 Time of Evaluation: 11:09 - Subjective Subjective: Patient is tolerating tube feeds. No bleeding reported. Objective - Vital Signs/Intake and Output Vital Signs (last 24 hours): Temp Pulse Resp BP Pulse Ox 98 F 94 H 18 147/69 100 03/27/18 04:00 03/27/18 09:54 03/27/18 04:00 03/27/18 09:54 03/27/18 04:00 - Medications Medications: Current Medications Amlodipine Besylate (Norvasc) 5 mg PEG DAILY [facility] Last Admin: 03/27/18 09:54 Dose: 5 mg Atorvastatin Calcium (Lipitor) 10 mg PEG DIN [facility] Last Admin: 03/26/18 17:31 Dose: 10 mg Cholecalciferol (Vitamin D) 5,000 intlu PO DAILY [facility] Ferrous Sulfate (Feosol Liq) 300 mg PEG BID [facility] Last Admin: 03/27/18 09:56 Dose: 300 mg Hydromorphone HCl (Dilaudid) 1 mg IVP Q4H PRN PRN Reason: Pain, severe (8-10) Last Admin: 03/27/18 04:52 Dose: 1 mg Meropenem/Sodium Chloride (Merrem Iv 500 Mg/Ns 50 Ml) 500 mg in 50 mls @ 12.5 mls/hr IVPB Q12 [facility]; Protocol Stop: 04/01/18 10:01 Last Admin: 03/27/18 09:56 Dose: 12.5 mls/hr Memantine (Namenda) 5 mg PEG DAILY [facility] Last Admin: 03/27/18 09:58 Dose: 5 mg Pantoprazole Sodium (Protonix Inj) 40 mg IVP BID [facility] Last Admin: 03/27/18 09:56 Dose: 40 mg Primidone (Mysoline) 50 mg PO TID [facility] Tramadol HCl (Ultram) 50 mg GT BID PRN PRN Reason: Pain, moderate (4-7) Last Admin: 03/27/18 09:55 Dose: 50 mg - Labs Labs: 03/26/18 06:50 03/27/18 05:00 PT 13.7 SECONDS (9.4-12.5) H 03/20/18 19:00 INR 1.20 03/20/18 19:00 APTT 34.2 Seconds (25.1-36.5) 03/20/18 19:00 - Constitutional Appears: No Acute Distress - Head Exam Head Exam: NORMAL INSPECTION - ENT Exam ENT Exam: Normal Exam - Respiratory Exam Respiratory Exam: NORMAL BREATHING PATTERN - Cardiovascular Exam Cardiovascular Exam: REGULAR RHYTHM - GI/Abdominal Exam GI & Abdominal Exam: Soft, Normal Bowel Sounds. absent: Tenderness - Extremities Exam Extremities Exam: Normal Inspection - Neurological Exam Neurological Exam: Altered - Skin Skin Exam: Dry, Intact Assessment and Plan - Assessment and Plan (Free Text) Assessment: 77 yo BF with dementia s/p PEG, HTN, DM, decubitus ulcers sent in from [facility] for evaluation of anemia, GI bleed, Pneumonia and CHINMAY. # Acute Normocytic Anemia, occult GI bleed: Hgb 5.9 from 10 on 03/01/18, stable. Vitals stable. Stool dark green but FOBT+. Given elevated BUN and lack of hematochezia suspect upper GI source rather than lower source. Vitals stable and Hgb hyper-responded from 5.9 -> 10 after 2 units PRBCs. # Dementia: s/p PEG 03/01/18. Pt without decision making capacity. # CHINMAY: Cr 5 from 1.2. Uremia. Suspect pre-renal from significant anemia, likely related to GI losses. Started on HD 03/23 # Sepsis: Due to PNA, decubitus ulcers, UTI Plan: - IV PPI daily - Monitor Hgb - Discussing goals of care with POA; patient does not have decision making capacity - Discussed with family members, Gudelia at numbers below --- POA and family do not want EGD at this time since bleeding seems to have stabilized --- They want to discuss patient's progress with all consultants before considering EGD; their inclination is to hold off completely on EGD unless patient is actively bleeding. Pt discussed with Dr. Rivas; see attestation for further recs/changes. POA: Heena, sister to patient, Daughter of POA (Pt's niece): Fatimah Carlos When calling to discuss status, preference is to call to Fatimah to help explain to Heena <Sharla Rivas V - Last Filed: 03/28/18 20:47> Objective - Vital Signs/Intake and Output Vital Signs (last 24 hours): Temp Pulse Resp BP Pulse Ox 98.7 F 106 H 20 146/61 97 03/27/18 12:00 03/27/18 18:16 03/27/18 18:16 03/27/18 18:16 03/27/18 18:16 - Medications Medications: Current Medications Amlodipine Besylate (Norvasc) 5 mg PEG DAILY [facility] Last Admin: 03/27/18 09:54 Dose: 5 mg Atorvastatin Calcium (Lipitor) 10 mg PEG DIN [facility] Last Admin: 03/27/18 18:25 Dose: 10 mg Cholecalciferol (Vitamin D) 5,000 intlu PO DAILY [facility] Ferrous Sulfate (Feosol Liq) 300 mg PEG BID [facility] Last Admin: 03/27/18 18:24 Dose: 300 mg Hydromorphone HCl (Dilaudid) 1 mg IVP Q4H PRN PRN Reason: Pain, severe (8-10) Last Admin: 03/27/18 19:39 Dose: 1 mg Meropenem/Sodium Chloride (Merrem Iv 500 Mg/Ns 50 Ml) 500 mg in 50 mls @ 12.5 mls/hr IVPB Q12 [facility]; Protocol Stop: 04/01/18 10:01 Last Admin: 03/27/18 21:13 Dose: 12.5 mls/hr Memantine (Namenda) 5 mg PEG DAILY [facility] Last Admin: 03/27/18 09:58 Dose: 5 mg Pantoprazole Sodium (Protonix Inj) 40 mg IVP BID [facility] Last Admin: 03/27/18 18:12 Dose: 40 mg Primidone (Mysoline) 50 mg PO TID [facility] Last Admin: 03/27/18 18:25 Dose: 50 mg Tramadol HCl (Ultram) 50 mg GT BID PRN PRN Reason: Pain, moderate (4-7) Last Admin: 03/27/18 09:55 Dose: 50 mg - Labs Labs: 03/26/18 06:50 03/27/18 05:00 PT 13.7 SECONDS (9.4-12.5) H 03/20/18 19:00 INR 1.20 03/20/18 19:00 APTT 34.2 Seconds (25.1-36.5) 10/13/18 19:00 Attending/Attestation - Attestation I have personally seen and examined this patient.: Yes I have fully participated in the care of the patient.: Yes I have reviewed all pertinent clinical information, including history, physical exam and plan: Yes Notes (Text): This is a delayed addendum to GI progress report dictated by the GI Fellow.The patient was seen and examined earlier. Medical records, lab studies, imagings were reviewed. Last 24 hours events reviewed. Agreed with the above treatment plan as outlined in GI Fellow 's notes with the addition of the following Admitted with severe anemia Hb of 5.9 status post transfusion History of FOBT positive Hct stable Continue PPI Will discuss with the family regarding EGD 03/27/18 21:41
--- NOTE | 2018-03-27 11:32 | PN ---
DATE: 03/27/2018 SUBJECTIVE: The patient is in bed, no acute distress, was seen earlier today in 129, bed 6. PHYSICAL EXAMINATION: VITAL SIGNS: The patient is in bed with a temperature of 98, blood pressure is 131/50, respiratory rate of 18, heart rate of 92. HEENT: Examination of HEENT is unremarkable. NECK: Supple. LUNGS: Have decreased breath sounds. HEART: Normal S1, S2. ABDOMEN: Soft, nontender. LABORATORY DATA: Laboratory examination reveals a white count of 13,500, hemoglobin of 8, platelets of 123. Chemistries reveals a BUN of 49, creatinine of 2.1. Urinalysis is noted and serology is noted. ASSESSMENT AND PLAN: A 77-year-old female, who appears much older than stated age, hypertension, dyslipidemia, dementia, osteoporosis, recent hospitalization with severe sepsis, multiple decubitus ulcers, skin and skin structure infection, acute kidney injury, vancomycin-resistant Enterococcus in the urine, most likely a colonizer, not a pathogen. Currently, on meropenem. Review of orders confirms the meropenem had been discontinued by pharmacy. We will restart the meropenem. Today is day #7, would complete 10 days. We will follow with you. Eleazar Retana MD
[2018-03-27 12:36] LABS: COMPLEMENT C4 45.9 mg/dL (14.0-44.0)
--- NOTE | 2018-03-27 22:45 | CP.PCM.PN ---
Subjective - Date & Time of Evaluation Date of Evaluation: 03/27/18 Time of Evaluation: 12:00 - Subjective Subjective: 77 year old female, with pmh of dementia, htn, dm, admitted from [place] with multiple decubiti ulcers, PNA and acute renal failure; No change in clinical condition per nursing staff; per surgery team yesterday, ulcers appeared to have good granulation tissue and are not currently necrotic; tolerated HD well yesterday without hypotension; was supposed to go for endoscopy but family refused, unclear why; Objective - Vital Signs/Intake and Output Vital Signs (last 24 hours): Temp Pulse Resp BP Pulse Ox 98.7 F 95 H 17 141/52 L 98 03/27/18 20:00 03/27/18 21:00 03/27/18 21:00 03/27/18 21:00 03/27/18 21:00 Intake and Output: 03/27/18 03/28/18 18:59 06:59 Output Total 100 Balance -100 - Medications Medications: Current Medications Amlodipine Besylate (Norvasc) 5 mg PEG DAILY [facility] Last Admin: 03/27/18 09:54 Dose: 5 mg Atorvastatin Calcium (Lipitor) 10 mg PEG DIN [facility] Last Admin: 03/27/18 18:25 Dose: 10 mg Cholecalciferol (Vitamin D) 5,000 intlu PO DAILY [facility] Ferrous Sulfate (Feosol Liq) 300 mg PEG BID [facility] Last Admin: 03/27/18 18:24 Dose: 300 mg Hydromorphone HCl (Dilaudid) 1 mg IVP Q4H PRN PRN Reason: Pain, severe (8-10) Last Admin: 03/27/18 19:39 Dose: 1 mg Meropenem/Sodium Chloride (Merrem Iv 500 Mg/Ns 50 Ml) 500 mg in 50 mls @ 12.5 mls/hr IVPB Q12 [facility]; Protocol Stop: 04/01/18 10:01 Last Admin: 03/27/18 21:13 Dose: 12.5 mls/hr Memantine (Namenda) 5 mg PEG DAILY [facility] Last Admin: 03/27/18 09:58 Dose: 5 mg Pantoprazole Sodium (Protonix Inj) 40 mg IVP BID [facility] Last Admin: 03/27/18 18:12 Dose: 40 mg Primidone (Mysoline) 50 mg PO TID [facility] Last Admin: 03/27/18 18:25 Dose: 50 mg Tramadol HCl (Ultram) 50 mg GT BID PRN PRN Reason: Pain, moderate (4-7) Last Admin: 03/27/18 09:55 Dose: 50 mg - Labs Labs: 03/26/18 06:50 03/27/18 05:00 PT 13.7 SECONDS (9.4-12.5) H 03/20/18 19:00 INR 1.20 03/20/18 19:00 APTT 34.2 Seconds (25.1-36.5) 03/20/18 19:00 - Constitutional Appears: Non-toxic, No Acute Distress - Eye Exam Eye Exam: Normal appearance - Respiratory Exam Respiratory Exam: absent: Rhonchi, Respiratory Distress - Cardiovascular Exam Cardiovascular Exam: RRR, +S1, +S2. absent: Gallop, Rubs - GI/Abdominal Exam GI & Abdominal Exam: Soft, Tenderness. absent: Distended - Extremities Exam Additional comments: mild b/l lower leg edema; - Neurological Exam Neurological Exam: Alert, Awake Additional comments: non-verbal; - Psychiatric Exam Psychiatric exam: Agitated - Skin Skin Exam: Warm. absent: Cyanosis Assessment and Plan (1) Acute renal failure (ARF) Assessment & Plan: Oliguric renal failure of unclear etiology; hemodynamically stable, no hypotension during this admission; tolerating HD well with last session yesterday; -2L UF only session today with goal to keep euvolemic in the setting of severe pulmonary htn (per echo); -avoid nephrotoxic agents Status: Acute (2) Anemia Assessment & Plan: Hgb stable lately, endoscopy now on hold until family agrees; continue liquid ferrous sulfate; Status: Acute (3) Decubitus ulcer Assessment & Plan: On meropenem, dosed for HD, continue per ID; Status: Acute (4) Hypertension Assessment & Plan: BP controlled on amlodipine, continue; Status: Chronic (5) Pulmonary hypertension Assessment & Plan: Normal RV function per echo; goal is to avoid right sided volume overload; may need extra ultrafiltration sessions in the setting of renal failure; Status: Acute - Assessment and Plan (Free Text) Assessment: 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
--- NOTE | 2018-03-28 00:29 | PN ---
DATE: 03/27/2018 PULMONARY PROGRESS NOTE REFERRING PHYSICIAN: Kayleen Mora MD. SUBJECTIVE: The patient is lying in bed, sleepy, does not follow commands, arousable. No cough, no sputum, no hemoptysis, no hematemesis. No leg pain, no leg swelling. Has pressure ulcers. PHYSICAL EXAMINATION: VITAL SIGNS: Temperature 98.7, pulse 106, blood pressure 146/61, respiratory rate 20, pulse ox 97%. GENERAL: Sleepy, in no acute distress. HEENT: Moist mucous membrane. Crowded airway. NECK: Supple. No JVD. LUNGS: Few scattered rhonchi. CARDIAC: S1 and S2. ABDOMEN: Soft and nontender. G-tube. EXTREMITIES: No edema. NEUROLOGICAL: Sleepy, does not follow commands. LABORATORY DATA: Laboratory results reviewed. No new data since yesterday. Sodium 135, potassium 3.8, chloride 103, carbon dioxide 28, anion gap 8, BUN 49, creatinine 2.1, GFR 28/23, calcium 7.3. MEDICATIONS: Reviewed. Vitamin D 5000 units daily, primidone 50 mg p.o. 3 times a day, meropenem 500 mg every 12 hours. No other changes since yesterday. IMPRESSION AND PLAN: Acute renal failure, on dialysis; bilateral pleural effusion; pulmonary infiltrate with atelectasis; multiple decubitus; anemia; metabolic acidosis; hypertension; diabetes; dementia. Pulmonary point of view, prognosis is poor. Case discussed with nursing staff at bedside. Continue supplemental oxygen. Keep head elevated at 45 degrees. Antibiotics as per Infectious Disease. Followup labs in the morning. Pressure ulcer precaution. This patient was examined with Dr. Putnam and discussed assessment and plan as described above. Thank you for this consult and we will follow with you. Madeline Casey APN Jarrett Putnam MD MTDSrinivas
[2018-03-28] MEDS: HYDROmorphone 1 mg/ml ISec IVP PRN ×5 (03:30→22:04)
[2018-03-28 06:31] LABS: ALB/GLOB RATIO 0.7 (1.1-1.8); ALBUMIN 2.3 g/dL (3.0-4.8)
[2018-03-28 07:11] LABS: BASO # 0.01 K/mm3 (0.0-2.0); EOS # 0.6 (0.0-0.7); EOS % 2.9 % (1.5-5.0); GRAN # 17.19 (1.4-6.5); GRAN % 85.9 % (50.0-68.0); HEMOGLOBIN 8.5 g/dL (12.0-16.0); LYMPH # 0.9 (1.2-3.4); LYMPH % 4.3 % (22.0-35.0); MEAN CORPUSCULAR HEMOGLOBIN 28.2 pg (25.0-35.0); MEAN CORPUSCULAR HGB CONC 32.1 g/dl (31.0-37.0); MEAN PLATELET VOLUME 10.2 fl (7.0-11.0); MONO # 1.4 (0.1-0.6); MONO % 6.9 % (1.0-6.0); PLATELET COUNT 104 10^3/uL (120.0-450.0); RBC 3.01 10^6/uL (3.5-6.1); RED CELL DISTRIBUTION WIDTH 16.6 % (11.5-14.5)
--- NOTE | 2018-03-28 08:21 | CP.PCM.PCO ---
Physician Communication Note - Physician Communication Note Physician Communication Note: Worsening pulm infiltrates/[id number]/Decubitus stable/Guarded!
[2018-03-28 08:27] LABS: EOSINOPHIL 5 % (0.0-3.0); LYMPHOCYTE 2 % (22.0-35.0); MONOCYTE 5 % (1.0-6.0); NEUTROPHIL 88 % (50.0-70.0)
[2018-03-28 08:28] LABS: ANISOCYTOSIS SLIGHT; PLATELET ESTIMATE LOW (NORMAL)
[2018-03-28] MEDS: Ferrous Sulfate 300 mg/5 mL Liq UD PEG SCH ×2 (09:10→17:11)
[2018-03-28] MEDS: Cholecalciferol 1,000 INTLU TAB PO SCH (09:11)
[2018-03-28] MEDS: MEROPENEM 500 MG in NS 500 MG/50 ML BAG IVPB SCH ×2 (09:12→21:09)
[2018-03-28] MEDS ORDERED: Vancomycin 1gm in NS 250ml 1 GM/250 ML BAG IVPB STA (09:16)
--- NOTE | 2018-03-28 11:28 | RAD ---
Date of service: 03/28/2018 HISTORY: wbc 20k COMPARISON: 03/23/2018 and 03/26/2018 serial chest radiographs. 03/25/2018 CT thorax. Summary of findings on the comparison examination: Large bilateral pleural effusions and consolidative changes. FINDINGS: LUNGS: Stable multifocal infiltrates. PLEURA: Stable bilateral pleural effusions CARDIOVASCULAR: Atherosclerotic calcifications identified primarily aortic arch. Venous access catheters in stable, satisfactory position. OSSEOUS STRUCTURES: No significant abnormalities. VISUALIZED UPPER ABDOMEN: Normal. OTHER FINDINGS: None. IMPRESSION: No significant interval change compared to the prior examination(s).
--- NOTE | 2018-03-28 11:29 | CP.PCM.PN ---
<Kye Butler - Last Filed: 03/28/18 11:26> Subjective - Date & Time of Evaluation Date of Evaluation: 03/28/18 Time of Evaluation: 11:26 - Subjective Subjective: No changes. Nursing does not report any acute changes. Tolerating tube feeds well. Demented. Objective - Vital Signs/Intake and Output Vital Signs (last 24 hours): Temp Pulse Resp BP Pulse Ox 98.9 F 100 H 29 H 153/71 H 97 03/28/18 00:00 03/28/18 09:12 03/28/18 01:00 03/28/18 09:12 03/28/18 02:00 Intake and Output: 03/28/18 03/28/18 06:59 18:59 Output Total 100 Balance -100 - Medications Medications: Current Medications Amlodipine Besylate (Norvasc) 5 mg PEG DAILY [facility] Last Admin: 03/28/18 09:12 Dose: 5 mg Atorvastatin Calcium (Lipitor) 10 mg PEG DIN [facility] Last Admin: 03/27/18 18:25 Dose: 10 mg Cholecalciferol (Vitamin D) 5,000 intlu PO DAILY [facility] Last Admin: 03/28/18 09:11 Dose: 5,000 intlu Ferrous Sulfate (Feosol Liq) 300 mg PEG BID [facility] Last Admin: 03/28/18 09:10 Dose: 300 mg Hydromorphone HCl (Dilaudid) 1 mg IVP Q4H PRN PRN Reason: Pain, severe (8-10) Last Admin: 03/28/18 07:16 Dose: 1 mg Meropenem/Sodium Chloride (Merrem Iv 500 Mg/Ns 50 Ml) 500 mg in 50 mls @ 12.5 mls/hr IVPB Q12 [facility]; Protocol Stop: 04/01/18 10:01 Last Admin: 03/28/18 09:12 Dose: 12.5 mls/hr Memantine (Namenda) 5 mg PEG DAILY [facility] Last Admin: 03/28/18 09:11 Dose: 5 mg Pantoprazole Sodium (Protonix Inj) 40 mg IVP BID [facility] Last Admin: 03/28/18 09:10 Dose: 40 mg Primidone (Mysoline) 50 mg PO TID [facility] Last Admin: 03/28/18 09:11 Dose: 50 mg Tramadol HCl (Ultram) 50 mg GT BID PRN PRN Reason: Pain, moderate (4-7) Last Admin: 03/27/18 09:55 Dose: 50 mg - Labs Labs: 03/28/18 07:00 03/28/18 06:00 PT 13.7 SECONDS (9.4-12.5) H 03/20/18 19:00 INR 1.20 03/20/18 19:00 APTT 34.2 Seconds (25.1-36.5) 03/20/18 19:00 - Constitutional Appears: Non-toxic, Chronically Ill - Head Exam Head Exam: NORMAL INSPECTION - Eye Exam Eye Exam: Normal appearance - ENT Exam ENT Exam: Mucous Membranes Moist - Respiratory Exam Respiratory Exam: Clear to Ausculation Bilateral, NORMAL BREATHING PATTERN - Cardiovascular Exam Cardiovascular Exam: REGULAR RHYTHM - GI/Abdominal Exam GI & Abdominal Exam: Normal Bowel Sounds - Extremities Exam Extremities Exam: Normal Inspection - Neurological Exam Neurological Exam: Altered - Psychiatric Exam Psychiatric exam: Flat Affect - Skin Skin Exam: Dry, Normal Color Assessment and Plan - Assessment and Plan (Free Text) Assessment: 77 yo BF with dementia s/p PEG, HTN, DM, decubitus ulcers sent in from [facility] for evaluation of anemia, GI bleed, Pneumonia and CHINMAY. # Acute Normocytic Anemia, occult GI bleed: Hgb 5.9 from 10 on 03/01/18, stable. Vitals stable. Stool dark green but FOBT+. Given elevated BUN and lack of hematochezia suspect upper GI source rather than lower source. Vitals stable and Hgb hyper-responded from 5.9 -> 10 after 2 units PRBCs. # Dementia: s/p PEG 03/01/18. Pt without decision making capacity. # CHINMAY: Cr 5 from 1.2. Uremia. Suspect pre-renal from significant anemia, likely related to GI losses. Started on HD 03/23 # Sepsis: Due to PNA, decubitus ulcers, UTI Plan: - IV PPI daily - Monitor Hgb - Discussing goals of care with POA; patient does not have decision making capacity - Discussed with family members, Gudelia at numbers below --- POA and family do not want EGD at this time since bleeding seems to have stabilized --- They want to discuss patient's progress with all consultants before considering EGD; their inclination is to hold off completely on EGD unless patient is actively bleeding. Pt discussed with Dr. Rivas; see attestation for further recs/changes. POA: Heena, sister to patient, Daughter of POA (Pt's niece): Fatimah Gonzalez When calling to discuss status, preference is to call to Fatimah to help explain to Heena <Sharla Rivas V - Last Filed: 03/28/18 20:44> Objective - Vital Signs/Intake and Output Vital Signs (last 24 hours): Temp Pulse Resp BP Pulse Ox 99.0 F 98 H 18 135/58 L 99 03/28/18 16:00 03/28/18 17:36 03/28/18 17:00 03/28/18 17:00 03/28/18 17:00 Intake and Output: 03/28/18 03/29/18 18:59 06:59 Intake Total 940 Output Total 100 Balance 840 - Medications Medications: Current Medications Amlodipine Besylate (Norvasc) 5 mg PEG DAILY [facility] Last Admin: 03/28/18 09:12 Dose: 5 mg Atorvastatin Calcium (Lipitor) 10 mg PEG DIN [facility] Last Admin: 03/28/18 17:10 Dose: 10 mg Cholecalciferol (Vitamin D) 5,000 intlu PO DAILY [facility] Last Admin: 03/28/18 09:11 Dose: 5,000 intlu Ferrous Sulfate (Feosol Liq) 300 mg PEG BID [facility] Last Admin: 03/28/18 17:11 Dose: 300 mg Hydromorphone HCl (Dilaudid) 1 mg IVP Q4H PRN PRN Reason: Pain, severe (8-10) Last Admin: 03/28/18 17:10 Dose: 1 mg Meropenem/Sodium Chloride (Merrem Iv 500 Mg/Ns 50 Ml) 500 mg in 50 mls @ 12.5 mls/hr IVPB Q12 [facility]; Protocol Stop: 04/01/18 10:01 Last Admin: 03/28/18 09:12 Dose: 12.5 mls/hr Memantine (Namenda) 5 mg PEG DAILY [facility] Last Admin: 03/28/18 09:11 Dose: 5 mg Pantoprazole Sodium (Protonix Inj) 40 mg IVP DAILY [facility] Primidone (Mysoline) 50 mg PO TID [facility] Last Admin: 03/28/18 17:10 Dose: 50 mg Tramadol HCl (Ultram) 50 mg GT BID PRN PRN Reason: Pain, moderate (4-7) Last Admin: 03/27/18 09:55 Dose: 50 mg - Labs Labs: 03/28/18 07:00 03/28/18 06:00 PT 13.7 SECONDS (9.4-12.5) H 03/20/18 19:00 INR 1.20 03/20/18 19:00 APTT 34.2 Seconds (25.1-36.5) 03/20/18 19:00 Attending/Attestation - Attestation I have personally seen and examined this patient.: Yes I have fully participated in the care of the patient.: Yes I have reviewed all pertinent clinical information, including history, physical exam and plan: Yes Notes (Text): This is an addendum to GI progress report dictated by the GI Fellow.The patient was seen and examined earlier. Medical records, lab studies, imagings were reviewed. Last 24 hours events reviewed. Agreed with the above treatment plan as outlined in GI Fellow 's notes with the addition of the following Patient comfortable not in acute distress tolerating tube feeding Abdomen soft Hb stable Continue antibiotics as per ID Consider EGD when patient is optimized and family is agreeable Discussed with Dr. Mora 03/28/18 20:42
[2018-03-28 11:54] LABS: URINE BILIRUBIN NEGATIVE (NEGATIVE); URINE BLOOD MODERATE (NEGATIVE); URINE GLUCOSE (UA) NEGATIVE (NEGATIVE); URINE LEUKOCYTE ESTERASE LARGE Leu/uL (NEGATIVE); URINE PROTEIN 100 mg/dL (<30 mg/dL); URINE UROBILINOGEN 0.2 E.U./dL (<1 E.U./dL)
[2018-03-28 11:55] LABS: URINE APPEARANCE CLOUDY (CLEAR); URINE COLOR YELLOW (YELLOW)
[2018-03-28 12:05] LABS: URINE BACTERIA MOD (NEG); URINE RBC 0 - 2 /hpf (0-2); URINE WBC TNTC /hpf (0-6)
--- NOTE | 2018-03-28 17:55 | PN ---
DATE: 03/27/2018 SUBJECTIVE: The patient is 77-year-old female. The patient was seen and examined at the bedside on 03/27/2018. Looking comfortable. No cough, no shortness of breath. No fever, no chills. Still has pressure ulcers, has wound VAC. PHYSICAL EXAMINATION: VITAL SIGNS: Temperature 98.7, pulse 106, blood pressure 140/60, respiratory rate 18, pulse oximetry 97. HEENT: Head normocephalic, atraumatic. Eyes: PERRLA. Extraocular muscles intact. Conjunctivae clear. Nose patent. Mucous membrane moist. NECK: Supple. No carotid bruit, no JVD, no thyromegaly. CHEST: Bilaterally symmetrical. HEART: S1, S2 positive. LUNGS: Clear to auscultation. ABDOMEN: Soft. Bowel sounds present. No organomegaly. Has a G-tube. EXTREMITIES: Trace edema. NEUROLOGICAL: The patient is sleepy, looks comfortable. LABORATORY DATA: Sodium 135, potassium 3.8, BUN 49, creatinine 2.1, calcium 7.3. MEDICATIONS: Vitamin D, primidone, and meropenem. ASSESSMENT AND PLAN: Ms. Otis Canela is 77-year-old female with multiple medical problems, acute renal failure, on dialysis, bilateral pleural effusion, pulmonary infiltrates with atelectasis and multiple decubitus ulcers, lung infiltrate, metabolic acidosis, hypertension, chronic obstructive pulmonary disease, and dementia. The patient is in the unit, receiving IV antibiotics, wound care team is on the case. Continue present treatment. Gastric and deep venous thrombosis prophylaxes. Repeat labs. We will follow up. Kayleen Mora MD
--- NOTE | 2018-03-28 18:29 | PN ---
DATE: 03/28/2018 SUBJECTIVE: The patient is in bed, in no acute distress, nontoxic. PHYSICAL EXAMINATION: VITAL SIGNS: Temperature is 98, blood pressure is 140/50, respiratory rate of 18. HEENT: Unremarkable. NECK: Supple. LUNGS: Decreased breath sounds. HEART: Normal S1, S2. ABDOMEN: Soft. LABORATORY EXAMINATION: Reveals a white count is 20,000, hemoglobin of 8, platelets of 104. Chemistries reveal a BUN of 63, creatinine of 2.3. Urinalysis is noted. Immunology is reviewed. Serology is noted. Microbiology is reviewed. ASSESSMENT AND PLAN: A 77-year-old female who appears much older than her stated age, hypertension, dyslipidemia, dementia, osteoporosis, recent hospitalization with severe sepsis, multiple decubitus ulcers, skin and skin structure infection, acute kidney injury. Vancomycin-resistant Enterococcus in the urine, most likely a colonizer and Enterococcus, not pathogen, currently on meropenem, today is day #8 of meropenem with complete 10 days. Review of orders confirms the meropenem to be active. Dr. Hillman' note is reviewed. Overall prognosis is quite poor. Should consider a hospice setting for this patient with poor quality of life, now with an increase in WBCs of 20,000 this morning. We will repeat gaines cultures and order a procalcitonin. Repeat chest x-ray. We will follow with you. We will also repeat a chest x-ray and give a dose of vancomycin. Eleazar Retana MD
--- NOTE | 2018-03-28 18:54 | PN ---
DATE: 03/28/2018 PULMONARY PROGRESS NOTE REFERRING PHYSICIAN: Kayleen Mora MD SUBJECTIVE: She is lying in the bed, head at 45 degrees. Moaning at a time. Nonverbal. Does not follow command. Tolerating G-tube feeding well. No cough. No sputum production. Has upper and lower extremity swelling. OBJECTIVE: GENERAL: In no acute distress. VITAL SIGNS: Temperature is 98, heart rate is 98, respiratory rate is 18, blood pressure 135/58, pulse ox 99% on nasal cannula. HEENT: Small oral cavity. No ulcer or thrush noted. NECK: Supple. No JVD. LUNGS: Have a fair airflow with few rhonchi. HEART: S1 and S2. ABDOMEN: Soft, nontender, nondistended. Has a G-tube. EXTREMITIES: Does have upper and lower extremity edema. Has multiple pressure ulcers with wound VAC. NEUROLOGICAL: Awake, alert. Does not follow command. MEDICATIONS: She is on Dilaudid 1 mg every 4 hours p.r.n., ferrous sulfate 300 mg G-tube twice a day, Lipitor 10 mg G-tube daily, meropenem is at 500 mg every 12 hours, Mysoline 50 mg three times a day, Namenda 5 mg daily, Norvasc 5 mg daily, Protonix 40 mg daily, Ultram 50 mg every 12 hours p.r.n. and vitamin D 50,000 International Units daily. LABORATORY DATA: Shows hemoglobin 8.5, hematocrit 26.5, WBC 20,000, platelet count is 104. Sodium 134, potassium 4.4, chloride 103, bicarbonate 25, BUN 63, creatinine 2.3, glucose 115, calcium is 8, phosphorus 2, magnesium is 2, AST 35, ALT 34, alk phos is 224, albumin is 2.3. Had a chest x-ray done today, it shows no significant interval changes compatible with prior examination. Has a stable multifocal infiltrate. Stale bilateral pleural effusion. IMPRESSION AND PLAN: Acute renal failure, underwent dialysis; bilateral pleural effusion; edema of the upper and lower extremities, third spacing the fluid; also has pleural effusion with infiltrate and atelectasis. Has multiple decubiti ulcers, has a wound vacuum-assisted closure, being followed by surgery. Severe anemia, history of hypertension, diabetes, dementia. Case discussed with the patient and family at bedside in detail. All the questions answered. Also spoke to nursing staff. Continue bronchodilator. Keep head at 45 degrees. Antibiotics as she follow up. Wound vacuum-assisted closure on the wound. Nephrology followup. We will also get Physical Therapy involved. Seems like she is developing some contracture. Follow up labs in the morning. Critical care time, I spent more than 35 minutes. Thank you and we will follow with you. Jarrett Putnam MD
--- NOTE | 2018-03-29 01:34 | PN ---
DATE: 03/28/2018 SUBJECTIVE: The patient is a 77-year-old female. The patient was seen and examined at the bedside on 03/28/2018, looking comfortable, sleepy, arousable, but when she wakes up, she moans. Does not follow commands. Tolerating food from G-tube. She still has wound VAC. PHYSICAL EXAMINATION: VITAL SIGNS: Temperature 98, heart rate 98, respiratory rate 18, blood pressure 135/58, pulse oximetry 99% on nasal cannula. HEENT: Head normocephalic, atraumatic. Eyes PERRLA. Extraocular muscles intact. Conjunctivae clear. Nose patent. NECK: Supple. No carotid bruit. No JVD or thyromegaly. CHEST: Bilaterally symmetrical. HEART: S1 and S2 positive. LUNGS: Clear to auscultation. ABDOMEN: Soft, nontender. No organomegaly. Has G-tube. EXTREMITIES: Have swelling and has multiple pressure ulcer with wound VAC. NEUROLOGICAL: The patient is sometime sleepy and sometime awake, depend on pain medications. Does not follow commands. MEDICATIONS: Dilaudid, Lipitor, Mysoline, Namenda, Protonix, tramadol, vitamins. LABORATORY DATA: Hemoglobin 8.5, hematocrit 26.5, white blood cells 20,000, platelets 104. Sodium 134, potassium 4.4, BUN 63, creatinine 2.3. AST 35, ALT 34. ASSESSMENT AND PLAN: Ms. Otis Canela is a 77-year-old female, has acute renal failure, getting dialysis, bilateral pleural effusions, swelling of the extremities, third spacing of the fluid, pleural effusion with infiltrate and atelectasis, has multiple decubitus ulcer, has wound VAC-assisted closure. Surgery is on the case, taking care of wound VAC. Hypertension, diabetes mellitus. Length of time discussion done with patient's nurse. Try to make patient do not resuscitate and do not intubate, but family is not helping. Activities Director [employer] is on the case. Need to get bedside physical therapy. Gastric and deep vein thrombosis prophylaxis. Repeat labs. We will follow up. Kayleen Mora MD
[2018-03-29] MEDS: HYDROmorphone 1 mg/ml ISec IVP PRN (03:52)
[2018-03-29 06:32] LABS: HEMOGLOBIN 7.7 g/dL (12.0-16.0); MEAN CELL VOLUME 88.6 fl (80.0-105.0); MEAN CORPUSCULAR HEMOGLOBIN 28.2 pg (25.0-35.0); MEAN CORPUSCULAR HGB CONC 31.8 g/dl (31.0-37.0); MEAN PLATELET VOLUME 11.8 fl (7.0-11.0); RBC 2.73 10^6/uL (3.5-6.1); RED CELL DISTRIBUTION WIDTH 16.3 % (11.5-14.5); WHITE BLOOD COUNT 16.7 10^3/ul (4.5-11.0)
[2018-03-29 06:49] LABS: ALB/GLOB RATIO 0.7 (1.1-1.8); ALBUMIN 2.1 g/dL (3.0-4.8); CALCIUM 8.1 mg/dL (8.4-10.5)
[2018-03-29] MEDS: Cholecalciferol 1,000 INTLU TAB PO SCH (12:02)
[2018-03-29] MEDS: Ferrous Sulfate 300 mg/5 mL Liq UD PEG SCH ×2 (12:03→18:16)
[2018-03-29] MEDS: MEROPENEM 500 MG in NS 500 MG/50 ML BAG IVPB SCH ×2 (12:03→21:24)
--- NOTE | 2018-03-29 18:29 | CP.PCM.PN ---
<Kye Butler - Last Filed: 03/29/18 18:27> Subjective - Date & Time of Evaluation Date of Evaluation: 03/29/18 Time of Evaluation: 18:27 - Subjective Subjective: No changes. No acute events. Dialysis today. No reports of bleeding. Objective - Vital Signs/Intake and Output Vital Signs (last 24 hours): Temp Pulse Resp BP Pulse Ox 98.7 F 93 H 20 133/61 100 03/29/18 18:04 03/29/18 18:04 03/29/18 18:04 03/29/18 18:04 03/28/18 21:00 Intake and Output: 03/29/18 03/29/18 06:59 18:59 Intake Total 0 325 Output Total 50 Balance -50 325 - Medications Medications: Current Medications Amlodipine Besylate (Norvasc) 5 mg PEG DAILY [facility] Last Admin: 03/29/18 12:02 Dose: 5 mg Atorvastatin Calcium (Lipitor) 10 mg PEG DIN [facility] Last Admin: 03/29/18 18:16 Dose: 10 mg Cholecalciferol (Vitamin D) 5,000 intlu PO DAILY [facility] Last Admin: 03/29/18 12:02 Dose: 5,000 intlu Fentanyl (Duragesic) 1 patch TD Q72H [facility] Last Admin: 03/29/18 12:03 Dose: 1 patch Ferrous Sulfate (Feosol Liq) 300 mg PEG BID [facility] Last Admin: 03/29/18 18:16 Dose: 300 mg Meropenem/Sodium Chloride (Merrem Iv 500 Mg/Ns 50 Ml) 500 mg in 50 mls @ 12.5 mls/hr IVPB Q12 [facility]; Protocol Stop: 04/01/18 10:01 Last Admin: 03/29/18 12:03 Dose: 12.5 mls/hr Memantine (Namenda) 5 mg PEG DAILY [facility] Last Admin: 03/29/18 12:02 Dose: 5 mg Pantoprazole Sodium (Protonix Inj) 40 mg IVP DAILY [facility] Last Admin: 03/29/18 12:03 Dose: 40 mg Primidone (Mysoline) 50 mg PO TID [facility] Last Admin: 03/29/18 18:16 Dose: 50 mg Tramadol HCl (Ultram) 50 mg GT BID PRN PRN Reason: Pain, moderate (4-7) Last Admin: 03/29/18 03:52 Dose: 50 mg - Labs Labs: 03/29/18 05:50 03/29/18 05:50 PT 13.7 SECONDS (9.4-12.5) H 03/20/18 19:00 INR 1.20 03/20/18 19:00 APTT 34.2 Seconds (25.1-36.5) 03/20/18 19:00 - Constitutional Appears: Non-toxic, Cachectic, Chronically Ill - Respiratory Exam Respiratory Exam: Clear to Ausculation Bilateral, NORMAL BREATHING PATTERN - Cardiovascular Exam Cardiovascular Exam: REGULAR RHYTHM - GI/Abdominal Exam GI & Abdominal Exam: Soft, Normal Bowel Sounds. absent: Tenderness - Extremities Exam Extremities Exam: Normal Inspection - Psychiatric Exam Psychiatric exam: Flat Affect - Skin Skin Exam: Normal Color Assessment and Plan - Assessment and Plan (Free Text) Assessment: 77 yo BF with dementia s/p PEG, HTN, DM, decubitus ulcers sent in from [facility] for evaluation of anemia, GI bleed, Pneumonia and [facility]. # Acute Normocytic Anemia, occult GI bleed: Hgb 5.9 from 10 on 03/01/18, stable. Vitals stable. Stool dark green but FOBT+. Given elevated BUN and lack of hematochezia suspect upper GI source rather than lower source. Vitals stable and Hgb hyper-responded from 5.9 -> 10 after 2 units PRBCs. # Dementia: s/p PEG 03/01/18. Pt without decision making capacity. # CHINMA[facility]: Started on HD 03/23 # Sepsis: Due to PNA, decubitus ulcers, UTI Plan: - IV PPI daily - Monitor Hgb - Discussing goals of care with POA; patient does not have decision making capacity - Discussed with family members, Gudelia at numbers below --- POA and family do not want EGD at this time since bleeding seems to have stabilized --- They want to discuss patient's progress with all consultants before considering EGD; their inclination is to hold off completely on EGD unless patient is actively bleeding. Pt discussed with Dr. Rivas; see attestation for further recs/changes. POA: Henea, sister to patient, Daughter of POA (Pt's niece): Fatimah Carlos When calling to discuss status, preference is to call to Fatimah to help explain to Heena <Evelyn,Sharla V - Last Filed: 03/29/18 23:22> Objective - Vital Signs/Intake and Output Vital Signs (last 24 hours): Temp Pulse Resp BP Pulse Ox 98.7 F 87 20 133/61 100 03/29/18 18:04 03/29/18 22:00 03/29/18 18:04 03/29/18 18:04 03/28/18 21:00 Intake and Output: 03/29/18 03/30/18 18:59 06:59 Intake Total 325 478 Output Total 100 Balance 325 378 - Medications Medications: Current Medications Amlodipine Besylate (Norvasc) 5 mg PEG DAILY [facility] Last Admin: 03/29/18 12:02 Dose: 5 mg Atorvastatin Calcium (Lipitor) 10 mg PEG DIN [facility] Last Admin: 03/29/18 18:16 Dose: 10 mg Cholecalciferol (Vitamin D) 5,000 intlu PO DAILY [facility] Last Admin: 03/29/18 12:02 Dose: 5,000 intlu Fentanyl (Duragesic) 1 patch TD Q72H [facility] Last Admin: 03/29/18 12:03 Dose: 1 patch Ferrous Sulfate (Feosol Liq) 300 mg PEG BID [facility] Last Admin: 03/29/18 18:16 Dose: 300 mg Meropenem/Sodium Chloride (Merrem Iv 500 Mg/Ns 50 Ml) 500 mg in 50 mls @ 12.5 mls/hr IVPB Q12 [facility]; Protocol Stop: 04/01/18 10:01 Last Admin: 03/29/18 21:24 Dose: 12.5 mls/hr Memantine (Namenda) 5 mg PEG DAILY [facility] Last Admin: 03/29/18 12:02 Dose: 5 mg Pantoprazole Sodium (Protonix Inj) 40 mg IVP DAILY [facility] Last Admin: 03/29/18 12:03 Dose: 40 mg Primidone (Mysoline) 50 mg PO TID [facility] Last Admin: 03/29/18 18:16 Dose: 50 mg Tramadol HCl (Ultram) 50 mg GT BID PRN PRN Reason: Pain, moderate (4-7) Last Admin: 03/29/18 21:46 Dose: 50 mg - Labs Labs: 03/29/18 05:50 03/29/18 05:50 PT 13.7 SECONDS (9.4-12.5) H 03/20/18 19:00 INR 1.20 03/20/18 19:00 APTT 34.2 Seconds (25.1-36.5) 03/20/18 19:00 Attending/Attestation - Attestation I have personally seen and examined this patient.: Yes I have fully participated in the care of the patient.: Yes I have reviewed all pertinent clinical information, including history, physical exam and plan: Yes Notes (Text): This is an addendum to GI progress report dictated by the GI Fellow.The patient was seen and examined earlier. Medical records, lab studies, imagings were reviewed. Last 24 hours events reviewed. Agreed with the above treatment plan as outlined in GI Fellow 's notes with the addition of the following Tolerating G tube feeding This patient is planned to be discharged back to detention followup HCT If further significant drop of hb or active bleeding, melena would consider EGD after discussing with the family 03/29/18 23:20
--- NOTE | 2018-03-29 21:38 | PN ---
DATE: 03/29/2018 SUBJECTIVE: The patient is in bed, in no acute distress, nontoxic. PHYSICAL EXAMINATION: VITAL SIGNS: Temperature is 98, blood pressure is 115/50, respiratory rate of 20, heart rate of 91. HEENT: Unremarkable. NECK: Supple. LUNGS: Have decreased breath sounds. HEART: Normal S1, S2. ABDOMEN: Soft, nontender. LABORATORY EXAMINATION: Reveals a white count of 16,000, hemoglobin of 7, platelets of 139. BUN of 68, creatinine of 2.8. Urinalysis is noted. Immunology is noted. Serology is reviewed. Microbiology reveals the blood cultures are negative and there is Gram-positive cocci in the urine. ASSESSMENT/PLAN: A 77-year-old female who appears much older than stated age with hypertension, dyslipidemia, dementia, osteoporosis, recent hospitalization, severe sepsis, multiple decubitus ulcers, skin and skin structure infection, acute kidney injury, vancomycin-resistant enterococci in the urine, most likely a colonizer and Enterococcus, not a pathogen and today is day #9 of meropenem with complete 10 days of meropenem, today is day #9 of 10. Review of orders reveals the patient's white count of 16,700. Eleazar Retana MD
--- NOTE | 2018-03-29 21:55 | PN ---
DATE: 03/29/2018 PULMONARY PROGRESS NOTE REFERRING PHYSICIAN: Kayleen Mora MD. SUBJECTIVE: She is lying in the bed. Feels more comfortable. On supplement oxygen. Pulse ox 100%. No cough. No sputum production. No hemoptysis. No vomiting. Has some leg swelling and upper extremity swelling. Has decubiti ulcer. OBJECTIVE: GENERAL: In no acute distress. VITAL SIGNS: Temperature is 98, heart rate is 93, respiratory rate is 20, blood pressure 133/61, pulse ox 100% on nasal cannula. HEENT: Moist mucous membrane. No ulcer or thrush noted. NECK: Supple. No JVD. LUNGS: Have a few crackles. HEART: S1 and S2. ABDOMEN: Soft and nontender. No organomegaly. EXTREMITIES: Does have edema. Has multiple pressure ulcers with wound VAC. NEUROLOGICAL: Awake and alert. Not much verbal. Does not follow command. MEDICATIONS: She is on Duragesic patch every 72 hours, ferrous sulfate 300 mg twice a day, Lipitor 10 mg daily, meropenem 500 mg every 12 hours, Primidone 50 mg three times a day, Namenda 5 G-tube daily, Norvasc 5 mg daily, Protonix 40 mg daily, Ultram 50 mg twice a day p.r.n., vitamin D 5000 International Units daily. LABORATORY DATA: Shows hemoglobin 7.7, hematocrit 24.2, WBC 16,000, platelet is 139. Sodium 135, potassium 4.1, chloride 102, bicarbonate 27, BUN 68, creatinine 2.8, glucose 93, calcium is 8.1, AST 33, ALT 29, alk phos is 199, albumin is 2.1. Urine has gram-positive cocci. Repeat blood culture, there is no growth. IMPRESSION AND PLAN: Acute renal failure, being followed by Nephrology, on dialysis; pleural effusion; has lower extremity some edema; small pleural effusion and atelectasis; multiple decubiti ulcers, has a wound vacuum-assisted closure; severe anemia; hypertension; diabetes; dementia. Spoke to nursing staff. Physical Therapy had been called for bedside therapy. Continue bronchodilator. Antibiotics. Gastric prophylaxis. Deep venous thrombosis prophylaxis. Nephrology and Infectious Diseases followup. Also had been seen by Surgery. Thank you and we will follow with you. Jarrett Putnam MD Psychiatric # [id number]
--- NOTE | 2018-03-30 08:03 | PN ---
DATE: 03/29/2018 DIALYSIS PROGRESS NOTE This 77-year-old female was examined in the Renal Dialysis Unit at the [facility] ([facility]3] on 03/29/2018. She was dialyzing on a 140 sodium, 3 K bicarb bath on a F160 renal dialyzer. PHYSICAL EXAMINATION: VITAL SIGNS: At the time of my interview, her blood pressure at start of treatment was 207/77 with a pulse rate of 99. HEART: With S1, S2. LUNGS: Clear. ABDOMEN: Soft. EXTREMITIES: No edema. The patient has blood flow rates of 300 mL/minute and I am aiming for 2 liters off. A.m. laboratory showed a sodium of 135, K 4.1, chloride 102, bicarb 27, BUN 68, creatinine 2.8, blood sugar 108. Beatrice Martines MD MTDD
--- NOTE | 2018-03-30 08:07 | PN ---
DATE: 03/29/2018 SUBJECTIVE: The patient was seen and examined on the bedside on 03/29/2018, looking comfortable. No nausea, vomiting, or diarrhea. No hematuria or hematochezia. No swelling of the legs. No chest pain, no palpitation. The patient is a very poor historian. PHYSICAL EXAMINATION: VITAL SIGNS: Temperature 98, blood pressure 115/58, respiratory rate 20, heart rate 91. HEENT: Head: Normocephalic, atraumatic. Eyes: PERRLA. Extraocular muscles intact. Conjunctivae clear. Nose patent. Mucous membrane moist. NECK: Supple. No carotid bruit. No JVD or thyromegaly. CHEST: Bilaterally symmetrical. HEART: S1 and S2 positive. LUNGS: Clear to auscultation. ABDOMEN: Soft. Bowel sounds present. No organomegaly. EXTREMITIES: No edema. No cyanosis. NEUROLOGIC: The patient is awake, but is not able to do . complete neurological examination. MEDICATIONS: Duragesic patch, Feosol, Lipitor, Merrem, prednisone, Namenda, Norvasc, pantoprazole, tramadol, vitamin D. LABORATORY DATA: White blood cells 16.7, hemoglobin 7.7, hematocrit 24.2, platelets 139. Sodium 135, potassium 4.9, BUN 68, creatinine 2.8, glucose 111, calcium 8.1. ASSESSMENT AND PLAN: Ms. Otis Canela is a 77-year-old lady with leukocytosis; anemia; renal insufficiency, getting hemodialysis, will get blood transfusion during the dialysis; hyperglycemia; hypocalcemia; proteinuria; hematuria; urinary tract infection; hepatitises are negative; has multiple medical problems; history of hypertension; dyslipidemia; dementia; osteoporosis; recent hospitalization with severe sepsis, multiple decubitus ulcer; skin and skin structure infection; vancomycin-resistant enterococcus in the urine, most likely colonization and enterococcus not a pathogen and today is day #9 of meropenem, will complete 10 days of meropenem, today is the day #9 of 10. Length of time discussion done with the nurse practitionerMorelia. Reviewed Dr. Retana's notes. Gastrointestinal and deep venous thrombosis prophylaxes. Repeat labs. We will follow up. Kayleen Mora MD [facility] # [id number] MTDSrinivas
--- NOTE | 2018-03-30 08:11 | PN ---
DATE: 03/29/2018 DIALYSIS PROGRESS NOTE This 77-year-old female was reexamined in the [facility] on the date of 03/29/2018. Her blood pressure was 143/67, pulse rate 92, and I am aiming for 2 liters of fluid removal. Of note, her laboratory shows a white count of 16,700 and a hemoglobin of 7.7 with hematocrit of 24.2 and platelets of 139,000. As discussed with renal dialysis nursing, she will be typed and cross for 2 units of packed red blood cells. If it is not available before the end of this run, she will receive 1 unit of packed red blood cells on the cardiac unit and be scheduled for repeat dialysis in the a.m. for an additional 1 unit of packed red blood cells. I have also ordered a repeat CBC and it should be noted that the patient was admitted with guaiac-positive stools for which her family has refused endoscopy. She remains a full code. Beatrice Martines MD MTDSrinivas
--- NOTE | 2018-03-30 08:25 | PN ---
DATE: 03/28/2018 CRITICAL CARE PROGRESS NOTE SUBJECTIVE: This 77-year-old female was examined at her bedside in the CCU, bed 6 on the afternoon of 03/28/2018. Her critical care nurse was present for my interview, Jackelin Cristina, registered nurse. The patient appears more alert, but remains nonverbal. There were no reports of chest pain, fever, shortness of breath or hemoptysis. She was admitted with guaiac-positive stools and advanced anemia requiring blood cell transfusion, but to date has not had an endoscopy and on further discussion with ICU Nursing, it was brought to my attention that her family has not signed consent for any interventional endoscopic evaluations. PHYSICAL EXAMINATION: VITAL SIGNS: On physical exam, her temperature was 99.2, respirations 22, pulse 104 with a blood pressure of 153/71 and a pulse ox of 100% on nasal O2. HEAD: Normocephalic, atraumatic. Eyes no icterus. Ears: Clear. Throat: Noninjected. NECK: Supple. HEART: S1, S2. LUNGS: With occasional rhonchi. ABDOMEN: Soft. EXTREMITIES: No edema. SKIN: With multiple sacral hip and ankle and foot sores. VASCULAR: Legs warm to touch. PSYCHOLOGICAL: Lethargic. NEUROLOGIC: Marked deconditioning. LABORATORY DATA: White count 20,000, hemoglobin 8.5, hematocrit 26.5, platelets 104,000. Sodium 134, K 4.4, chloride 103, bicarb 25, BUN 63, creatinine 2.3, random blood sugar 115, calcium 8, phosphorous 2, magnesium 2. Bilirubin 0.3, AST 35, ALT 34 and alk phos 224. Hepatitis A, B, C serology was negative. Chest x-ray was reviewed. Her lungs shows stable multifocal infiltrates with a stable bilateral effusion pattern. IMPRESSION: A 77-year-old female with chronic renal failure, hemodialysis dependent with multiple bed sores on her hip, sacrum, ankle, foot, all chronic, and comorbidities of altered mental status, metabolic encephalopathy, organic brain syndrome, gastrointestinal bleeding, anemia of chronic disease, anemia of gastrointestinal bleeding, history of hyperlipidemia and vitamin D deficiency with marked deconditioning. PLAN: The plan is to prepare this patient for hemodialysis in a.m. She will have repeat electrolytes and CBC and will be transfused p.r.n. as discussed with her critical care nurse. Family has declined endoscopy, so the patient will continue on IV Protonix at present. She is ordered to have Feosol liquid through her PEG tube and is also continuing on meropenem parenterally under the direction of Dr. Retana from Infectious Disease. She remains on wound care, specialty mattress, aspiration precautions, PEG tube feedings as per primary care physician, wound VACs, bedside physical therapy and PICC line is intact. Greater than 35 minutes was spent in the care, review of x-rays, discussion of her treatment plan with nurseJonnie from Critical Care and preparation for hemodialysis orders in a.m. All questions were answered. Beatrice Martines MD MTDD
--- NOTE | 2018-03-30 09:17 | CP.PCM.PN ---
<Evelyn,Mikavil V - Last Filed: 03/30/18 23:53> Objective - Vital Signs/Intake and Output Vital Signs (last 24 hours): Temp Pulse Resp BP Pulse Ox 98.9 F 91 H 20 146/59 L 94 L 03/30/18 18:00 03/30/18 22:00 03/30/18 18:00 03/30/18 18:00 03/30/18 18:00 Intake and Output: 03/30/18 03/31/18 18:59 06:59 Intake Total 500 Output Total 100 Balance 400 - Medications Medications: Current Medications Amlodipine Besylate (Norvasc) 5 mg PEG DAILY [facility] Last Admin: 03/30/18 11:39 Dose: 5 mg Atorvastatin Calcium (Lipitor) 10 mg PEG DIN [facility] Last Admin: 03/30/18 18:02 Dose: 10 mg Cholecalciferol (Vitamin D) 5,000 intlu PO DAILY [facility] Last Admin: 03/30/18 11:40 Dose: 5,000 intlu Fentanyl (Duragesic) 1 patch TD Q72H [facility] Last Admin: 03/29/18 12:03 Dose: 1 patch Ferrous Sulfate (Feosol Liq) 300 mg PEG BID [facility] Last Admin: 03/30/18 18:02 Dose: 300 mg Meropenem/Sodium Chloride (Merrem Iv 500 Mg/Ns 50 Ml) 500 mg in 50 mls @ 12.5 mls/hr IVPB Q12 [facility]; Protocol Stop: 04/01/18 10:01 Last Admin: 03/30/18 21:13 Dose: 12.5 mls/hr Memantine (Namenda) 5 mg PEG DAILY [facility] Last Admin: 03/30/18 11:39 Dose: 5 mg Pantoprazole Sodium (Protonix Inj) 40 mg IVP DAILY [facility] Last Admin: 03/30/18 11:39 Dose: 40 mg Primidone (Mysoline) 50 mg PO TID [facility] Last Admin: 03/30/18 18:02 Dose: 50 mg Tramadol HCl (Ultram) 50 mg GT BID PRN PRN Reason: Pain, moderate (4-7) Last Admin: 03/30/18 18:02 Dose: 50 mg - Labs Labs: 03/29/18 05:50 03/29/18 05:50 PT 13.7 SECONDS (9.4-12.5) H 03/20/18 19:00 INR 1.20 03/20/18 19:00 APTT 34.2 Seconds (25.1-36.5) 03/20/18 19:00 Attending/Attestation - Attestation I have personally seen and examined this patient.: Yes I have fully participated in the care of the patient.: Yes I have reviewed all pertinent clinical information, including history, physical exam and plan: Yes Notes (Text): This is an addendum to GI progress report dictated by the GI Fellow.The patient was seen and examined earlier. Medical records, lab studies, imagings were reviewed. Last 24 hours events reviewed. Agreed with the above treatment plan as outlined in GI Fellow 's notes with the addition of the following 03/30/18 23:53 <Kye Butler - Last Filed: 03/31/18 10:43> Subjective - Date & Time of Evaluation Date of Evaluation: 03/30/18 Time of Evaluation: 09:13 - Subjective Subjective: Brown stool reported last night. Otherwise no new events. Objective - Vital Signs/Intake and Output Vital Signs (last 24 hours): Temp Pulse Resp BP Pulse Ox 98.7 F 94 H 20 133/61 100 03/29/18 18:04 03/30/18 05:11 03/29/18 18:04 03/29/18 18:04 03/28/18 21:00 Intake and Output: 03/30/18 03/30/18 06:59 18:59 Intake Total 1033 Output Total 300 Balance 733 - Medications Medications: Current Medications Amlodipine Besylate (Norvasc) 5 mg PEG DAILY [facility] Last Admin: 03/29/18 12:02 Dose: 5 mg Atorvastatin Calcium (Lipitor) 10 mg PEG DIN [facility] Last Admin: 03/29/18 18:16 Dose: 10 mg Cholecalciferol (Vitamin D) 5,000 intlu PO DAILY [facility] Last Admin: 03/29/18 12:02 Dose: 5,000 intlu Fentanyl (Duragesic) 1 patch TD Q72H [facility] Last Admin: 03/29/18 12:03 Dose: 1 patch Ferrous Sulfate (Feosol Liq) 300 mg PEG BID [facility] Last Admin: 03/29/18 18:16 Dose: 300 mg Meropenem/Sodium Chloride (Merrem Iv 500 Mg/Ns 50 Ml) 500 mg in 50 mls @ 12.5 mls/hr IVPB Q12 [facility]; Protocol Stop: 04/01/18 10:01 Last Admin: 03/29/18 21:24 Dose: 12.5 mls/hr Memantine (Namenda) 5 mg PEG DAILY [facility] Last Admin: 03/29/18 12:02 Dose: 5 mg Pantoprazole Sodium (Protonix Inj) 40 mg IVP DAILY [facility] Last Admin: 03/29/18 12:03 Dose: 40 mg Primidone (Mysoline) 50 mg PO TID [facility] Last Admin: 03/29/18 18:16 Dose: 50 mg Tramadol HCl (Ultram) 50 mg GT BID PRN PRN Reason: Pain, moderate (4-7) Last Admin: 03/29/18 21:46 Dose: 50 mg - Labs Labs: 03/29/18 05:50 03/29/18 05:50 PT 13.7 SECONDS (9.4-12.5) H 03/20/18 19:00 INR 1.20 03/20/18 19:00 APTT 34.2 Seconds (25.1-36.5) 03/20/18 19:00 - Constitutional Appears: Non-toxic, Confused, Cachectic, Chronically Ill - ENT Exam ENT Exam: Mucous Membranes Moist - Respiratory Exam Respiratory Exam: NORMAL BREATHING PATTERN - Cardiovascular Exam Cardiovascular Exam: +S1, +S2 - GI/Abdominal Exam GI & Abdominal Exam: Soft. absent: Tenderness - Neurological Exam Neurological Exam: Altered - Psychiatric Exam Psychiatric exam: absent: Normal Affect, Normal Mood - Skin Skin Exam: Normal Color Assessment and Plan - Assessment and Plan (Free Text) Assessment: 77 yo BF with dementia s/p PEG, HTN, DM, decubitus ulcers sent in from [facility] for evaluation of anemia, GI bleed, Pneumonia and [facility]. # Acute Normocytic Anemia, occult GI bleed: Hgb 5.9 from 10 on 03/01/18, stable. Vitals stable. Stool dark green but FOBT+. Given elevated BUN and lack of hematochezia suspect upper GI source rather than lower source. Vitals stable and Hgb hyper-responded from 5.9 -> 10 after 2 units PRBCs. # Dementia: s/p PEG 03/01/18. Pt without decision making capacity. # CHINMAY: Started on HD 03/23 # Sepsis: Due to PNA, decubitus ulcers, UTI Plan: - IV PPI daily - Monitor Hgb - Discussing goals of care with POA; patient does not have decision making capacity - Discussed with family members, Gudelia at numbers below --- POA and family do not want EGD at this time since bleeding seems to have stabilized --- They want to discuss patient's progress with all consultants before considering EGD; their inclination is to hold off completely on EGD unless p atient is actively bleeding. - If Hb continues to drop, should revisit conversation with family as she will likely be transfusion dependent. Pt discussed with Dr. Rivas; see attestation for further recs/changes. POA: Heena, sister to patient, Daughter of POA (Pt's niece): Fatimah Carlos When calling to discuss status, preference is to call to Fatimah to help explain to Heena
--- NOTE | 2018-03-30 10:48 | PN ---
DATE: 03/30/2018 SUBJECTIVE: The patient is in bed, in no acute distress. PHYSICAL EXAMINATION: VITAL SIGNS: On exam, temperature is 98, blood pressure is 130/60, respiratory rate of 18. HEENT: Examination of HEENT is unremarkable. NECK: Supple. LUNGS: Have decreased breath sounds. HEART: Normal S1, S2. ABDOMEN: Soft, nontender. LABORATORY DATA; Laboratory examination reveals a white count of 6700, hemoglobin of 7. Platelets are noted. Chemistries are reviewed. BUN of 68, creatinine of 2.8. Alk phos is noted. Serology is reviewed. Microbiology is noted. Dr. Martines's note from this morning is reviewed. ASSESSMENT AND PLAN: A 77-year-old female, who appears much older than her stated age with hypertension, dyslipidemia, dementia, osteoporosis, recent hospitalization, admitted with severe sepsis, multiple decubitus ulcers, skin and skin structure infection, acute kidney injury, vancomycin-resistant Enterococcus in the urine, which is consistent with a colonizer, not a pathogen. Today is day #10. I would discontinue the antibiotics after today's dose. The patient still continued to have a white count of 16,700 as of yesterday. We will check on today's CBC. Eleazar Retana MD
[2018-03-30] MEDS: Ferrous Sulfate 300 mg/5 mL Liq UD PEG SCH ×2 (11:39→18:02)
[2018-03-30] MEDS: Cholecalciferol 1,000 INTLU TAB PO SCH (11:40)
[2018-03-30] MEDS: MEROPENEM 500 MG in NS 500 MG/50 ML BAG IVPB SCH ×2 (11:46→21:13)
--- NOTE | 2018-03-30 23:29 | PN ---
DATE: 03/30/2018 PULMONARY PROGRESS NOTE REFERRING PHYSICIAN: Kayleen Mora MD SUBJECTIVE: She is lying in the bed, head at 45 degrees. Moaning at a time. Not much . Has nasal canula on. No hemoptysis. No hematemesis. Tolerating G-tube feeding well. Multiple decubiti ulcers with wound VAC. Has lower extremity contractures. OBJECTIVE: GENERAL: In no acute distress. VITAL SIGNS: Temperature is 98, heart rate is 101, respiratory rate is 20, blood pressure 146/59, pulse ox 94% on nasal cannula. HEENT: Moist mucous membrane. No ulcer or thrush noted. NECK: Supple. No JVD. LUNGS: Have fair airflow with few rhonchi. HEART: S1 and S2. ABDOMEN: Soft, nontender, nondistended. G-tube area looks okay. Has multiple decubiti ulcers. EXTREMITIES: There is no edema. NEUROLOGIC: Awake, alert, nonverbal. Does not follow command. MEDICATIONS: She is on fentanyl patch every 72 hours, ferrous sulfate 300 mg through G-tube twice a day, atorvastatin 10 mg G-tube daily, meropenem 500 mg every 12 hours, primidone 50 mg three times a day, Namenda 5 mg G-tube daily, Norvasc 5 mg daily, Protonix 40 mg daily, Ultram 50 mg twice a day p.r.n., vitamin D 5000 units daily. LABORATORY DATA: Reviewed and noted. Blood sugar this morning is 91. Urine culture has VRE. IMPRESSION AND PLAN: Acute renal failure, being followed by Nephrology, on dialysis; pleural effusion; lower extremity edema; atelectasis; multiple decubiti ulcers with wound vacuum-assisted closure; anemia, requiring transfusion; hypertension; diabetes; dementia. She is bedridden. We will continue bronchodilator. Keep head at 45 degrees. Infectious Disease will follow and wound vacuum-assisted closure on the wounds. Gastric prophylaxis. Deep venous thrombosis prophylaxis. Bedside physical therapy to prevent contracture. Follow up labs in the morning. Thank you and we will follow with you. Jarrett Putnam MD [facility] # [id number]
--- NOTE | 2018-03-31 01:36 | PN ---
DATE: 03/30/2018 SUBJECTIVE: The patient is a 77-year-old female. The patient was seen and examined at the bedside, looking comfortable. No fever. No chills. No nausea, vomiting, or diarrhea. The patient is sleepy, arousable, is not able to give review of system. PHYSICAL EXAMINATION: VITAL SIGNS: Temperature 98, blood pressure 130/60, respiratory rate 18, and pulse 80. HEENT: Head: Normocephalic, atraumatic. Eyes: PERRLA. Extraocular muscles intact. Conjunctivae clear. Nose patent. Mucus membranes moist. NECK: Supple. No carotid bruit. No JVD or thyromegaly. CHEST: Bilaterally symmetrical. HEART: S1 and S2 positive. LUNGS: Clear to auscultation. ABDOMEN: Soft. Bowel sounds present. No organomegaly. EXTREMITIES: Has multiple decubitus ulcer. NEUROLOGIC: The patient is sleepy and arousable. MEDICATIONS: Duragesic, ferous sulphate, Lipitor, primidone, Namenda, Norvasc, pantoprazole, tramadol, and vitamin D. LABORATORY DATA: White blood cells 16.7, hemoglobin 7.7, hematocrit 24.2, and platelets 139. Glucose 91, 92, 122, and 112. ASSESSMENT AND PLAN: Ms. Otis Canela is 77-year-old lady with leukocytosis, anemia, hyperglycemia, proteinuria, hematuria, urinary tract infection, has multiple medical problems. The patient appears older than her stated age, has hypertension, dyslipidemia, dementia, osteoporosis, recent hospitalization with severe sepsis, multiple decubitus ulcer, skin and skin structures infection, acute kidney injury, vancomycin-resistant Enterococcus in the urine, which is consistent with colonization, not to be pathogen, today is day #10. discontinue the antibiotics after today's dose. Continued to have white blood cell count of 16,700 as of yesterday. We will continue present treatment. Repeat labs. We will follow up. Kayleen Mora MD [facility]
[2018-03-31 07:12] LABS: ALB/GLOB RATIO 0.6 (1.1-1.8); ALBUMIN 2.1 g/dL (3.0-4.8); CALCIUM 8.5 mg/dL (8.4-10.5)
--- NOTE | 2018-03-31 09:21 | PN ---
DATE: 03/31/2018 SUBJECTIVE: The patient is in bed, in no acute distress, nontoxic. PHYSICAL EXAMINATION: VITAL SIGNS: On exam, temperature is 98, blood pressure is 140/80, respiratory rate of 18. HEENT: Examination of HEENT is unremarkable. NECK: Supple. LUNGS: Have decreased breath sounds. HEART: Normal S1 and S2. ABDOMEN: Soft. LABORATORY DATA: Laboratory examination reveals a white count of 16,000, hemoglobin of 7, BUN of 37, creatinine of 3.4. Blood cultures are no growth. ASSESSMENT AND PLAN: A 77-year-old female with hypertension, dyslipidemia, dementia, osteoporosis, recent hospitalization, admitted with severe sepsis, multiple decubitus ulcers, skin and skin structure and acute kidney injury. Currently, now off of antibiotics, afebrile. The patient's white count this morning, we will check on the CBC from this morning. We will make further recommendations. Review of orders reveals the patient to be . We will discontinue the meropenem, the patient has received 10 days. We will check on this morning's CBC on Ms. Canela. Eleazar Retana MD
[2018-03-31] MEDS: Ferrous Sulfate 300 mg/5 mL Liq UD PEG SCH ×2 (09:26→17:34)
[2018-03-31] MEDS: Cholecalciferol 1,000 INTLU TAB PO SCH (09:26)
[2018-03-31 10:52] VITALS: O2SAT 100
--- NOTE | 2018-03-31 11:12 | CP.PCM.PN ---
<Bright Dasilva - Last Filed: 03/31/18 17:26> Subjective - Date & Time of Evaluation Date of Evaluation: 03/31/18 Time of Evaluation: 10:20 - Subjective Subjective: PGY-4 GI Fellow Prog Note Pt lying in bed when seen this AM. Nursing states one loose brown BM overnight; no melena nor hematochezia. Unable to obtain ROS due to clinical condition Objective - Vital Signs/Intake and Output Vital Signs (last 24 hours): Temp Pulse Resp BP Pulse Ox 98.1 F 89 18 146/70 100 03/31/18 06:00 03/31/18 09:26 03/31/18 06:00 03/31/18 09:26 03/31/18 06:00 Intake and Output: 03/31/18 03/31/18 06:59 18:59 Intake Total 500 Output Total 200 Balance 300 - Medications Medications: Current Medications Amlodipine Besylate (Norvasc) 5 mg PEG DAILY [facility] Last Admin: 03/31/18 09:26 Dose: 5 mg Atorvastatin Calcium (Lipitor) 10 mg PEG DIN [facility] Last Admin: 03/30/18 18:02 Dose: 10 mg Cholecalciferol (Vitamin D) 5,000 intlu PO DAILY [facility] Last Admin: 03/31/18 09:26 Dose: 5,000 intlu Fentanyl (Duragesic) 1 patch TD Q72H [facility] Last Admin: 03/29/18 12:03 Dose: 1 patch Ferrous Sulfate (Feosol Liq) 300 mg PEG BID [facility] Last Admin: 03/31/18 09:26 Dose: 300 mg Memantine (Namenda) 5 mg PEG DAILY [facility] Last Admin: 03/31/18 09:27 Dose: 5 mg Pantoprazole Sodium (Protonix Inj) 40 mg IVP DAILY [facility] Last Admin: 03/31/18 09:26 Dose: 40 mg Primidone (Mysoline) 50 mg PO TID [facility] Last Admin: 03/31/18 09:26 Dose: 50 mg Tramadol HCl (Ultram) 50 mg GT BID PRN PRN Reason: Pain, moderate (4-7) Last Admin: 03/30/18 18:02 Dose: 50 mg - Labs Labs: 03/29/18 05:50 03/31/18 06:23 PT 13.7 SECONDS (9.4-12.5) H 03/20/18 19:00 INR 1.20 03/20/18 19:00 APTT 34.2 Seconds (25.1-36.5) 03/20/18 19:00 - Constitutional Appears: Confused, Cachectic, Chronically Ill - Head Exam Head Exam: ATRAUMATIC Additional comments: temporal wasting - ENT Exam ENT Exam: Mucous Membranes Dry, Normal External Ear Exam. absent: Mucous Membranes Moist - Respiratory Exam Respiratory Exam: NORMAL BREATHING PATTERN. absent: Accessory Muscle Use, Respiratory Distress - GI/Abdominal Exam GI & Abdominal Exam: Soft, Normal Bowel Sounds. absent: Bruit, Distended, Firm, Guarding, Rigid, Tenderness, Hernia, Mass, Organomegaly, Pulsatile Mass, Rebound Additional comments: +PEG with TFs running - Extremities Exam Additional comments: edematous extremities with PICC and R TDC Assessment and Plan - Assessment and Plan (Free Text) Assessment: 77 yo BF with dementia s/p PEG, HTN, DM, decubitus ulcers sent in from [facility] for evaluation of anemia, GI bleed, Pneumonia and [facility]. # Acute Normocytic Anemia, occult GI bleed: Hgb 5.9 from 10 on 03/01/18, stable. Stool dark green but FOBT+. Given elevated BUN and lack of hematochezia suspect upper GI source rather than lower source. Vitals stable and Hgb hyper- responded from 5.9 -> 10 after 2 units PRBCs shortly after admission. Hgb roug hly stable without signs of active GI bleed. Hgb appropriately responding to transfusions. # Dementia: s/p PEG 03/01/18. Pt without decision making capacity. # [facility]INMA[facility]: Started on HD 03/23 # Sepsis: Due to PNA, decubitus ulcers, UTI Plan: - IV PPI daily - Monitor Hgb - Discussing goals of care with POA; patient does not have decision making capacity - Discussed with family members, Heena and Fatimah at numbers below --- POA and family do not want EGD at this time since bleeding seems to have stabilized/resolved --- They decided to hold off completely on EGD unless patient is actively bleeding. - If Hgb continues to drop, should revisit conversation with family as she will likely be transfusion dependent. Pt discussed with Dr. Rivas; see attestation for further recs/changes. POA: Heena, sister to patient, Daughter of POA (Pt's niece): Fatimah Gonzalez When calling to discuss status, preference is to call to Fatimah to help explain to Heena <Sharla Rivas V - Last Filed: 03/31/18 21:13> Objective - Vital Signs/Intake and Output Vital Signs (last 24 hours): Temp Pulse Resp BP Pulse Ox 97.2 F L 60 18 126/49 L 100 03/31/18 18:00 03/31/18 18:00 03/31/18 18:00 03/31/18 18:00 03/31/18 06:00 Intake and Output: 03/31/18 04/01/18 18:59 06:59 Intake Total 0 405 Output Total 100 Balance -100 405 - Medications Medications: Current Medications Amlodipine Besylate (Norvasc) 5 mg PEG DAILY [facility] Last Admin: 03/31/18 09:26 Dose: 5 mg Atorvastatin Calcium (Lipitor) 10 mg PEG DIN [facility] Last Admin: 03/31/18 17:34 Dose: 10 mg Cholecalciferol (Vitamin D) 5,000 intlu PO DAILY [facility] Last Admin: 03/31/18 09:26 Dose: 5,000 intlu Fentanyl (Duragesic) 1 patch TD Q72H [facility] Last Admin: 03/29/18 12:03 Dose: 1 patch Ferrous Sulfate (Feosol Liq) 300 mg PEG BID [facility] Last Admin: 03/31/18 17:34 Dose: 300 mg Memantine (Namenda) 5 mg PEG DAILY [facility] Last Admin: 03/31/18 09:27 Dose: 5 mg Pantoprazole Sodium (Protonix Inj) 40 mg IVP DAILY [facility] Last Admin: 03/31/18 09:26 Dose: 40 mg Primidone (Mysoline) 50 mg PO TID [facility] Last Admin: 03/31/18 17:34 Dose: 50 mg Tramadol HCl (Ultram) 50 mg GT BID PRN PRN Reason: Pain, moderate (4-7) Last Admin: 03/30/18 18:02 Dose: 50 mg - Labs Labs: 03/31/18 11:50 03/31/18 11:50 PT 13.7 SECONDS (9.4-12.5) H 03/20/18 19:00 INR 1.20 03/20/18 19:00 APTT 34.2 Seconds (25.1-36.5) 03/20/18 19:00 Attending/Attestation - Attestation I have personally seen and examined this patient.: Yes I have fully participated in the care of the patient.: Yes I have reviewed all pertinent clinical information, including history, physical exam and plan: Yes Notes (Text): This is an addendum to GI progress report dictated by the GI Fellow.The patient was seen and examined earlier. Medical records, lab studies, imagings were reviewed. Last 24 hours events reviewed. Agreed with the above treatment plan as outlined in GI Fellow 's notes with the addition of the following Patient did drop hemoglobin but there was no obvious GI bleeding, no melena or BRPR Family indicated area that they would not consider endoscopy procedure or intervention unless there is an active bleeding continue supportive care Follow hemoglobin and hematocrit on examination abdomen soft G-tube in place 03/31/18 21:10
[2018-03-31 12:00] LABS: HEMOGLOBIN 9.5 g/dL (12.0-16.0); MEAN CELL VOLUME 90.2 fl (80.0-105.0); MEAN CORPUSCULAR HEMOGLOBIN 29.1 pg (25.0-35.0); MEAN CORPUSCULAR HGB CONC 32.2 g/dl (31.0-37.0); MEAN PLATELET VOLUME 11.4 fl (7.0-11.0); RBC 3.27 10^6/uL (3.5-6.1); RED CELL DISTRIBUTION WIDTH 15.7 % (11.5-14.5); WHITE BLOOD COUNT 9.8 10^3/ul (4.5-11.0)
[2018-03-31 12:13] LABS: CALCIUM 8.3 mg/dL (8.4-10.5)
--- NOTE | 2018-03-31 12:17 | PN ---
DATE: 03/30/2018 DIALYSIS PROGRESS NOTE SUBJECTIVE: This 77-year-old female was examined in the Renal Dialysis Unit at the [facility] on the afternoon of 03/30/2018. Present for this interview were her dialysis nurse, Karen Law, registered nurse. The patient is dialyzing on an F160, 140 sodium, 3K bicarb bath. PHYSICAL EXAMINATION: VITAL SIGNS: Her blood pressure was 187/82 with a pulse of 92. HEART: With S1, S2. LUNGS: Had decreased breath sounds at the bases. LABORATORY DATA: Her labs showed white count 16,700, hemoglobin 7.7, hematocrit 24.2 and platelets of 139,000. ASSESSMENT AND PLAN: The patient is receiving blood cell transfusion on this run and my goal is to remove 500 mL of fluid as tolerated. This was reviewed with nurse, Thanh, registered nurse for hemodialysis. Beatrice Martines MD MTDD
--- NOTE | 2018-03-31 15:16 | PN ---
DATE: 03/31/2018 PULMONARY PROGRESS NOTE REFERRING PHYSICIAN: Kayleen Mora MD. SUBJECTIVE: She is lying in the dialysis bed, having dialysis, quiet, awake, alert. Does not follow command. No hemoptysis. No hematemesis. No hematuria. No diarrhea report. Still third spacing. OBJECTIVE: GENERAL: In no acute distress. VITAL SIGNS: Temperature is 98, heart rate is 93, respiratory rate is 20, blood pressure 154/70, pulse ox 100% on nasal cannula. HEENT: Moist mucous membrane. No ulcer or thrush noted. NECK: Supple. No JVD. LUNGS: Have a fair airflow with few rhonchi. HEART: S1 and S2. ABDOMEN: Soft, nontender, nondistended. G-tube area looks okay. EXTREMITIES: Some contracture of lower extremity. Still has some edema. Has decubiti ulcers. NEUROLOGICAL: Awake, alert. Does not follow command. MEDICATIONS: She is on Duragesic patch every 72 hours, ferrous sulfate 300 mg twice a day, Lipitor 10 mg daily, Primidone 50 mg three times a day, Namenda 5 mg G-tube daily, Norvasc 5 mg daily, Protonix 40 mg daily, Ultram 50 mg twice a day p.r.n., vitamin D 50,000 units daily. LABORATORY DATA: Shows hemoglobin 9.5, hematocrit 29.5, WBC 9.8, platelet count is 155. Sodium 133, potassium 4.4, chloride 101, bicarbonate 24, BUN 92, creatinine 3.3, glucose 107, calcium is 8.3. Blood culture from 03/28/2018, there is no growth. Urine has vancomycin-resistant Enterococcus faecium. IMPRESSION AND PLAN: Acute renal failure, urinary tract infection, pleural effusion, lower extremity edema, malnutrition, multiple decubiti ulcers, high risk for pressure ulcers, anemia requiring transfusion, history of hypertension, diabetes, dementia. Pulmonary point of view, she is doing okay on nasal cannula. Spoke to Palliative Care. Overall, poor prognosis. Continue antibiotics as per Infectious Diseases. On dialysis. Pressure ulcer precaution. Gastric prophylaxis. Sequential compression device to lower extremity. Aspiration precaution. Thank you and we will follow with you. Jarrett Putnam MD
[2018-03-31 18:05] VITALS: BP 126/49; PULSE 60; RESP 18; TEMP 97.2
--- NOTE | 2018-04-01 02:15 | PN ---
DATE: 03/30/2018 SUBJECTIVE: This 77-year-old female was examined in the renal dialysis unit in the presence of renal nurse, Karen Law, registered nurse. The patient is dialyzing with blood flow rates of 300 ml per minute. Her blood pressure was 171/64 with a pulse of 88. She is receiving 1 unit of packed red blood cells for O2 carrying capacity and has multiple medical problems including infected sacral, heel, hip and foot ulcers as well as organic brain syndrome, bedridden status and hyperlipidemia. The patient is tolerating blood cell transfusion. She will be scheduled to remove 500 ml of fluid today. Her next hemodialysis schedule will be for a.m. We will check a.m. CBC and electrolytes as well. All of the above was reviewed with reviewed with nurse Law, registered nurse in hemodialysis. Beatrice Martines MD MTDSrinivas
--- NOTE | 2018-04-01 16:18 | PN ---
DATE: 03/31/2018 DIALYSIS PROGRESS NOTE SUBJECTIVE: This 77-year-old female is dialyzing in [facility] renal unit where she is noted to have a current hemoglobin of 9.5 and hematocrit of 29.5. She dialyzes on a F160, 140 sodium, 3K bicarb bath with blood flow rates of 300 mL per minute. PHYSICAL EXAMINATION VITAL SIGNS: Initial blood pressure was 215/78 with a pulse of 90,and presently her blood pressure is 143/64 with a pulse of 90. CARDIOPULMONARY: Heart is S1, S2. LUNGS: Clear. Beatrice Martines MD
--- NOTE | 2018-04-01 16:24 | PN ---
DATE: 03/31/2018 DIALYSIS PROGRESS NOTE SUBJECTIVE: This 77-year-old female was tolerating dialysis via a right Tesio [place] catheter, and case was reviewed with nurse, Karen Law, registered nurse. Her sodium is 133, K 4.4, chloride 101, bicarb 24, BUN 92, creatinine 3.3, random blood sugar 103 and calcium 8.3. Her white count is 9800, hemoglobin 9.5, hematocrit 29.5 and platelets 155,000. PLAN: Plan will be for this patient [facility]. She remains a full code, however, family has declined endoscopy. Beatrice Martines MD
--- NOTE | 2018-04-01 20:35 | DS ---
Discharged to [facility] on 03/31/2018. The patient was seen and examined at the bedside on 03/31/2018. CHIEF COMPLAINT: Coughing, shortness of breath, abnormal labs. HISTORY OF PRESENT ILLNESS: Ms. Otis Canela is a 77-year-old lady, was getting treatment in subacute rehab in [facility], came [facility] the emergency room [facility] for evaluation for aspiration pneumonia, coughing, shortness of breath and labs were done, hemoglobin was 5.9, and transfused 2 units of packed RBCs and was admitted to the telemetry unit for further evaluation and management. The patient was admitted in the unit also. There was couple of rapid response on this patient. Renal ultrasound was done. Cardiac catheterization was done. Wound VAC was placed. Seen by Dr. Putnam, pulmonary critical care, Dr. Rivas, GI and Dr. Beatrice Martines is a patient's signal worker. The patient is getting hemodialysis. Dr. Retana was ID. Seen by Dr. Alvino Hillman. The patient has pulmonary infiltrate. White blood cell went up, has decubitus ulcers. Got antibiotics. Sena Bernard was involved to talk to the patient, patient's family, sister, niece and grand-niece. Even myself I spoke with the patient's family, called them in my office. Plan to do DNR/DNI and hospice, but the family refused. Now, the patient was sent back to [facility]. Antibiotic course was completed. Continue feeding. PEG tube are placed by Dr. Galindo. PAST MEDICAL HISTORY: Hypertension, diabetes mellitus type 2, hypercholesterolemia, advanced dementia, history of GI bleeding, had multiple decubitus ulcer at various stages of healing, and chronic renal failure, getting dialysis. ALLERGIES: THE PATIENT IS NOT ALLERGIC TO ANY MEDICATIONS. REVIEW OF SYSTEMS: The patient was seen and examined at the bedside . The patient is awake, alert, but confused. No fever, no chills. No headache, no dizziness. No hematuria or hematochezia. Still had decubitus ulcer. Got dialysis. . PHYSICAL EXAMINATION: VITAL SIGNS: Temperature 98, heart rate 92, respiratory rate 20, blood pressure 150/70, pulse oximetry 100% on nasal cannula. HEENT: Head, normocephalic and atraumatic. Eyes, PERRLA. Extraocular muscles intact. Conjunctivae clear. Nose patent. NECK: Supple. No carotid bruit. No JVD or thyromegaly. LUNGS: Has fair airflow with few rhonchi. HEART: S1, S2 positive. ABDOMEN: Soft, nontender. No organomegaly. Has G-tube, working very well. EXTREMITIES: Has contractures, edema and decubitus ulcer. NEUROLOGICAL: The patient is awake, alert, confused, does not follow commands. MEDICATIONS: Duragesic patch, ferrous sulfate, Lipitor, Primidone, Namenda, Norvasc, Protonix, tramadol, and vitamin D. LABORATORY DATA: Hemoglobin 9.5, hematocrit 29.5, white blood cell 9.8, platelet count is 155. Sodium 133, potassium 4.4, BUN 92, creatinine 3.3, glucose 107, calcium 8.3. Blood cultures, no growth. Urine has vancomycin-resistant Enterococcus faecium. ASSESSMENT AND PLAN: Ms. Otis Canela is a 77-year-old lady with acute renal failure, urinary tract infection, pleural effusion, lower extremity edema, malnutrition, multiple decubitus ulcers, has wound WAC, high risk for pressure ulcers, anemia requiring multiple blood transfusion, history of hypertension, diabetes mellitus, dementia. I spoke to Palliative Care, but Palliative called the family multiple times, family is not responding to Palliative Care team. I spoke with family and family wants the patient FULL CODE. Overall, poor prognosis. Further pressure ulcer precautions. Gastric prophylaxis. Sequential compression device to lower extremity. Aspiration precautions. Discharge the patient to [facility]. We will follow up there. Kayleen Mora MD
== END 2018-03-31 22:05 | DRG 871 ==
LOC: ED 18:09 → ERH 20:14 → 2RSO 23:07 → CCU 03-21 17:58 → 2RSO 03-28 21:49
PROVIDERS: ADMIT Internal Medicine; ATTEND Internal Medicine
PROC: 30233N1 Transfusion of Nonautologous Red Blood Cells into Peripheral Vein, Percutaneous Approach (ICD-10-PCS; principal; 2018-03-20)
PROC: 5A1D70Z Performance of Urinary Filtration, Intermittent, Less than 6 Hours Per Day (ICD-10-PCS; 2018-03-20)
PROC: 05HM33Z Insertion of Infusion Device into Right Internal Jugular Vein, Percutaneous Approach (ICD-10-PCS; 2018-03-22)
PROC: B513ZZA Fluoroscopy of Right Jugular Veins, Guidance (ICD-10-PCS; 2018-03-22)
PROC: 5A1D70Z Performance of Urinary Filtration, Intermittent, Less than 6 Hours Per Day (ICD-10-PCS; 2018-03-23)
PROC: 0JH63XZ Insertion of Tunneled Vascular Access Device into Chest Subcutaneous Tissue and Fascia, Percutaneous Approach (ICD-10-PCS; 2018-03-24)
PROC: 5A1D70Z Performance of Urinary Filtration, Intermittent, Less than 6 Hours Per Day (ICD-10-PCS; 2018-03-24)
PROC: 0DJ08ZZ Inspection of Upper Intestinal Tract, Via Natural or Artificial Opening Endoscopic (ICD-10-PCS; 2018-03-26)
PROC: 5A1D70Z Performance of Urinary Filtration, Intermittent, Less than 6 Hours Per Day (ICD-10-PCS; 2018-03-27)
PROC: 5A1D70Z Performance of Urinary Filtration, Intermittent, Less than 6 Hours Per Day (ICD-10-PCS; 2018-03-29)
PROC: 5A1D70Z Performance of Urinary Filtration, Intermittent, Less than 6 Hours Per Day (ICD-10-PCS; 2018-03-30)
PROC: 5A1D70Z Performance of Urinary Filtration, Intermittent, Less than 6 Hours Per Day (ICD-10-PCS; 2018-03-31)
DX: A41.9 Sepsis, unspecified organism (principal); L89.154 Pressure ulcer of sacral region, stage 4; L89.214 Pressure ulcer of right hip, stage 4; L89.323 Pressure ulcer of left buttock, stage 3; J18.9 Pneumonia, unspecified organism; N18.6 End stage renal disease; G93.41 Metabolic encephalopathy; I12.0 Hypertensive chronic kidney disease with stage 5 chronic kidney disease or end stage renal disease; E87.1 Hypo-osmolality and hyponatremia; E87.2 Acidosis; K92.2 Gastrointestinal hemorrhage, unspecified; J90 Pleural effusion, not elsewhere classified; L97.909 Non-pressure chronic ulcer of unspecified part of unspecified lower leg with unspecified severity; N39.0 Urinary tract infection, site not specified; E87.0 Hyperosmolality and hypernatremia; R64 Cachexia; E44.0 Moderate protein-calorie malnutrition; N17.9 Acute kidney failure, unspecified; J98.11 Atelectasis; J44.0 Chronic obstructive pulmonary disease with (acute) lower respiratory infection; R65.20 Severe sepsis without septic shock; F03.90 Unspecified dementia, unspecified severity, without behavioral disturbance, psychotic disturbance, mood disturbance, and anxiety; E78.00 Pure hypercholesterolemia, unspecified; Z93.1 Gastrostomy status; Z79.899 Other long term (current) drug therapy; L89.619 Pressure ulcer of right heel, unspecified stage; D64.9 Anemia, unspecified; E86.0 Dehydration; R60.1 Generalized edema; E11.22 Type 2 diabetes mellitus with diabetic chronic kidney disease; Z87.11 Personal history of peptic ulcer disease; Z87.01 Personal history of pneumonia (recurrent); E55.9 Vitamin D deficiency, unspecified; D50.9 Iron deficiency anemia, unspecified; F09 Unspecified mental disorder due to known physiological condition; Z99.2 Dependence on renal dialysis; K21.0 Gastro-esophageal reflux disease with esophagitis; D50.0 Iron deficiency anemia secondary to blood loss (chronic); R62.7 Adult failure to thrive; Z74.01 Bed confinement status; M19.90 Unspecified osteoarthritis, unspecified site; E78.5 Hyperlipidemia, unspecified; L89.42 Pressure ulcer of contiguous site of back, buttock and hip, stage 2; E11.65 Type 2 diabetes mellitus with hyperglycemia; Z68.24 Body mass index [BMI] 24.0-24.9, adult; D63.8 Anemia in other chronic diseases classified elsewhere; F02.80 Dementia in other diseases classified elsewhere, unspecified severity, without behavioral disturbance, psychotic disturbance, mood disturbance, and anxiety; E11.621 Type 2 diabetes mellitus with foot ulcer; F41.9 Anxiety disorder, unspecified; G30.9 Alzheimer's disease, unspecified; I27.20 Pulmonary hypertension, unspecified; K27.9 Peptic ulcer, site unspecified, unspecified as acute or chronic, without hemorrhage or perforation; K29.70 Gastritis, unspecified, without bleeding; L08.9 Local infection of the skin and subcutaneous tissue, unspecified; L97.509 Non-pressure chronic ulcer of other part of unspecified foot with unspecified severity; M81.0 Age-related osteoporosis without current pathological fracture; Z51.5 Encounter for palliative care

== ENCOUNTER 2018-04-25 09:59 | Inpatient (IN) | payer MEDICARE, OTHER ==
[2018-04-25 11:57] LABS: ALB/GLOB RATIO 0.6 (1.1-1.8); ALBUMIN 2.3 g/dL (3.0-4.8); ALT/SGPT 184 U/L (7-56); AST/SGOT 99 U/L (14-36); BLOOD UREA NITROGEN 16 mg/dL (7-21); GFR NON-AFRICAN AMERICAN > 60
[2018-04-25 11:58] LABS: BASO # 0.01 K/mm3 (0.0-2.0); BASO % 0.1 % (0.0-3.0); EOS # 0.3 (0.0-0.7); EOS % 1.6 % (1.5-5.0); GRAN # 13.24 (1.4-6.5); GRAN % 83.8 % (50.0-68.0); HEMOGLOBIN 7.3 g/dL (12.0-16.0); LYMPH # 1.5 (1.2-3.4); LYMPH % 9.8 % (22.0-35.0); MEAN CELL VOLUME 95.4 fl (80.0-105.0); MEAN CORPUSCULAR HEMOGLOBIN 30.5 pg (25.0-35.0); MONO # 0.7 (0.1-0.6); MONO % 4.7 % (1.0-6.0); RBC 2.39 10^6/uL (3.5-6.1); RED CELL DISTRIBUTION WIDTH 16.8 % (11.5-14.5); WHITE BLOOD COUNT 15.8 10^3/uL (4.5-11.0)
[2018-04-25 12:15] LABS: INR 0.99; PARTIAL THROMBOPLASTIN TIME 32.4 Seconds (25.1-36.5); PROTHROMBIN TIME 11.4 SECONDS (9.4-12.5)
[2018-04-25 12:43] LABS: BASO # 0.01 K/mm3 (0.0-2.0); BASO % 0.1 % (0.0-3.0); EOS # 0.2 (0.0-0.7); EOS % 1.6 % (1.5-5.0); GRAN # 12.08 (1.4-6.5); GRAN % 82.1 % (50.0-68.0); HEMOGLOBIN 7.1 g/dL (12.0-16.0); LYMPH # 1.8 (1.2-3.4); LYMPH % 12.5 % (22.0-35.0); MEAN CELL VOLUME 94.9 fl (80.0-105.0); MEAN CORPUSCULAR HEMOGLOBIN 30.1 pg (25.0-35.0); MEAN CORPUSCULAR HGB CONC 31.7 g/dl (31.0-37.0); MEAN PLATELET VOLUME 9.6 fl (7.0-11.0); MONO # 0.6 (0.1-0.6); MONO % 3.7 % (1.0-6.0); RBC 2.36 10^6/uL (3.5-6.1); RED CELL DISTRIBUTION WIDTH 16.9 % (11.5-14.5); WHITE BLOOD COUNT 14.7 10^3/uL (4.5-11.0)
[2018-04-25 12:53] LABS: INR 0.98; PARTIAL THROMBOPLASTIN TIME 25.7 Seconds (25.1-36.5); PROTHROMBIN TIME 11.3 SECONDS (9.4-12.5)
[2018-04-25 13:02] LABS: ALB/GLOB RATIO 0.6 (1.1-1.8); ALBUMIN 2.2 g/dL (3.0-4.8); ALT/SGPT 175 U/L (7-56); AST/SGOT 93 U/L (14-36); BLOOD UREA NITROGEN 17 mg/dL (7-21); GFR NON-AFRICAN AMERICAN > 60
--- NOTE | 2018-04-25 14:51 | ED PDOC ---
Arrival/HPI - General Chief Complaint: Abnormal Labs Time Seen by Provider: 04/25/18 10:02 Historian: Patient - History of Present Illness Narrative History of Present Illness (Text): 04/25/18 10:46 A 77 year old female, whose past medical history includes dementia, hypertension, diabetes, high cholesterol and a decubitis ulcer, brought in from dialysis into the emergency department for documented low hemoglobin. Patient had full dialysis treatment today. Patient denies any physical complaints at this time. Limited HPI and ROS due for medical reasons. PMD: Dr. Mora Assistant Professor Of Life Sciences: Dr. Martines Past Medical History - Provider Review Nursing Documentation Reviewed: Yes - Past History Past History: No Previous - Infectious Disease Hx of Infectious Diseases: None - Cardiac Hx Hypertension: Yes - Pulmonary Hx Respiratory Disorders: No - Neurological Hx Dementia: Yes - HEENT Hx HEENT Disorder: No - Renal Hx Renal Disorder: No - Endocrine/Metabolic Hx Diabetes Mellitus Type 2: Yes - Hematological/Oncological Hx Blood Disorders: No - Integumentary Hx Dermatological Disorder: Yes Other/Comment: left gluteal decubiti ulcer with wound vac in place, right heel necrotic wound, multiple wounds to sacrum in various stages of healing, b/l bunyons, callous outer left foot, long thick toenails to both feet, crooked toes to left foot, dry skin, multiple skin discolorations ble - Musculoskeletal/Rheumatological Hx Arthritis: Yes (CONTRACTED L HIP/KNEE AND B/L ELB) - Gastrointestinal Hx Gastrointestinal Disorders: Yes (wt loss) - Genitourinary/Gynecological Hx Genitourinary Disorders: Yes Hx Incontinence: Yes (urine and stool) - Psychiatric Hx Psychophysiologic Disorder: Yes Hx Anxiety: Yes Hx Substance Use: No Other/Comment: dementia - Anesthesia Hx Anesthesia: No Family/Social History - Physician Review Nursing Documentation Reviewed: Yes Family/Social History: No Known Family HX Smoking Status: Never Smoked Hx Alcohol Use: No Hx Substance Use: No Hx Substance Use Treatment: No Allergies/Home Meds Allergies/Adverse Reactions: Allergies No Known Allergies Allergy (Verified 04/25/18 10:03) Home Medications: Home Meds Medication Instructions Recorded Confirmed Cholecalciferol [Vitamin D 1000 IU] 5,000 unit PEG DAILY 01/15/18 04/25/18 Pravastatin Sodium [Pravachol] 20 mg PO DAILY 01/15/18 04/25/18 Review of Systems - Review of Systems Systems not reviewed;Unavailable: Other (medical reasons) Physical Exam Vital Signs Temp Pulse Resp BP Pulse Ox 04/25/18 13:33 99 F 83 19 121/53 L 100 04/25/18 11:19 90 19 126/72 100 04/25/18 10:03 99.7 F H Temperature: Afebrile Appearance: Positive for: Other (thin) Mental Status: Positive for: Alert and Oriented X 3 - Systems Exam Head: Present: Atraumatic, Normocephalic Pupils: Present: PERRL Extroacular Muscles: Present: EOMI Conjunctiva: Present: Normal Mouth: Present: Moist Mucous Membranes Respiratory/Chest: Present: Clear to Auscultation, Good Air Exchange. No: Respiratory Distress, Accessory Muscle Use Cardiovascular: Present: Regular Rate and Rhythm, Normal S1, S2. No: Murmurs Abdomen: No: Tenderness, Distention, Peritoneal Signs Rectal: Present: Other (guaiac negative.) Upper Extremity: Present: Other (contracted) Lower Extremity: Present: Other (contracted) Neurological: Present: GCS=15, CN II-XII Intact, Speech Normal Skin: Present: Other (multiple wounds with wound vac) Psychiatric: Present: Alert, Oriented x 3, Normal Insight, Normal Concentration Medical Decision Making ED Course and Treatment: 04/25/18 10:48 Impression: 77 year old female brought in from dialysis for documented low hemoglobin. Plan: -- EKG -- Labs -- Reassess and disposition Prior Visits: Notes and results from previous visits were reviewed. Patient was last seen in the emergency department on 03/20/2018 for further evaluation of bilateral pneumonia, CHINMAY, anemia, GI bleed, uremia, and elevated BUN. Patient was admitted. Progress Notes: EKG: Ordered, reviewed, and independently interpreted the EKG. Rate : 97 BPM Rhythm : NSR Interpretation : No ST-segment elevations or depressions, no T-wave inversions, normal intervals. Comparison : No previous EKG for comparison. 04/25/18 11:[address] Mora, who accepts patient under her service. has been made aware of patient's current hemoglobin. Patient to receive 1 unit today and 1 unit tomorrow during dialysis. Phone consent for blood transfusion, obtained by Heena Gnozalez, who is patient's power of assistant county attorney. Patient to be admitted to remote telemetry as per Dr. Martines. - Lab Interpretations Lab Results: 04/25/18 12:30 04/25/18 12:30 Lab Results 04/25/18 12:30: Sodium 138, Potassium 3.2 L, Chloride 103, Carbon Dioxide 33, Anion Gap 5 L, BUN 17, Creatinine 0.4 L, Est GFR ( Amer) > 60, Est GFR (Non-Af Amer) > 60, Random Glucose 100, Calcium 8.0 L, Total Bilirubin 0.3, AST 93 H, ALT 175 H, Alkaline Phosphatase 193 H, Total Protein 6.0, Albumin 2.2 L, Globulin 3.7, Albumin/Globulin Ratio 0.6 L 04/25/18 12:30: PT 11.3, INR 0.98, APTT 25.7 04/25/18 12:30: WBC 14.7 H, RBC 2.36 L, Hgb 7.1 L, Hct 22.4 L, MCV 94.9, MCH 30.1, MCHC 31.7, RDW 16.9 H, Plt Count 229, MPV 9.6, Gran % 82.1 H, Lymph % (Auto) 12.5 L, [place] % (Auto) 3.7, Eos % (Auto) 1.6, Baso % (Auto) 0.1, Gran # 12.08 H, Lymph # (Auto) 1.8, [place] # (Auto) 0.6, Eos # (Auto) 0.2, Baso # (Auto) 0.01 04/25/18 11:00: Blood Type O POSITIVE, Antibody Screen Negative, Crossmatch See Detail, BBK History Checked Patient has bt 04/25/18 11:00: Sodium 139, Potassium 3.2 L, Chloride 103, Carbon Dioxide 35 H, Anion Gap 4 L, BUN 16, Creatinine 0.4 L, Est GFR ( Amer) > 60, Est GFR (Non-Af Amer) > 60, Random Glucose 105, Calcium 8.0 L, Total Bilirubin 0.2, AST 99 H D, ALT 184 H, Alkaline Phosphatase 203 H, Total Protein 6.0, Albumin 2.3 L, Globulin 3.7, Albumin/Globulin Ratio 0.6 L 04/25/18 11:00: PT 11.4, INR 0.99, APTT 32.4 04/25/18 11:00: WBC 15.8 H, RBC 2.39 L, Hgb 7.3 L D, Hct 22.8 L, MCV 95.4 D, MCH 30.5, MCHC 32.0, RDW 16.8 H, Plt Count 240, MPV 10.0, Gran % 83.8 H, Lymph % (Auto) 9.8 L, [place] % (Auto) 4.7, Eos % (Auto) 1.6, Baso % (Auto) 0.1, Gran # 13.24 H, Lymph # (Auto) 1.5, [place] # (Auto) 0.7 H, Eos # (Auto) 0.3, Baso # (Auto) 0.01 - Scribe Statement The provider has reviewed the documentation as recorded by the Radha Hanley Provider Scribe Attestation: All medical record entries made by the Scribe were at my direction and personally dictated by me. I have reviewed the chart and agree that the record accurately reflects my personal performance of the history, physical exam, [facility] making, and the department course for this patient. I have also personally directed, reviewed, and agree with the discharge instructions and disposition. Disposition/Present on Arrival - Present on Arrival Any Indicators Present on Arrival: Yes History of DVT/PE: No History of Uncontrolled Diabetes: No Urinary Catheter: No History of Decub. Ulcer: Yes (R hip, gluteus, L shoulder) History Surgical Site Infection Following: None - Disposition Have Diagnosis and Disposition been Completed?: Yes Diagnosis: Decubitus ulcer, CHINMAY (acute kidney injury), Anemia Disposition: HOSPITALIZED Disposition Time: 15:00 Condition: GUARDED
[2018-04-25 15:48] VITALS: BMI 17.8
[2018-04-25] MEDS: Ferrous Sulfate 300 mg/5 mL Liq UD PEG SCH (17:57)
[2018-04-25] MEDS ORDERED: Oxychlorosene Topical 2 gm Packet TOP PRN (19:55)
--- NOTE | 2018-04-25 20:10 | CP.PCM.CON ---
<Vj Escobedo - Last Filed: 04/27/18 13:04> History of Present Illness - History of Present Illness History of Present Illness: General Surgery Consult Note for Dr. Hillman 77 year old female, past medical history of HTN, HLD, Dementia, and decubitus ulcers, consulted for left and right gluteal decubitus ulcers. Patient seen and evaluated at bedside. Patient is from [facility] and arrived to the hospital with a wound vac placed by the [facility]. The wound vac is saturated with feces and foul smelling. Canister has serosanguinous output. Duration of wound vac placement and last wound vac change is unknown at this time. Patient has advanced dementia, history obtained through previous records. PMH: see above PSH: wound debridement FH: noncontributory SH: no tobacco, alcohol, or drug use. Sister is POA. Patient from [facility]. ALL: NKDA Meds: see MAR Review of Systems - Review of Systems Systems not reviewed;Unavailable: Dementia Past Patient History - Infectious Disease Hx of Infectious Diseases: None - Past Medical History & Family History Past Medical History?: Yes - Past Social History Smoking Status: Never Smoked - CARDIAC Hx Hypertension: Yes - PULMONARY Hx Respiratory Disorders: No - NEUROLOGICAL Hx Dementia: Yes - HEENT Hx HEENT Problems: No - RENAL Hx Chronic Kidney Disease: No - ENDOCRINE/METABOLIC Hx Diabetes Mellitus Type 2: Yes - HEMATOLOGICAL/ONCOLOGICAL Hx Blood Disorders: No - INTEGUMENTARY Hx Dermatological Problems: Yes Other/Comment: left gluteal decubiti ulcer with wound vac in place, right heel necrotic wound, multiple wounds to sacrum in various stages of healing, b/l bunyons, callous outer left foot, long thick toenails to both feet, crooked toes to left foot, dry skin, multiple skin discolorations ble - MUSCULOSKELETAL/RHEUMATOLOGICAL Hx Arthritis: Yes (CONTRACTED L HIP/KNEE AND B/L ELB) - GASTROINTESTINAL Hx Gastrointestinal Disorders: Yes (wt loss) - GENITOURINARY/GYNECOLOGICAL Hx Genitourinary Disorders: Yes Hx Incontinence: Yes (urine and stool) - PSYCHIATRIC Hx Psychophysiologic Disorder: Yes Hx Anxiety: Yes Hx Substance Use: No Other/Comment: dementia - SURGICAL HISTORY Hx Surgeries: No - ANESTHESIA Hx Anesthesia: No Meds Allergies/Adverse Reactions: Allergies Allergy/AdvReac Type Severity Reaction Status Date / Time No Known Allergies Allergy Verified 04/25/18 10:03 - Medications Medications: Current Medications Acetaminophen (Tylenol 650 Mg Supp) 650 mg RC Q6H PRN PRN Reason: Fever >100.4 F Last Admin: 04/25/18 18:46 Dose: 650 mg Amlodipine Besylate (Norvasc) 5 mg PEG DAILY [facility] Atorvastatin Calcium (Lipitor) 10 mg PEG DIN [facility] Last Admin: 04/25/18 17:58 Dose: 10 mg Fentanyl (Duragesic) 1 patch TD Q72H [facility] Last Admin: 04/25/18 17:57 Dose: 1 patch Ferrous Sulfate (Feosol Liq) 300 mg PEG BID [facility] Last Admin: 04/25/18 17:57 Dose: 300 mg Memantine (Namenda) 5 mg PEG DAILY [facility] Oxychlorosene Sodium (Clorpactin Wcs-90) 2 gm TOP Q6H PRN PRN Reason: Other Pantoprazole Sodium (Protonix Inj) 40 mg IVP DAILY [facility] Primidone (Mysoline) 50 mg PO TID [facility] Last Admin: 04/25/18 17:58 Dose: 50 mg Tramadol HCl (Ultram) 50 mg GT BID PRN PRN Reason: Pain, moderate (4-7) Last Admin: 04/25/18 17:58 Dose: 50 mg Physical Exam - Constitutional Appears: Non-toxic, Cachectic, Chronically Ill - Head Exam Head Exam: ATRAUMATIC, NORMAL INSPECTION, NORMOCEPHALIC - ENT Exam ENT Exam: Mucous Membranes Dry - Respiratory Exam Respiratory Exam: NORMAL BREATHING PATTERN - Cardiovascular Exam Cardiovascular Exam: REGULAR RHYTHM - Skin Additional comments: Stage 3 chronic, nonhealing, foul smelling left and right gluteal decubitus ulcers measuring [id number] each No active drainage noted Results - Vital Signs Recent Vital Signs: Last Vital Signs Temp 100.6 F H 04/25/18 18:46 Pulse 89 04/25/18 18:00 Resp 18 04/25/18 17:19 BP 107/52 L 04/25/18 17:19 Pulse Ox 95 04/25/18 17:19 - Labs Result Diagrams: 04/25/18 12:30 04/25/18 12:30 Labs: Laboratory Results - last 24 hr 04/25/18 04/25/18 04/25/18 11:00 11:00 11:00 WBC 15.8 H RBC 2.39 L Hgb 7.3 L D Hct 22.8 L MCV 95.4 D MCH 30.5 MCHC 32.0 RDW 16.8 H Plt Count 240 MPV 10.0 Gran % 83.8 H Lymph % (Auto) 9.8 L [place] % (Auto) 4.7 Eos % (Auto) 1.6 Baso % (Auto) 0.1 Gran # 13.24 H Lymph # (Auto) 1.5 [place] # (Auto) 0.7 H Eos # (Auto) 0.3 Baso # (Auto) 0.01 PT 11.4 INR 0.99 APTT 32.4 Sodium 139 Potassium 3.2 L Chloride 103 Carbon Dioxide 35 H Anion Gap 4 L BUN 16 Creatinine 0.4 L Est GFR ( Amer) > 60 Est GFR (Non-Af Amer) > 60 Random Glucose 105 Calcium 8.0 L Total Bilirubin 0.2 AST 99 H D ALT 184 H Alkaline Phosphatase 203 H Total Protein 6.0 Albumin 2.3 L Globulin 3.7 Albumin/Globulin Ratio 0.6 L Blood Type Antibody Screen Crossmatch BBK History Checked 04/25/18 04/25/18 04/25/18 11:00 12:30 12:30 WBC 14.7 H RBC 2.36 L Hgb 7.1 L Hct 22.4 L MCV 94.9 MCH 30.1 MCHC 31.7 RDW 16.9 H Plt Count 229 MPV 9.6 Gran % 82.1 H Lymph % (Auto) 12.5 L [place] % (Auto) 3.7 Eos % (Auto) 1.6 Baso % (Auto) 0.1 Gran # 12.08 H Lymph # (Auto) 1.8 [place] # (Auto) 0.6 Eos # (Auto) 0.2 Baso # (Auto) 0.01 PT 11.3 INR 0.98 APTT 25.7 Sodium Potassium Chloride Carbon Dioxide Anion Gap BUN Creatinine Est GFR ( Amer) Est GFR (Non-Af Amer) Random Glucose Calcium Total Bilirubin AST ALT Alkaline Phosphatase Total Protein Albumin Globulin Albumin/Globulin Ratio Blood Type O POSITIVE Antibody Screen Negative Crossmatch See Detail BBK History Checked Patient has bt 04/25/18 12:30 WBC RBC Hgb Hct MCV MCH MCHC RDW Plt Count MPV Gran % Lymph % (Auto) [place] % (Auto) Eos % (Auto) Baso % (Auto) Gran # Lymph # (Auto) [place] # (Auto) Eos # (Auto) Baso # (Auto) PT INR APTT Sodium 138 Potassium 3.2 L Chloride 103 Carbon Dioxide 33 Anion Gap 5 L BUN 17 Creatinine 0.4 L Est GFR ( Amer) > 60 Est GFR (Non-Af Amer) > 60 Random Glucose 100 Calcium 8.0 L Total Bilirubin 0.3 AST 93 H ALT 175 H Alkaline Phosphatase 193 H Total Protein 6.0 Albumin 2.2 L Globulin 3.7 Albumin/Globulin Ratio 0.6 L Blood Type Antibody Screen Crossmatch BBK History Checked Assessment & Plan - Assessment and Plan (Free Text) Assessment: 77F w/ Stage 3 chronic, nonhealing, foul smelling left and right gluteal decubitus ulcers Plan: Previous wound vac removed, area cleaned of fecal matter Will await new wound vac - nursing staff unable to provide wound vac until tomorrow morning Wet to dry dressing with clorpactin Turn Q2 Air mattress Nutritionally optimize Further recommendations per Dr. Rafy Escobedo PGY1 <Alvino Hillman - Last Filed: 05/04/18 10:50> Results - Vital Signs Recent Vital Signs: Last Vital Signs Temp 99.1 F 05/03/18 11:40 Pulse 95 H 05/03/18 10:37 Resp 24 05/03/18 08:50 BP 123/60 05/03/18 10:37 Pulse Ox 98 05/03/18 08:50 - Labs Result Diagrams: 05/03/18 05:15 05/03/18 05:15 Labs: Laboratory Results - last 24 hr 05/03/18 11:22 POC Glucose (mg/dL) 86 Assessment & Plan - Assessment and Plan (Free Text) Plan: This consult done under my direct aupervision George Hillman MD FACS
--- NOTE | 2018-04-25 22:20 | CARD ---
APPROVED REPORT Date of service: 04/25/2018 EKG Measurement Heart [id number] <Conclusion> Sinus rhythm with premature atrial complexes Otherwise normal ECG
[2018-04-26] MEDS: Piperacillin/Tazobact 3.375 gm 100 ML IVPB SCH ×3 (06:50→21:35)
[2018-04-26 07:11] LABS: HEMOGLOBIN 7.8 g/dL (12.0-16.0); MEAN CELL VOLUME 96.6 fl (80.0-105.0); MEAN CORPUSCULAR HEMOGLOBIN 29.8 pg (25.0-35.0); MEAN CORPUSCULAR HGB CONC 30.8 g/dl (31.0-37.0); MEAN PLATELET VOLUME 10.1 fl (7.0-11.0); RBC 2.62 10^6/uL (3.5-6.1); RED CELL DISTRIBUTION WIDTH 16.7 % (11.5-14.5); WHITE BLOOD COUNT 12.8 10^3/uL (4.5-11.0)
[2018-04-26 07:21] LABS: BLOOD UREA NITROGEN 23 mg/dL (7-21); CALCIUM 8.7 mg/dL (8.4-10.5); GFR NON-AFRICAN AMERICAN > 60; HDL CHOLESTEROL 33 mg/dL (29-60)
[2018-04-26 07:23] LABS: IRON 35 ug/dL (45-180)
[2018-04-26 07:28] LABS: LDL CHOLESTEROL 67 mg/dL (0-129)
[2018-04-26 07:40] LABS: % IRON SATURATION 26 % (20-55); TOTAL IRON BINDING CAPACITY 133 ug/dL (265-497)
--- NOTE | 2018-04-26 07:50 | HP ---
DATE OF EXAM: 04/25/2018 CHIEF COMPLAINT: Abnormal hemoglobin. HISTORY OF PRESENT ILLNESS: Ms. Moira Canela is a 77-year-old female with past medical history of dementia, hypertension, diabetes mellitus, hypercholesterolemia, decubitus ulcer, actually brought to [facility] for dialysis, then came to know the patient's hemoglobin is low. Dr. Martines transferred the patient to [facility] Emergency Room, talked to me. The patient's labs done. The patient will get blood transfusion. No fever. No chills. Discussion done with the ER physician. PAST MEDICAL HISTORY: Hypertension, several sacral decubitus ulcers, dementia, diabetes mellitus type 2, extremities are contracted, dysphagia, has PEG tube, and incontinence with urine and stool. FAMILY HISTORY: Father and mother noncontributory. HABITS: No smoking. No drugs. No ethanol. ALLERGIES: THE PATIENT IS NOT ALLERGIC WITH ANY MEDICATIONS. HOME MEDICATIONS: Amlodipine, cholecalciferol, Namenda, Pravachol, and primidone. REVIEW OF SYSTEMS: The patient was seen and examined in the ER, looking comfortable. No fever. No chills. No hematuria. No hematochezia. The patient is a very poor historian. She is not able to give review of system. PHYSICAL EXAMINATION: VITAL SIGNS: Temperature 99, pulse 90, respiratory rate 19, blood pressure 127/72, and pulse oximetry 100. HEENT: Head is normocephalic and atraumatic. Eyes;PERRLA. Extraocular muscles are intact. Conjunctivae clear. Nose patent. Mucous membranes moist. NECK: Supple. No carotid bruits, JVD, or thyromegaly. CHEST: Bilaterally symmetrical. HEART: S1 and S2 positive. LUNGS: Clear to auscultation. ABDOMEN: Soft. Bowel sounds present. No organomegaly. EXTREMITIES: No edema. No cyanosis, but had multiple decubitus ulcer. NEUROLOGIC: The patient is awake and alert. She is not able to follow command. LABORATORY DATA: White blood cell 14.7, hemoglobin 7.1, hematocrit 22.4, and platelets 229,000. Sodium 139, potassium 3.2, BUN 17, creatinine 0.4, and glucose 100. ASSESSMENT AND PLAN: Ms. Moira Canela is a 77-year-old lady with leukocytosis; anemia; hypokalemia; and renal insufficiency, getting hemodialysis three times a week. The patient admitted and will get blood transfusion, 1 bag today and 1 bag tomorrow. Ordered by Dr. Martines. Discussion done with Dr. Martines. The patient had multiple decubitus ulcer infected, cultures done. Wound care team called for wound vacuum-assisted closure. Hypertension, diabetes mellitus, hypercholesterolemia, admit the patient, Dr. Martines consult called. Dr. Cavanaugh consult called. We will follow. Kayleen Mora MD MTDSrinivas
[2018-04-26] MEDS: Ferrous Sulfate 300 mg/5 mL Liq UD PEG SCH ×2 (09:56→21:37)
[2018-04-26] MEDS: Vancomycin 750mg 750 MG/250 ML BAG IVPB SCH ×2 (10:10→21:34)
--- NOTE | 2018-04-26 12:35 | PN ---
DATE: 04/26/2018 SUBJECTIVE: This 77-year-old female was examined at her bedside in the presence of her family, sister and power of energy attorney, Heena Gonzalez. The patient's sister has signed consent for blood transfusion, hemodialysis and is in agreement with blood transfusion on dialysis today. It should be noted that the patient is receiving surgical debridement of right hip, right ankle and sacral ulcers under the direction of Dr. Alvino Hillman from Surgery. She was noted to have fever with T-max of 100.6 yesterday and is currently on IV vanco and IV Zosyn for treatment of wound infections. PHYSICAL EXAMINATION: VITAL SIGNS: On physical exam, at present, her temperature is 99, respirations 16, pulse 91 and blood pressure 147/60 with a pulse ox of 95% room air. HEAD: Normocephalic, atraumatic. Eyes: No icterus. Ears: Clear. Throat: Noninjected. NECK: Supple. HEART: S1, S2. LUNGS: Clear. ABDOMEN: Soft. PEG tube in place. EXTREMITIES: No edema. SKIN: Without rash. NEUROLOGICAL: Deconditioned and bedridden. VASCULAR: Legs warm to touch. LABORATORY DATA: White count 12,800, previously 15,800, hemoglobin 7.8, previously 7.3. This is after 1 unit of packed red blood cell transfusion, hemoglobin 25.3, platelets 274,000. PT/INR was 0.98, PTT 25.7. Sodium 142, K 3.5, chloride 103, bicarb 33, BUN 23, creatinine 0.7, random blood sugar is 73. Iron 35, TIBC 133, percent saturation 26. Hemoglobin A1c 5.4. Cholesterol 118, triglycerides 106, LDL 67, HDL 33. TSH 4.63. IMPRESSION: A 77-year-old female with history of gastrointestinal bleeding, anemia of chronic disease, chronic renal failure, hemodialysis dependent, chronic hypertension, sacral hip and ankle ulcers receiving wound vac treatment to her hip ulcer with comorbidities of atherosclerotic heart disease, hyperlipidemia, organic brain syndrome, peptic ulcer disease with gastroesophageal reflux disease, degenerative arthritis. PLAN: The plan as discussed with sister, Heena Gonzalez and Nursing present will be to continue Feosol liquid, Lipitor, Mysoline, Namenda, Norvasc, Protonix, Ultram, IV vancomycin, IV Zosyn and all medications are being administered via PEG tube. The patient will have additional blood cell transfusion on dialysis today. She is on an air mattress. She is receiving tube feedings, physical therapy and ultimate plan will be for discharge to family's care when medically stable. All of the above was reviewed in detail with her sister who signed consents for me for dialysis, blood transfusion, and wound care with Dr. Alvino Hillman. All questions were answered. Beatrice Martines MD MTDSrinivas
--- NOTE | 2018-04-26 12:41 | CP.PCM.CON ---
History of Present Illness - History of Present Illness History of Present Illness: 77 year old female with PMH of HTN, dyslipidemia, dementia, history of left buttock ulcer with wound vacuum, is brought in to [facility] [place] because of left and right gluteal ulcers. The patient has a wound vacuum on the ulcers, but they were note d to be saturated, with debris, pus, and it was apparently foul smelling. There is no note of fevers, no vomiting, no diarrhea. Full ROS is unobtainable because of the patient's dementia. Infectious Diseases consult is requested to further evaluate and manage. Review of Systems - Review of Systems All systems: reviewed and no additional remarkable complaints except (as per HPI) Past Patient History - Infectious Disease Hx of Infectious Diseases: None - Past Medical History & Family History Past Medical History?: Yes - Past Social History Smoking Status: Never Smoked - CARDIAC Hx Hypertension: Yes - PULMONARY Hx Respiratory Disorders: No - NEUROLOGICAL Hx Dementia: Yes - HEENT Hx HEENT Problems: No - RENAL Hx Chronic Kidney Disease: No - ENDOCRINE/METABOLIC Hx Diabetes Mellitus Type 2: Yes - HEMATOLOGICAL/ONCOLOGICAL Hx Blood Disorders: No - INTEGUMENTARY Hx Dermatological Problems: Yes Other/Comment: left gluteal decubiti ulcer with wound vac in place, right heel necrotic wound, multiple wounds to sacrum in various stages of healing, b/l bunyons, callous outer left foot, long thick toenails to both feet, crooked toes to left foot, dry skin, multiple skin discolorations ble - MUSCULOSKELETAL/RHEUMATOLOGICAL Hx Arthritis: Yes (CONTRACTED L HIP/KNEE AND B/L ELB) - GASTROINTESTINAL Hx Gastrointestinal Disorders: Yes (wt loss) - GENITOURINARY/GYNECOLOGICAL Hx Genitourinary Disorders: Yes Hx Incontinence: Yes (urine and stool) - PSYCHIATRIC Hx Psychophysiologic Disorder: Yes Hx Anxiety: Yes Hx Substance Use: No Other/Comment: dementia - SURGICAL HISTORY Hx Surgeries: No - ANESTHESIA Hx Anesthesia: No Meds Allergies/Adverse Reactions: Allergies Allergy/AdvReac Type Severity Reaction Status Date / Time No Known Allergies Allergy Verified 04/25/18 10:03 - Medications Medications: Current Medications Acetaminophen (Tylenol 650 Mg Supp) 650 mg RC Q6H PRN PRN Reason: Fever >100.4 F Last Admin: 04/25/18 18:46 Dose: 650 mg Amlodipine Besylate (Norvasc) 5 mg PEG DAILY [facility] Atorvastatin Calcium (Lipitor) 10 mg PEG DIN [facility] Last Admin: 04/25/18 17:58 Dose: 10 mg Fentanyl (Duragesic) 1 patch TD Q72H [facility] Last Admin: 04/25/18 17:57 Dose: 1 patch Ferrous Sulfate (Feosol Liq) 300 mg PEG BID [facility] Last Admin: 04/25/18 17:57 Dose: 300 mg Vancomycin HCl (Vancomycin 750 Mg In Ns) 750 mg in 250 mls @ 167 mls/hr IVPB Q12H [facility]; Protocol Piperacillin Sod/Tazobactam Sod (Zosyn 3.375 In Ns 100ml) 100 mls @ 25 mls/hr IVPB Q8 [facility]; Protocol Stop: 05/03/18 06:31 Memantine (Namenda) 5 mg PEG DAILY [facility] Oxychlorosene Sodium (Clorpactin Wcs-90) 2 gm TOP Q6H PRN PRN Reason: Other Last Admin: 04/25/18 22:07 Dose: 2 gm Pantoprazole Sodium (Protonix Inj) 40 mg IVP DAILY [facility] Primidone (Mysoline) 50 mg PO TID [facility] Last Admin: 04/25/18 17:58 Dose: 50 mg Tramadol HCl (Ultram) 50 mg GT BID PRN PRN Reason: Pain, moderate (4-7) Last Admin: 04/25/18 17:58 Dose: 50 mg Physical Exam - Constitutional Appears: Chronically Ill - Head Exam Head Exam: NORMAL INSPECTION - Respiratory Exam Respiratory Exam: Decreased Breath Sounds - Cardiovascular Exam Cardiovascular Exam: +S1, +S2 - GI/Abdominal Exam GI & Abdominal Exam: Soft. absent: Tenderness - Back Exam Additional comments: wound vacuum in place with a lot of debris noted Results - Vital Signs Recent Vital Signs: Last Vital Signs Temp 100.6 F H 04/25/18 18:46 Pulse 91 H 04/26/18 06:00 Resp 18 04/25/18 17:19 BP 107/52 L 04/25/18 17:19 Pulse Ox 95 04/25/18 17:19 - Labs Result Diagrams: 04/26/18 06:30 04/26/18 06:30 Labs: Laboratory Results - last 24 hr 04/25/18 04/25/18 04/25/18 11:00 11:00 11:00 WBC 15.8 H RBC 2.39 L Hgb 7.3 L D Hct 22.8 L MCV 95.4 D MCH 30.5 MCHC 32.0 RDW 16.8 H Plt Count 240 MPV 10.0 Gran % 83.8 H Lymph % (Auto) 9.8 L Desha % (Auto) 4.7 Eos % (Auto) 1.6 Baso % (Auto) 0.1 Gran # 13.24 H Lymph # (Auto) 1.5 Desha # (Auto) 0.7 H Eos # (Auto) 0.3 Baso # (Auto) 0.01 PT 11.4 INR 0.99 APTT 32.4 Sodium 139 Potassium 3.2 L Chloride 103 Carbon Dioxide 35 H Anion Gap 4 L BUN 16 Creatinine 0.4 L Est GFR ( Amer) > 60 Est GFR (Non-Af Amer) > 60 Random Glucose 105 Calcium 8.0 L Total Bilirubin 0.2 AST 99 H D ALT 184 H Alkaline Phosphatase 203 H Total Protein 6.0 Albumin 2.3 L Globulin 3.7 Albumin/Globulin Ratio 0.6 L Blood Type Antibody Screen Crossmatch BBK History Checked 04/25/18 04/25/18 04/25/18 11:00 12:30 12:30 WBC 14.7 H RBC 2.36 L Hgb 7.1 L Hct 22.4 L MCV 94.9 MCH 30.1 MCHC 31.7 RDW 16.9 H Plt Count 229 MPV 9.6 Gran % 82.1 H Lymph % (Auto) 12.5 L Desha % (Auto) 3.7 Eos % (Auto) 1.6 Baso % (Auto) 0.1 Gran # 12.08 H Lymph # (Auto) 1.8 Desha # (Auto) 0.6 Eos # (Auto) 0.2 Baso # (Auto) 0.01 PT 11.3 INR 0.98 APTT 25.7 Sodium Potassium Chloride Carbon Dioxide Anion Gap BUN Creatinine Est GFR ( Amer) Est GFR (Non-Af Amer) Random Glucose Calcium Total Bilirubin AST ALT Alkaline Phosphatase Total Protein Albumin Globulin Albumin/Globulin Ratio Blood Type O POSITIVE Antibody Screen Negative Crossmatch See Detail BBK History Checked Patient has bt 04/25/18 12:30 WBC RBC Hgb Hct MCV MCH MCHC RDW Plt Count MPV Gran % Lymph % (Auto) Desha % (Auto) Eos % (Auto) Baso % (Auto) Gran # Lymph # (Auto) Desha # (Auto) Eos # (Auto) Baso # (Auto) PT INR APTT Sodium 138 Potassium 3.2 L Chloride 103 Carbon Dioxide 33 Anion Gap 5 L BUN 17 Creatinine 0.4 L Est GFR ( Amer) > 60 Est GFR (Non-Af Amer) > 60 Random Glucose 100 Calcium 8.0 L Total Bilirubin 0.3 AST 93 H ALT 175 H Alkaline Phosphatase 193 H Total Protein 6.0 Albumin 2.2 L Globulin 3.7 Albumin/Globulin Ratio 0.6 L Blood Type Antibody Screen Crossmatch BBK History Checked Assessment & Plan - Assessment and Plan (Free Text) Plan: Assessment consider Infected stage 3 to 4 left and right decubitus ulcers with wound vacuum placement HTN dyslipidemia dementia Plan will need debridement follow up wound and blood cx started Vancomycin and Zosyn and will monitor clinically
--- NOTE | 2018-04-26 12:54 | CON ---
DATE: 04/25/2018 HISTORY OF PRESENT ILLNESS: This 77-year-old female was examined in the emergency room with emergency room physician, Lenin Baez DO, Doctor of Osteopathy. I was called earlier this morning by the renal dialysis unit. The patient was noted there to have an anemia for which she is being sent to emergency room now for further evaluation. PAST MEDICAL HISTORY: The patient's past medical history is extensive and includes end-stage renal disease, hemodialysis dependent; marked deconditioning and bedridden status with right sacral, right hip and right ankle ulcers. She has a wound VAC draining a right hip ulcer and has comorbidities of iron-deficiency anemia, history of GI bleeding for which family refused endoscopic or colonoscopy in the recent past, history of stable atherosclerotic heart disease, hyperlipidemia, history of organic brain syndrome, chronic hypertension, peptic ulcer disease with GERD and failure to thrive. MEDICATIONS: Review of the patient's medical profile reveals that she is taking Feosol, Lipitor, Mysoline, Namenda, Norvasc, Protonix, Ultram and Duragesic patch for pain control as needed. ALLERGIES: THE PATIENT HAS NO KNOWN ALLERGIES TO MEDICATION. SOCIAL HISTORY: Is a nondrinking, nonsmoking, non IV drug using female. REVIEW OF SYSTEMS: CONSTITUTIONAL: There were no reports of fever or chills. HEAD: No head trauma or seizure. EYE: No change in visual acuity. EAR: No hearing loss. THROAT: She has a PEG tube for all feeding fluids and meds. GI: No reports of hematemesis or melena. : End-stage renal disease, hemodialysis dependent. SKIN: She has multiple ulcers as described in HPI. NEUROLOGIC: She is bedridden and contracted. PSYCHOLOGIC: Organic brain syndrome. ENDOCRINOLOGIC: She has anemia of chronic disease, iron-deficiency anemia. FAMILY HISTORY: Noncontributory: PHYSICAL EXAMINATION: VITAL SIGNS: At the time of my examination of this patient in emergency room Thursday, 04/25, temperature was 99.7, respirations 19, pulse 90 and blood pressure 126/72 with a pulse ox of 100% on nasal O2. She was in a normal sinus rhythm on the mascara molder. HEAD: Normocephalic, atraumatic. EYES: No icterus. EARS: Clear. THROAT: Noninjected. NECK: Supple. HEART: Regular S1, S2. No pathological rubs, murmurs or gallops. LUNGS: With occasional rhonchi. No wheezing. No rales. ABDOMEN: Soft. PEG tube in place. EXTREMITIES: No edema. SKIN: With ulcerations on the sacrum, right hip and right ankle. VASCULAR: Legs warm to touch. PSYCHOLOGICAL: Confused. NEUROLOGICAL: Contracted and bedridden. RECTAL: Rectal exam was done in ER. LABORATORY DATA: Stool was guaiac negative. Sodium 139, K 3.2 post dialysis, chloride 103, bicarb 35, BUN 16, creatinine 0.4 post dialysis, random blood sugar 105. Bilirubin 0.2, AST 99, ALT 184, alk phos 203, random blood sugar 0.6. PT/INR 0.98, PTT 32.4. White count 15,800, hemoglobin 7.3, hematocrit 22.8, platelets 240,000. DIAGNOSTIC DATA: EKG was reviewed. It showed normal sinus rhythm with occasional PACs. IMPRESSION: This is a 77-year-old female with multiple medical problems as listed above, now with [id number] anemia in the setting of history of gastrointestinal bleeding; iron-deficiency anemia and anemia of chronic illness with comorbidities of end-stage renal disease, hemodialysis dependent; hyperlipidemia; organic brain syndrome; peptic ulcer disease with gastroesophageal reflux disease; degenerative arthritis; deconditioning; bedridden status with contractures and sacral, hip, and ankle wounds, receiving wound VAC care and local wound dressings. PLAN: The plan at present as discussed with Dr. Baez and Dr. Kayleen Mora, primary care physician, will be to admit this patient to the cardiac unit where she will undergo blood and wound cultures and be started on parenteral antibiotics including Zosyn and vancomycin while receiving wound care. She would be outlined to receive Feosol, Lipitor, Mysoline, Namenda, Norvasc, Protonix, Tylenol and p.r.n. Ultram. She is ordered to have additional blood testing including vitamin B12, folic acid, hemoglobin A1c and lipid, iron studies, thyroid studies and a repeat basic metabolic panel for the a.m. Pending results of blood and wound cultures antibiotics will be adjusted. She is ordered to have 1 unit of packed red blood cells presently and an additional unit will be transfused on dialysis in the a.m. once consent is obtained. She is ordered to have repositioning while in bed, air mattress, physical therapy at bedside, and GI feedings will be determined based on clinical progress. Consultations with surgery will be obtained for treatment of infected wounds and ID evaluation has been requested as well. All of the above was discussed in detail with emergency room physician and Dr. Kayleen Mora. The patient will have dialysis scheduled as indicated. Beatrice Martines MD
[2018-04-26 16:51] LABS: FOLATE > 20.0 ng/mL
[2018-04-26 21:37] LABS: URINE BILIRUBIN NEGATIVE (NEGATIVE); URINE BLOOD SMALL (NEGATIVE); URINE GLUCOSE (UA) NEGATIVE (NEGATIVE); URINE LEUKOCYTE ESTERASE LARGE Leu/uL (NEGATIVE); URINE PROTEIN TRACE mg/dL (<30 mg/dL); URINE UROBILINOGEN 0.2 E.U./dL (<1 E.U./dL)
[2018-04-26 21:38] LABS: URINE APPEARANCE CLEAR (CLEAR); URINE COLOR YELLOW (YELLOW)
[2018-04-26 21:45] LABS: URINE BACTERIA MANY (NEG); URINE WBC 25 - 30 /hpf (0-6)
[2018-04-26 21:46] LABS: URINE AMORPHOUS SEDIMENT FEW
[2018-04-27] MEDS: Piperacillin/Tazobact 3.375 gm 100 ML IVPB SCH ×3 (05:22→21:49)
[2018-04-27] MEDS: Vancomycin 750mg 750 MG/250 ML BAG IVPB SCH ×2 (05:22→17:54)
--- NOTE | 2018-04-27 05:52 | PN ---
DATE: 04/26/2018 SUBJECTIVE: The patient is a 77-year-old lady. The patient was seen and examined at the bedside, looking comfortable. Getting dialysis. No fever. No chills. No hematuria or hematochezia. No swelling of the legs. The patient has dementia. PHYSICAL EXAMINATION VITAL SIGNS: Temperature 100.6, pulse 91, respiratory rate 18, blood pressure 107/52, pulse oximetry 95. HEENT: Head: Normocephalic, atraumatic. Eyes: PERRLA. Extraocular muscles intact. Conjunctivae clear. Nose patent. NECK: Supple. No carotid bruit. No JVD or thyromegaly. CHEST: Bilaterally symmetrical. HEART: S1 and S2 positive. LUNGS: Clear to auscultation. ABDOMEN: Soft. Bowel sounds present. No organomegaly. EXTREMITIES: No edema. No cyanosis, but have multiple decubitus ulcers. NEUROLOGIC: The patient is awake and alert. He is not able to follow simple commands. LABORATORY DATA: White blood cells 12.8, hemoglobin 7.8, hematocrit 25.6 and platelets 274. Sodium 142, potassium 3.5, BUN 26, creatinine 0.7, glucose 73. ASSESSMENT AND PLAN: Otis Roberto is a 77-year-old lady, looks like has infected stage III to IV and left and right decubitus ulcers with wound VAC placement, has hypertension, dyslipidemia, dementia, and according to Infectious Disease the patient needs further debridement. Surgery is on the case. Started on vancomycin, Zosyn and we will monitor clinically and wound care. Gastric and deep venous thrombosis prophylaxes. The patient has history of hypertension, anemia, and renal insufficiency, chronic obstructive pulmonary disease. Seen by Dr. Abhinav Naylor and Dr. Martines. We will follow up. Kayleen Mora MD
[2018-04-27 06:21] LABS: HEMOGLOBIN 9.1 g/dL (12.0-16.0); MEAN CELL VOLUME 94.5 fl (80.0-105.0); MEAN CORPUSCULAR HEMOGLOBIN 29.3 pg (25.0-35.0); MEAN PLATELET VOLUME 10.4 fl (7.0-11.0); RBC 3.11 10^6/uL (3.5-6.1); RED CELL DISTRIBUTION WIDTH 16.7 % (11.5-14.5); WHITE BLOOD COUNT 11.8 10^3/uL (4.5-11.0)
[2018-04-27 07:21] LABS: ALB/GLOB RATIO 0.6 (1.1-1.8); ALBUMIN 2.4 g/dL (3.0-4.8); ALT/SGPT 135 U/L (7-56); AST/SGOT 84 U/L (14-36); BLOOD UREA NITROGEN 17 mg/dL (7-21); CALCIUM 8.3 mg/dL (8.4-10.5); GFR NON-AFRICAN AMERICAN > 60
--- NOTE | 2018-04-27 10:47 | PN ---
DATE: 04/27/2018 DIALYSIS PROGRESS NOTE SUBJECTIVE: This 77-year-old female was examined in the dialysis unit at the [facility] ([facility]] on the morning of 04/27/2018. Her case was reviewed with nurse, Hanh Rahman. The patient is dialyzed on F161, 40 sodium, 3K bicarb bath. PHYSICAL EXAMINATION: VITAL SIGNS: Blood pressure is 150/63, pulse is 95, blood flow rates are 350 mL/minute. HEART: Regular S1, S2. LUNGS: Clear. The patient will dialyze with the hopes of removing 2-3 liters of fluid today. Beatrice Martines MD
--- NOTE | 2018-04-27 12:40 | PN ---
DATE: 04/27/2018 SUBJECTIVE: This 77-year-old female was examined in the Renal Dialysis Unit on the morning of 04/27/2018 in the presence of her nurse, Hanh Rahman, registered dialysis nurse. The patient is dialyzing with a blood pressure of 104/50 and a pulse of 71. This morning, her hemoglobin is 9.1 with hematocrit of 29.4. PLAN: We will aim for 2 liters of fluid removal and I have asked her floor nurse to add 300 mL of water three times a day to her feeding tube of Nepro at 40 mL/hour. Beatrice Martines MD
[2018-04-27] MEDS: Ferrous Sulfate 300 mg/5 mL Liq UD PEG SCH ×2 (13:05→17:53)
--- NOTE | 2018-04-27 20:59 | PN ---
DATE: 04/27/2018 SUBJECTIVE: The patient is seen earlier today in Room 375, Bed 1. No fevers and no chills. PHYSICAL EXAMINATION: VITAL SIGNS: Temperature is 98, blood pressure is 180/70, respiratory rate of 18. HEENT: Unremarkable. NECK: Supple. LUNGS: Decreased breath sounds. HEART: Normal S1, S2. ABDOMEN: Soft. LABORATORY EXAMINATION: Reveals a white count of 11,800, hemoglobin of 9, BUN of 17, creatinine of 0.7. Urinalysis is noted. Microbiology reveals the buttock's culture has a Gram-negative sincere. The blood culture reveals no growth. Review of orders reveals the patient is on Zosyn. ASSESSMENT AND PLAN: This is a 77-year-old female with hypertension, dyslipidemia, dementia, left buttock ulcer with a wound VAC, and infected stage III left and right decubitus ulcer with a wound VAC placement, on Zosyn, intermittent vancomycin, now with Gram-negative rods, only on Zosyn. Awaiting for identification of Gram-negative rods and on vancomycin. We will continue with present course. Dr. Martines's progress note from today is reviewed. Eleazar Retana MD
--- NOTE | 2018-04-27 23:37 | PN ---
DATE: 04/27/2018 SUBJECTIVE: The patient is a 77-year-old female. The patient was seen and examined at the bedside on 04/27/2018. No change in status. Awake and alert, but is not able to follow commands. No fever. No chills. No headache. No dizziness. PHYSICAL EXAMINATION: VITAL SIGNS: Temperature 98.6, pulse 90, blood pressure 105/42, and respiratory rate 18. HEENT: Head is normocephalic and atraumatic. Eyes: PERRLA. Extraocular muscles intact. Conjunctivae clear. Nose patent. Mucous membranes moist. NECK: Supple. No carotid bruit. No JVD or thyromegaly. CHEST: Bilaterally symmetrical. HEART: S1 and S2 positive. LUNGS: Clear to auscultation. ABDOMEN: Soft with PEG tube. EXTREMITIES: Has contractures and multiple leg ulcers. NEUROLOGIC: The patient is awake and alert, but is not able to follow commands. MEDICATIONS: Duragesic patch, iron, Lipitor, Mysoline, Namenda, Norvasc, Protonix, Tylenol, tramadol, vancomycin, and Zosyn. LABORATORY DATA: White blood cells 11.8, hemoglobin 9.1, hematocrit 29.4, and platelets 250,000. Sodium 141, potassium 3.7, BUN 17, creatinine 0.7, and glucose 127. ASSESSMENT AND PLAN: Ms. Otis Canela is a 77-year-old lady with hyperchloremia, hyperglycemia, hypocalcemia, abnormal live function test, leukocytosis, anemia, has proteinuria, hematuria, urinary tract infection, has multiple decubitus ulcers at different stages, history of hypertension, dyslipidemia, dementia, has wound vacuum-assisted closure on left buttock ulcer, infected stage III left and right decubitus ulcer with wound vacuum-assisted closure placement. The patient is on Zosyn and completed vancomycin, now with Gram-negative rods, only on Zosyn, waiting for identification for Gram-negative rods. Added vancomycin. We will continue present treatment. Dr. Retana and Dr. Martines's notes were noted. The patient's kidney function improved a lot. Repeat labs, out of bed, and air mattress. We will follow up. Kayleen Mora MD [facility] # [id number]
[2018-04-28] MEDS: Vancomycin 750mg 750 MG/250 ML BAG IVPB SCH ×3 (05:04→18:00)
[2018-04-28] MEDS: Piperacillin/Tazobact 3.375 gm 100 ML IVPB SCH ×3 (06:12→21:03)
[2018-04-28 06:48] LABS: HEMOGLOBIN 9.1 g/dL (12.0-16.0); MEAN CELL VOLUME 94.4 fl (80.0-105.0); MEAN CORPUSCULAR HEMOGLOBIN 29.8 pg (25.0-35.0); MEAN CORPUSCULAR HGB CONC 31.6 g/dl (31.0-37.0); MEAN PLATELET VOLUME 10.3 fl (7.0-11.0); RBC 3.05 10^6/uL (3.5-6.1); RED CELL DISTRIBUTION WIDTH 16.5 % (11.5-14.5); WHITE BLOOD COUNT 12.1 10^3/uL (4.5-11.0)
[2018-04-28 07:48] LABS: ALB/GLOB RATIO 0.6 (1.1-1.8); ALBUMIN 2.5 g/dL (3.0-4.8); ALT/SGPT 119 U/L (7-56); AST/SGOT 61 U/L (14-36); BLOOD UREA NITROGEN 20 mg/dL (7-21); CALCIUM 8.8 mg/dL (8.4-10.5); GFR NON-AFRICAN AMERICAN > 60
[2018-04-28] MEDS: Ferrous Sulfate 300 mg/5 mL Liq UD PEG SCH ×2 (10:16→17:43)
--- NOTE | 2018-04-28 14:03 | PN ---
DATE: 04/28/2018 SUBJECTIVE: This 77-year-old female was examined at her bedside on the morning of 04/28/2018. The patient remains chronically bedridden. There been no reports of fever, chills, chest pain or shortness of breath. She is being treated with parenteral antibiotics and local wound care for her sacral ulcer, hip ulcer, and right ankle ulcers and is tolerating PEG tube feeding and fluids. PHYSICAL EXAM: VITAL SIGNS: Temperature is 98.2, respirations 18, pulse 95,and blood pressure 128/61 with a pulse ox of 98% room air. HEAD: Normocephalic, atraumatic. EYES: No icterus. NECK: Supple. HEART: S1, S2. LUNGS: Clear. ABDOMEN: Soft. PEG tube in place. EXTREMITIES: No edema. SKIN: Without rash. Good turgor. VASCULAR: Legs warm to touch. PSYCHOLOGICAL: Deconditioned and metabolic encephalopathy. LABORATORY DATA: White count 12,100, hemoglobin 9.1, hematocrit 28.8, platelets 241,000. Sodium 140, K 3.5, chloride 107, bicarb 27, BUN 20, creatinine 0.8, random blood sugar 136. Bilirubin 0.2, AST 61, ALT 119 and alk phos 241, albumin 2.5, low. Wound culture from the buttocks is growing a gram-negative sincere, identification and sensitivity pending. Blood cultures are negative x2. IMPRESSION: A 77-year-old female with previous hemodialysis need for end-stage renal disease, hemodialysis dependent, now with stabilized blood urea nitrogen and creatinine and comorbidities of sacral ulcer, right hip ulcer, right ankle ulcer and anemia of chronic disease, iron-deficiency anemia, hyperlipidemia, organic brain syndrome, peptic ulcer disease with gastroesophageal reflux disease and degenerative arthritis of the plans are to hold the patient's dialysis until further notice. I have discussed this with nurse, Karen Law, registered nurse in dialysis. She will continue to have her blood urea nitrogen and creatinine monitored and at present is receiving Feosol, Lipitor, Mysoline, Namenda, Norvasc, Protonix, vancomycin parenterally as well as intravenous Zosyn. Based on her clinical progress, additional diagnostic workup and testing will be entertained. She continues on percutaneous endoscopic gastrostomy tube feeds, water flushes and aspiration precautions and air mattress and skin care. Should the patient require dialysis in the future, this can be reinstituted. We will maintain her Tesio Parker catheter for the time being. Beatrice Martines MD [facility]
--- NOTE | 2018-04-29 00:11 | PN ---
DATE: 04/28/2018 SUBJECTIVE: The patient is in bed, in no acute distress, nontoxic. PHYSICAL EXAMINATION: VITAL SIGNS: On exam, temperature is 98, blood pressure is 126/60, and respiratory rate of 16. HEENT: Unremarkable. NECK: Supple. LUNGS: Had decreased breath sounds. HEART: Normal S1 and S2. ABDOMEN: Soft. LABORATORY EXAMINATION: Reveals a white count of 12,100, hemoglobin 9, and platelets of 241. Chemistries are noted. Urinalysis is noted. The patient from the blood cultures has Acinetobacter baumannii and Klebsiella pneumoniae. The Acinetobacter baumannii is gaines-resistant, and the Klebsiella pneumoniae is ESBL negative, however, intermediate resistant to meropenem. Blood cultures and urine cultures are negative. The patient's temperatures responded. Urine culture exam is negative in addition to the blood cultures. The patient's white count is improved to 12,100. Currently, on vancomycin and Zosyn. The patient does not have a chest x-ray. ASSESSMENT AND PLAN: This is 77-year-old female with hypertension; dyslipidemia; dementia; left buttock ulcers, wound vacuum-assisted closure; infected stage III right decubitus ulcer and wound vacuum-assisted closure, on vancomycin and Zosyn, sensitivity is noted. We will discontinue the vancomycin, and we will discontinue the Zosyn. We will order meropenem. We will also order an abdominal ultrasound. Concerned about the elevation of liver function tests and alkaline phosphatase, which may be the etiology of the fever and white count. The patient also has not had a chest x-ray, and we will also ask microbiology to test the Acinetobacter baumannii and Klebsiella for Avycaz. Eleazar Retana MD
--- NOTE | 2018-04-29 04:11 | PN ---
DATE: 04/28/2018 SUBJECTIVE: The patient was seen and examined at the bedside on 04/28/2018. Looking comfortable. No change in the status. No headache. No dizziness. The patient is a very poor historian. Awake and alert, but not following orders. Tolerating PEG tube feeding very well. PHYSICAL EXAMINATION: VITAL SIGNS: Temperature 98.2, respiratory rate 18, blood pressure 128/60, pulse oximetry 90. HEENT: Head normocephalic, atraumatic. Eyes PERRLA. Extraocular movements are intact. Conjunctivae clear. Nose patent. Mucous membrane moist. NECK: Supple. No carotid bruit. No JVD or thyromegaly. CHEST: Bilaterally symmetrical. HEART: S1 and S2 positive. LUNGS: Clear to auscultation. ABDOMEN: Soft. Bowel sounds positive. No organomegaly. EXTREMITIES: The patient has contractures and multiple wounds. NEUROLOGICAL: The patient is awake, but she is not able to follow order.. LABORATORY DATA: White blood cell is 12.100, hemoglobin 9.1, hematocrit 28.8, platelets 241,000. Sodium 140, potassium 3.5, BUN 20, creatinine is 0.8. AST 51, ALT 119. Wound cultures from the buttocks is growing Gram-negative rods, identification and sensitivity is pending. Blood cultures are negative. ASSESSMENT AND PLAN: Ms. Otis Canela is a 77 years old lady with history of renal insufficiency; on hemodialysis; now the patient has stabilized blood urea nitrogen and creatinine and comorbidities of the sacral ulcer, right hip ulcer, right ankle ulcer, anemia of chronic disease, iron-deficiency, hypercholesterolemia, dementia, peptic ulcer disease, chronic obstructive pulmonary disease, degenerative joint disease, multiple time has sepsis. The plans are to hold dialysis until further orders. We will continue present treatment of wound care. Antibiotics as per Infectious Disease. Kayleen Mora MD
[2018-04-29] MEDS: Meropenem IV 1 gm in NS 1 GM/50 ML BAG IVPB SCH ×3 (05:04→21:35)
[2018-04-29 06:55] LABS: HEMOGLOBIN 9.1 g/dL (12.0-16.0); MEAN CELL VOLUME 93.5 fl (80.0-105.0); MEAN CORPUSCULAR HEMOGLOBIN 29.5 pg (25.0-35.0); MEAN CORPUSCULAR HGB CONC 31.6 g/dl (31.0-37.0); MEAN PLATELET VOLUME 10.1 fl (7.0-11.0); RBC 3.08 10^6/uL (3.5-6.1); RED CELL DISTRIBUTION WIDTH 16.2 % (11.5-14.5); WHITE BLOOD COUNT 12.5 10^3/uL (4.5-11.0)
[2018-04-29 07:31] LABS: BLOOD UREA NITROGEN 28 mg/dL (7-21); GFR NON-AFRICAN AMERICAN > 60
[2018-04-29] MEDS: Ferrous Sulfate 300 mg/5 mL Liq UD PEG SCH ×2 (09:15→17:41)
[2018-04-29] MEDS: Pantoprazole 40 mg Susp UD PEG SCH (09:17)
--- NOTE | 2018-04-29 09:18 | RAD ---
Date of service: 04/28/2018 HISTORY: r/o infiltrate COMPARISON: 03/28/2018 FINDINGS: LUNGS: Patient is rotated to the left. No evidence of infiltrate PLEURA: No significant pleural effusion identified, no pneumothorax apparent. CARDIOVASCULAR: No aortic atherosclerotic calcification present. Mild cardiomegaly no pulmonary vascular congestion. OSSEOUS STRUCTURES: No significant abnormalities. VISUALIZED UPPER ABDOMEN: None OTHER FINDINGS: Dialysis catheter in the right atrium IMPRESSION: No active disease.
[2018-04-29] MEDS ORDERED: Potassium Chloride 40 mEq/30 ml LIQ UD PO ONE (11:00)
--- NOTE | 2018-04-29 11:15 | PN ---
DATE: 04/29/2018 SUBJECTIVE: The patient is in bed in no acute distress, nontoxic. PHYSICAL EXAMINATION: VITAL SIGNS: Temperature is 98, blood pressure is 130/60, respiratory rate of 18. HEENT: Unremarkable. NECK: Supple. LUNGS: Have decreased breath sounds. HEART: Normal S1, S2. ABDOMEN: Soft, nontender. LABORATORY EXAMINATION: Reveals a white count of 12,500. Chemistries are noted. Urinalysis is reviewed. Microbiology reveals the buttocks culture shows a Acinetobacter baumannii and Klebsiella. She is sensitive to colistin and intermediate to meropenem. Review of orders reveals the patient to be on meropenem at this point. Ultrasound of the abdomen is pending. The patient had a chest x-ray. No evidence of infiltrates. Dialysis catheter in the right atrium. Blood cultures are negative. ASSESSMENT AND PLAN: This is a 77-year-old female, 375, bed 1, with history of hypertension, dyslipidemia, dementia, left buttock ulcers and wound VAC, stage III right decubitus ulcer and wound VAC now with multidrug resistant organism, awaiting for sensitivity for and ultrasound of the abdomen. Currently on meropenem. Overall prognosis is quite poor for this patient with Acinetobacter baumannii and Klebsiella. Eleazar Retana MD
--- NOTE | 2018-04-29 18:27 | PN ---
DATE: 04/29/2018 IDENTIFICATION: The patient is a 77-year-old female. SUBJECTIVE: The patient was seen and examined at the bedside on 04/29/2018, no change in the status, awake, but is not able to follow the orders. No fevers, no chills. Does not look like in acute distress. PHYSICAL EXAMINATION: VITAL SIGNS: Temperature 98.1, blood pressure 130/60, and respiratory rate 18. HEENT: Head is normocephalic and atraumatic. Eyes, PERRLA, extraocular muscles intact, conjunctivae are clear, nose patent, mucous membranes are moist. NECK: Supple. No carotid bruits, no thyromegaly. CHEST: Bilaterally symmetric. HEART: S1 and S2 positive. LUNGS: Clear to auscultation. ABDOMEN: Soft, bowel sounds are present, no organomegaly. EXTREMITIES: Positive edema, positive multiple decubitus ulcers. LABORATORY DATA: White blood cells 12.5, hemoglobin 9.1, hematocrit 28.8, platelets 242, sodium 140, potassium 3.4, BUN 20, creatinine 0.9, and glucose 111. MEDICATIONS: Clorpactin, Duragesic, iron, Lipitor, Merrem, primidone, Namenda, Norvasc, Protonix, Tylenol, tramadol. ASSESSMENT AND PLAN: Ms. Otis Canela is a 77-year-old lady with leukocytosis, anemia with hypokalemia, we will replace, hyperchloremia, increased BUN, hyperglycemia, proteinuria, hematuria, and urinary tract infection. Infectious Disease is on the case, Dr. Retana. She has multidrug- resistant organism. Waiting for sensitivity as per Dr. Retana. The patient has history of hypertension, dyslipidemia, dementia, had decubitus ulcer at different places with wound vacuum assisted closure stage III, currently on meropenem. Overall prognosis is quite poor for this patient with Acinetobacter baumannii and Klebsiella. Meanwhile, continue present treatment. Tried to talk to the family, sister and niece for patient to make a DNR and DNI, but the patient is still FUL CODE. We will continue present treatment. Kayleen Mora MD
--- NOTE | 2018-04-29 20:46 | CP.PCM.PCO ---
Physician Communication Note - Physician Communication Note Physician Communication Note: wound vac changed today, rectal tube placed - next change 05/03
--- NOTE | 2018-04-29 22:06 | CP.PCM.PN ---
Subjective - Date & Time of Evaluation Date of Evaluation: 04/29/18 Time of Evaluation: 18:00 - Subjective Subjective: 77 yo F w/ htn, dm, dementia, severe pulmonary htn, recent dialysis dependent CHINMAY, admitted with multiple decubitus ulcers; Patient non-verbal, receiving tube feeds; rectal tube placed today due to concern for soiling wounds; Objective - Vital Signs/Intake and Output Vital Signs (last 24 hours): Temp Pulse Resp BP Pulse Ox 98 F 97 H 20 120/60 98 04/29/18 15:51 04/29/18 18:00 04/29/18 15:51 04/29/18 15:51 04/29/18 15:51 - Medications Medications: Current Medications Acetaminophen (Tylenol 650 Mg Supp) 650 mg RC Q6H PRN PRN Reason: Fever >100.4 F Last Admin: 04/25/18 18:46 Dose: 650 mg Amlodipine Besylate (Norvasc) 5 mg PEG DAILY [facility] Last Admin: 04/29/18 09:16 Dose: 5 mg Atorvastatin Calcium (Lipitor) 10 mg PEG DIN [facility] Last Admin: 04/29/18 17:42 Dose: 10 mg Fentanyl (Duragesic) 1 patch TD Q72H [facility] Last Admin: 04/28/18 17:42 Dose: 1 patch Ferrous Sulfate (Feosol Liq) 300 mg PEG BID [facility] Last Admin: 04/29/18 17:41 Dose: 300 mg Meropenem (Merrem Iv 1 Gm Premix) 1 gm in 50 mls @ 100 mls/hr IVPB Q8 [facility]; Protocol Stop: 05/07/18 22:01 Last Admin: 04/29/18 21:35 Dose: 100 mls/hr Memantine (Namenda) 5 mg PEG DAILY [facility] Last Admin: 04/29/18 09:16 Dose: 5 mg Oxychlorosene Sodium (Clorpactin Wcs-90) 2 gm TOP Q6H PRN PRN Reason: Other Last Admin: 04/25/18 22:07 Dose: 2 gm Pantoprazole Sodium (Protonix Susp) 40 mg PEG DAILY [facility] Last Admin: 04/29/18 09:17 Dose: 40 mg Potassium Chloride (K-Dur 20 Meq Er Tab) 20 meq PO DAILY [facility] Primidone (Mysoline) 50 mg PO TID [facility] Last Admin: 04/29/18 17:42 Dose: 50 mg Tramadol HCl (Ultram) 50 mg GT BID PRN PRN Reason: Pain, moderate (4-7) Last Admin: 04/25/18 17:58 Dose: 50 mg - Labs Labs: 04/29/18 06:00 04/29/18 06:00 PT 11.3 SECONDS (9.4-12.5) 04/25/18 12:30 INR 0.98 04/25/18 12:30 APTT 25.7 Seconds (25.1-36.5) 04/25/18 12:30 - Constitutional Appears: Non-toxic, In Acute Distress, Cachectic - Eye Exam Eye Exam: Normal appearance - Respiratory Exam Respiratory Exam: Clear to Ausculation Bilateral. absent: Respiratory Distress - Cardiovascular Exam Cardiovascular Exam: RRR, +S1, +S2 - GI/Abdominal Exam GI & Abdominal Exam: Soft. absent: Distended, Tenderness - Extremities Exam Additional comments: no leg edema; - Neurological Exam Neurological Exam: Alert, Awake - Psychiatric Exam Psychiatric exam: absent: Agitated - Skin Skin Exam: Warm. absent: Cyanosis Assessment and Plan (1) CHINMAY (acute kidney injury) Assessment & Plan: Consistent with ATN, resolving; no need for further HD but will monitor as serum creatinine did increase slightly; mild hypokalemia, supplemented; -will obtain creatinine clearance once serum creatinine at plateau; -avoid nephrotoxic agents; Status: Acute (2) Anemia Assessment & Plan: Hgb stable s/p 1 u prbc transfusion; will monitor; continue PO ferrous sulfate; Status: Acute (3) Decubitus ulcer Assessment & Plan: Extensive ulcers; on meropenem per ID; f/u with surgery for further interv ention; continue fentanyl patch and tramadol prn for pain control; continue tube feeds and supplements; if renal function remains stable, will switch from nepro to another feed; Status: Acute (4) Pulmonary hypertension Assessment & Plan: No significant edema on exam; no need for diuretics for now; Status: Chronic (5) Hypertension Assessment & Plan: On amlodipine 5 mg daily, continue; Status: Chronic
[2018-04-30] MEDS: Meropenem IV 1 gm in NS 1 GM/50 ML BAG IVPB SCH ×2 (05:23→21:39)
[2018-04-30 06:40] LABS: BLOOD UREA NITROGEN 47 mg/dL (7-21); CALCIUM 9.1 mg/dL (8.4-10.5); GFR NON-AFRICAN AMERICAN > 60
[2018-04-30] MEDS: Ferrous Sulfate 300 mg/5 mL Liq UD PEG SCH ×2 (10:19→18:40)
[2018-04-30] MEDS: Potassium Chloride 20 mEq ER Tab PO SCH (10:20)
[2018-04-30] MEDS: Pantoprazole 40 mg Susp UD PEG SCH (10:27)
--- NOTE | 2018-04-30 11:06 | PN ---
DATE: 04/30/2018 SUBJECTIVE: The patient is seen earlier this morning in room 375, bed 1. No fevers. No chills. PHYSICAL EXAMINATION: VITAL SIGNS: Temperature is 98, blood pressure is 120/70, and respirations 16. HEENT: Unremarkable. NECK: Supple. LUNGS: Decreased breath sounds. HEART: Normal S1, S2. ABDOMEN: Soft, nontender. LABORATORY EXAMINATION: Reveals the patient's buttock's culture is positive for ESBL. ASSESSMENT AND PLAN: A 77-year-old female seen earlier today with hypertension; dyslipidemia; dementia; left buttock ulcer and wound VAC staged with multidrug resistant organism, extended-spectrum beta-lactamase and Acinetobacter baumannii and Klebsiella with extended-spectrum beta-lactamase, currently on meropenem, awaiting for sensitivity to , and overall prognosis is quite poor. We will follow with you. Eleazar Retana MD
--- NOTE | 2018-04-30 13:26 | CP.PCM.CON ---
History of Present Illness - History of Present Illness History of Present Illness: Palliative consult requested by Dr Yana Mora Reason: Goals of care 77 year old female with history of dementia CAD,HTN, GERD, GI bleed, sepsis who was sent from dialysis unit for evaluation of anemia. Labs: Wbc 15.8, Hgb 7.3, Plt 240, NA139, K 3.2, Bun 16, Twisting Press Operator 0.4, glucose 105, Ca 8.0, AST 99, ALT 184, Alk Phos 201, Albumin 2.3, blood/urine cultures negative, Wound culture + Acinetobacter Baumannii, Klebsiella Pneumonaei Ss Chest x ray: No active disease PMHx: dementia,ESRD on HD, multiple decubiti, iron deficiency PHSx: PEG tube placement, wound debridement/wound vac right hip Social History: Never smoker, no alcohol or drug use. ERIKA Schmitt Family History: Non Contributory. Advance Care Planning: Patient arrived with POLST( 03/2018) from [place], signed by her. Question of document's validity since patient was likely not competent to understand and sign consent. Heean CHAMORRO also did not sign POLST Review of Systems: As per HPI, patient is altered /non verbal, unable to obtain. Past Patient History - Infectious Disease Hx of Infectious Diseases: None - Past Medical History & Family History Past Medical History?: Yes - Past Social History Smoking Status: Never Smoked - CARDIAC Hx Hypertension: Yes - PULMONARY Hx Respiratory Disorders: No - NEUROLOGICAL Hx Dementia: Yes - HEENT Hx HEENT Problems: No - RENAL Hx Chronic Kidney Disease: No - ENDOCRINE/METABOLIC Hx Diabetes Mellitus Type 2: Yes - HEMATOLOGICAL/ONCOLOGICAL Hx Blood Disorders: No - INTEGUMENTARY Hx Dermatological Problems: Yes Other/Comment: left gluteal decubiti ulcer with wound vac in place, right heel necrotic wound, multiple wounds to sacrum in various stages of healing, b/l bunyons, callous outer left foot, long thick toenails to both feet, crooked toes to left foot, dry skin, multiple skin discolorations ble - MUSCULOSKELETAL/RHEUMATOLOGICAL Hx Arthritis: Yes (CONTRACTED L HIP/KNEE AND B/L ELB) - GASTROINTESTINAL Hx Gastrointestinal Disorders: Yes (wt loss) - GENITOURINARY/GYNECOLOGICAL Hx Genitourinary Disorders: Yes Hx Incontinence: Yes (urine and stool) - PSYCHIATRIC Hx Psychophysiologic Disorder: Yes Hx Anxiety: Yes Hx Substance Use: No Other/Comment: dementia - SURGICAL HISTORY Hx Surgeries: No - ANESTHESIA Hx Anesthesia: No Meds Allergies/Adverse Reactions: Allergies Allergy/AdvReac Type Severity Reaction Status Date / Time No Known Allergies Allergy Verified 04/25/18 10:03 - Medications Medications: Current Medications Acetaminophen (Tylenol 650 Mg Supp) 650 mg RC Q6H PRN PRN Reason: Fever >100.4 F Last Admin: 04/25/18 18:46 Dose: 650 mg Amlodipine Besylate (Norvasc) 5 mg PEG DAILY [facility] Last Admin: 04/30/18 10:22 Dose: Not Given Atorvastatin Calcium (Lipitor) 10 mg PEG DIN [facility] Last Admin: 04/29/18 17:42 Dose: 10 mg Fentanyl (Duragesic) 1 patch TD Q72H [facility] Last Admin: 04/28/18 17:42 Dose: 1 patch Ferrous Sulfate (Feosol Liq) 300 mg PEG BID [facility] Last Admin: 04/30/18 10:19 Dose: 300 mg Meropenem (Merrem Iv 1 Gm Premix) 1 gm in 50 mls @ 100 mls/hr IVPB Q8 [facility]; Protocol Stop: 05/07/18 22:01 Last Admin: 04/30/18 05:23 Dose: 100 mls/hr Memantine (Namenda) 5 mg PEG DAILY [facility] Last Admin: 04/30/18 10:23 Dose: 5 mg Oxychlorosene Sodium (Clorpactin Wcs-90) 2 gm TOP Q6H PRN PRN Reason: Other Last Admin: 04/25/18 22:07 Dose: 2 gm Pantoprazole Sodium (Protonix Susp) 40 mg PEG DAILY [facility] Last Admin: 04/30/18 10:27 Dose: 40 mg Potassium Chloride (K-Dur 20 Meq Er Tab) 20 meq PO DAILY [facility] Last Admin: 04/30/18 10:20 Dose: 20 meq Primidone (Mysoline) 50 mg PO TID [facility] Last Admin: 04/30/18 10:28 Dose: 50 mg Tramadol HCl (Ultram) 50 mg GT BID PRN PRN Reason: Pain, moderate (4-7) Last Admin: 04/30/18 10:23 Dose: 50 mg Physical Exam - Constitutional Appears: Cachectic, Chronically Ill - Head Exam Head Exam: NORMAL INSPECTION - Eye Exam Eye Exam: Normal appearance, PERRL - ENT Exam ENT Exam: Mucous Membranes Moist - Neck Exam Neck exam: Positive for: Normal Inspection - Respiratory Exam Respiratory Exam: Decreased Breath Sounds, NORMAL BREATHING PATTERN - Cardiovascular Exam Cardiovascular Exam: REGULAR RHYTHM, +S1, +S2 - GI/Abdominal Exam GI & Abdominal Exam: Normal Bowel Sounds, Soft Additional comments: PEG intact/patent - Extremities Exam Additional comments: contracted Results - Vital Signs Recent Vital Signs: Last Vital Signs Temp 97.7 F 04/30/18 08:16 Pulse 92 H 04/30/18 10:22 Resp 20 04/30/18 08:16 BP 111/46 L 04/30/18 10:22 Pulse Ox 98 04/30/18 08:16 - Labs Result Diagrams: 04/29/18 06:00 04/30/18 06:00 Labs: Laboratory Results - last 24 hr 04/29/18 04/29/18 04/29/18 11:33 15:55 21:11 Sodium Potassium Chloride Carbon Dioxide Anion Gap BUN Creatinine Est GFR ( Amer) Est GFR (Non-Af Amer) POC Glucose (mg/dL) 99 91 126 H Random Glucose Calcium 04/30/18 04/30/18 04/30/18 06:00 07:26 11:27 Sodium 138 Potassium 4.1 Chloride 107 Carbon Dioxide 27 Anion Gap 8 L BUN 47 H Creatinine 0.9 Est GFR ( Amer) > 60 Est GFR (Non-Af Amer) > 60 POC Glucose (mg/dL) 132 H 81 Random Glucose 111 H Calcium 9.1 Assessment & Plan - Assessment and Plan (Free Text) Assessment: 77 year old female with history of dementia, ESRD on HD, sepsis,dysphagia,multiple skin ulcer, sepsis who is admitted with anemia,sepsis. Patient known to me form previous admission. At that time I questioned validity of POLST document. I exposed concern because the patient has history of dementia and did not have capacity to underhand the ramifications of CRP/ intubation. I later spoke with patient's Heena CHAMORRO who stated that family wanted everything done and that patient should remain full code Voice mail left for Heena CHAMORRO to discuss goals of care Plan: Goals of care Wound care of infected ulcer right hip : Surgery flowing, wound vac. Recommend debridement ID following, on Merrem ESRD: Continue dialysis
--- NOTE | 2018-04-30 17:03 | US ---
HISTORY: r/o biliary ds COMPARISON: Renal ultrasound performed 03/20/18, CT of the chest, abdomen, and pelvis performed 06/19/16. TECHNIQUE: Sonographic evaluation of the abdomen. FINDINGS: Examination markedly limited due to patient condition/positioning. LIVER: Measures 13.8 cm in maximum dimension. The main portal vein appears patent with normal directional flow. GALLBLADDER: Gallbladder is contracted limiting evaluation. Gallstones. No gallbladder wall thickening. Negative sonographic Hanks's sign as assessed by the salvage winder and inspector. COMMON BILE DUCT: Measures 3 mm. PANCREAS: Not well visualized. RIGHT KIDNEY: Measures 10.6 x 3.5 x 4.0 cm. No obstructing calculus or hydronephrosis identified. LEFT KIDNEY: Not visualized. SPLEEN: Not visualized. AORTA: Not well-visualized. IVC: Not well-visualized. OTHER FINDINGS: None. IMPRESSION: Suboptimal study as above. Cholelithiasis.
[2018-04-30] MEDS ORDERED: Acetaminophen 650mg/20.3ml solution UD PEG PRN (20:04)
[2018-04-30 20:31] LABS: BASO # 0.03 K/mm3 (0.0-2.0); BASO % 0.2 % (0.0-3.0); EOS # 0.5 (0.0-0.7); EOS % 3.6 % (1.5-5.0); GRAN # 10.36 (1.4-6.5); GRAN % 79.3 % (50.0-68.0); HEMOGLOBIN 9.1 g/dL (12.0-16.0); LYMPH # 1.8 (1.2-3.4); LYMPH % 13.5 % (22.0-35.0); MEAN CELL VOLUME 94.1 fl (80.0-105.0); MEAN CORPUSCULAR HEMOGLOBIN 29.7 pg (25.0-35.0); MEAN CORPUSCULAR HGB CONC 31.6 g/dl (31.0-37.0); MEAN PLATELET VOLUME 10.1 fl (7.0-11.0); MONO # 0.5 (0.1-0.6); MONO % 3.4 % (1.0-6.0); RBC 3.06 10^6/uL (3.5-6.1); RED CELL DISTRIBUTION WIDTH 15.9 % (11.5-14.5); WHITE BLOOD COUNT 13.1 10^3/uL (4.5-11.0)
[2018-04-30 20:45] LABS: URINE APPEARANCE CLEAR (CLEAR); URINE BILIRUBIN NEGATIVE (NEGATIVE); URINE BLOOD TRACE-INTACT (NEGATIVE); URINE COLOR YELLOW (YELLOW); URINE GLUCOSE (UA) NEGATIVE (NEGATIVE); URINE LEUKOCYTE ESTERASE LARGE Leu/uL (NEGATIVE); URINE PROTEIN TRACE mg/dL (<30 mg/dL); URINE UROBILINOGEN 0.2 E.U./dL (<1 E.U./dL)
[2018-04-30 20:58] LABS: URINE RBC 0 - 2 /hpf (0-2)
[2018-04-30 20:59] LABS: URINE BACTERIA MANY (NEG)
--- NOTE | 2018-04-30 22:59 | CP.PCM.PN ---
Subjective - Date & Time of Evaluation Date of Evaluation: 04/30/18 Time of Evaluation: 11:00 - Subjective Subjective: 77 yo F w/ htn, dm, dementia, severe pulmonary htn, recent dialysis dependent CHINMAY, admitted with multiple decubitus ulcers; Patient non-verbal, receiving tube feeds; jefferson not draining well; Objective - Vital Signs/Intake and Output Vital Signs (last 24 hours): Temp Pulse Resp BP Pulse Ox 97.7 F 97 H 20 111/46 L 98 04/30/18 08:16 04/30/18 18:00 04/30/18 08:16 04/30/18 10:22 04/30/18 08:16 Intake and Output: 04/30/18 05/01/18 18:59 06:59 Output Total 800 Balance -800 - Medications Medications: Current Medications Acetaminophen (Tylenol 650 Mg Supp) 650 mg RC Q6H PRN PRN Reason: Fever >100.4 F Last Admin: 04/25/18 18:46 Dose: 650 mg Acetaminophen (Tylenol 650mg/20.3ml Solution Ud) 650 mg PEG Q6H PRN PRN Reason: fevers Amlodipine Besylate (Norvasc) 5 mg PEG DAILY [facility] Last Admin: 04/30/18 10:22 Dose: Not Given Atorvastatin Calcium (Lipitor) 10 mg PEG DIN [facility] Last Admin: 04/30/18 18:40 Dose: 10 mg Fentanyl (Duragesic) 1 patch TD Q72H [facility] Last Admin: 04/28/18 17:42 Dose: 1 patch Ferrous Sulfate (Feosol Liq) 300 mg PEG BID [facility] Last Admin: 04/30/18 18:40 Dose: 300 mg Meropenem (Merrem Iv 1 Gm Premix) 1 gm in 50 mls @ 100 mls/hr IVPB Q8 [facility]; Protocol Stop: 05/07/18 22:01 Last Admin: 04/30/18 21:39 Dose: 100 mls/hr Sodium Chloride (Sodium Chloride 0.9%) 500 mls @ 100 mls/hr IV .Q5H [facility] Stop: 05/01/18 03:59 Memantine (Namenda) 5 mg PEG DAILY [facility] Last Admin: 04/30/18 10:23 Dose: 5 mg Oxychlorosene Sodium (Clorpactin Wcs-90) 2 gm TOP Q6H PRN PRN Reason: Other Last Admin: 04/25/18 22:07 Dose: 2 gm Pantoprazole Sodium (Protonix Susp) 40 mg PEG DAILY [facility] Last Admin: 04/30/18 10:27 Dose: 40 mg Potassium Chloride (K-Dur 20 Meq Er Tab) 20 meq PO DAILY [facility] Last Admin: 04/30/18 10:20 Dose: 20 meq Primidone (Mysoline) 50 mg PO TID [facility] Last Admin: 04/30/18 18:40 Dose: 50 mg Tramadol HCl (Ultram) 50 mg GT BID PRN PRN Reason: Pain, moderate (4-7) Last Admin: 04/30/18 10:23 Dose: 50 mg - Labs Labs: 04/30/18 20:26 04/30/18 06:00 PT 11.3 SECONDS (9.4-12.5) 04/25/18 12:30 INR 0.98 04/25/18 12:30 APTT 25.7 Seconds (25.1-36.5) 04/25/18 12:30 - Constitutional Appears: Non-toxic, Cachectic - Respiratory Exam Respiratory Exam: Clear to Ausculation Bilateral. absent: Respiratory Distress Additional comments: limited auscultation - Cardiovascular Exam Cardiovascular Exam: absent: Gallop, Rubs - GI/Abdominal Exam GI & Abdominal Exam: Firm - Exam Exam: Bladder Distension - Extremities Exam Additional comments: no leg edema; - Psychiatric Exam Psychiatric exam: Agitated - Skin Skin Exam: Warm. absent: Cyanosis Assessment and Plan (1) CHINMAY (acute kidney injury) Assessment & Plan: Consistent with ATN, resolved; however, BUN increased today; jefferson wasn't draining properly at time of encounter, bladder was distended; nursing staff informed to reposition patient and re-assess jefferson catheter; giving 500 cc NS for any pre-renal component; Status: Acute (2) Anemia Assessment & Plan: Hgb stable, monitor; Status: Acute (3) Decubitus ulcer Assessment & Plan: On meropenem, f/u with ID; Status: Acute (4) Pulmonary hypertension Assessment & Plan: On previous echo; no edema; stable resp status, monitor; Status: Chronic (5) Hypertension Assessment & Plan: Normotoensive, norvasc held today; Status: Chronic
[2018-04-30] MEDS ORDERED: Sodium Chloride 0.9% 500 ML IV SCH (23:00)
--- NOTE | 2018-04-30 23:07 | PN ---
DATE: 04/30/2018 IDENTIFICATION: The patient is a 77-year-old female. SUBJECTIVE: The patient was seen and examined at the bedside on 04/30/2018, and looking comfortable. No change in the status. No fever, no chills. No headache or dizziness. No chest pain. No palpitation. PHYSICAL EXAMINATION: VITAL SIGNS: Temperature 97.7, pulse 92, blood pressure 111/46, and respiratory rate 20. HEENT: Head is normocephalic and atraumatic. Eyes; PERRLA, extraocular muscles intact, conjunctivae are clear. Nose patent. NECK: Supple. No carotid bruits, no thyromegaly. CHEST: Bilaterally symmetric. HEART: S1 and S2 positive. LUNGS: Clear to auscultation. ABDOMEN: Soft, bowel sounds are present, no organomegaly. EXTREMITIES: No edema, no cyanosis, but have multiple decubitus ulcers. MEDICATIONS: Clorpactin, Duragesic, ferrous sulfate, K-Dur, Lipitor, meropenem, and primidone. LABORATORY DATA: White blood cells 12.5, hemoglobin 9.1, hematocrit 28.8, platelets 242. Sodium 138, potassium 4.1, BUN 47, creatinine 0.9, and glucose 132. ASSESSMENT AND PLAN: Ms. Otis Canela is a 77-year-old lady with leukocytosis, anemia, hyperglycemia, proteinuria, hematuria, and urinary tract infection. Has dementia, multiple decubitus ulcers; seen by Comfort Care Nurse. The patient has a history of coronary artery disease, hypertension, gastroesophageal reflux disease, gastrointestinal bleeding. Continue with antibiotic treatment with labs. We will follow up. Kayleen Mora MD SANDIE
[2018-05-01] MEDS: Meropenem IV 1 gm in NS 1 GM/50 ML BAG IVPB SCH ×3 (05:28→21:43)
[2018-05-01 07:40] LABS: BLOOD UREA NITROGEN 50 mg/dL (7-21); CALCIUM 9.4 mg/dL (8.4-10.5); GFR NON-AFRICAN AMERICAN > 60
--- NOTE | 2018-05-01 07:40 | CP.PCM.PCO ---
Physician Communication Note - Physician Communication Note Physician Communication Note: wound vac revised and Y connector used to separate wounds
[2018-05-01] MEDS: Ferrous Sulfate 300 mg/5 mL Liq UD PEG SCH ×2 (09:08→17:08)
[2018-05-01] MEDS: Potassium Chloride 20 mEq ER Tab PO SCH (09:09)
[2018-05-01] MEDS: Pantoprazole 40 mg Susp UD PEG SCH (09:10)
--- NOTE | 2018-05-01 09:35 | PN ---
DATE: 05/01/2018 SUBJECTIVE: The patient is seen earlier today in room 375, bed 1. The patient had a low-grade fever last night of 99 and no nausea or vomiting. The patient's status is unchanged. PHYSICAL EXAMINATION: VITAL SIGNS: Temperature is 98, blood pressure is 111/60, respiratory rate of 16. HEENT: Unremarkable. NECK: Supple. LUNGS: Decreased breath sounds. HEART: Normal S1, S2. ABDOMEN: Soft, nontender. No rebound, no guarding. No masses. LABORATORY EXAMINATION: Reveals a white count of 13,000, hemoglobin of 9, platelets of 236,000. Coagulation is noted. BUN of 50, creatinine of 0.9. Microbiology reveals Acinetobacter baumannii, Klebsiella pneumonia. ASSESSMENT AND PLAN: A 77-year-old female with hypertension, dyslipidemia, dementia, left buttock ulcer, wound vacuum-assisted closure stitched and multidrug resistant organism extended-spectrum beta-lactamase, Acinetobacter, on meropenem and I will ask for Avycaz sensitivity, still waiting for that and the repeat blood cultures, urine cultures, stool for clostridium difficile and procalcitonin and pending and chest x-ray was done, it is also pending. Overall, prognosis is poor. Wound vacuum-assisted closure was revised, Y-connector used to separate wounds as per Dr. Alanna Gonzalez's note. Eleazar Retana MD
--- NOTE | 2018-05-01 11:46 | RAD ---
HISTORY: r/o pneumonia COMPARISON: Chest x-ray performed 04/28/18 TECHNIQUE: Chest, one view. FINDINGS: Examination limited by patient obliquity. The patient's chin obscures evaluation of the left upper lobe. Dialysis catheter with tips in SVC/right atrium. LUNGS: Left basilar atelectasis/infiltrate and or small effusion. No definite pneumothorax. CARDIOVASCULAR: Cardiomegaly. Atherosclerotic calcifications present. OSSEOUS STRUCTURES: Osseous demineralization. Degenerative changes. VISUALIZED UPPER ABDOMEN: Unremarkable. OTHER FINDINGS: None. IMPRESSION: Left basilar atelectasis/infiltrate and or small effusion. Cardiomegaly. Dialysis catheter with tips in SVC/right atrium.
--- NOTE | 2018-05-02 00:26 | PN ---
DATE: 05/01/2018 SUBJECTIVE: The patient is a 77-year-old female. The patient was seen and examined at the bedside on 05/01/2018. No change in the status. Seen by surgical team. No fever. No chills. No hematuria or hematochezia. No headache or dizziness. PHYSICAL EXAMINATION: GENERAL: The patient is awake, but is not able to follow the command. VITAL SIGNS: Temperature 98.4, pulse 105, respiratory rate 18, and blood pressure 115/53. HEENT: Head is normocephalic and atraumatic. Eyes PERRLA. Extraocular muscles intact. Conjunctivae clear. Nose patent. NECK: Supple. No carotid bruits, JVD, or thyromegaly. CHEST: Bilaterally symmetric. HEART: S1 and S2 positive. LUNGS: Clear to auscultation. ABDOMEN: Soft. Bowel sounds present. No organomegaly. EXTREMITIES: No edema. No cyanosis. NEUROLOGIC: The patient is awake but not able to follow the command. MEDICATIONS: Duragesic patch, ferrous sulfate, potassium, Lipitor, Merrem, primidone, Namenda, Norvasc, Protonix, Tylenol, and tramadol. LABORATORY DATA: White blood cells 13.1, hemoglobin 9.1, hematocrit 28.8, platelets 236. Sodium 140, potassium 4.1, BUN 50, creatinine 0.9, and glucose 127. ASSESSMENT AND PLAN: Ms. Otis Canela is a 77-year-old female with leukocytosis, anemia, hyperchloremia, hyperglycemia, proteinuria, hematuria, and urinary tract infection. Has decubitus ulcer, has wound vacuum-assisted closure. Per Dr. Hillman, the wound vacuum-assisted closure revised and container used to separate wounds. Infectious Disease is on the case. History of hypertension and dyslipidemia, dementia, multi-drug resistant organism extended-spectrum beta-lactamase. Repeat blood cultures and urine cultures and stool for Clostridium difficile. Prolactin is pending. Overall prognosis is poor. Gastrointestinal and deep venous thrombosis prophylaxis. Sena Bernard is on the case. We will follow. Kayleen Mora MD [facility] # [id number] SANDIE
[2018-05-02] MEDS: Meropenem IV 1 gm in NS 1 GM/50 ML BAG IVPB SCH ×3 (05:52→21:25)
--- NOTE | 2018-05-02 10:13 | PN ---
DATE: 05/02/2018 SUBJECTIVE: The patient is seen earlier today in 375, bed 1 and she is in chronic condition in bed, no acute distress, nontoxic. PHYSICAL EXAMINATION: VITAL SIGNS: On exam, temperature is 99, blood pressure is 120/50, respiratory rate 24, heart rate of 105. HEENT: Examination of HEENT is unremarkable. NECK: Supple. LUNGS: Have decreased breath sounds. HEART: Normal S1, S2. ABDOMEN: Soft, nontender. LABORATORY DATA: Laboratory examination reveals a white count of 13,000, hemoglobin of 9, platelets of 236. BUN of 50, creatinine of 0.9. Urinalysis is noted. Procalcitonin is 0.36. Microbiology reveals the patient's C. diff and antigen and toxin are both negative. ASSESSMENT AND PLAN: A 77-year-old female with hypertension, dyslipidemia, dementia, left buttocks ulcer, wound VAC system closure, multidrug-resistant extended spectrum beta-lactamase Acinetobacter, on meropenem and overall prognosis is quite poor for this patient. Would complete a short course of antibiotics. Today is day #5 of meropenem. No benefit in extending antibiotic therapy for this patient, who is contracted and multiple ulcers and overall prognosis is quite poor. Eleazar Retana MD
[2018-05-02] MEDS: Pantoprazole 40 mg Susp UD PEG SCH (10:36)
[2018-05-02] MEDS: Ferrous Sulfate 300 mg/5 mL Liq UD PEG SCH ×2 (10:36→17:08)
[2018-05-02] MEDS: Potassium Chloride 20 mEq ER Tab PO SCH (10:39)
[2018-05-02] MEDS: Potassium Chloride 20 mEq/15 ml LIQ UD PEG SCH (10:39)
--- NOTE | 2018-05-02 17:05 | PN ---
DATE: 05/02/2018 SUBJECTIVE: The patient is a 77-year-old female. The patient was seen and examined on the bedside on 05/02/2018. Looking comfortable. No change in the status. No fever. No chills. Does not look like toxic. Does not look like in acute distress. PHYSICAL EXAMINATION: VITAL SIGNS: Temperature 99, blood pressure 120/50, respiratory rate 20, heart rate 105. HEENT: Head, normocephalic and atraumatic. Eyes, PERRLA. Extraocular muscles intact. Conjunctivae clear. Nose patent. Mucous membrane moist. NECK: Supple. No carotid bruits, JVD, or thyromegaly. CHEST: Bilaterally symmetric. HEART: S1 and S2 positive. LUNGS: Clear to auscultation. ABDOMEN: Soft. Bowel sounds present. No organomegaly. EXTREMITIES: No edema. No cyanosis. NEUROLOGICAL: The patient is awake and alert, but is not able to follow command. MEDICATIONS: Duragesic patch, ferrous sulfate, Lipitor, meropenem, primidone, tramadol, Tylenol, and Protonix. LABORATORY DATA: We do not have CBC today. Glucose is 91, 97, and 127. I reviewed old labs. ASSESSMENT AND PLAN: Ms. Hilton Berg is a 77-year-old lady with anemia, leukocytosis, hyperchloremia, proteinuria, hematuria, and urinary tract infection. Seen by Infectious Disease Dr. Retana, and surgical team, Dr. Alvino Hillman. History of hypertension, dyslipidemia, dementia, decubitus ulcer, wound vacuum-assisted closure system, multi-drug resistant extended-spectrum beta-lactamase, Acinetobacter, on meropenem, and overall prognosis is quite poor. So, this patient and family knows about pt prognosis , offered patient do not resuscitate and do not intubate and comfort care , but pt neice and sister refussed , so pt is full code . The patient is getting antibiotics. Today is day five of meropenem. The patient has some fracture of the legs and multiple ulcers. Continue current treatment. Repeat labs. We will follow up. Kayleen Mora MD [facility] # [id number] MTDSrinivas
--- NOTE | 2018-05-02 18:40 | PN ---
DATE: 05/02/2018 SUBJECTIVE: This 77-year-old female remains on wound isolation on the cardiac silveira at the [facility]. Her case was reviewed on the afternoon of 05/02/2018 with nurse, Ramana Hodges, registered nurse. PHYSICAL EXAMINATION: VITAL SIGNS: Temperature 98.6, respirations 20, pulse 97 and blood pressure 120/42. Pulse ox 96%. HEENT: Head: Normocephalic, atraumatic. Eyes: No icterus. Ears: Clear. Throat: Noninjected. NECK: Supple. HEART: S1, S2. LUNGS: Clear. ABDOMEN: PEG tube intact. VASCULAR: Legs warm to touch. PSYCHOLOGICAL: Alert. NEURO: Deconditioned. LABORATORY DATA: Sodium 140, K 4.1, chloride 110, bicarb 26, BUN 50, creatinine 0.9, random blood sugar 91. White count 13,100, hemoglobin 9.1, hematocrit 28.8, platelets 236,000. IMPRESSION: A 77-year-old female with end-stage renal disease, now off dialysis with improved electrolytes and comorbidities of infected sacral wound, right hip wound, right ankle wound, hyperlipidemia, organic brain syndrome, hypertension, anemia of chronic disease, gastrointestinal bleeding. PLAN: Plan is to continue Duragesic, Feosol, Lipitor, IV meropenem, Mysoline, Namenda, Norvasc, potassium, Protonix, Tylenol and Ultram. She continues on PEG tube feeds, wound care, isolation precautions, air mattress. She is having serial labs performed. Hemodialysis remains on hold and she remains a full code as per family request. All of the above was reviewed with nurse, Ramana Hodges. All questions were answered. Beatrice Martines MD SANDIE
--- NOTE | 2018-05-02 23:58 | CON ---
DATE OF EXAM: 05/01/2018 A nephrology consultation was requested on the patient, now in Room 375, Bed 1. HISTORY OF PRESENT ILLNESS: This patient was admitted with wound breakdown including sacral, right hip and right ankle wounds and a wound VAC addressing her right hip wound. She is noted to have comorbidities of dementia, atherosclerotic heart disease, chronic hypertension, GERD, GI bleed, sepsis and the patient previously had end-stage renal disease, hemodialysis dependent, which is now at home on hold given change in BUN and creatinine laboratory values. The patient was re-admitted to the [facility] with abnormal hemoglobin and need for blood transfusion. The patient is being followed by Infectious Disease for fevers and multiple drug-resistant organisms growing from her left buttock ulcer as well as hip and ankle ulcers. On review of her EMR, she is currently taking Feosol liquid, Lipitor, IV meropenem, Mysoline, Namenda, Norvasc, potassium, Protonix, Tylenol and Ultram through her PEG. REVIEW OF SYSTEMS: CONSTITUTIONAL: No fever, no chills. HEAD: No recent head trauma or seizures. EYES: No change in visual acuity. EARS: No hearing loss. THROAT: No swallowing difficulty. NECK: No stiffness. CARDIAC: No chest pain. PULMONARY: No hemoptysis. GI: No hematemesis. : Renal disease, previously on dialysis, now on hold. VASCULAR: No claudication. PSYCHOLOGICAL: Organic brain syndrome. NEUROLOGICAL: Contracted and bedridden. PHYSICAL EXAMINATION: GENERAL: At the time of my evaluation, the patient was lying in bed. VITAL SIGNS: Temperature 98.4, respirations 20, pulse 105, blood pressure 116/53, pulse ox 98%. HEENT: Head: Normocephalic, atraumatic. Eyes: No icterus. Ears: Clear. Throat: Non-injected. NECK: Supple. HEART: Regular S1, S2. LUNGS: Clear. ABDOMEN: Soft. EXTREMITIES: Contracted. VASCULAR: Legs warm to touch. PSYCHOLOGICAL: Organic brain syndrome. NEURO: Deconditioned. LABORATORY DATA: White count 13,100, hemoglobin 9.1, hematocrit 28.8, platelets 236,000. PT/INR 0.98, PTT 25.7. Sodium 140, potassium 4.1, chloride 110, bicarb 26, BUN 50, creatinine 0.9, random blood sugar 107, calcium 9.4. IMPRESSION: A 77-year-old female, previously on hemodialysis, now on hold, with multiple comorbidities including organic brain syndrome, iron-deficiency anemia, hyperlipidemia, sacral hip and ankle wounds, organic brain syndrome, hypertension, anemia of GI bleeding and chronic disease. PLAN: The plan is to continue local skin care, wound care, Duragesic patches for pain, Feosol, Lipitor, IV meropenem, Mysoline, Namenda, Norvasc, potassium, Protonix, Ultram and Tylenol. She continues on NG tube feeds, wound care and serial labs. She remains on isolation precautions, air mattress, tube feeds and dietary supplements. I will monitor her clinical progress and her electrolytes, but as discussed with Dr. Mora, the patient's hemodialysis remains on hold at the present time. Beatrice Martines MD MTDSrinivas
[2018-05-03 00:20] VITALS: O2SAT 98
[2018-05-03] MEDS: Meropenem IV 1 gm in NS 1 GM/50 ML BAG IVPB SCH (05:40)
[2018-05-03 06:39] LABS: BLOOD UREA NITROGEN 53 mg/dL (7-21); CALCIUM 9.4 mg/dL (8.4-10.5); GFR NON-AFRICAN AMERICAN > 60
[2018-05-03 06:43] LABS: HEMOGLOBIN 8.5 g/dL (12.0-16.0); MEAN CELL VOLUME 95.8 fl (80.0-105.0); MEAN CORPUSCULAR HEMOGLOBIN 29.9 pg (25.0-35.0); MEAN CORPUSCULAR HGB CONC 31.3 g/dl (31.0-37.0); MEAN PLATELET VOLUME 10.6 fl (7.0-11.0); RBC 2.84 10^6/uL (3.5-6.1); WHITE BLOOD COUNT 10.4 10^3/uL (4.5-11.0)
[2018-05-03 08:50] VITALS: RESP 24
[2018-05-03] MEDS: Ferrous Sulfate 300 mg/5 mL Liq UD PEG SCH (10:37)
[2018-05-03] MEDS: Pantoprazole 40 mg Susp UD PEG SCH (10:38)
[2018-05-03] MEDS: Potassium Chloride 20 mEq/15 ml LIQ UD PEG SCH (10:38)
[2018-05-03 11:12] VITALS: BP 123/60; PULSE 95
[2018-05-03 11:40] VITALS: TEMP 99.1
--- NOTE | 2018-05-03 13:58 | CP.PCM.PN ---
Subjective - Date & Time of Evaluation Date of Evaluation: 05/03/18 Time of Evaluation: 09:40 - Subjective Subjective: No fevers, not in distress. Objective - Vital Signs/Intake and Output Vital Signs (last 24 hours): Temp Pulse Resp BP Pulse Ox 100.6 F H 99 H 24 120/50 L 98 05/03/18 08:50 05/03/18 08:50 05/03/18 08:50 05/03/18 08:50 05/03/18 08:50 Intake and Output: 05/03/18 05/03/18 06:59 18:59 Intake Total 1140 Output Total 500 Balance 640 - Medications Medications: Current Medications Acetaminophen (Tylenol 650 Mg Supp) 650 mg RC Q6H PRN PRN Reason: Fever >100.4 F Last Admin: 04/25/18 18:46 Dose: 650 mg Acetaminophen (Tylenol 650mg/20.3ml Solution Ud) 650 mg PEG Q6H PRN PRN Reason: fevers Amlodipine Besylate (Norvasc) 5 mg PEG DAILY [facility] Last Admin: 05/02/18 10:36 Dose: 5 mg Atorvastatin Calcium (Lipitor) 10 mg PEG DIN [facility] Last Admin: 05/02/18 17:08 Dose: 10 mg Fentanyl (Duragesic) 1 patch TD Q72H [facility] Last Admin: 05/01/18 17:07 Dose: 1 patch Ferrous Sulfate (Feosol Liq) 300 mg PEG BID [facility] Last Admin: 05/02/18 17:08 Dose: 300 mg Meropenem (Merrem Iv 1 Gm Premix) 1 gm in 50 mls @ 100 mls/hr IVPB Q8 [facility]; Protocol Stop: 05/07/18 22:01 Last Admin: 05/03/18 05:40 Dose: 100 mls/hr Memantine (Namenda) 5 mg PEG DAILY [facility] Last Admin: 05/02/18 10:36 Dose: 5 mg Oxychlorosene Sodium (Clorpactin Wcs-90) 2 gm TOP Q6H PRN PRN Reason: Other Last Admin: 04/25/18 22:07 Dose: 2 gm Pantoprazole Sodium (Protonix Susp) 40 mg PEG DAILY [facility] Last Admin: 05/02/18 10:36 Dose: 40 mg Potassium Chloride (Potassium Chloride Oral Soln) 20 meq PEG DAILY [facility] Last Admin: 05/02/18 10:39 Dose: 20 meq Primidone (Mysoline) 50 mg PO TID VINNY Last Admin: 05/02/18 17:08 Dose: 50 mg Tramadol HCl (Ultram) 50 mg GT BID PRN PRN Reason: Pain, moderate (4-7) Last Admin: 04/30/18 23:04 Dose: 50 mg - Labs Labs: 05/03/18 05:15 05/03/18 05:15 PT 11.3 SECONDS (9.4-12.5) 04/25/18 12:30 INR 0.98 04/25/18 12:30 APTT 25.7 Seconds (25.1-36.5) 04/25/18 12:30 - Constitutional Appears: Chronically Ill - Head Exam Head Exam: NORMAL INSPECTION - Respiratory Exam Respiratory Exam: Decreased Breath Sounds - Cardiovascular Exam Cardiovascular Exam: +S1, +S2 - GI/Abdominal Exam GI & Abdominal Exam: Soft. absent: Tenderness Assessment and Plan - Assessment and Plan (Free Text) Plan: Assessment consider Infected stage 3 to 4 left and right decubitus ulcers with wound vacuum placement, growing multidrug-resistant Acinetobacter and Klebsiella HTN dyslipidemia dementia Plan continue Merrem day 6 for at least 7 days overall prognosis is poor follow up further plans of surgery
--- NOTE | 2018-05-03 15:33 | PN ---
DATE: 05/03/2018 SUBJECTIVE: This 77-year-old female remains hospitalized with multiple medical problems including infected sacral decubitus as well as right hip and right ankle wounds as well. The patient has had her dialysis withheld because of normalization of her serum creatinine. PHYSICAL EXAMINATION: VITAL SIGNS: Temperature is 100.6, respirations 24, pulse 95 and blood pressure 123/60 with a pulse ox of 98%. HEENT: Head: Normocephalic, atraumatic. NECK: Supple. HEART: S1, S2. LUNGS: Clear. ABDOMEN: With PEG tube intact. EXTREMITIES: No edema. SKIN: Without rash. NEUROLOGICAL: Chronic contractures. VASCULAR: Legs warm to touch. PSYCHOLOGICAL: Dementia. LABORATORY DATA: White count 10,400, hemoglobin 8.5, hematocrit 27.2, platelets 273,000. Sodium 144, K 4, chloride 110, bicarb 30, BUN 53, creatinine 0.8, random blood sugar 122, calcium 9.4. IMPRESSION: A 77-year-old female status post end-stage renal disease hemodialysis dependent, now off dialysis with comorbidities of infected sacral hip and ankle ulcers, anemia of chronic disease, iron-deficiency anemia, hyperlipidemia, organic brain syndrome, chronic hypertension and failure to thrive. The patient will continue on PEG tube feeds, Protonix, potassium, Norvasc, Namenda, Mysoline, IV meropenem, Lipitor, Feosol, Duragesic and wound care. She will have serial labs. She will have water administered through her PEG tube. She is on a air mattress, is being repositioned every 2 hours, is on wound care instructions and based on clinical progress, additional diagnostic workup and treatment will be entertained. As discussed with nurse practitioner Cintia Rivero and Dr. Mora, dialysis will remain on hold at the present time. Beatrice Martines MD
== END 2018-05-03 15:17 | DRG 811 ==
LOC: ED 09:59 → ERH 13:26 → 3RSO 15:18
PROVIDERS: ADMIT Internal Medicine; ATTEND Internal Medicine
PROC: 5A1D70Z Performance of Urinary Filtration, Intermittent, Less than 6 Hours Per Day (ICD-10-PCS; principal; 2018-04-26)
PROC: 30233N1 Transfusion of Nonautologous Red Blood Cells into Peripheral Vein, Percutaneous Approach (ICD-10-PCS; 2018-04-26)
PROC: 5A1D70Z Performance of Urinary Filtration, Intermittent, Less than 6 Hours Per Day (ICD-10-PCS; 2018-04-27)
DX: D50.0 Iron deficiency anemia secondary to blood loss (chronic) (principal); L89.323 Pressure ulcer of left buttock, stage 3; L89.313 Pressure ulcer of right buttock, stage 3; N18.6 End stage renal disease; N17.0 Acute kidney failure with tubular necrosis; I12.0 Hypertensive chronic kidney disease with stage 5 chronic kidney disease or end stage renal disease; L97.319 Non-pressure chronic ulcer of right ankle with unspecified severity; K92.2 Gastrointestinal hemorrhage, unspecified; N39.0 Urinary tract infection, site not specified; Z93.1 Gastrostomy status; F03.90 Unspecified dementia, unspecified severity, without behavioral disturbance, psychotic disturbance, mood disturbance, and anxiety; R13.10 Dysphagia, unspecified; Z99.2 Dependence on renal dialysis; E78.00 Pure hypercholesterolemia, unspecified; E11.22 Type 2 diabetes mellitus with diabetic chronic kidney disease; E87.6 Hypokalemia; D72.829 Elevated white blood cell count, unspecified; E78.5 Hyperlipidemia, unspecified; D63.1 Anemia in chronic kidney disease; Z74.01 Bed confinement status; R80.9 Proteinuria, unspecified; R31.9 Hematuria, unspecified; E11.622 Type 2 diabetes mellitus with other skin ulcer; E11.65 Type 2 diabetes mellitus with hyperglycemia; E83.51 Hypocalcemia; E87.8 Other disorders of electrolyte and fluid balance, not elsewhere classified; F09 Unspecified mental disorder due to known physiological condition; I25.10 Atherosclerotic heart disease of native coronary artery without angina pectoris; I27.20 Pulmonary hypertension, unspecified; J44.9 Chronic obstructive pulmonary disease, unspecified; K21.9 Gastro-esophageal reflux disease without esophagitis; M16.12 Unilateral primary osteoarthritis, left hip; M17.12 Unilateral primary osteoarthritis, left knee; M19.022 Primary osteoarthritis, left elbow; M19.021 Primary osteoarthritis, right elbow; R62.7 Adult failure to thrive; Z16.24 Resistance to multiple antibiotics; Z51.5 Encounter for palliative care; Z87.11 Personal history of peptic ulcer disease

== ENCOUNTER 2018-05-11 18:25 | Inpatient (IN) | payer MEDICARE, OTHER ==
[2018-05-11 19:23] VITALS: BMI 17.4
[2018-05-11 20:52] LABS: BASO # 0.03 K/mm3 (0.0-2.0); BASO % 0.3 % (0.0-3.0); EOS # 0.6 (0.0-0.7); EOS % 5.7 % (1.5-5.0); GRAN # 7.42 (1.4-6.5); GRAN % 70.5 % (50.0-68.0); HEMOGLOBIN 9.9 g/dL (12.0-16.0); LYMPH # 2.1 (1.2-3.4); LYMPH % 19.8 % (22.0-35.0); MEAN CELL VOLUME 104.2 fl (80.0-105.0); MEAN CORPUSCULAR HEMOGLOBIN 29.7 pg (25.0-35.0); MEAN CORPUSCULAR HGB CONC 28.5 g/dl (31.0-37.0); MEAN PLATELET VOLUME 12.9 fl (7.0-11.0); MONO # 0.4 (0.1-0.6); MONO % 3.7 % (1.0-6.0); RBC 3.33 10^6/uL (3.5-6.1); RED CELL DISTRIBUTION WIDTH 16.8 % (11.5-14.5); WHITE BLOOD COUNT 10.5 10^3/uL (4.5-11.0)
[2018-05-11 21:02] LABS: INR 0.97; PARTIAL THROMBOPLASTIN TIME 25.3 Seconds (25.1-36.5)
--- NOTE | 2018-05-11 21:17 | ED PDOC ---
Arrival/HPI - General Chief Complaint: Abnormal Labs Time Seen by Provider: 05/11/18 19:03 Historian: Patient - History of Present Illness Narrative History of Present Illness (Text): 05/11/18 21:06 77 year old female, whose past medical history includes dementia, hypertension, diabetes, high cholesterol and a decubitus ulcer, presents to the emergency department sent by PMD for abnormal labs, and sacral decubitus ulcer. Patient is slightly confused and not sure what results she was sent in for. Patient denies any fevers, chills, headache, dizziness, chest pain, shortness of breath, cough, abdominal pain, nausea, vomiting, diarrhea, back pain, neck pain, or any other complaint. Time/Duration: Prior to Arrival Symptom Course: Unchanged Past Medical History - Provider Review Nursing Documentation Reviewed: Yes - Past History Past History: No Previous - Infectious Disease Hx of Infectious Diseases: None - Cardiac Hx Hypertension: Yes - Pulmonary Hx Respiratory Disorders: No - Neurological Hx Dementia: Yes - HEENT Hx HEENT Disorder: No - Renal Hx Renal Disorder: No - Endocrine/Metabolic Hx Diabetes Mellitus Type 2: Yes - Hematological/Oncological Hx Blood Disorders: No - Integumentary Hx Dermatological Disorder: Yes Other/Comment: left gluteal decubiti ulcer with wound vac in place, right heel necrotic wound, multiple wounds to sacrum in various stages of healing, b/l bunyons, callous outer left foot, long thick toenails to both feet, crooked toes to left foot, dry skin, multiple skin discolorations ble - Musculoskeletal/Rheumatological Hx Arthritis: Yes (CONTRACTED L HIP/KNEE AND B/L ELB) - Gastrointestinal Hx Gastrointestinal Disorders: Yes (wt loss) - Genitourinary/Gynecological Hx Genitourinary Disorders: Yes Hx Incontinence: Yes (urine and stool) - Psychiatric Hx Psychophysiologic Disorder: Yes Hx Anxiety: Yes Hx Substance Use: No Other/Comment: dementia - Anesthesia Hx Anesthesia: No Family/Social History - Physician Review Nursing Documentation Reviewed: Yes Family/Social History: No Known Family HX Smoking Status: Never Smoked Hx Alcohol Use: No Hx Substance Use: No Hx Substance Use Treatment: No Allergies/Home Meds Allergies/Adverse Reactions: Allergies No Known Allergies Allergy (Verified 05/11/18 19:30) Home Medications: Home Meds Medication Instructions Recorded Confirmed RX: Cholecalciferol [Vitamin D 5,000 unit PEG DAILY 08/10/18 11/18/18 1000 IU] RX: Pravastatin Sodium [Pravachol] 20 mg PO DAILY 01/15/18 04/25/18 Review of Systems - Review of Systems Constitutional: absent: Fevers, Night Sweats Respiratory: absent: SOB, Cough Cardiovascular: absent: Chest Pain Gastrointestinal: absent: Abdominal Pain, Diarrhea, Nausea, Vomiting Musculoskeletal: absent: Back Pain, Neck Pain Neurological: absent: Headache, Dizziness Physical Exam Vital Signs Reviewed: Yes Vital Signs Temp Pulse Resp BP Pulse Ox 05/11/18 19:22 98.3 F 85 12 129/58 L 100 Temperature: Afebrile Blood Pressure: Normal Pulse: Regular Respiratory Rate: Normal Appearance: Positive for: Well-Appearing, Non-Toxic, Comfortable Pain Distress: None Mental Status: Positive for: Alert and Oriented X 3 - Systems Exam Head: Present: Atraumatic, Normocephalic Pupils: Present: PERRL Extroacular Muscles: Present: EOMI Conjunctiva: Present: Normal Mouth: Present: Moist Mucous Membranes Neck: Present: Normal Range of Motion Respiratory/Chest: Present: Clear to Auscultation, Good Air Exchange. No: Respiratory Distress, Accessory Muscle Use Cardiovascular: Present: Regular Rate and Rhythm, Normal S1, S2. No: Murmurs Abdomen: No: Tenderness, Distention, Peritoneal Signs Back: Present: Decubitus Ulcer (Sacral Decubitus Ulcer) Upper Extremity: Present: Normal Inspection. No: Cyanosis, Edema Lower Extremity: Present: Normal Inspection. No: Edema Neurological: Present: GCS=15, CN II-XII Intact, Speech Normal Skin: Present: Warm, Dry, Normal Color. No: Rashes Psychiatric: Present: Alert, Oriented x 3, Normal Insight, Normal Concentration Medical Decision Making ED Course and Treatment: 05/11/18 21:19 Impression: 77 year old female presents from PMD for sacral decubitus ulcer and abnormal labs Plan: -- CT Chest Abd and Pelvis -- EKG -- Labs -- Chest X-ray -- Urinalysis -- Reassess and disposition Prior Visits: Notes and results from previous visits were reviewed. case d/w dr irwin will admit for dehydration and elevated lft Progress Notes: 05/12/18 02:57 CT SCAN OF THE CHEST WITHOUT IV CONTRAST CLINICAL INDICATION: Abnormal LFTs. TECHNIQUE: Axial and reformatted sagittal and coronal images of the chest obtained without IV contrast administration. COMPARISON: 06/19/2016. FINDINGS: Mild right pleural effusion. Passive atelectatic airspace disease of the right lower lobe. Normal unenhanced main pulmonary artery and right and left pulmonary arteries. Normal bilateral peripheral pulmonary arteries. Normal thoracic aorta and visualized great vessels. There is no demonstrated aortic aneurysm. Normal heart and pericardium. Normal mediastinum. Normal hilar regions. Normal visualized trachea and bronchi. Normal pleura. Normal chest wall structures. Moderate diffuse spondylosis. IMPRESSION: Interval appearance of mild right pleural effusion with passive atelectatic airspace disease of the right lower lobe. Interval appearance of generalized body anasarca. CT SCAN OF THE ABDOMEN AND PELVIS WITHOUT ORAL OR IV CONTRAST. CLINICAL INDICATION: Abnormal LFTs. TECHNIQUE: Axial and reformatted sagittal and coronal images of the abdomen pelvis obtained without IV contrast administration. COMPARISON: 06/19/2016. FINDINGS: Percutaneous gastrostomy tube is in good position with its tip at the level of the gastric body. Mild diffuse irregular tear of the unenhanced liver. Normal gallbladder and extrahepatic biliary system. Normal unenhanced spleen. Normal pancreas. Normal bilateral adrenal glands. Normal size of the right kidney. There is no right renal mass. There are no right renal calculi. There is no right hydronephrosis. Normal visualized right ureter. Normal size of the left kidney. There is no left renal mass. There are no left renal calculi. There is no left hydronephrosis. Normal visualized left ureter. Normal visualized stomach. Normal small intestine. Normal colon. The appendix is visualized and appears normal. There is no demonstrated peritoneal fluid. Normal abdominal aorta. Normal inferior vena cava. Normal retroperitoneum. Rawls catheter balloon is seen in the urinary bladder. There is no pelvic mass lesion or lymphadenopathy. There is no pelvic fluid. Normal abdominal wall. Mild diffuse spondylosis. Interval appearance of diffuse generalized anasarca. IMPRESSION: Interval appearance of generalized anasarca. Mild diffuse irregular hepatic contour, probably chronic. 05/13/18 17:15 - Lab Interpretations Lab Results: 05/11/18 20:25 Lab Results 05/11/18 20:25: PT 11.0, INR 0.97, APTT 25.3 05/11/18 20:25: WBC 10.5, RBC 3.33 L, Hgb 9.9 L, Hct 34.7 L, MCV 104.2 D, MCH 29.7, MCHC 28.5 L, RDW 16.8 H, Plt Count 125, MPV 12.9 H, Gran % 70.5 H, Lymph % (Auto) 19.8 L, Mccreary % (Auto) 3.7, Eos % (Auto) 5.7 H, Baso % (Auto) 0.3, Gran # 7.42 H, Lymph # (Auto) 2.1, Mccreary # (Auto) 0.4, Eos # (Auto) 0.6, Baso # (Auto) 0.03 - RAD Interpretation Radiology Orders: 05/11/18 19:31 CHEST PORTABLE [RAD] Stat 05/11/18 19:32 CHEST,ABDOMEN, PELVIS W/O CONT [CT] Stat - Scribe Statement The provider has reviewed the documentation as recorded by the Ruth Annibkamla Castillo Provider Scribe Attestation: All medical record entries made by the Scribe were at my direction and personally dictated by me. I have reviewed the chart and agree that the record accurately reflects my personal performance of the history, physical exam, medical decision making, and the department course for this patient. I have also personally directed, reviewed, and agree with the discharge instructions and disposition. Disposition/Present on Arrival - Present on Arrival Any Indicators Present on Arrival: No History of DVT/PE: No History of Uncontrolled Diabetes: No Urinary Catheter: No History of Decub. Ulcer: Yes History Surgical Site Infection Following: None - Disposition Have Diagnosis and Disposition been Completed?: Yes Diagnosis: Sacral ulcer, Dehydration Disposition: HOSPITALIZED Disposition Time: 22:00 Condition: FAIR
[2018-05-11 21:18] LABS: TROPONIN I 0.02 ng/mL
[2018-05-11 21:27] LABS: ALB/GLOB RATIO 0.7 (1.1-1.8); ALBUMIN 2.5 g/dL (3.0-4.8); ALT/SGPT 489 U/L (7-56); AST/SGOT 256 U/L (14-36); BLOOD UREA NITROGEN 81 mg/dL (7-21); CALCIUM 8.7 mg/dL (8.4-10.5); GFR NON-AFRICAN AMERICAN > 60; LIPASE 73 U/L (23-300)
[2018-05-11] MEDS: Sodium Chloride 0.9% 1,000 ML IV SCH (21:40)
[2018-05-11] MEDS ORDERED: Vancomycin 1gm in NS 250ml 1 GM/250 ML BAG IVPB STA (21:42)
[2018-05-11] MEDS ORDERED: Sodium Chloride 0.9% 1,000 ML IV STA (22:02)
[2018-05-12] MEDS ORDERED: Oxychlorosene Topical 2 gm Packet TOP PRN (00:34)
[2018-05-12] MEDS ORDERED: Acetaminophen 650mg/20.3ml solution UD PEG PRN (00:36)
[2018-05-12 02:17] LABS: URINE BILIRUBIN NEGATIVE (NEGATIVE); URINE BLOOD SMALL (NEGATIVE); URINE GLUCOSE (UA) NEGATIVE (NEGATIVE); URINE LEUKOCYTE ESTERASE LARGE Leu/uL (NEGATIVE); URINE PROTEIN 30 mg/dL (<30 mg/dL); URINE UROBILINOGEN 0.2 E.U./dL (<1 E.U./dL)
[2018-05-12 02:26] LABS: URINE COLOR YELLOW (YELLOW)
[2018-05-12 02:27] LABS: URINE APPEARANCE CLEAR (CLEAR)
[2018-05-12 02:33] LABS: URINE RBC 0 - 2 /hpf (0-2)
[2018-05-12 02:34] LABS: URINE AMORPHOUS SEDIMENT FEW; URINE EPITHELIAL CELLS 0 - 2 /hpf (0-5); URINE WBC 15 - 20 /hpf (0-6)
[2018-05-12 02:35] LABS: URINE BACTERIA SMALL (NEG)
--- NOTE | 2018-05-12 05:51 | CP.PCM.CON ---
<Nenita Mars - Last Filed: 05/12/18 10:28> History of Present Illness - History of Present Illness History of Present Illness: General Surgery consult for Dr. Hillman consulted for: Sacral decubitus Ulcer Patient is a 77 yr old female with PMH HTN, HLD, Dementia, and decubitus ulcers, consulted for left and right gluteal decubitus ulcers. Patient has been admitted to [facility] from [facility]. She is nonverbal and as such history is limited to information obtained in chart. Patient has three sacral and gluteal decubitus ulcers of varying sizes and stages with tunneling. She has a rectal tube and jefferson catheter in place. Nursing is unsure wif rectal tube is the same that was placed during last admission and whether tube has been removed during time at [facility] since D/c. PMH: see above PSH: wound debridement FH: noncontributory SH: no tobacco, alcohol, or drug use. Sister is POA. Patient from [facility]. ALL: NKDA Meds: see MAR Review of Systems - Review of Systems Systems not reviewed;Unavailable: Acuity of Condition (as per HPI) All systems: reviewed and no additional remarkable complaints except (as per HPI) Past Patient History - Infectious Disease Hx of Infectious Diseases: None - Past Medical History & Family History Past Medical History?: Yes - Past Social History Smoking Status: Unknown If Ever Smoked - CARDIAC Hx Hypertension: Yes - PULMONARY Hx Respiratory Disorders: No - NEUROLOGICAL Hx Dementia: Yes - HEENT Hx HEENT Problems: No - RENAL Hx Chronic Kidney Disease: No - ENDOCRINE/METABOLIC Hx Diabetes Mellitus Type 2: Yes - HEMATOLOGICAL/ONCOLOGICAL Hx Blood Disorders: No - INTEGUMENTARY Hx Dermatological Problems: Yes Other/Comment: left gluteal decubiti ulcer with wound vac in place, right heel necrotic wound, multiple wounds to sacrum in various stages of healing, b/l bunyons, callous outer left foot, long thick toenails to both feet, crooked toes to left foot, dry skin, multiple skin discolorations ble - MUSCULOSKELETAL/RHEUMATOLOGICAL Hx Arthritis: Yes (CONTRACTED L HIP/KNEE AND B/L ELB) Hx Falls: No - GASTROINTESTINAL Hx Gastrointestinal Disorders: Yes (wt loss) - GENITOURINARY/GYNECOLOGICAL Hx Genitourinary Disorders: Yes Hx Incontinence: Yes (urine and stool) - PSYCHIATRIC Hx Psychophysiologic Disorder: Yes Hx Anxiety: Yes Other/Comment: dementia - SURGICAL HISTORY Hx Surgeries: No - ANESTHESIA Hx Anesthesia: No Meds Allergies/Adverse Reactions: Allergies Allergy/AdvReac Type Severity Reaction Status Date / Time No Known Allergies Allergy Verified 05/11/18 19:30 - Medications Medications: Current Medications Acetaminophen (Tylenol 325mg Tab) 650 mg PO Q4H PRN PRN Reason: Fever >100.5 F Acetaminophen (Tylenol 650 Mg Supp) 650 mg RC Q6H PRN PRN Reason: Fever >100.4 F Acetaminophen (Tylenol 650mg/20.3ml Solution Ud) 650 mg PEG Q6H PRN PRN Reason: fevers Amlodipine Besylate (Norvasc) 5 mg PEG DAILY [facility] Atorvastatin Calcium (Lipitor) 10 mg PO DIN [facility] Fentanyl (Duragesic) 1 patch TD Q72H [facility] Ferrous Sulfate (Feosol Liq) 300 mg PEG BID [facility] Sodium Chloride (Sodium Chloride 0.9%) 1,000 mls @ 80 mls/hr IV .[id number] VINNY Last Admin: 05/11/18 21:40 Dose: 80 mls/hr Sodium Chloride (Sodium Chloride 0.9%) 1,000 mls @ 60 mls/hr IV .[id number] STA Stop: 05/12/18 14:41 Last Admin: 05/11/18 22:09 Dose: 60 mls/hr Memantine (Namenda) 5 mg PEG DAILY [facility] Oxychlorosene Sodium (Clorpactin Wcs-90) 2 gm TOP Q6H PRN PRN Reason: Other Pantoprazole Sodium (Protonix Susp) 40 mg PEG 0600 [facility] Primidone (Mysoline) 50 mg PO TID [facility] Tramadol HCl (Ultram) 50 mg GT BID PRN PRN Reason: Pain, moderate (4-7) Physical Exam - Constitutional Appears: Well, Non-toxic, No Acute Distress, Cachectic, Chronically Ill - Head Exam Head Exam: ATRAUMATIC, NORMOCEPHALIC - Eye Exam Eye Exam: EOMI - ENT Exam ENT Exam: Mucous Membranes Moist - Respiratory Exam Respiratory Exam: NORMAL BREATHING PATTERN - Cardiovascular Exam Cardiovascular Exam: REGULAR RHYTHM - GI/Abdominal Exam GI & Abdominal Exam: Soft. absent: Distended, Guarding, Tenderness Additional comments: G tube in place, dressing cdi, area clean and dry - Rectal Exam Additional comments: rectal tube in place with liquid brown output - Extremities Exam Extremities exam: Positive for: pedal pulses present. Negative for: calf tenderness, pedal edema - Neurological Exam Neurological exam: Altered - Psychiatric Exam Psychiatric exam: Agitated - Skin Additional comments: left trochanteric stage 2 ulcer 3cm x 4 xcm, stage 3 sacral ulcer with tunneling superiorly 10cm x 12cm x 4 cm deep, stage 3 right gluteal ulcer 6cm x 8cm x 4cm deep with tunneling medially, health appearing skin edges and goo granulation tissue in sacral ulcer, small 3 cm x 4 cm area of fibrinous tissue in right trochanteric ulcer, no purulent fluid expressed, left lateral distal foor near 5th digit 3cm x 2 cm area of dark eschar unstageable Results - Vital Signs Recent Vital Signs: Last Vital Signs Temp 98 F 05/12/18 02:00 Pulse 80 05/12/18 02:00 Resp 20 05/12/18 03:34 BP 105/52 L 05/12/18 02:00 Pulse Ox 96 05/12/18 02:00 - Labs Result Diagrams: 05/11/18 20:25 05/11/18 20:25 Labs: Laboratory Results - last 24 hr 05/11/18 05/11/18 05/11/18 20:25 20:25 20:25 WBC 10.5 RBC 3.33 L Hgb 9.9 L Hct 34.7 L MCV 104.2 D MCH 29.7 MCHC 28.5 L RDW 16.8 H Plt Count 125 MPV 12.9 H Gran % 70.5 H Lymph % (Auto) 19.8 L [place] % (Auto) 3.7 Eos % (Auto) 5.7 H Baso % (Auto) 0.3 Gran # 7.42 H Lymph # (Auto) 2.1 [place] # (Auto) 0.4 Eos # (Auto) 0.6 Baso # (Auto) 0.03 PT 11.0 INR 0.97 APTT 25.3 Sodium 157 H* Potassium 3.8 Chloride 120 H Carbon Dioxide 36 H Anion Gap 3 L BUN 81 H Creatinine 0.9 Est GFR ( Amer) > 60 Est GFR (Non-Af Amer) > 60 Random Glucose 97 Calcium 8.7 Total Bilirubin 0.2 AST 256 H D ALT 489 H Alkaline Phosphatase 173 H D Troponin I 0.02 D Total Protein 6.1 Albumin 2.5 L Globulin 3.6 Albumin/Globulin Ratio 0.7 L Lipase 73 Urine Color Urine Appearance Urine pH Ur Specific Dillon Urine Protein Urine Glucose (UA) Urine Ketones Urine Blood Urine Nitrate Urine Bilirubin Urine Urobilinogen Ur Leukocyte Esterase Urine RBC Urine WBC Ur Epithelial Cells Amorphous Sediment Urine Bacteria Urine Other 05/11/18 20:43 WBC RBC Hgb Hct MCV MCH MCHC RDW Plt Count MPV Gran % Lymph % (Auto) [place] % (Auto) Eos % (Auto) Baso % (Auto) Gran # Lymph # (Auto) [place] # (Auto) Eos # (Auto) Baso # (Auto) PT INR APTT Sodium Potassium Chloride Carbon Dioxide Anion Gap BUN Creatinine Est GFR ( Amer) Est GFR (Non-Af Amer) Random Glucose Calcium Total Bilirubin AST ALT Alkaline Phosphatase Troponin I Total Protein Albumin Globulin Albumin/Globulin Ratio Lipase Urine Color Yellow Urine Appearance Clear Urine pH 6.0 Ur Specific Dillon 1.010 Urine Protein 30 H Urine Glucose (UA) Negative Urine Ketones Negative Urine Blood Small H Urine Nitrate Negative Urine Bilirubin Negative Urine Urobilinogen 0.2 Ur Leukocyte Esterase Large H Urine RBC 0 - 2 Urine WBC 15 - 20 Ur Epithelial Cells 0 - 2 Amorphous Sediment Few Urine Bacteria Small Urine Other Uyeast Assessment & Plan - Assessment and Plan (Free Text) Assessment: 77 F with sacral decubitus ulcer with tunneling Plan: New wound vac to be placed Stool cultures C. diff antigen and toxin nutritional optimization local wound care with optifoam until wound vac available air mattress turn Q2 Patient discussed with Dr. Rafy Mars, PGY 1 - Date & Time Date: 05/12/18 Time: 01:15 <Alvino Hillman - Last Filed: 05/13/18 10:33> Meds - Medications Medications: Current Medications Acetaminophen (Tylenol 325mg Tab) 650 mg PO Q4H PRN PRN Reason: Fever >100.5 F Acetaminophen (Tylenol 650 Mg Supp) 650 mg RC Q6H PRN PRN Reason: Fever >100.4 F Acetaminophen (Tylenol 650mg/20.3ml Solution Ud) 650 mg PEG Q6H PRN PRN Reason: fevers Amlodipine Besylate (Norvasc) 5 mg PEG DAILY [facility] Last Admin: 05/12/18 10:05 Dose: 5 mg Atorvastatin Calcium (Lipitor) 10 mg PO DIN [facility] Last Admin: 05/12/18 17:34 Dose: 10 mg Fentanyl (Duragesic) 1 patch TD Q72H [facility] Last Admin: 05/12/18 17:34 Dose: 1 patch Ferrous Sulfate (Feosol Liq) 300 mg PEG BID [facility] Last Admin: 05/12/18 17:34 Dose: 300 mg Dextrose (Dextrose 5% In Water 1000 Ml) 1,000 mls @ 125 mls/hr IV .Q8H [facility] Last Admin: 05/13/18 05:57 Dose: 125 mls/hr Meropenem (Merrem Iv 1 Gm Premix) 1 gm in 50 mls @ 100 mls/hr IVPB Q8 [facility]; Protocol Last Admin: 05/13/18 05:58 Dose: 100 mls/hr Vancomycin HCl (Vancomycin 1gm) 1 gm in 250 mls @ 167 mls/hr IVPB Q12H [facility]; Protocol Last Admin: 05/13/18 06:31 Dose: 167 mls/hr Insulin Human Lispro (Humalog Low) 0 units SC ACHS [facility]; Protocol Last Admin: 05/12/18 22:00 Dose: Not Given Memantine (Namenda) 5 mg PEG DAILY [facility] Last Admin: 05/12/18 10:04 Dose: 5 mg Oxychlorosene Sodium (Clorpactin Wcs-90) 2 gm TOP Q6H PRN PRN Reason: Other Pantoprazole Sodium (Protonix Susp) 40 mg PEG 0600 [facility] Last Admin: 05/13/18 05:57 Dose: 40 mg Primidone (Mysoline) 50 mg PO TID [facility] Last Admin: 05/12/18 17:33 Dose: 50 mg Tramadol HCl (Ultram) 50 mg GT BID PRN PRN Reason: Pain, moderate (4-7) Last Admin: 05/12/18 17:34 Dose: 50 mg Results - Vital Signs Recent Vital Signs: Last Vital Signs Temp 98.1 F 05/13/18 06:11 Pulse 99 H 05/13/18 06:11 Resp 22 05/13/18 06:11 BP 133/73 05/13/18 06:11 Pulse Ox 97 05/13/18 06:00 - Labs Result Diagrams: 05/13/18 07:30 05/13/18 07:30 Labs: Laboratory Results - last 24 hr 12/05/18 12/05/18 12/05/18 11:30 11:30 15:56 WBC 13.7 H D RBC 2.56 L Hgb 7.8 L D Hct 27.6 L MCV 107.8 H D MCH 30.5 MCHC 28.3 L RDW 16.0 H Plt Count 136 MPV 13.4 H Gran % 80.2 H Lymph % (Auto) 13.1 L [place] % (Auto) 4.0 Eos % (Auto) 2.6 Baso % (Auto) 0.1 Gran # 10.97 H Lymph # (Auto) 1.8 [place] # (Auto) 0.6 Eos # (Auto) 0.4 Baso # (Auto) 0.02 Sodium 156 H* Potassium 4.0 Chloride 121 H Carbon Dioxide 35 H Anion Gap 4 L BUN 67 H Creatinine 0.9 Est GFR ( Amer) > 60 Est GFR (Non-Af Amer) > 60 POC Glucose (mg/dL) 93 Random Glucose 91 Calcium 8.8 Phosphorus 4.3 Magnesium 2.4 H Total Bilirubin 0.2 AST 144 H D ALT 374 H Alkaline Phosphatase 159 H Total Protein 6.2 Albumin 2.4 L Globulin 3.7 Albumin/Globulin Ratio 0.6 L Blood Type Antibody Screen Crossmatch BBK History Checked 05/12/18 05/12/18 05/13/18 20:52 21:15 07:30 WBC 15.1 H RBC 3.67 Hgb 10.7 L D Hct 35.0 L MCV 95.4 D MCH 29.2 MCHC 30.6 L RDW 18.0 H Plt Count 141 MPV 13.1 H Gran % 76.4 H Lymph % (Auto) 15.9 L [place] % (Auto) 4.4 Eos % (Auto) 3.1 Baso % (Auto) 0.2 Gran # 11.51 H Lymph # (Auto) 2.4 [place] # (Auto) 0.7 H Eos # (Auto) 0.5 Baso # (Auto) 0.03 Sodium Potassium Chloride Carbon Dioxide Anion Gap BUN Creatinine Est GFR ( Amer) Est GFR (Non-Af Amer) POC Glucose (mg/dL) 140 H Random Glucose Calcium Phosphorus Magnesium Total Bilirubin AST ALT Alkaline Phosphatase Total Protein Albumin Globulin Albumin/Globulin Ratio Blood Type O POSITIVE Antibody Screen Negative Crossmatch See Detail BBK History Checked Patient has bt 05/13/18 07:30 WBC RBC Hgb Hct MCV MCH MCHC RDW Plt Count MPV Gran % Lymph % (Auto) [place] % (Auto) Eos % (Auto) Baso % (Auto) Gran # Lymph # (Auto) [place] # (Auto) Eos # (Auto) Baso # (Auto) Sodium 153 H Potassium Chloride 118 H Carbon Dioxide 33 Anion Gap BUN 55 H Creatinine 0.8 Est GFR ( Amer) > 60 Est GFR (Non-Af Amer) > 60 POC Glucose (mg/dL) Random Glucose 141 H Calcium 8.3 L Phosphorus 3.7 Magnesium 2.2 Total Bilirubin 0.2 AST 131 H ALT 324 H Alkaline Phosphatase 182 H Total Protein 6.2 Albumin 2.4 L Globulin 3.8 Albumin/Globulin Ratio 0.6 L Blood Type Antibody Screen Crossmatch BBK History Checked Assessment & Plan - Assessment and Plan (Free Text) Plan: Dx Decubitus sacral ulcer This consult done under my direct supervision George Hillman MD FACS
[2018-05-12] MEDS: Pantoprazole 40 mg Susp UD PEG SCH (06:02)
--- NOTE | 2018-05-12 08:06 | CP.PCM.PCO ---
Physician Communication Note - Physician Communication Note Physician Communication Note: Plan new wound vac today
--- NOTE | 2018-05-12 09:00 | RAD ---
Date of service: 05/11/2018 HISTORY: abnormal labs COMPARISON: 04/30/2018 FINDINGS: LUNGS: No active pulmonary disease. PLEURA: No significant pleural effusion identified, no pneumothorax apparent. CARDIOVASCULAR: Aortic calcification Normal cardiac size. No pulmonary vascular congestion. OSSEOUS STRUCTURES: No significant abnormalities. VISUALIZED UPPER ABDOMEN: Normal. OTHER FINDINGS: Dialysis catheter IMPRESSION: No active disease.
[2018-05-12] MEDS: Sodium Chloride 0.9% 1,000 ML IV SCH (10:06)
[2018-05-12] MEDS: Ferrous Sulfate 300 mg/5 mL Liq UD PEG SCH ×2 (10:06→17:34)
--- NOTE | 2018-05-12 10:11 | CARD ---
APPROVED REPORT Date of service: 05/12/2018 EKG Measurement Heart [id number] <Conclusion> Normal sinus rhythm Normal ECG
--- NOTE | 2018-05-12 10:51 | HP ---
DATE OF EXAM: 05/11/2018 The patient was seen and examined on the bedside on 05/11/2018. CHIEF COMPLAINT: Abnormal labs, fatigue and tired. HISTORY OF PRESENT ILLNESS: Ms. Otis Canela 77-year-old female with past medical history of dementia, hypertension, diabetes mellitus, hypercholesterolemia, multiple decubitus ulcer at different stages of healing sent to emergency room for abnormal labs and sacral decubitus ulcer. Actually Dr. Beatrice Martines did the round in [facility], put some labs, but labs came up normal and that is why we wanted the patient to come to the hospital to pick the labs; wound care team informed that wounds are getting infected. The patient was looking a little bit fatigue and tired. No fever. No chills. No hematuria, no hematochezia. PAST MEDICAL HISTORY: As above, hypertension, dementia, diabetes mellitus type 2; the patient's legs are contracted. She is incontinent with urine and stool; anxiety, yes. FAMILY HISTORY: Father and mother noncontributory. HABITS: No smoking. No drugs. No ethanol. ALLERGIES: THE PATIENT IS NOT ALLERGIC TO ANY MEDICATIONS. HOME MEDICATIONS: Vitamin D, pravastatin. REVIEW OF SYSTEMS: The patient was seen and examined on the bedside in the ER. Looking comfortable. No fever. No chills. No hematuria, no hematochezia. No swelling of the legs. No chest pain. No palpitations. No headache. No dizziness. PHYSICAL EXAMINATION: VITAL SIGNS: Temperature was 98.3, pulse 55, respiratory rate 12, blood pressure 129/58, pulse oximetry 100. HEENT: Head: Normocephalic, atraumatic. Eyes: PERRLA. Extraocular muscles intact. Conjunctivae clear. Nose patent. Mucous membranes moist. NECK: Supple. No carotid bruit. No JVD or thyromegaly. CHEST: Bilaterally symmetrical. HEART: S1, S2 positive. LUNGS: Clear to auscultation. ABDOMEN: Soft. Bowel sounds present. No organomegaly. EXTREMITIES: Had multiple decubitus ulcers. LABORATORY DATA: White blood cells 10.5, hemoglobin 9.9, hematocrit 34.7, platelets 125. Sodium 157, potassium 3.8. BUN 81, creatinine 0.9. Glucose 97. AST 256, ALT 486. ASSESSMENT AND PLAN: Ms. Otis Canela 77-year-old lady with hypernatremia; hyperchloremia; and increased BUN, in fact she is dehydrated; abnormal liver function test; hypoalbuminemia; anemia; has decubitus ulcers in the sacral area and the lower extremities; has history of dementia; hypertension; diabetes mellitus; hypercholesterolemia; chronic obstructive pulmonary disease; diabetes mellitus type 2. The patient's lower extremities are contracted. The patient incontinent of urine and stool; has history of anxiety. Readmitted the patient, started home medications. In the ER, got NS. Vancomycin dose is given stat. Infectious Disease consult called, cultures are done. We will start more antibiotics. Surgical consult called with Dr. Cavanaugh; may be patient's wound needs debridement. Gastrointestinal and deep venous thrombosis prophylaxes. Repeat labs. We will follow up. Kayleen Mora MD
[2018-05-12 11:37] LABS: BASO # 0.02 K/mm3 (0.0-2.0); BASO % 0.1 % (0.0-3.0); EOS # 0.4 (0.0-0.7); EOS % 2.6 % (1.5-5.0); GRAN # 10.97 (1.4-6.5); GRAN % 80.2 % (50.0-68.0); LYMPH # 1.8 (1.2-3.4); LYMPH % 13.1 % (22.0-35.0); MEAN CELL VOLUME 107.8 fl (80.0-105.0); MEAN CORPUSCULAR HEMOGLOBIN 30.5 pg (25.0-35.0); MEAN CORPUSCULAR HGB CONC 28.3 g/dl (31.0-37.0); MEAN PLATELET VOLUME 13.4 fl (7.0-11.0); MONO # 0.6 (0.1-0.6); RBC 2.56 10^6/uL (3.5-6.1); WHITE BLOOD COUNT 13.7 10^3/uL (4.5-11.0)
[2018-05-12 11:42] LABS: HEMOGLOBIN 7.8 g/dL (12.0-16.0)
[2018-05-12 11:55] LABS: ALB/GLOB RATIO 0.6 (1.1-1.8); ALBUMIN 2.4 g/dL (3.0-4.8); ALT/SGPT 374 U/L (7-56); AST/SGOT 144 U/L (14-36); BLOOD UREA NITROGEN 67 mg/dL (7-21); CALCIUM 8.8 mg/dL (8.4-10.5); GFR NON-AFRICAN AMERICAN > 60
--- NOTE | 2018-05-12 12:22 | CT ---
Date of service: 05/12/2018 PROCEDURE: CT Chest, Abdomen and Pelvis without intravenous contrast HISTORY: Abnormal LFTs. COMPARISON: 04/25/2018 CT thorax 04/30/2018 abdominal ultrasound TECHNIQUE: Radiation dose: Total exam DLP = 440.61 mGy-cm. This CT exam was performed using one or more of the following dose reduction techniques: Automated exposure control, adjustment of the mA and/or kV according to patient size, and/or use of iterative reconstruction technique. FINDINGS: CT CHEST WITHOUT CONTRAST: LUNGS: Interval improved aeration of the lungs. No pulmonary nodules or masses identified. MEDIASTINUM: Atherosclerotic calcification and mural plaque present. Findings are seen throughout the aorta Venous access catheter in stable, satisfactory position. LYMPH NODES: Unremarkable. PLEURA: Resolution of left pleural effusion identified previously. Trace right pleural effusion remains. BONES: Unremarkable. OTHER FINDINGS: None. CT ABDOMEN AND PELVIS: LIVER: Unremarkable. No gross lesion or ductal dilatation. GALLBLADDER AND BILE DUCTS: Unremarkable. PANCREAS: Unremarkable. No gross lesion or ductal dilatation. SPLEEN: Unremarkable. ADRENALS: Unremarkable. No mass. KIDNEYS AND URETERS: Unremarkable. No hydronephrosis. No solid mass. VASCULATURE: Atherosclerotic calcification and mural plaque present. Findings are seen throughout the aorta BOWEL: Unremarkable. No obstruction. No gross mural thickening. Gastrostomy tube identified. Rectal balloon catheter identified. APPENDIX: No abnormalities to suggest acute appendicitis. No right lower quadrant inflammatory processes identified. PERITONEUM: Unremarkable. No free fluid. No free air. LYMPH NODES: Unremarkable. No enlarged lymph nodes. BLADDER: Rawls catheter noted in a decompressed urinary bladder. REPRODUCTIVE: Unremarkable. BONES: No acute fracture. OTHER FINDINGS: Profound edema and anasarca similar to that seen previously. IMPRESSION: Thorax: Near complete resolution of right pleural effusion. Left pleural effusion has completely resolved. Improved aeration of the lungs secondary to resolved pleural effusions Abdomen and pelvis: Additional benign and/or incidental findings described above. Concordant results (preliminary interpretation) provided by [employer]. Procedure Completed: 01:16. Preliminary Report: Dictated and Authenticated: 02:49. Final Interpretation: 12:18. May 12, 2018
[2018-05-12] MEDS: Insulin Lispro (humaLOG) LOW Coverage SC SCH ×2 (16:34→22:00)
--- NOTE | 2018-05-12 16:49 | CP.PCM.CON ---
History of Present Illness - History of Present Illness History of Present Illness: 77 year old female with PMH of HTN, dyslipidemia, dementia, history of left buttock ulcer with wound vacuum is brought in to [facility] [place] because of hypernatremia among other abnormal labs. She has a wound vacuum on her sacral ulcer and Infectious Diseases consult is requested to evaluate for antibiotic treatment. The wound vac is to be replaced today as per Surgery. Full ROS is unobtainable because of the patient's dementia. Review of Systems - Review of Systems All systems: reviewed and no additional remarkable complaints except (as per HPI) Past Patient History - Infectious Disease Hx of Infectious Diseases: None - Past Medical History & Family History Past Medical History?: Yes - Past Social History Smoking Status: Unknown If Ever Smoked - CARDIAC Hx Hypertension: Yes - PULMONARY Hx Respiratory Disorders: No - NEUROLOGICAL Hx Dementia: Yes - HEENT Hx HEENT Problems: No - RENAL Hx Chronic Kidney Disease: No - ENDOCRINE/METABOLIC Hx Diabetes Mellitus Type 2: Yes - HEMATOLOGICAL/ONCOLOGICAL Hx Blood Disorders: No - INTEGUMENTARY Hx Dermatological Problems: Yes Other/Comment: left gluteal decubiti ulcer with wound vac in place, right heel necrotic wound, multiple wounds to sacrum in various stages of healing, b/l bunyons, callous outer left foot, long thick toenails to both feet, crooked toes to left foot, dry skin, multiple skin discolorations ble - MUSCULOSKELETAL/RHEUMATOLOGICAL Hx Arthritis: Yes (CONTRACTED L HIP/KNEE AND B/L ELB) Hx Falls: No - GASTROINTESTINAL Hx Gastrointestinal Disorders: Yes (wt loss) - GENITOURINARY/GYNECOLOGICAL Hx Genitourinary Disorders: Yes Hx Incontinence: Yes (urine and stool) - PSYCHIATRIC Hx Psychophysiologic Disorder: Yes Hx Anxiety: Yes Other/Comment: dementia - SURGICAL HISTORY Hx Surgeries: No - ANESTHESIA Hx Anesthesia: No Meds Allergies/Adverse Reactions: Allergies Allergy/AdvReac Type Severity Reaction Status Date / Time No Known Allergies Allergy Verified 05/11/18 19:30 - Medications Medications: Current Medications Acetaminophen (Tylenol 325mg Tab) 650 mg PO Q4H PRN PRN Reason: Fever >100.5 F Acetaminophen (Tylenol 650 Mg Supp) 650 mg RC Q6H PRN PRN Reason: Fever >100.4 F Acetaminophen (Tylenol 650mg/20.3ml Solution Ud) 650 mg PEG Q6H PRN PRN Reason: fevers Amlodipine Besylate (Norvasc) 5 mg PEG DAILY [facility] Atorvastatin Calcium (Lipitor) 10 mg PO DIN [facility] Fentanyl (Duragesic) 1 patch TD Q72H [facility] Ferrous Sulfate (Feosol Liq) 300 mg PEG BID [facility] Sodium Chloride (Sodium Chloride 0.9%) 1,000 mls @ 80 mls/hr IV .[id number] [facility] Last Admin: 05/11/18 21:40 Dose: 80 mls/hr Sodium Chloride (Sodium Chloride 0.9%) 1,000 mls @ 60 mls/hr IV .[id number] STA Stop: 05/12/18 14:41 Last Admin: 05/11/18 22:09 Dose: 60 mls/hr Memantine (Namenda) 5 mg PEG DAILY [facility] Oxychlorosene Sodium (Clorpactin Wcs-90) 2 gm TOP Q6H PRN PRN Reason: Other Pantoprazole Sodium (Protonix Susp) 40 mg PEG 0600 [facility] Last Admin: 05/12/18 06:02 Dose: 40 mg Primidone (Mysoline) 50 mg PO TID [facility] Tramadol HCl (Ultram) 50 mg GT BID PRN PRN Reason: Pain, moderate (4-7) Physical Exam - Constitutional Appears: Chronically Ill - Head Exam Head Exam: NORMAL INSPECTION - Respiratory Exam Respiratory Exam: Decreased Breath Sounds - Cardiovascular Exam Cardiovascular Exam: +S1, +S2 - GI/Abdominal Exam GI & Abdominal Exam: Soft. absent: Tenderness Additional comments: sacral area with dressings in place Results - Vital Signs Recent Vital Signs: Last Vital Signs Temp 97.7 F 05/12/18 06:00 Pulse 88 05/12/18 06:00 Resp 18 05/12/18 06:00 BP 133/69 05/12/18 06:00 Pulse Ox 100 05/12/18 06:00 - Labs Result Diagrams: 05/12/18 11:30 05/12/18 11:30 Labs: Laboratory Results - last 24 hr 05/11/18 05/11/18 05/11/18 20:25 20:25 20:25 WBC 10.5 RBC 3.33 L Hgb 9.9 L Hct 34.7 L MCV 104.2 D MCH 29.7 MCHC 28.5 L RDW 16.8 H Plt Count 125 MPV 12.9 H Gran % 70.5 H Lymph % (Auto) 19.8 L [place] % (Auto) 3.7 Eos % (Auto) 5.7 H Baso % (Auto) 0.3 Gran # 7.42 H Lymph # (Auto) 2.1 [place] # (Auto) 0.4 Eos # (Auto) 0.6 Baso # (Auto) 0.03 PT 11.0 INR 0.97 APTT 25.3 Sodium 157 H* Potassium 3.8 Chloride 120 H Carbon Dioxide 36 H Anion Gap 3 L BUN 81 H Creatinine 0.9 Est GFR ( Amer) > 60 Est GFR (Non-Af Amer) > 60 Random Glucose 97 Calcium 8.7 Total Bilirubin 0.2 AST 256 H D ALT 489 H Alkaline Phosphatase 173 H D Troponin I 0.02 D Total Protein 6.1 Albumin 2.5 L Globulin 3.6 Albumin/Globulin Ratio 0.7 L Lipase 73 Urine Color Urine Appearance Urine pH Ur Specific [place] Urine Protein Urine Glucose (UA) Urine Ketones Urine Blood Urine Nitrate Urine Bilirubin Urine Urobilinogen Ur Leukocyte Esterase Urine RBC Urine WBC Ur Epithelial Cells Amorphous Sediment Urine Bacteria Urine Other 05/11/18 20:43 WBC RBC Hgb Hct MCV MCH MCHC RDW Plt Count MPV Gran % Lymph % (Auto) [place] % (Auto) Eos % (Auto) Baso % (Auto) Gran # Lymph # (Auto) [place] # (Auto) Eos # (Auto) Baso # (Auto) PT INR APTT Sodium Potassium Chloride Carbon Dioxide Anion Gap BUN Creatinine Est GFR ( Amer) Est GFR (Non-Af Amer) Random Glucose Calcium Total Bilirubin AST ALT Alkaline Phosphatase Troponin I Total Protein Albumin Globulin Albumin/Globulin Ratio Lipase Urine Color Yellow Urine Appearance Clear Urine pH 6.0 Ur Specific [place] 1.010 Urine Protein 30 H Urine Glucose (UA) Negative Urine Ketones Negative Urine Blood Small H Urine Nitrate Negative Urine Bilirubin Negative Urine Urobilinogen 0.2 Ur Leukocyte Esterase Large H Urine RBC 0 - 2 Urine WBC 15 - 20 Ur Epithelial Cells 0 - 2 Amorphous Sediment Few Urine Bacteria Small Urine Other [place] Assessment & Plan - Assessment and Plan (Free Text) Plan: Assessment SIRS, consider Infected stage 3 to 4 left and right decubitus ulcers for repeat wound vacuum placement HTN dyslipidemia dementia Plan will start Vancomycin and Merrem and follow up blood and wound cx as per Surgery the wounds are improving overall prognosis is poor
[2018-05-12] MEDS: Vancomycin 1gm in NS 250ml 1 GM/250 ML BAG IVPB SCH (17:35)
--- NOTE | 2018-05-12 20:57 | CON ---
DATE: 05/12/2018 NEPHROLOGY CONSULTATION HISTORY OF PRESENT ILLNESS: This 77-year-old female is in the [facility], admitted with hypernatremia and multiple comorbidities including sacral, right hip and right ankle bedsores, iron-deficiency anemia, chronic renal failure, hyperlipidemia, organic brain syndrome, hypertension, peptic ulcer disease with GERD, anemia of chronic disease and deconditioning. The patient was currently residing at the [facility] in [place], [place]. She was noted, the evening prior, to have hypernatremia and was started on IV D5W with increased water flushes via her PEG tube for treatment of the above. The patient became more confused at the halfway and was sent for further evaluation of the above. In the emergency room, she was once again noted to be hypernatremic with a serum sodium of 157, chloride of 120, BUN of 81 and creatinine of 0.9. I have been asked to evaluate the patient regarding the above. Of note, the patient was also noted to have elevated transaminases with a bilirubin of 0.2, but an AST of 256 and ALT of 49 and alk phos of 173. Albumin was 2.5. Also noted on laboratories was a white count 10,500, hemoglobin 9.9, hematocrit 34.7 and platelets of 125,000. MEDICATIONS: Review of medication profile shows that the patient is taking Duragesic 50 mcg every 72 hours for pain management. She is also being treated with Feosol liquid, Lipitor, Mysoline, Namenda, Norvasc, Protonix, Tylenol p.r.n., and Ultram. ALLERGIES: SHE IS REPORTED TO HAVE NO KNOWN ALLERGIES TO MEDICATION. SOCIAL HISTORY: She is a current nondrinker, nonsmoker, non IV drug misuser. FAMILY HISTORY: Noncontributory. REVIEW OF SYSTEMS: CONSTITUTIONAL REVIEW: There were no reports of fever, chills. HEAD REVIEW: No seizure. No head trauma. EYE REVIEW: No change in visual acuity. Ear review: No hearing loss. THROAT REVIEW: She has a PEG tube for all feeding fluids but with some meds. HEART: No chest pain. LUNGS: No hemoptysis. GASTROINTESTINAL: No melena. GENITOURINARY: History of end-stage renal disease, previously hemodialysis dependent, now on hold. SKIN: She has multiple decubiti as outlined. NEUROLOGICAL: Organic brain syndrome in contracted, bedridden status. ENDOCRINOLOGICAL: She has hyperlipidemia. HEMATOLOGICAL: Anemia of chronic disease. PHYSICAL EXAMINATION: VITAL SIGNS: The patient was noted to have a temperature of 97.7, respirations 18, pulse 88, and blood pressure 133/69. Pulse ox is 100% on nasal cannula O2. HEENT: Head: Normocephalic, atraumatic. Eyes: No icterus. NECK: Supple. HEART: S1, S2. LUNGS: No wheezing. ABDOMEN: Soft. PEG tube in place. EXTREMITIES: Contracted. No edema. Poor skin turgor. VASCULAR: Legs warm to touch. PSYCHOLOGICAL: Cannot be assessed. NEURO: Bedridden, chronic contracted state. LABORATORY DATA: Labs as outlined above. Chest x-ray was reviewed. It shows no significant pleural effusions, no pneumothorax, no active pulmonary disease, no infiltrates. Dialysis catheter is in place. Electrocardiogram was reviewed. It shows a normal sinus rhythm. IMPRESSION: A 77-year-old female with multiple medical problems including previous chronic renal failure, hemodialysis dependent, now on hold with organic brain syndrome; sacral hip and ankle ulcers; anemia of chronic disease; iron-deficiency anemia; hyperlipidemia; chronic hypertension; peptic ulcer disease with gastroesophageal reflux disease; degenerative arthritis, contracted, bedridden state, now with hypernatremia; azotemia; elevated liver function tests; hypoalbuminemia; and history of recurrent urinary tract infections. PLAN: The plan at present will be to adjust the patient's current IV fluids, 0.9 saline will be discontinued, and she will be started on D5W at 125 mL/hour along with water flushes of 300 mL through her PEG every 6 hours while monitoring basic metabolic panel daily. The patient is scheduled for chest, abdominal, and pelvic CT and will have further evaluation of abnormal LFTs based on her clinical progress. At present, she is being treated with medications including Protonix, Norvasc, Namenda, Mysoline, Lipitor, Feosol, Duragesic patch, and local wound care as outlined by her primary care physician, Dr. Mora. She will receive air mattress repositioning and diet through the PEG when able and overall prognosis does remain poor. It is my goal to have this [place] catheter removed since she most likely will not need hemodialysis, and it can be reinserted should that be necessary in the future. I will ask the nursing staff to take care of this issue today. Beatrice Martines MD MTDSrinivas
[2018-05-12] MEDS: Meropenem IV 1 gm in NS 1 GM/50 ML BAG IVPB SCH (21:23)
--- NOTE | 2018-05-13 01:41 | PN ---
DATE: 05/12/2018 SUBJECTIVE: The patient is a 77-year-old female. The patient was seen and examined at the bedside on 05/12/2018. Looking comfortable. No fever. No chills. No hematuria or hematochezia. No headache or dizziness. The patient is a very poor historian. Has several decubitus ulcer. PHYSICAL EXAMINATION VITAL SIGNS: Temperature 97.7, pulse 88, respiratory rate 18, blood pressure 133/69 and pulse oximetry 100. HEENT: Head; normocephalic and atraumatic. Eyes; PERRLA. Extraocular muscles intact. Conjunctivae clear. Nose patent. Mucous membranes moist. NECK: Supple. No carotid bruits, JVD, or thyromegaly. CHEST: Bilaterally symmetric. HEART: S1 and S2 positive. LUNGS: Clear to auscultation. ABDOMEN: Soft. Bowel sounds present. No organomegaly. EXTREMITIES: No edema. No cyanosis. NEUROLOGIC: The patient is awake and alert, but not able to follow command. LABORATORY DATA: White blood cells 13.7, hemoglobin 7.8, hematocrit 27.6, and platelets 136. Sodium 156, potassium 4, BUN 67, creatinine 0.9, and glucose 91. ASSESSMENT AND PLAN: Ms. Otis Canela is a 77-year-old lady with leukocytosis and anemia, anemia is acute on chronic. Plan is to give type and crossmatch 2 units of packed RBCs. We spoke to the patient's niece, Nicole Gonzalez and got consent for blood transfusion, hypernatremia, getting IV fluid as per immigration guard, Dr. Kumar; hyperchloremia, renal insufficiency, systemic inflammatory response syndrome, infected ulcer stage III to stage IV, left and right decubitus ulcer for repeat would WAC placement, debridement done by Dr. Alvino Hillman, hypertension, dyslipidemia, and dementia. The patient was started on vancomycin, Merrem and follow up blood cultures and wound cultures. Overall prognosis is poor. Discussion done with the family. Repeat labs. Reviewed Dr. Kumar's and Dr. Naylor's notes. Kayleen Mora MD
[2018-05-13] MEDS: Pantoprazole 40 mg Susp UD PEG SCH (05:57)
[2018-05-13] MEDS: Meropenem IV 1 gm in NS 1 GM/50 ML BAG IVPB SCH ×3 (05:58→21:43)
[2018-05-13] MEDS: Vancomycin 1gm in NS 250ml 1 GM/250 ML BAG IVPB SCH ×2 (06:31→17:47)
--- NOTE | 2018-05-13 07:32 | CP.PCM.PN ---
<Ambrosio Tipton - Last Filed: 05/13/18 09:57> Subjective - Date & Time of Evaluation Date of Evaluation: 05/13/18 Time of Evaluation: 07:28 - Subjective Subjective: Ambrosio Tipton DO PGY1 - Surgical Progress Note Dr. Hillman Seen and examined at bedside this morning Woundvac applied yesterday No acute events overnight Afebrile; Patient status unchanged from previous examination. ROS unobtainable 2/2 AMS. Objective - Vital Signs/Intake and Output Vital Signs (last 24 hours): Temp Pulse Resp BP Pulse Ox 98.1 F 99 H 22 133/73 96 05/13/18 06:11 05/13/18 06:11 05/13/18 06:11 05/13/18 06:11 05/12/18 22:00 Intake and Output: 05/13/18 05/13/18 06:59 18:59 Intake Total 2980 Output Total 840 Balance 2140 - Medications Medications: Current Medications Acetaminophen (Tylenol 325mg Tab) 650 mg PO Q4H PRN PRN Reason: Fever >100.5 F Acetaminophen (Tylenol 650 Mg Supp) 650 mg RC Q6H PRN PRN Reason: Fever >100.4 F Acetaminophen (Tylenol 650mg/20.3ml Solution Ud) 650 mg PEG Q6H PRN PRN Reason: fevers Amlodipine Besylate (Norvasc) 5 mg PEG DAILY [facility] Last Admin: 05/12/18 10:05 Dose: 5 mg Atorvastatin Calcium (Lipitor) 10 mg PO DIN [facility] Last Admin: 05/12/18 17:34 Dose: 10 mg Fentanyl (Duragesic) 1 patch TD Q72H [facility] Last Admin: 05/12/18 17:34 Dose: 1 patch Ferrous Sulfate (Feosol Liq) 300 mg PEG BID [facility] Last Admin: 05/12/18 17:34 Dose: 300 mg Dextrose (Dextrose 5% In Water 1000 Ml) 1,000 mls @ 125 mls/hr IV .Q8H [facility] Last Admin: 05/13/18 05:57 Dose: 125 mls/hr Meropenem (Merrem Iv 1 Gm Premix) 1 gm in 50 mls @ 100 mls/hr IVPB Q8 [facility]; Protocol Last Admin: 05/13/18 05:58 Dose: 100 mls/hr Vancomycin HCl (Vancomycin 1gm) 1 gm in 250 mls @ 167 mls/hr IVPB Q12H [facility]; Protocol Last Admin: 05/13/18 06:31 Dose: 167 mls/hr Insulin Human Lispro (Humalog Low) 0 units SC ACHS [facility]; Protocol Last Admin: 05/12/18 22:00 Dose: Not Given Memantine (Namenda) 5 mg PEG DAILY [facility] Last Admin: 05/12/18 10:04 Dose: 5 mg Oxychlorosene Sodium (Clorpactin Wcs-90) 2 gm TOP Q6H PRN PRN Reason: Other Pantoprazole Sodium (Protonix Susp) 40 mg PEG 0600 [facility] Last Admin: 05/13/18 05:57 Dose: 40 mg Primidone (Mysoline) 50 mg PO TID [facility] Last Admin: 05/12/18 17:33 Dose: 50 mg Tramadol HCl (Ultram) 50 mg GT BID PRN PRN Reason: Pain, moderate (4-7) Last Admin: 05/12/18 17:34 Dose: 50 mg - Labs Labs: 05/12/18 11:30 05/12/18 11:30 PT 11.0 SECONDS (9.4-12.5) 05/11/18 20:25 INR 0.97 05/11/18 20:25 APTT 25.3 Seconds (25.1-36.5) 05/11/18 20:25 Physical Exam - Constitutional Appears: Well, Non-toxic, No Acute Distress, Cachectic, Chronically Ill - Head Exam Head Exam: ATRAUMATIC, NORMOCEPHALIC - Eye Exam Eye Exam: EOMI - ENT Exam ENT Exam: Mucous Membranes Moist - Respiratory Exam Respiratory Exam: NORMAL BREATHING PATTERN - Cardiovascular Exam Cardiovascular Exam: REGULAR RHYTHM - GI/Abdominal Exam GI & Abdominal Exam: Soft, Nontender, No guarding, G-Tube in place, No leak or erythema appreciate, dressing CDI, surround area clean and dry - Rectal Exam Additional comments: rectal tube in place with liquid brown output - Extremities Exam Extremities exam: Positive for: pedal pulses present. Negative for: calf tenderness, pedal edema - Neurological Exam Neurological exam: Altered - Psychiatric Exam Psychiatric exam: Agitated - Skin Additional comments: left trochanteric stage 2 ulcer 3cm x 4 xcm, stage 3 sacral ulcer with tunneling superiorly 10cm x 12cm x 4 cm deep, stage 3 right gluteal ulcer 6cm x 8cm x 4cm deep with tunneling medially, health appearing skin edges and goo granulation tissue in sacral ulcer, - Wound vac in place; set to suction; intact small 3 cm x 4 cm area of fibrinous tissue in right trochanteric ulcer, no purulent fluid expressed, left lateral distal foot near 5th digit 3cm x 2 cm area of dark eschar unstageable Assessment and Plan - Assessment and Plan (Free Text) Assessment: 77 F w/ admitted w/ hypernatremia and multiple sacral ulcers Plan: Ambrosio Tipton DO PGY1 - Surgical Progress Note Dr. Hillman Wound Vac to be changed 05/15 C/w Daily wet to dry of wound on R hip F/u Stool cultures C. diff antigen and toxin negative Nutritional Optimization Air mattress Turn Q2 Further recs per Dr. Hillman to follow <Alvino Hillman - Last Filed: 05/13/18 10:28> Objective - Vital Signs/Intake and Output Vital Signs (last 24 hours): Temp Pulse Resp BP Pulse Ox 98.1 F 99 H 22 133/73 97 05/13/18 06:11 05/13/18 06:11 05/13/18 06:11 05/13/18 06:11 05/13/18 06:00 Intake and Output: 05/13/18 05/13/18 06:59 18:59 Intake Total 2980 Output Total 840 Balance 2140 - Medications Medications: Current Medications Acetaminophen (Tylenol 325mg Tab) 650 mg PO Q4H PRN PRN Reason: Fever >100.5 F Acetaminophen (Tylenol 650 Mg Supp) 650 mg RC Q6H PRN PRN Reason: Fever >100.4 F Acetaminophen (Tylenol 650mg/20.3ml Solution Ud) 650 mg PEG Q6H PRN PRN Reason: fevers Amlodipine Besylate (Norvasc) 5 mg PEG DAILY [facility] Last Admin: 05/12/18 10:05 Dose: 5 mg Atorvastatin Calcium (Lipitor) 10 mg PO DIN [facility] Last Admin: 05/12/18 17:34 Dose: 10 mg Fentanyl (Duragesic) 1 patch TD Q72H [facility] Last Admin: 05/12/18 17:34 Dose: 1 patch Ferrous Sulfate (Feosol Liq) 300 mg PEG BID [facility] Last Admin: 05/12/18 17:34 Dose: 300 mg Dextrose (Dextrose 5% In Water 1000 Ml) 1,000 mls @ 125 mls/hr IV .Q8H [facility] Last Admin: 05/13/18 05:57 Dose: 125 mls/hr Meropenem (Merrem Iv 1 Gm Premix) 1 gm in 50 mls @ 100 mls/hr IVPB Q8 [facility]; Protocol Last Admin: 05/13/18 05:58 Dose: 100 mls/hr Vancomycin HCl (Vancomycin 1gm) 1 gm in 250 mls @ 167 mls/hr IVPB Q12H [facility]; Protocol Last Admin: 05/13/18 06:31 Dose: 167 mls/hr Insulin Human Lispro (Humalog Low) 0 units SC ACHS [facility]; Protocol Last Admin: 05/12/18 22:00 Dose: Not Given Memantine (Namenda) 5 mg PEG DAILY [facility] Last Admin: 05/12/18 10:04 Dose: 5 mg Oxychlorosene Sodium (Clorpactin Wcs-90) 2 gm TOP Q6H PRN PRN Reason: Other Pantoprazole Sodium (Protonix Susp) 40 mg PEG 0600 [facility] Last Admin: 05/13/18 05:57 Dose: 40 mg Primidone (Mysoline) 50 mg PO TID [facility] Last Admin: 05/12/18 17:33 Dose: 50 mg Tramadol HCl (Ultram) 50 mg GT BID PRN PRN Reason: Pain, moderate (4-7) Last Admin: 05/12/18 17:34 Dose: 50 mg - Labs Labs: 05/13/18 07:30 05/13/18 07:30 PT 11.0 SECONDS (9.4-12.5) 05/11/18 20:25 INR 0.97 05/11/18 20:25 APTT 25.3 Seconds (25.1-36.5) 05/11/18 20:25 Assessment and Plan - Assessment and Plan (Free Text) Plan: Dx Sacral-Hip Decubitus Ulcers(Stage III) Uncontrolled diarrhea Andrea: Wound vac/work up diarrhea(ReC/S)/No colostomy needed now This consult done under my direct supervision George Hillman MD FACS
[2018-05-13 08:04] LABS: BASO # 0.03 K/mm3 (0.0-2.0); BASO % 0.2 % (0.0-3.0); EOS # 0.5 (0.0-0.7); EOS % 3.1 % (1.5-5.0); GRAN # 11.51 (1.4-6.5); GRAN % 76.4 % (50.0-68.0); LYMPH # 2.4 (1.2-3.4); LYMPH % 15.9 % (22.0-35.0); MEAN CELL VOLUME 95.4 fl (80.0-105.0); MEAN CORPUSCULAR HEMOGLOBIN 29.2 pg (25.0-35.0); MEAN CORPUSCULAR HGB CONC 30.6 g/dl (31.0-37.0); MEAN PLATELET VOLUME 13.1 fl (7.0-11.0); MONO # 0.7 (0.1-0.6); MONO % 4.4 % (1.0-6.0); RBC 3.67 10^6/uL (3.5-6.1); WHITE BLOOD COUNT 15.1 10^3/uL (4.5-11.0)
[2018-05-13 08:09] LABS: HEMOGLOBIN 10.7 g/dL (12.0-16.0)
[2018-05-13 08:25] LABS: ALB/GLOB RATIO 0.6 (1.1-1.8); ALBUMIN 2.4 g/dL (3.0-4.8); ALT/SGPT 324 U/L (7-56); AST/SGOT 131 U/L (14-36); BLOOD UREA NITROGEN 55 mg/dL (7-21); CALCIUM 8.3 mg/dL (8.4-10.5); GFR NON-AFRICAN AMERICAN > 60
--- NOTE | 2018-05-13 09:29 | PN ---
DATE: 05/13/2018 SUBJECTIVE: This 77-year-old female remains hospitalized, bedridden but her eyes are open. There have been no reports of fevers, chills or chest pain. OBJECTIVE: VITAL SIGNS: At the time of evaluation, her temperature was 98.1, respirations 22, pulse 99 and blood pressure 133/73. Pulse ox 97%. HEENT: Head: Normocephalic, atraumatic. Eyes: No icterus. NECK: Supple. HEART: S1, S2. LUNGS: No wheezing. ABDOMEN: PEG tube in place. EXTREMITIES: Improving skin turgor. VASCULAR: Legs warm to touch. She has a wound VAC and multiple wounds of hip, ankle and sacral area. NEUROLOGIC: Marked deconditioning and contractures. LABORATORY DATA: Her current labs show sodium 153, K is pending, chloride 118, bicarb 33, BUN 55, creatinine 0.8, random blood sugar 141, calcium 8.3, phosphorous 3.7, magnesium 2.2. Bilirubin 0.2, white count 15,100, hemoglobin 10.7, hematocrit 35.0, platelets 141,000. Her blood culture show no growth at 24 hours. Stool for C. diff toxin antigen and toxin are negative. IMPRESSION: A 77-year-old female with hypernatremia, prerenal azotemia in the setting of fluid dehydration with comorbidities of previous chronic renal failure, now resolved and anemia of chronic disease, iron-deficiency anemia, insulin-dependent diabetes mellitus, hyperlipidemia, infected sacral sores, organic brain syndrome, hypertension, peptic ulcer disease with gastroesophageal reflux disease and degenerative arthritis. PLAN: The plan at present is to continue D5W at 125 mL/hour and the patient continues on water flushes 200 mL every 6 hours as well. She will continue on Feosol, insulin, Lipitor, meropenem, Mysoline, Namenda, Norvasc, Protonix and IV vancomycin. She is scheduled to have serial labs. Once her electrolytes stable, she can be continued on water flushes as an outpatient and there is no indication for hemodialysis further at this point in time. Beatrice Martines MD [facility] # [id number]
[2018-05-13] MEDS: Ferrous Sulfate 300 mg/5 mL Liq UD PEG SCH ×2 (10:49→17:48)
[2018-05-13] MEDS: Insulin Lispro (humaLOG) LOW Coverage SC SCH ×2 (10:51→21:47)
--- NOTE | 2018-05-13 11:22 | CP.PCM.PCO ---
Physician Communication Note - Physician Communication Note Physician Communication Note: Severe diarrhea(?etiology-Working up)/Still hypernatremic
--- NOTE | 2018-05-13 14:56 | CP.PCM.CON ---
History of Present Illness - History of Present Illness History of Present Illness: Palliative consult requested by Dr Yana Mora Reason: Advance care planning 77 year old Rebekah Serbian female with history of demerit, dysphagia, multiple pressure ulcers and sepsis who as sent from [facility] o107/13/[address] of Chest: Near complete resolution of right pleural effusion. Left pleural effusion completely resolved. Improved aeration of lungs anasarca EKG: NSR Labs: PMHx: Dementia, HTN, DM, dyspahgia, multiple pressure ulcers of sacrum and hips, sepsis, bacteremia PHsx: PEG,wound debridements, wound vac Family History: Non contributory. Social History: Non smoker, no alcohol or drug use. Was living at home until last few months due to multiple hospitalizations and [facility] Advance Care Planning: There is A POLST which was competed in January 2018 while at [facility]. It designates Code status. It was signed by patient, rupinder ornelas kezia as patient is demented Review of Systems: As per HPI, patient is non verbal /altered unable to obtain l Past Patient History - Infectious Disease Hx of Infectious Diseases: None - Past Medical History & Family History Past Medical History?: Yes - Past Social History Smoking Status: Unknown If Ever Smoked - CARDIAC Hx Hypertension: Yes - PULMONARY Hx Respiratory Disorders: No - NEUROLOGICAL Hx Dementia: Yes - HEENT Hx HEENT Problems: No - RENAL Hx Chronic Kidney Disease: No - ENDOCRINE/METABOLIC Hx Diabetes Mellitus Type 2: Yes - HEMATOLOGICAL/ONCOLOGICAL Hx Blood Disorders: No - INTEGUMENTARY Hx Dermatological Problems: Yes Other/Comment: left gluteal decubiti ulcer with wound vac in place, right heel necrotic wound, multiple wounds to sacrum in various stages of healing, b/l bunyons, callous outer left foot, long thick toenails to both feet, crooked toes to left foot, dry skin, multiple skin discolorations ble - MUSCULOSKELETAL/RHEUMATOLOGICAL Hx Arthritis: Yes (CONTRACTED L HIP/KNEE AND B/L ELB) Hx Falls: No - GASTROINTESTINAL Hx Gastrointestinal Disorders: Yes (wt loss) - GENITOURINARY/GYNECOLOGICAL Hx Genitourinary Disorders: Yes Hx Incontinence: Yes (urine and stool) - PSYCHIATRIC Hx Psychophysiologic Disorder: Yes Hx Anxiety: Yes Other/Comment: dementia - SURGICAL HISTORY Hx Surgeries: No - ANESTHESIA Hx Anesthesia: No Meds Allergies/Adverse Reactions: Allergies Allergy/AdvReac Type Severity Reaction Status Date / Time No Known Allergies Allergy Verified 05/11/18 19:30 - Medications Medications: Current Medications Acetaminophen (Tylenol 325mg Tab) 650 mg PO Q4H PRN PRN Reason: Fever >100.5 F Acetaminophen (Tylenol 650 Mg Supp) 650 mg RC Q6H PRN PRN Reason: Fever >100.4 F Acetaminophen (Tylenol 650mg/20.3ml Solution Ud) 650 mg PEG Q6H PRN PRN Reason: fevers Amlodipine Besylate (Norvasc) 5 mg PEG DAILY [facility] Last Admin: 05/13/18 10:50 Dose: 5 mg Atorvastatin Calcium (Lipitor) 10 mg PO DIN [facility] Last Admin: 05/12/18 17:34 Dose: 10 mg Fentanyl (Duragesic) 1 patch TD Q72H [facility] Last Admin: 05/12/18 17:34 Dose: 1 patch Ferrous Sulfate (Feosol Liq) 300 mg PEG BID [facility] Last Admin: 05/13/18 10:49 Dose: 300 mg Dextrose (Dextrose 5% In Water 1000 Ml) 1,000 mls @ 125 mls/hr IV .Q8H [facility] Last Admin: 05/13/18 05:57 Dose: 125 mls/hr Meropenem (Merrem Iv 1 Gm Premix) 1 gm in 50 mls @ 100 mls/hr IVPB Q8 [facility]; Protocol Last Admin: 05/13/18 14:28 Dose: 100 mls/hr Vancomycin HCl (Vancomycin 1gm) 1 gm in 250 mls @ 167 mls/hr IVPB Q12H [facility]; Protocol Last Admin: 05/13/18 06:31 Dose: 167 mls/hr Insulin Human Lispro (Humalog Low) 0 units SC ACHS [facility]; Protocol Last Admin: 05/13/18 10:51 Dose: Not Given Memantine (Namenda) 5 mg PEG DAILY [facility] Last Admin: 05/13/18 10:50 Dose: 5 mg Oxychlorosene Sodium (Clorpactin Wcs-90) 2 gm TOP Q6H PRN PRN Reason: Other Pantoprazole Sodium (Protonix Susp) 40 mg PEG 0600 [facility] Last Admin: 05/13/18 05:57 Dose: 40 mg Primidone (Mysoline) 50 mg PO TID [facility] Last Admin: 05/13/18 14:27 Dose: 50 mg Tramadol HCl (Ultram) 50 mg GT BID PRN PRN Reason: Pain, moderate (4-7) Last Admin: 05/12/18 17:34 Dose: 50 mg Physical Exam - Constitutional Appears: Cachectic, Chronically Ill - Head Exam Head Exam: NORMOCEPHALIC - Eye Exam Eye Exam: Normal appearance, PERRL - ENT Exam ENT Exam: Mucous Membranes Moist, Normal Oropharynx - Neck Exam Neck exam: Positive for: Normal Inspection - Respiratory Exam Respiratory Exam: Decreased Breath Sounds, NORMAL BREATHING PATTERN - Cardiovascular Exam Cardiovascular Exam: REGULAR RHYTHM, +S1, +S2 - GI/Abdominal Exam GI & Abdominal Exam: Normal Bowel Sounds, Soft Additional comments: PEG patent, site dry no erythema - Rectal Exam Additional comments: rectal tube - Exam Additional comments: incontinent - Extremities Exam Extremities exam: Positive for: pedal edema Additional comments: contractures - Back Exam Additional comments: wound vac to sacrum - Neurological Exam Neurological exam: Altered - Skin Skin Exam: Dry, Pallor Results - Vital Signs Recent Vital Signs: Last Vital Signs Temp 98.1 F 05/13/18 06:11 Pulse 91 H 05/13/18 10:50 Resp 22 05/13/18 06:11 BP 131/64 05/13/18 10:50 Pulse Ox 97 05/13/18 06:00 - Labs Result Diagrams: 05/13/18 07:30 05/13/18 07:30 Labs: Laboratory Results - last 24 hr 05/12/18 05/12/18 05/12/18 15:56 20:52 21:15 WBC RBC Hgb Hct MCV MCH MCHC RDW Plt Count MPV Gran % Lymph % (Auto) Nash % (Auto) Eos % (Auto) Baso % (Auto) Gran # Lymph # (Auto) Nash # (Auto) Eos # (Auto) Baso # (Auto) Sodium Potassium Chloride Carbon Dioxide Anion Gap BUN Creatinine Est GFR ( Amer) Est GFR (Non-Af Amer) POC Glucose (mg/dL) 93 140 H Random Glucose Calcium Phosphorus Magnesium Total Bilirubin AST ALT Alkaline Phosphatase Total Protein Albumin Globulin Albumin/Globulin Ratio Blood Type O POSITIVE Antibody Screen Negative Crossmatch See Detail BBK History Checked Patient has bt 05/13/18 05/13/18 05/13/18 07:30 07:30 11:14 WBC 15.1 H RBC 3.67 Hgb 10.7 L D Hct 35.0 L MCV 95.4 D MCH 29.2 MCHC 30.6 L RDW 18.0 H Plt Count 141 MPV 13.1 H Gran % 76.4 H Lymph % (Auto) 15.9 L Nash % (Auto) 4.4 Eos % (Auto) 3.1 Baso % (Auto) 0.2 Gran # 11.51 H Lymph # (Auto) 2.4 Nash # (Auto) 0.7 H Eos # (Auto) 0.5 Baso # (Auto) 0.03 Sodium 153 H Potassium 3.9 Chloride 118 H Carbon Dioxide 33 Anion Gap 6 L BUN 55 H Creatinine 0.8 Est GFR ( Amer) > 60 Est GFR (Non-Af Amer) > 60 POC Glucose (mg/dL) 132 H Random Glucose 141 H Calcium 8.3 L Phosphorus 3.7 Magnesium 2.2 Total Bilirubin 0.2 AST 131 H ALT 324 H Alkaline Phosphatase 182 H Total Protein 6.2 Albumin 2.4 L Globulin 3.8 Albumin/Globulin Ratio 0.6 L Blood Type Antibody Screen Crossmatch BBK History Checked Assessment & Plan - Assessment and Plan (Free Text) Assessment: 77 year old female wit history of dementia, DM, sepsis, bacteremia,anemia, multiple pressure ulcers who is admitted with dehydration, anemia transaminitis,leukocytosis and hypernatremia Patient known to me from numerous previous admissions. Henea CHAMORRO difficult to reach, did not return my VM messages during last admission. Family has been in discussion with Dr. Mora and are aware of her medical condition. Per Dr Freed they want everything done to prolong patients life. Unable to leave VM for Ms Gonzalez today as her phone not accepting VM. The family was scheduled to meet with CARMINE, Ms Cha this morning but did not show up for appointment. Will continue to try and reach family in order to discuss goals of care Plan: Goals of care Wound care: Wound vac, Clorpactin, frequent repositioning, air mattress Anemia: Transfuse IIU's PRBC's Leukocytosis: Blood and wound cultures negative, Continue Vancomycin and Merrem> ID recs Hypernatremia: resolving, continue IFV's
--- NOTE | 2018-05-13 18:44 | PN ---
DATE: 05/13/2018 SUBJECTIVE: The patient is in bed in no acute distress. PHYSICAL EXAMINATION VITAL SIGNS: Temperature is 98, blood pressure is 120/60, respiratory of 18, heart rate of 100. HEENT: Examination of HEENT is unremarkable. NECK: Supple. CARDIOPULMONARY: Normal S1, S2. LUNGS: Have decreased breath sounds. ABDOMEN: Soft. LABORATORY DATA: Laboratory examination reveals a white count of 15,100, hemoglobin of 10. BUN of 55, creatinine of 0.8 and urinalysis is noted. Microbiology reveals this blood cultures are negative. Stool for C. diff is negative. ASSESSMENT AND PLAN: This is a 77-year-old female seen earlier today in 565, bed 1 with systemic inflammatory response syndrome with stage III left and right decubitus ulcer, wound VAC placement, hypertensive, dementia, dyslipidemia. On vancomycin and meropenem. Awaiting for culture results which are pending. Day #2 on vancomycin and meropenem. Awaiting for wound culture results. Eleazar Retana MD
[2018-05-14] MEDS: Pantoprazole 40 mg Susp UD PEG SCH (05:24)
[2018-05-14] MEDS: Meropenem IV 1 gm in NS 1 GM/50 ML BAG IVPB SCH ×2 (05:24→15:04)
[2018-05-14] MEDS: Vancomycin 1gm in NS 250ml 1 GM/250 ML BAG IVPB SCH (06:19)
[2018-05-14 07:25] LABS: HEMOGLOBIN 10.7 g/dL (12.0-16.0); MEAN CELL VOLUME 94.8 fl (80.0-105.0); MEAN CORPUSCULAR HEMOGLOBIN 29.1 pg (25.0-35.0); MEAN CORPUSCULAR HGB CONC 30.7 g/dl (31.0-37.0); RBC 3.68 10^6/uL (3.5-6.1); RED CELL DISTRIBUTION WIDTH 17.3 % (11.5-14.5); WHITE BLOOD COUNT 12.5 10^3/uL (4.5-11.0)
[2018-05-14 07:46] LABS: BLOOD UREA NITROGEN 40 mg/dL (7-21); CALCIUM 7.9 mg/dL (8.4-10.5); GFR NON-AFRICAN AMERICAN > 60
--- NOTE | 2018-05-14 08:21 | PN ---
DATE: 05/13/2018 SUBJECTIVE: Patient was seen and examined at bedside on 05/13/2018. Looking comfortable. No fever. No chills. No nausea or vomiting. No diarrhea. No hematuria. No hematochezia. No headache. No dizziness. No change in the status overnight. PHYSICAL EXAMINATION: VITAL SIGNS: Temperature 98.1, pulse 91, respiratory rate 20, blood pressure 131/64, pulse oximetry is 97%. HEENT: Head is normocephalic and atraumatic. Eyes PERRLA. Extraocular muscles are intact. Conjunctivae clear. Nose patent. Mucous membranes moist. NECK: Supple. No carotid bruits. No JVD or thyromegaly. CHEST: Bilaterally symmetrical. HEART: S1 and S2 positive. LUNGS: Clear to auscultation. ABDOMEN: Soft. Positive organomegaly. Having a PEG tube. EXTREMITIES: No edema. No cyanosis, but have multiple decubitus ulcer. LABORATORY DATA: White blood cell 15.1, hemoglobin 10.7, hematocrit 35, platelets 141. Sodium 152, potassium 3.9, BUN 55, creatinine 3.9, glucose 141. ASSESSMENT AND PLAN: Ms. Hilton Berg has hypernatremia, hyperchloremia, renal insufficiency, hyperglycemia, history of leukocytosis, anemia, history of dementia, bacteremia, anemia, multiple seizures. Had multiple decubitus ulcers, had dehydration, anemia, transaminitis, leukocytosis, hypernatremia. Patient has difficult situation for making decision. The patient has anemia, blood transfusion given, and she was instructed . Gastrointestinal and deep venous thrombosis prophylaxis. Patient is very sick, trying to make patient to comfort care. consult called. She spoke to the family. Patient has dysphagia, multiple ulcers, gastric and deep venous thrombosis prophylaxis. Repeat labs. We will follow. Kayleen Mora MD
[2018-05-14 09:39] VITALS: TEMP 98.3
[2018-05-14] MEDS: Insulin Lispro (humaLOG) LOW Coverage SC SCH ×4 (10:59→17:25)
[2018-05-14] MEDS: Ferrous Sulfate 300 mg/5 mL Liq UD PEG SCH ×2 (11:00→17:32)
--- NOTE | 2018-05-14 12:20 | CP.PCM.PN ---
Subjective - Date & Time of Evaluation Date of Evaluation: 05/14/18 Time of Evaluation: 11:00 - Subjective Subjective: alert, moaning, speech garbled Objective - Vital Signs/Intake and Output Vital Signs (last 24 hours): Temp Pulse Resp BP Pulse Ox 98.3 F 95 H 20 142/69 97 05/14/18 06:00 05/14/18 11:01 05/14/18 06:00 05/14/18 11:01 05/14/18 06:00 Intake and Output: 05/14/18 05/14/18 06:59 18:59 Intake Total 4680 Output Total 625 Balance 4055 - Medications Medications: Current Medications Acetaminophen (Tylenol 325mg Tab) 650 mg PO Q4H PRN PRN Reason: Fever >100.5 F Acetaminophen (Tylenol 650 Mg Supp) 650 mg RC Q6H PRN PRN Reason: Fever >100.4 F Acetaminophen (Tylenol 650mg/20.3ml Solution Ud) 650 mg PEG Q6H PRN PRN Reason: fevers Amlodipine Besylate (Norvasc) 5 mg PEG DAILY [facility] Last Admin: 05/14/18 11:01 Dose: 5 mg Atorvastatin Calcium (Lipitor) 10 mg PO DIN [facility] Last Admin: 05/13/18 17:47 Dose: 10 mg Fentanyl (Duragesic) 1 patch TD Q72H [facility] Last Admin: 05/12/18 17:34 Dose: 1 patch Ferrous Sulfate (Feosol Liq) 300 mg PEG BID [facility] Last Admin: 05/14/18 11:00 Dose: 300 mg Dextrose (Dextrose 5% In Water 1000 Ml) 1,000 mls @ 125 mls/hr IV .Q8H [facility] Last Admin: 05/14/18 10:59 Dose: 125 mls/hr Meropenem (Merrem Iv 1 Gm Premix) 1 gm in 50 mls @ 100 mls/hr IVPB Q8 [facility]; Protocol Last Admin: 05/14/18 05:24 Dose: 100 mls/hr Vancomycin HCl (Vancomycin 1gm) 1 gm in 250 mls @ 167 mls/hr IVPB Q12H [facility]; Protocol Last Admin: 05/14/18 06:19 Dose: 167 mls/hr Insulin Human Lispro (Humalog Low) 0 units SC ACHS [facility]; Protocol Last Admin: 05/14/18 12:00 Dose: Not Given Memantine (Namenda) 5 mg PEG DAILY [facility] Last Admin: 05/14/18 11:01 Dose: 5 mg Oxychlorosene Sodium (Clorpactin Wcs-90) 2 gm TOP Q6H PRN PRN Reason: Other Pantoprazole Sodium (Protonix Susp) 40 mg PEG 0600 [facility] Last Admin: 05/14/18 05:24 Dose: 40 mg Primidone (Mysoline) 50 mg PO TID [facility] Last Admin: 05/14/18 11:00 Dose: 50 mg Tramadol HCl (Ultram) 50 mg GT BID PRN PRN Reason: Pain, moderate (4-7) Last Admin: 05/14/18 10:59 Dose: 50 mg - Labs Labs: 05/14/18 06:45 05/14/18 06:45 PT 11.0 SECONDS (9.4-12.5) 05/11/18 20:25 INR 0.97 05/11/18 20:25 APTT 25.3 Seconds (25.1-36.5) 05/11/18 20:25 - Constitutional Appears: Cachectic, Chronically Ill - Eye Exam Eye Exam: Normal appearance, PERRL - ENT Exam ENT Exam: Mucous Membranes Moist - Respiratory Exam Respiratory Exam: Decreased Breath Sounds, NORMAL BREATHING PATTERN - Cardiovascular Exam Cardiovascular Exam: REGULAR RHYTHM, +S1, +S2 - GI/Abdominal Exam GI & Abdominal Exam: Soft, Normal Bowel Sounds Additional comments: PEG patent, no drainage at site, rectal tube - Exam Additional comments: jefferson - Extremities Exam Extremities Exam: Normal Capillary Refill Additional comments: contractures, pressure wounds both heels - Back Exam Additional comments: wound vaac to sacarl ulcer, bilateral hip ulcers - Neurological Exam Neurological Exam: Altered - Skin Skin Exam: Dry, Pallor Assessment and Plan - Assessment and Plan (Free Text) Assessment: 77 year old female with hsity of dementia, HTN,DM,sepsis,UTI, anemia, multiple pressures ulcer, dysphagia s/p PEG who is admitted with hypernatremia, anemia, transaminitis ,CKD. Still unable to reach POA, Heena Gonzalez via phone. Intent to discuss goals of c are and advance care planning. Plan: Scheduled to transition to [facility] Continue wound care, wound vac, PEG feedings. Continue all medications as ordered
[2018-05-14] MEDS ORDERED: Lidocaine 2% Inj (20ml) ONE (13:03)
[2018-05-14] MEDS ORDERED: Midazolam 2 MG/2 ML VIAL ONE (13:30)
--- NOTE | 2018-05-14 14:07 | CP.PCM.PN ---
Subjective - Date & Time of Evaluation Date of Evaluation: 05/14/18 Time of Evaluation: 09:25 - Subjective Subjective: Not in distress, no fevers. Objective - Vital Signs/Intake and Output Vital Signs (last 24 hours): Temp Pulse Resp BP Pulse Ox 98.3 F 95 H 20 142/69 97 05/14/18 06:00 05/14/18 11:01 05/14/18 06:00 05/14/18 11:01 05/14/18 06:00 Intake and Output: 05/14/18 05/14/18 06:59 18:59 Intake Total 4680 Output Total 625 Balance 4055 - Medications Medications: Current Medications Acetaminophen (Tylenol 325mg Tab) 650 mg PO Q4H PRN PRN Reason: Fever >100.5 F Acetaminophen (Tylenol 650 Mg Supp) 650 mg RC Q6H PRN PRN Reason: Fever >100.4 F Acetaminophen (Tylenol 650mg/20.3ml Solution Ud) 650 mg PEG Q6H PRN PRN Reason: fevers Amlodipine Besylate (Norvasc) 5 mg PEG DAILY [facility] Last Admin: 05/14/18 11:01 Dose: 5 mg Atorvastatin Calcium (Lipitor) 10 mg PO DIN [facility] Last Admin: 05/13/18 17:47 Dose: 10 mg Fentanyl (Duragesic) 1 patch TD Q72H [facility] Last Admin: 05/12/18 17:34 Dose: 1 patch Ferrous Sulfate (Feosol Liq) 300 mg PEG BID [facility] Last Admin: 05/14/18 11:00 Dose: 300 mg Dextrose (Dextrose 5% In Water 1000 Ml) 1,000 mls @ 125 mls/hr IV .Q8H [facility] Last Admin: 05/14/18 10:59 Dose: 125 mls/hr Meropenem (Merrem Iv 1 Gm Premix) 1 gm in 50 mls @ 100 mls/hr IVPB Q8 [facility]; Protocol Last Admin: 05/14/18 05:24 Dose: 100 mls/hr Vancomycin HCl (Vancomycin 1gm) 1 gm in 250 mls @ 167 mls/hr IVPB Q12H [facility]; Protocol Last Admin: 05/14/18 06:19 Dose: 167 mls/hr Insulin Human Lispro (Humalog Low) 0 units SC ACHS [facility]; Protocol Last Admin: 05/14/18 12:00 Dose: Not Given Memantine (Namenda) 5 mg PEG DAILY [facility] Last Admin: 05/14/18 11:01 Dose: 5 mg Oxychlorosene Sodium (Clorpactin Wcs-90) 2 gm TOP Q6H PRN PRN Reason: Other Pantoprazole Sodium (Protonix Susp) 40 mg PEG 0600 [facility] Last Admin: 05/14/18 05:24 Dose: 40 mg Primidone (Mysoline) 50 mg PO TID [facility] Last Admin: 05/14/18 11:00 Dose: 50 mg Tramadol HCl (Ultram) 50 mg GT BID PRN PRN Reason: Pain, moderate (4-7) Last Admin: 05/14/18 10:59 Dose: 50 mg - Labs Labs: 05/14/18 06:45 05/14/18 06:45 PT 11.0 SECONDS (9.4-12.5) 05/11/18 20:25 INR 0.97 05/11/18 20:25 APTT 25.3 Seconds (25.1-36.5) 05/11/18 20:25 - Constitutional Appears: Chronically Ill - Head Exam Head Exam: NORMAL INSPECTION - Respiratory Exam Respiratory Exam: Decreased Breath Sounds - Cardiovascular Exam Cardiovascular Exam: +S1, +S2 - GI/Abdominal Exam GI & Abdominal Exam: Soft. absent: Tenderness - Extremities Exam Additional comments: wound vacuum in place Assessment and Plan - Assessment and Plan (Free Text) Plan: Assessment SIRS, consider Infected stage 3 to 4 left and right decubitus ulcers for repeat wound vacuum placement HTN dyslipidemia dementia Plan continue Vancomycin and Merrem day 3 pending final wound cx results - preliminary result shows gram negative bacilli as per Surgery the wounds are improving overall prognosis is poor
[2018-05-14 14:17] VITALS: RESP 12
[2018-05-14 14:18] VITALS: O2SAT 100
[2018-05-14 14:37] VITALS: BP 132/61; PULSE 86
--- NOTE | 2018-05-14 17:54 | VASCULAR ---
PROCEDURE: Removal of tunneled right IJ dialysis catheter. CLINICAL HISTORY: Acute renal failure. Renal function has improved. Remove dialysis catheter PHYSICIAN(S): Dimitri Tariq M.D. TECHNIQUE: The relative risks and indications of the procedure were explained to the patient's power of coverstitch binder and consent obtained. The patient was placed supine on the arteriogram table and the tunneled right IJ dialysis catheter prepped and draped in the usual sterile fashion. Conscious sedation and monitoring were provided throughout the procedure by nurse. 1% Xylocaine was used to anesthetize skin and soft tissues along the tunnel. The tunnel and cuff were bluntly dissected. The catheter was removed and pressure applied at the venous insertion site. A single interrupted suture was placed at the exit site. The patient tolerated the procedure well. IMPRESSION: 1. Removal of the patient's tunneled right IJ dialysis catheter.
--- NOTE | 2018-05-14 20:43 | CP.PCM.PN ---
Objective - Vital Signs/Intake and Output Vital Signs (last 24 hours): Temp Pulse Resp BP Pulse Ox 98.3 F 86 12 132/61 100 05/14/18 14:30 05/14/18 14:30 05/14/18 14:30 05/14/18 14:30 05/14/18 14:30 - Labs Labs: 05/14/18 06:45 05/14/18 06:45 PT 11.0 SECONDS (9.4-12.5) 05/11/18 20:25 INR 0.97 05/11/18 20:25 APTT 25.3 Seconds (25.1-36.5) 05/11/18 20:25
== END 2018-05-14 18:00 | DRG 640 ==
LOC: ED 18:25 → ERH 21:43 → 5RNO 05-12 02:31
PROVIDERS: ADMIT Internal Medicine; ATTEND Internal Medicine
PROC: 30233N1 Transfusion of Nonautologous Red Blood Cells into Peripheral Vein, Percutaneous Approach (ICD-10-PCS; principal; 2018-05-12)
PROC: 2W15X6Z Compression of Back using Pressure Dressing (ICD-10-PCS; 2018-05-12)
PROC: 05PY33Z Removal of Infusion Device from Upper Vein, Percutaneous Approach (ICD-10-PCS; 2018-05-14)
DX: E87.0 Hyperosmolality and hypernatremia (principal); L89.153 Pressure ulcer of sacral region, stage 3; L89.213 Pressure ulcer of right hip, stage 3; Z68.1 Body mass index [BMI] 19.9 or less, adult; J90 Pleural effusion, not elsewhere classified; L97.309 Non-pressure chronic ulcer of unspecified ankle with unspecified severity; R65.10 Systemic inflammatory response syndrome (SIRS) of non-infectious origin without acute organ dysfunction; R64 Cachexia; E86.0 Dehydration; I10 Essential (primary) hypertension; F03.90 Unspecified dementia, unspecified severity, without behavioral disturbance, psychotic disturbance, mood disturbance, and anxiety; E11.9 Type 2 diabetes mellitus without complications; R94.5 Abnormal results of liver function studies; J44.9 Chronic obstructive pulmonary disease, unspecified; E88.09 Other disorders of plasma-protein metabolism, not elsewhere classified; E87.8 Other disorders of electrolyte and fluid balance, not elsewhere classified; D50.9 Iron deficiency anemia, unspecified; E78.5 Hyperlipidemia, unspecified; R32 Unspecified urinary incontinence; E78.00 Pure hypercholesterolemia, unspecified; R13.10 Dysphagia, unspecified; K21.9 Gastro-esophageal reflux disease without esophagitis; F09 Unspecified mental disorder due to known physiological condition; Z74.01 Bed confinement status; Z93.1 Gastrostomy status